=== PATIENT | male | born 1970 | race Caucasian/White ===

== ENCOUNTER → 2017-06-27 | Outpatient (CLI) | payer OTHER ==
--- NOTE | 2017-06-27 09:45 | MR ---
EXAMINATION TYPE: MR cervical spine wo con DATE OF EXAM: 06/27/2017 COMPARISON: NONE HISTORY: Cervicalgia, pain x 4 mths TECHNIQUE: Multiplanar, multisequence images of the cervical spine were acquired. C2-C3: No evidence for degenerative disc disease. No disc bulge/herniation or protrusion. No Canal stenosis. Foramina are patent bilaterally. Hypertrophic change facets noted. C3-C4: No evidence for degenerative disc disease. No disc bulge/herniation or protrusion. No Canal stenosis. Foramina are patent bilaterally. There is mild uncovertebral joint hypertrophy bilaterally . Mild bilateral foraminal encroachment. C4-C5: Hypertrophic change of the facet joints with mild uncovertebral joint hypertrophy and mild cir cumferential disc bulging. No Canal stenosis. Mild bilateral foraminal encroachment. C5-C6: Moderate degenerative disc disease with a broad-based central disc herniation resulting in ant erior contact of the spinal cord. Uncovertebral joint hypertrophy is more pronounced at this level wi th moderate left foraminal encroachment and moderate to severe right-sided foraminal encroachment. Th ere is mild to moderate central stenosis secondary to the disc herniation. C6-C7: No evidence for degenerative disc disease. No disc bulge/herniation or protrusion. No Canal stenosis. Foramina are patent bilaterally. C7-T1: No evidence for degenerative disc disease. No disc bulge/herniation or protrusion. No Canal stenosis. Foramina are patent bilaterally. Cervical segments are intact. There is normal alignment. Cervical spinal cord is of normal signal. Craniovertebral junction relationships are within normal limits. IMPRESSION: 1. At C5-C6 there is degenerative disc disease with broad-based central disc herniation resulting in anterior contact of the spinal cord and canal stenosis. Hypertrophic changes of the uncovertebral pearl nts result in significant bilateral foraminal encroachment as discussed above.
== END | disposition home or self-care (01) ==
LOC: RADMRIMAIN 08:56
PROVIDERS: ATTEND Physical Medicine & Rehabilitation
DX: M50.122 Cervical disc disorder at C5-C6 level with radiculopathy (principal); M48.02 Spinal stenosis, cervical region; M47.22 Other spondylosis with radiculopathy, cervical region; M53.82 Other specified dorsopathies, cervical region
CPT/HCPCS: 72141

== ENCOUNTER 2017-09-23 12:55 | Emergency (ER) | payer OTHER ==
[2017-09-23 13:05] VITALS: BP 167/92; PULSE 76; RESP 18; TEMP 99
--- NOTE | 2017-09-23 14:25 | ED ---
Skin/Abscess/FB HPI - General Chief complaint: Skin/Abscess/Foreign Body Stated complaint: fish hook in finger Time Seen by Provider: 09/23/17 14:01 Source: patient, RN notes reviewed Mode of arrival: ambulatory Limitations: no limitations - History of Present Illness Initial comments: This is a 47-year-old male who presents to the emergency department with chief complaint of fish hook in his finger. Patient states he was fishing at 12:30 PM. He states that the hook flew back and caught him in his right index finger. Denies any other injuries or trauma. Does state that he tried to remove it on his own but was unable to. States he is not up-to-date with his tetanus vaccination. Denies fever, chills, chest pain, shortness of breath, abdominal pain, nausea or vomiting, constipation or diarrhea, numbness or tingling, headache or vision changes. - Related Data Previous Rx's Medication Instructions Recorded Amoxicillin/Potassium Clav 1 tab PO Q12HR #14 tab 09/23/17 [Augmentin 875-125 Tablet] Allergies Allergy/AdvReac Type Severity Reaction Status Date / Time No Known Allergies Allergy Verified 09/23/17 13:05 Review of Systems ROS Statement: Those systems with pertinent positive or pertinent negative responses have been documented in the HPI. ROS Other: All systems not noted in ROS Statement are negative. Past Medical History Past Medical History: Hypertension History of Any Multi-Drug Resistant Organisms: None Reported Past Surgical History: No Surgical Hx Reported Past Psychological History: No Psychological Hx Reported Smoking Status: Never smoker Past Alcohol Use History: Rare Past Drug Use History: None Reported General Exam - General Exam Comments Initial Comments: General: Awake and alert, well-developed; in no apparent distress. HEENT: Head atraumatic, normocephalic. Pupils are equal, round and reactive to light. Extraocular movements intact. Oropharynx moist without erythema or exudate. Neck: Supple. Normal ROM. Cardiovascular: Regular rate and rhythm. No murmurs, rubs or gallops. Chest symmetrical. Respiratory: Lungs clear to auscultation bilaterally. No wheezes, rales or rhonchi. Normal respiratory effort with no use of accessory muscles. Musculoskeletal: Normal range of motion of the right index finger. There is a fishhook stuck in the pad of the right index finger. Sensation is intact. Radial pulses are 2+ equal and palpable bilaterally. Skin: [place], warm and dry without rashes or lesions. Neurological: Alert and oriented x3. CN II-XII grossly intact. Speech is fluent and answers are appropriate. No focal neuro deficits. Psychiatric: Normal mood and affect. No overt signs of depression or anxiety noted. Limitations: no limitations Course Vital Signs 09/23/17 13:02 Temperature 99.0 F Pulse Rate 76 Respiratory 18 Rate Blood Pressure 167/92 O2 Sat by Pulse 98 Oximetry Medical Decision Making - Medical Decision Making This is a 47-year-old male who presents to the emergency department with chief complaint of fishhook in his right index finger. Patient has normal range of motion and is neurovascularly intact. 1% lidocaine was used to numb around the fish hook. The hook was then advanced forward and the anatoliy was clipped. The hook was then advanced backwards and removed. Patient tolerated well without complication. Minimal bleeding. Wound was soaked in Betadine. Bacitracin and a dressing were applied. Patient made up-to-date with tetanus vaccination. He will be started on Augmentin. Vital signs are stable and he is in no acute distress. He will be discharged home at this time. All questions answered. Disposition Clinical Impression: Fish hook injury of index finger Disposition: HOME SELF-CARE Condition: Good Instructions: Soft Tissue Foreign Body (ED) Additional Instructions: Please follow up with primary care provider within 1-2 days. Return to emergency department if symptoms should worsen or any concerns arise. Prescriptions: Amoxicillin/Potassium Clav [Augmentin 875-125 Tablet] 1 tab PO Q12HR #14 tab Is patient prescribed a controlled substance at d/c from ED?: No Referrals: Kimberli Mendoza DO [Primary Care Provider] - 1-2 days Time of Disposition: 14:38
[2017-09-23] MEDS ORDERED: DIPH,PERTUS(ACELL)TETVAC-LF 0.5 ML VIAL IM ONE (14:32)
== END 2017-09-23 15:01 | disposition home or self-care (01) ==
LOC: EC 12:55
DX: S60.450A Superficial foreign body of right index finger, initial encounter (principal); Z23 Encounter for immunization; W22.8XXA Striking against or struck by other objects, initial encounter; Y93.89 Activity, other specified
CPT/HCPCS: 64450; 90471; 90715; 99283

== ENCOUNTER 2018-09-05 14:39 | Emergency (ER) | payer OTHER ==
[2018-09-05 15:01] VITALS: BP 164/94; PULSE 66; RESP 16; TEMP 98.3
--- NOTE | 2018-09-05 15:36 | XR ---
EXAMINATION TYPE: XR hand complete LT DATE OF EXAM: 09/05/2018 COMPARISON: NONE HISTORY: 48-year-old male with pain, laceration to the second digit TECHNIQUE: 3 views FINDINGS: Minimal degenerative spurring at the first CMC joint. No acute fracture, subluxation, or dislocation seen. No retained radiopaque foreign body identified. IMPRESSION: No acute osseous abnormality seen.
--- NOTE | 2018-09-05 15:41 | ED ---
Wound/Laceration HPI - General Chief Complaint: Wound/Laceration Stated Complaint: Finger lac Time Seen by Provider: 09/05/18 15:03 Source: patient Mode of arrival: ambulatory Limitations: no limitations - History of Present Illness Initial Comments: 48-year-old male with tetanus up-to-date present today for chief complaint of left index finger laceration. She states she is using a knife in his finger slipped cutting the knuckle of his left index finger on the dorsal surface. Patient denies numbness tingling loss sensation muscle weakness or inability range at the digit. He states he thought it might need a suture to presented for evaluation. Remaining review of systems negative denies any other areas of injury. Patient appears well upon arrival. - Related Data Previous Rx's Medication Instructions Recorded Amoxicillin/Potassium Clav 1 tab PO Q12HR #14 tab 09/23/17 [Augmentin 875-125 Tablet] Allergies Allergy/AdvReac Type Severity Reaction Status Date / Time No Known Allergies Allergy Verified 09/05/18 15:01 Review of Systems ROS Statement: Those systems with pertinent positive or pertinent negative responses have been documented in the HPI. ROS Other: All systems not noted in ROS Statement are negative. Past Medical History Past Medical History: Hypertension History of Any Multi-Drug Resistant Organisms: None Reported Past Surgical History: No Surgical Hx Reported Past Psychological History: No Psychological Hx Reported Smoking Status: Never smoker Past Alcohol Use History: Rare Past Drug Use History: None Reported General Exam - General Exam Comments Initial Comments: General: The patient is awake and alert, in no distress, and does not appear acutely ill. Eye: Pupils are equal, round and reactive to light, extra-ocular movements are intact. No nystagmus. There is normal conjunctiva bilaterally. No signs of icterus. Cardiovascular: There is a regular rate and rhythm. No murmur, rub or gallop is appreciated. Respiratory: Lungs are clear to auscultation, respirations are non-labored, breath sounds are equal. No wheezes, stridor, rales, or rhonchi. Musculoskeletal: Normal ROM, no tenderness. Strength 5/5. Sensation intact. Radial pulses equal bilaterally 2+. Capillary refill less than 2 seconds Neurological: A&O x 3. CN II-XII intact, There are no obvious motor or sensory deficits. Coordination appears grossly intact. Speech is normal. Skin: Skin is warm and dry and no rashes or lesions are noted. 1cm laceration appearing superifical over the PIP joint of the left index finger Psychiatric: Cooperative, appropriate mood & affect, normal judgment. Limitations: no limitations Course Vital Signs 09/05/18 14:58 Temperature 98.3 F Pulse Rate 66 Respiratory 16 Rate Blood Pressure 164/94 O2 Sat by Pulse 98 Oximetry Procedures - Laceration Laceration #1 Consent Obtained: verbal consent Indication: laceration Site: hand (index finger) Size (cm): 1 Description: linear Pre-repair: wound explored, irrigated extensively, deep structures intact Size of Sutures: 5-0 Number of Sutures: 1 Technique: simple, interrupted Patient Tolerated Procedure: well, no complications Medical Decision Making - Medical Decision Making 8-year-old male presenting for left index ear laceration. There is no evidence of underlying injury. X-ray negative for acute osseous injury or foreign body. Patient cut finger with knife. There is no limitation of range of motion at the MTP DIP or PIP joints. These joints have full strength. There is full sensation both proximal and distal to injury site. Patient has no decreased range of motion. Patient is mild pain at the site of laceration. Tetanus up-to-date. Edges were repaired using 1 simple interrupted suture using 5. 0 nylon suture. Patient tolerated procedure without lidocaine. Irrigation performed prior to closure. No contamination noted. Pt appears well. pt discharged appearing well. Discussed case with attending provider Dr. Alcocer Disposition Clinical Impression: Laceration of left index finger Disposition: HOME SELF-CARE Condition: Good Instructions (If sedation given, give patient instructions): Care For Your Stitches (ED), Finger Laceration (ED) Additional Instructions: Please use medication as discussed. Please follow-up with family doctor in the next 2 days. Please return to emergency room if the symptoms increase or worsen or for any other concerns. Is patient prescribed a controlled substance at d/c from ED?: No Referrals: Kimberli Mendoza DO [Primary Care Provider] - 1-2 days Time of Disposition: 15:40
== END 2018-09-05 15:53 | disposition home or self-care (01) ==
LOC: EC 14:39
DX: S61.211A Laceration without foreign body of left index finger without damage to nail, initial encounter (principal); W26.0XXA Contact with knife, initial encounter
CPT/HCPCS: 12001; 99283

== ENCOUNTER → 2018-11-17 | Outpatient (CLI) | payer OTHER ==
--- NOTE | 2018-11-17 20:26 | ECHOS ---
STRESS ECHOCARDIOGRAM INDICATIONS: Chest pain, abnormal EKG. MEDICATIONS: Glipizide, losartan. BASELINE HEART RATE: 68 BASELINE BLOOD PRESSURE: 156/97 MAXIMUM HEART RATE: 137 MAXIMUM BLOOD PRESSURE: 211/108 85% MPHR: 145 100% MPHR: 171 METS: 8.7 MAXIMUM STAGE REACHED: II TOTAL EXERCISE TIME: 7:19 CLINICAL INFORMATION: Baseline EKG revealed a normal sinus rhythm with leftward axis and minor nonspecific ST depression. There was poor R-wave progression over precordial leads. Patient walked on a standard [place] protocol for a total duration of 7 minutes 19 seconds, achieved a maximal heart rate of 137 beats per minute, which is less than 85% of predicted maximal. He developed some fatigue and shortness of breath. He also had a hypertensive response to exercise. Resting heart rate was 68 beats per minute and peak heart rate was 137 beats per minute. Resting blood pressure was 156/97. Peak blood pressure was 211/108. By EKG criteria, this is considered as an inconclusive stress test with hypertensive response. Patient did not achieve 85% of predicted maximal. However, he did not have any angina or arrhythmia. By EKG criteria, this is an inconclusive stress test with hypertensive response to exercise without subjective symptoms of angina. Baseline echo images revealed normal wall motion, wall thickening of all segments. At peak exercise there was good augmentation of left ventricular wall motion and wall thickening of all segments at the peak heart rate of 136 beats per minute, which is less than 85% of predicted maximal. This stress echocardiogram is negative for ischemia at the above-mentioned stress level. However, the maximal heart rate was less than 85% of predicted. FINAL IMPRESSION: 1. Limited exercise capacity. 2. Technically inconclusive stress test because of inadequate chronotropic response. However, patient did not have any angina and there were no EKG changes at a heart rate of 137 beats per minute. He had a hypertensive response to exercise. 3. Inconclusive stress echocardiogram without ischemia at a heart rate of 137 beats per minute. MMODL / IJN: [id number] /
== END | disposition home or self-care (01) ==
LOC: RADNMMAIN 08:34
PROVIDERS: ATTEND Family Medicine
DX: R94.39 Abnormal result of other cardiovascular function study (principal)
CPT/HCPCS: 93351

== ENCOUNTER → 2020-09-14 | Outpatient (CLI) | payer OTHER ==
[2020-09-14 11:15] LABS: Appearance,Urine Clear (Clear); Bilirubin,Urine Negative (Negative); Blood,Urine Negative (Negative); Color,Urine Yellow; Glucose,Urine (UA) Negative (Negative); Ketones,Urine Negative (Negative); Leukocyte Esterase,Urine Negative (Negative); Nitrite,Urine Negative (Negative); PH, Urine 5.5 (5.0-8.0); Protein,Urine Negative (Negative); Specific Gravity,Urine 1.017 (1.001-1.035); Urobilinogen,Urine <2.0 mg/dL (<2.0)
[2020-09-14 11:19] LABS: HCT 46.8 % (39.0-53.0); HGB 15.9 gm/dL (13.0-17.5); MCH 29.2 pg (25.0-35.0); MCV 85.8 fL (80.0-100.0); Mean Platelet Volume 6.8; Platelet Count 207 k/uL (150-450); RBC 5.45 m/uL (4.30-5.90); RDW 13.2 % (11.5-15.5); WBC 8.7 k/uL (3.8-10.6)
[2020-09-14 11:34] LABS: INR 0.9 (<1.2); Partial Thromboplastin Time 22.7 sec (22.0-30.0); Prothrombin Time 10.2 sec (9.0-12.0)
[2020-09-14 11:52] LABS: Albumin 4.8 g/dL (3.5-5.0); Calcium 9.6 mg/dL (8.4-10.2); Magnesium 1.9 mg/dL (1.6-2.3); Potassium 4.3 mmol/L (3.5-5.1); Total Bilirubin 0.7 mg/dL (0.2-1.3); Total Protein 7.4 g/dL (6.3-8.2)
--- NOTE | 2020-09-14 13:53 | XR ---
EXAMINATION TYPE: XR chest 2V DATE OF EXAM: 09/14/2020 COMPARISON: NONE HISTORY: Open heart surgery, slight cough TECHNIQUE: Frontal and lateral views of the chest are obtained. FINDINGS: Low lung volumes. Heart size is mildly enlarged. There is mild pulmonary interstitial prom inence which may be due to low lung volumes. Atypical infection or edema is not excluded. No pleural effusion or pneumothorax. IMPRESSION: 1. Mild pulmonary interstitial prominence may be due to low lung volumes. This may be due to mild silver ma or atypical infection. 2. Mild cardiomegaly.
[2020-09-14 18:56] LABS: Hemoglobin A1C 6.2 % (4.0-6.0)
[2020-09-14 19:10] LABS: Chol/HDL Ratio 3.74; LDL Cholesterol,Calculated 56.2 mg/dL (0.0-131.0); VLDL Calculation 58.8 mg/dL (5.00-40.00)
[2020-09-14 22:16] LABS: Hepatitis A Antibody IgM Non-Reactive (Non-Reactive); Hepatitis B Core IgM Non-Reactive (Non-Reactive); Hepatitis B Surface Antigen Non-Reactive (Non-Reactive); Hepatitis C IgG Antibody Non-Reactive (Non-Reactive)
--- NOTE | 2020-09-15 17:05 | P.PN ---
Progress Note - Text Progress Note Date: 09/14/20 A 5 m walk test was completed with the patient, Time 1: 1.63 seconds , Time 2: 1.92 seconds, Time 3: 1.55 seconds. An STS risk score was calculated and discussed with the patient by Dr. Ku.
== END | disposition home or self-care (01) ==
LOC: LABPAT 09:25
PROVIDERS: ATTEND Surgery
DX: Z01.812 Encounter for preprocedural laboratory examination (principal); Z20.822 Contact with and (suspected) exposure to COVID-19; I45.4 Nonspecific intraventricular block; I44.0 Atrioventricular block, first degree; I51.7 Cardiomegaly; I25.10 Atherosclerotic heart disease of native coronary artery without angina pectoris; R94.31 Abnormal electrocardiogram [ECG] [EKG]
CPT/HCPCS: 80061; 80053; 80074; 84443; 83735; 85027; 85610; 85730; 81003; 87070; 87086; 83036; 71046; 93005; 36415; U0003; C9803; U0005

== ENCOUNTER 2020-09-20 05:37 | Inpatient (IN) | payer OTHER ==
[~2020-09-20 05:37] MED LIST: ALBUMIN HUMAN 25% 50 ML IV ONE; ALBUMIN HUMAN 5% 500 ML IVPB ONE; ASPIRIN 325 MG TAB PO ONE; ATORVASTATIN 10 MG TAB PO ONE; CALCIUM CHLORIDE 100 MG/ML 10 ML SYRINGE IV ONE; CHLORHEXIDINE GLUCONATE 15 ML CUP MUCOUS MEM ONE; CLEVIDIPINE BUTYRATE 25 MG in EMPTY BAG 1 BAG IV ONE; DILTIAZEM 125 MG in SODIUM CHLORIDE 0.9% 100 ML IV ONE; ELECTROLYTE-A SOLUTION 1,000 ML with POTASSIUM CHLORIDE 100 MEQ, MAGNESIUM SULFATE 16 M... IV SCH; ELECTROLYTE-A SOLUTION 1,000 ML with POTASSIUM CHLORIDE 40 MEQ, MAGNESIUM SULFATE 16 ME... IV SCH; HEPARIN SODIUM 1,000 UN/ML (10ML VL) IV ONE; HEPARIN SODIUM,PORCINE 5,000 UNIT in SODIUM CHLORIDE 0.9% 500 ML 500 ML IV ONE; INSULIN REGULAR 100 UNIT in SODIUM CHLORIDE 0.9% 100 ML IV ONE; LACTATED RINGERS 1,000 ML IV ONE; MAGNESIUM SULFATE MG 500 MG/ML IV ONE; MANNITOL 25% 12.5 GM/50 ML VIAL IV ONE; METOPROLOL TARTRATE 12.5 MG TAB PO ONE; NITROGLYCERIN SL TABS 0.4 MG TAB SUBLINGUAL ONE; NITROGLYCERIN-D5W PMX 25 MG/250 ML BTL IV ONE; NITROGLYCERIN-D5W PMX 50 MG in DEXTROSE/WATER 1 250ML.BAG IV ONE; NOREPINEPHRINE 4 MG in SODIUM CHLORIDE 0.9% 250 ML IV ONE; PAPAVERINE 360 MG in SODIUM CHLORIDE 0.9% 90 ML IV ONE; PHENYLEPHRINE 10 MG/ML VIAL IV ONE; PHENYLEPHRINE 40 MG in SODIUM CHLORIDE 0.9% 250 ML IV ONE; PROTAMINE SULFATE 10 MG/ML 25 ML VIAL IV ONE; PROTAMINE SULFATE 250 MG in EMPTY BAG 1 BAG IV ONE; SODIUM BICARB 8.4% 50 ML SYR (1 MEQ/ML) IV ONE; SODIUM CHLORIDE 0.9% 1,000 ML IV ONE; TRANEXAMIC ACID 2,000 MG in SODIUM CHLORIDE 0.9% 80 ML IV ONE; ceFAZolin 1,000 MG in SODIUM CHLORIDE 0.9% IRRIGATIO 1,000 ML IRRIGATION ONE; propofoL 1,000 MG/100 ML VIAL IV ONE
[2020-09-20 06:23] LABS: Glucose,Whole Blood 131 mg/dL (75-99)
[2020-09-20] MEDS ORDERED: SUCCINYLCHOLINE CHLORIDE 100 MG/5 ML SYR IV ONE (07:32)
[2020-09-20] MEDS ORDERED: VECURONIUM 10 MG VIAL IV ONE (07:32)
[2020-09-20] MEDS ORDERED: TRANEXAMIC ACID 1,000 MG/10 ML VIAL ONE (07:32)
[2020-09-20] MEDS ORDERED: INSULIN REGULAR 100 UNIT/ML VIAL (IV) ONE (07:32)
[2020-09-20] MEDS ORDERED: SODIUM CHLORIDE 0.9% IRRIG 1,000 ML BTL IRRIGATION ONE (07:32)
[2020-09-20] MEDS ORDERED: fentaNYL (PF) 50 MCG/ML 50 ML VIAL ONE (07:32)
[2020-09-20] MEDS ORDERED: MIDAZOLAM 2 MG/2 ML VIAL ONE (07:32)
[2020-09-20] MEDS ORDERED: PROPOFOL 10 MG/ML 20 ML VIAL IV ONE (07:32)
[2020-09-20] MEDS ORDERED: fentaNYL (PF) 50 MCG/ML 2 ML AMP ONE (07:32)
[2020-09-20] MEDS ORDERED: LIDOCAINE 2% SYG (PF) 100 MG/5 ML ONE (07:32)
[2020-09-20] MEDS ORDERED: SODIUM CHLORIDE 0.9% 250 ML BAG ONE (07:32)
[2020-09-20] MEDS ORDERED: MAGNESIUM SULFATE 4 MEQ/ML 10ML VIAL ONE (07:32)
[2020-09-20] MEDS ORDERED: HEPARIN SODIUM,PORCINE 10,000 UNIT/ML 1 ML VIAL ONE (07:32)
[2020-09-20] MEDS ORDERED: ELECTROLYTE-R (PH 7.4) 1,000 ML IV.SOLN IV ONE (07:32)
[2020-09-20] MEDS ORDERED: PHENYLEPHRINE-0.9% NACL SYG 1,000 MCG/10 ML SYRINGE ONE (07:32)
[2020-09-20] MEDS ORDERED: PROTAMINE SULFATE 10 MG/ML 25 ML VIAL IV ONE (07:32)
[2020-09-20 07:35] LABS: African American GFR (CKD) >90 (>60 ml/min/1.73 sqM); Anion Gap 7 mmol/L; Blood Urea Nitrogen 21 mg/dL (9-20); Calcium 8.7 mg/dL (8.4-10.2); Carbon Dioxide 27 mmol/L (22-30); Chloride 107 mmol/L (98-107); Glucose 131 mg/dL (74-99); Non-African American GFR(CKD) 85 (>60 ml/min/1.73 sqM); Potassium 4.1 mmol/L (3.5-5.1); Sodium 141 mmol/L (137-145)
[2020-09-20 08:48] LABS: ABG Base Excess 0.6 mmol/L; ABG Glucose Whole Blood 132 mg/dL (75-99); ABG HCO3 27 mmol/L (21-25); ABG Hematocrit 44 % (34.0-46.0); ABG Ionized Calcium 4.6 mg/dL (4.5-5.3); ABG Lactic Acid Whole Blood 1.1 mmol/L (0.5-1.6); ABG Oxygen Saturation 99.3 % (94-97); ABG PCO2 47 mmHg (35-45); ABG PH 7.36 (7.35-7.45); ABG PO2 143 mmHg (83-108); ABG Potassium Whole Blood 4.4 mmol/L (3.4-4.5); ABG Sodium Whole Blood 143 mmol/L (135-146); ABG TCO2 28 mmol/L (19-24)
[2020-09-20 10:13] LABS: ABG Base Excess -0.1 mmol/L; ABG Glucose Whole Blood 161 mg/dL (75-99); ABG HCO3 25 mmol/L (21-25); ABG Hematocrit 42 % (34.0-46.0); ABG Ionized Calcium 4.6 mg/dL (4.5-5.3); ABG Lactic Acid Whole Blood 1.1 mmol/L (0.5-1.6); ABG PCO2 44 mmHg (35-45); ABG PH 7.37 (7.35-7.45); ABG PO2 393 mmHg (83-108); ABG Potassium Whole Blood 4.4 mmol/L (3.4-4.5); ABG Sodium Whole Blood 142 mmol/L (135-146); ABG TCO2 27 mmol/L (19-24)
[2020-09-20 11:12] LABS: ABG Base Excess -0.6 mmol/L; ABG Glucose Whole Blood 142 mg/dL (75-99); ABG HCO3 25 mmol/L (21-25); ABG Hematocrit 41 % (34.0-46.0); ABG Ionized Calcium 4.5 mg/dL (4.5-5.3); ABG Lactic Acid Whole Blood 1.4 mmol/L (0.5-1.6); ABG PCO2 43 mmHg (35-45); ABG PH 7.37 (7.35-7.45); ABG PO2 229 mmHg (83-108); ABG Potassium Whole Blood 4.1 mmol/L (3.4-4.5); ABG Sodium Whole Blood 142 mmol/L (135-146); ABG TCO2 26 mmol/L (19-24)
[2020-09-20 12:12] LABS: ABG Base Excess -1.1 mmol/L; ABG Glucose Whole Blood 112 mg/dL (75-99); ABG HCO3 25 mmol/L (21-25); ABG Hematocrit 29 % (34.0-46.0); ABG Lactic Acid Whole Blood 1.7 mmol/L (0.5-1.6); ABG PCO2 47 mmHg (35-45); ABG PH 7.33 (7.35-7.45); ABG PO2 366 mmHg (83-108); ABG Potassium Whole Blood 4.6 mmol/L (3.4-4.5); ABG Sodium Whole Blood 139 mmol/L (135-146); ABG TCO2 26 mmol/L (19-24)
[2020-09-20 12:56] LABS: ABG Base Excess -0.5 mmol/L; ABG Glucose Whole Blood 131 mg/dL (75-99); ABG HCO3 25 mmol/L (21-25); ABG Hematocrit 28 % (34.0-46.0); ABG PCO2 43 mmHg (35-45); ABG PH 7.37 (7.35-7.45); ABG PO2 314 mmHg (83-108); ABG Potassium Whole Blood 4.6 mmol/L (3.4-4.5); ABG Sodium Whole Blood 141 mmol/L (135-146); ABG TCO2 26 mmol/L (19-24)
[2020-09-20 13:27] LABS: ABG Glucose Whole Blood 169 mg/dL (75-99); ABG HCO3 24 mmol/L (21-25); ABG Hematocrit 27 % (34.0-46.0); ABG Ionized Calcium 3.9 mg/dL (4.5-5.3); ABG PCO2 42 mmHg (35-45); ABG PH 7.36 (7.35-7.45); ABG PO2 321 mmHg (83-108); ABG Potassium Whole Blood 4.4 mmol/L (3.4-4.5); ABG Sodium Whole Blood 141 mmol/L (135-146); ABG TCO2 25 mmol/L (19-24)
[2020-09-20 13:44] LABS: ABG Lactic Acid Whole Blood 2.2 mmol/L (0.5-1.6)
[2020-09-20 14:06] LABS: ABG Base Excess -3.1 mmol/L; ABG Glucose Whole Blood 154 mg/dL (75-99); ABG HCO3 23 mmol/L (21-25); ABG Hematocrit 27 % (34.0-46.0); ABG PCO2 43 mmHg (35-45); ABG PH 7.33 (7.35-7.45); ABG PO2 384 mmHg (83-108); ABG Potassium Whole Blood 4.3 mmol/L (3.4-4.5); ABG Sodium Whole Blood 141 mmol/L (135-146); ABG TCO2 24 mmol/L (19-24)
[2020-09-20 14:59] LABS: ABG Base Excess -0.4 mmol/L; ABG Glucose Whole Blood 138 mg/dL (75-99); ABG HCO3 25 mmol/L (21-25); ABG Hematocrit 27 % (34.0-46.0); ABG Oxygen Saturation 98.3 % (94-97); ABG PCO2 46 mmHg (35-45); ABG PH 7.35 (7.35-7.45); ABG PO2 95 mmHg (83-108); ABG Potassium Whole Blood 3.9 mmol/L (3.4-4.5); ABG Sodium Whole Blood 147 mmol/L (135-146); ABG TCO2 27 mmol/L (19-24)
[2020-09-20 15:19] LABS: ABG Lactic Acid Whole Blood 2.2 mmol/L (0.5-1.6)
[2020-09-20 15:20] LABS: ABG Lactic Acid Whole Blood 2.3 mmol/L (0.5-1.6)
[2020-09-20] MEDS ORDERED: DILTIAZEM 125 MG in SODIUM CHLORIDE 0.9% 100 ML IV SCH (16:00)
[2020-09-20] MEDS ORDERED: AMIODARONE 450 MG in DEXTROSE 5% IN WATER 250 ML IV PRN ×2 (16:10)
[2020-09-20] MEDS ORDERED: DEXMEDETOMIDINE/0.9% NACL(PMX) 400 MCG in EMPTY BAG 1 BAG IV SCH (16:10)
[2020-09-20] MEDS ORDERED: Magnesium Replacement Protocol 1 EACH MISC MISCELLANE PRN (16:10)
[2020-09-20] MEDS ORDERED: METOCLOPRAMIDE 5 MG/ML 2 ML VIAL IVP PRN (16:10)
[2020-09-20] MEDS ORDERED: Potassium Replacement Protocol 1 EACH MISC MISCELLANE PRN (16:10)
[2020-09-20] MEDS ORDERED: CALCIUM GLUCONATE 2 GM in SODIUM CHLORIDE 0.9% 100 ML IVPB PRN (16:10)
[2020-09-20] MEDS ORDERED: IPRATROPIUM-ALBUTEROL 3 ML NEB INHALATION PRN (16:10)
[2020-09-20] MEDS ORDERED: CLEVIDIPINE BUTYRATE 25 MG in EMPTY BAG 1 BAG IV SCH (16:10)
[2020-09-20] MEDS ORDERED: Phosphorus Replacement Protoco 1 EACH MISC MISCELLANE PRN (16:10)
[2020-09-20] MEDS ORDERED: NITROGLYCERIN-D5W PMX 50 MG in DEXTROSE/WATER 1 250ML.BAG IV SCH (16:10)
[2020-09-20] MEDS ORDERED: BENZOCAINE/MENTHOL LOZENG 1 EACH LOZENGE MUCOUS MEM PRN (16:10)
[2020-09-20] MEDS ORDERED: hydrALAZINE HCL 20 MG/ML 1 ML VIAL IVP PRN (16:10)
[2020-09-20] MEDS ORDERED: AMIODARONE 360 MG in DEXTROSE 5% IN WATER 200 ML IV PRN ×2 (16:10)
[2020-09-20] MEDS ORDERED: DEXTROSE 5% IN WATER 100 ML with AMIODARONE 150 MG IV PRN (16:10)
[2020-09-20] MEDS: IPRATROPIUM-ALBUTEROL 3 ML NEB INHALATION SCH ×2 (16:39→20:04)
[2020-09-20 16:49] LABS: Glucose,Whole Blood 140 mg/dL (75-99)
[2020-09-20 16:53] LABS: Basophils % (A) 0 %; Eosinophils % (A) 0 %; HCT 30.7 % (39.0-53.0); Lymphocytes # (A) 1.3 k/uL (1.0-4.8); Lymphocytes % (A) 8 %; MCH 30.5 pg (25.0-35.0); MCHC 36.1 g/dL (31.0-37.0); MCV 84.4 fL (80.0-100.0); Monocytes # (A) 1.2 k/uL (0-1.0); Monocytes % (A) 7 %; Neutrophils # (A) 14.7 k/uL (1.3-7.7); Neutrophils % (A) 84 %; Platelet Count 198 k/uL (150-450); RBC 3.63 m/uL (4.30-5.90); RDW 12.7 % (11.5-15.5); WBC 17.6 k/uL (3.8-10.6)
[2020-09-20 16:56] LABS: Allen Test Performed? Yes
[2020-09-20 16:57] LABS: ABG Base Excess 0.3 mmol/L; ABG HCO3 25 mmol/L (21-25); ABG Oxygen Saturation 99.9 % (94-97); ABG PCO2 42 mmHg (35-45); ABG PH 7.39 (7.35-7.45); ABG PO2 384 mmHg (83-108); ABG TCO2 27 mmol/L (19-24)
[2020-09-20 17:00] LABS: Ionized Calcium 4.6 mg/dL (4.5-5.3)
[2020-09-20 17:05] LABS: HGB 11.1 gm/dL (13.0-17.5)
--- NOTE | 2020-09-20 17:05 | XR ---
EXAMINATION TYPE: XR chest 1V portable DATE OF EXAM: 09/20/2020 COMPARISON: 09/14/2020 HISTORY: Cardiac surgery TECHNIQUE: Single view FINDINGS: There is nasogastric tube in the stomach. Endotracheal tube is 4.5 cm from the larry. Ther e is right jugular catheter with tip in the main pulmonary artery. There is no heart failure. Heart i s enlarged. There is a drain over the left heart. IMPRESSION: Mild atelectasis left lower lobe unchanged. No pneumothorax. No heart failure.
[2020-09-20 17:09] LABS: ALT 22 U/L (4-49); AST 47 U/L (17-59); African American GFR (CKD) >90 (>60 ml/min/1.73 sqM); Albumin 2.8 g/dL (3.5-5.0); Alkaline Phosphatase 64 U/L (38-126); Anion Gap 3 mmol/L; Blood Urea Nitrogen 17 mg/dL (9-20); Calcium 7.5 mg/dL (8.4-10.2); Carbon Dioxide 26 mmol/L (22-30); Chloride 111 mmol/L (98-107); Glucose 133 mg/dL (74-99); Magnesium 2.6 mg/dL (1.6-2.3); Non-African American GFR(CKD) >90 (>60 ml/min/1.73 sqM); Potassium 4.4 mmol/L (3.5-5.1); Sodium 140 mmol/L (137-145); Total Bilirubin 1.4 mg/dL (0.2-1.3); Total Protein 4.5 g/dL (6.3-8.2)
[2020-09-20 17:14] LABS: Glucose,Whole Blood 121 mg/dL (75-99)
[2020-09-20 17:19] LABS: INR 1.1 (<1.2); Partial Thromboplastin Time 22.5 sec (22.0-30.0); Prothrombin Time 11.5 sec (9.0-12.0)
[2020-09-20] MEDS: INSULIN REGULAR 100 UNIT in SODIUM CHLORIDE 0.9% 100 ML IV SCH (17:19)
--- NOTE | 2020-09-20 17:47 | P.CNPUL ---
History of Present Illness Consult date: 09/20/20 Reason for consult: chest pain Chief complaint: Coronary artery disease, status post bypass grafting History of present illness: 50-year-old white male patient with past medical history of hypertension, hyperlipidemia, borderline diabetes mellitus, with preop hemoglobin A1c of 6.0, patient has a brief and remote history of smoking, only smoked a year or 2. Patient had a recent history of COVID 19 infection in June,. Patient had been having complaints of chest pain, for which he underwent cardiac evaluation and was found to have multivessel coronary artery disease including left main coronary artery, moderate disease involving the left circumflex and the LAD. On 09/20/2020 patient underwent four-vessel coronary artery bypass grafting with BASHIR to the LAD, SVG to the OM, SVG to the PLV, and radial graft to the ramus. Patient is seen in the intensive care unit following his surgery, he is intubated, and sedated, currently on assist control mode of ventilation with a rate of 14, tidal volume of 550, FiO2 of 100% and PEEP of 8. His postoperative blood gas showed pO2 of 384, pCO2 of 42, and pH of 7.39, and this was done on FiO2 100% and FiO2 had since been cut back to 40%, he is currently on 0.9 normal saline at a rate of 50 ML per hour, nitroglycerin is at 5 mics per kilo per minute, and improving and is at 25 mics per kilo per minute. Patient has 2 mediastinal and one left pleural chest tube in place with small amount of sanguinous output, he is in sinus mechanism, a bradycardic with a rate of 53 bpm, he has epicardial wires connected to external temporary pacemaker which is set to VVI mode with a backup rate of 50. Hemodynamically he is stable. His PA pressures 36/21, CVP is 15, cardiac output is 4.7, cardiac index is 2.1. His postoperative blood work has been reviewed showing white blood cell count of 17.6, hemoglobin of 11.1, INR is 1.1, electrolytes and renal profile were unremarkable, LFTs were within normal limits. Review of Systems All systems: negative Constitutional: Denies chills, Denies fever Eyes: denies blurred vision, denies pain Ears, nose, mouth and throat: Denies headache, Denies sore throat Cardiovascular: Denies chest pain, Denies shortness of breath Respiratory: Reports dyspnea, Denies cough Gastrointestinal: Denies abdominal pain, Denies diarrhea, Denies nausea, Denies vomiting Musculoskeletal: Denies myalgias Integumentary: Denies pruritus, Denies rash Neurological: Denies numbness, Denies weakness Psychiatric: Denies anxiety, Denies depression Endocrine: Denies fatigue, Denies weight change Past Medical History Past Medical History: Chest Pain / Angina, Hyperlipidemia, Hypertension, Musculoskeletal Disorder Additional Past Medical History / Comment(s): no current chest pain, cervical problems c-5 thru c-7, had covid beginning of July-resolved History of Any Multi-Drug Resistant Organisms: None Reported Past Surgical History: Heart Catheterization Additional Past Anesthesia/Blood Transfusion Reaction / Comment(s): no family problems w/anesthesia, pt. has never had anesthesia Smoking Status: Former smoker - Past Family History Father Family Medical History: Cancer Medications and Allergies Home Medications Medication Instructions Recorded Confirmed Type Aspirin 81 mg PO DAILY 09/14/20 09/14/20 History Atorvastatin [Lipitor] 80 mg PO HS 09/14/20 09/14/20 History Isosorbide Mononitrate [Isosorbide 60 mg PO DAILY 09/14/20 09/14/20 History Mononitrate ER] Losartan Potassium [Cozaar] 100 mg PO DAILY 09/14/20 09/14/20 History Metoprolol Tartrate [Lopressor] 25 mg PO BID 09/14/20 09/14/20 History Nitroglycerin Sl Tabs [Nitrostat] 0.4 mg SUBLINGUAL Q5M PRN 09/14/20 09/14/20 History amLODIPine BESYLATE 10 mg PO DAILY 09/14/20 09/14/20 History Allergies Allergy/AdvReac Type Severity Reaction Status Date / Time lisinopril AdvReac Cough Verified 09/20/20 06:08 Physical Exam Vitals: Vital Signs Temp Pulse Pulse Pulse Resp BP BP 09/20/20 17:00 97.0 F L 53 L 15 09/20/20 16:52 54 L 09/20/20 16:45 61 13 09/20/20 16:41 54 L 09/20/20 16:30 96.8 F L 54 L 14 09/20/20 06:10 97.6 F 67 65 16 145/84 135/89 Pulse Ox 09/20/20 17:00 100 09/20/20 16:52 09/20/20 16:45 09/20/20 16:41 09/20/20 16:30 09/20/20 06:10 96 Intake and Output 09/20/20 09/20/20 09/20/20 06:59 14:59 22:59 Intake Total 53 Output Total 2400 Balance 53 -2400 Intake: IV 53 Output: Urine 900 Estimated Blood Loss 1500 Other: Weight 103 kg ABP, PAP, CO, CI - Last 8 Hours Arterial Blood Pressure 108/62 Arterial Blood Pressure 125/78 Arterial Blood Pressure 106/69 Arterial Blood Pressure 105/67 Pulmonary Artery Pressure 34/19 Pulmonary Artery Pressure 40/25 Cardiac Output 4.7 Cardiac Index 2.1 GENERAL EXAM: Sedated, intubated, 50-year-old white male, on assist-control mode of ventilation with a FiO2 of 40%, and PEEP of 8, comfortable in no apparent distress. HEAD: Normocephalic/atraumatic. EYES: Normal reaction of pupils, equal size. Conjunctiva pink, sclera white. NOSE: Clear with pink turbinates. THROAT: No erythema or exudates. NECK: No masses, no JVD, no thyroid enlargement, no adenopathy. CHEST: No chest wall deformity. Symmetrical expansion. Midsternal incision is clean dry and intact, 2 mediastinal and left pleural chest tube in place connected to Pleur-evac's, with small amount of sanguinous output, no air leak, epicardial wires connected to external pacemaker box with the VVI mode, with a backup rate of 50 LUNGS: Equal air entry with no crackles, wheeze, rhonchi or dullness. CVS: Regular rate and rhythm, normal S1 and S2, no gallops, no murmurs, no rubs ABDOMEN: Soft, nontender. No hepatosplenomegaly, normal bowel sounds, no guarding or rigidity. EXTREMITIES: No clubbing, no edema, no cyanosis, 2+ pulses and upper and lower extremities. Left radial artery harvest site is covered with a surgical dressing MUSCULOSKELETAL: Muscle strength and tone normal. SPINE: No scoliosis or deformity SKIN: No rashes CENTRAL NERVOUS SYSTEM: Sedated, intubated No focal deficits, tone is normal in all 4 extremities. Results - Laboratory Findings CBC and BMP: 09/20/20 16:40 09/20/20 16:40 ABG ABG pH 7.39 (7.35-7.45) 09/20/20 16:54 ABG pCO2 42 mmHg (35-45) 09/20/20 16:54 ABG pO2 384 mmHg (83-108) H 09/20/20 16:54 ABG O2 Saturation 99.9 % (94-97) H 09/20/20 16:54 PT/INR, D-dimer PT 11.5 sec (9.0-12.0) 09/20/20 16:40 INR 1.1 (<1.2) 09/20/20 16:40 Abnormal lab findings: Abnormal Labs 09/14/20 09/20/20 09/20/20 10:12 06:19 06:45 WBC RBC Hgb Hct Neutrophils # Monocytes # ABG pH ABG pCO2 ABG pO2 ABG HCO3 ABG Total CO2 ABG O2 Saturation ABG Hematocrit ABG Sodium ABG Potassium ABG Ionized Calcium ABG Glucose ABG Lactic Acid Hemoglobin Chloride BUN 21 H Glucose 131 H POC Glucose (mg/dL) 131 H Calcium Magnesium Total Bilirubin Total Protein Albumin Arterial Blood Potassium Arterial Blood Glucose Crossmatch See Detail 09/20/20 09/20/20 09/20/20 08:50 10:15 11:14 WBC RBC Hgb Hct Neutrophils # Monocytes # ABG pH ABG pCO2 47 H ABG pO2 143 H 393 H 229 H ABG HCO3 27 H ABG Total CO2 28 H 27 H 26 H ABG O2 Saturation 99.3 H 100.0 H 100.0 H ABG Hematocrit ABG Sodium ABG Potassium ABG Ionized Calcium ABG Glucose 132 H 161 H 142 H ABG Lactic Acid Hemoglobin Chloride BUN Glucose POC Glucose (mg/dL) Calcium Magnesium Total Bilirubin Total Protein Albumin Arterial Blood Potassium Arterial Blood Glucose 132 H 161 H 142 H Crossmatch 09/20/20 09/20/20 09/20/20 12:14 12:58 13:29 WBC RBC Hgb Hct Neutrophils # Monocytes # ABG pH 7.33 L ABG pCO2 47 H ABG pO2 366 H 314 H 321 H ABG HCO3 ABG Total CO2 26 H 26 H 25 H ABG O2 Saturation 100.0 H 100.0 H 100.0 H ABG Hematocrit 29 L 28 L 27 L ABG Sodium ABG Potassium 4.6 H 4.6 H ABG Ionized Calcium 4.0 L 4.0 L 3.9 L ABG Glucose 112 H 131 H 169 H ABG Lactic Acid 1.7 H 2.2 H* 2.0 H Hemoglobin 9.3 L 9.2 L 8.9 L Chloride BUN Glucose POC Glucose (mg/dL) Calcium Magnesium Total Bilirubin Total Protein Albumin Arterial Blood Potassium 4.6 H 4.6 H Arterial Blood Glucose 112 H 131 H 169 H Crossmatch 09/20/20 09/20/20 09/20/20 14:08 15:01 16:40 WBC 17.6 H RBC 3.63 L Hgb 11.1 L D Hct 30.7 L Neutrophils # 14.7 H Monocytes # 1.2 H ABG pH 7.33 L ABG pCO2 46 H ABG pO2 384 H ABG HCO3 ABG Total CO2 27 H ABG O2 Saturation 100.0 H 98.3 H ABG Hematocrit 27 L 27 L ABG Sodium 147 H ABG Potassium ABG Ionized Calcium 4.0 L 4.0 L ABG Glucose 154 H 138 H ABG Lactic Acid 2.2 H* 2.3 H* Hemoglobin 8.8 L 8.9 L Chloride BUN Glucose POC Glucose (mg/dL) Calcium Magnesium Total Bilirubin Total Protein Albumin Arterial Blood Potassium Arterial Blood Glucose 154 H 138 H Crossmatch 09/20/20 09/20/20 09/20/20 16:40 16:40 16:54 WBC RBC Hgb Hct Neutrophils # Monocytes # ABG pH ABG pCO2 ABG pO2 384 H ABG HCO3 ABG Total CO2 27 H ABG O2 Saturation 99.9 H ABG Hematocrit ABG Sodium ABG Potassium ABG Ionized Calcium ABG Glucose ABG Lactic Acid Hemoglobin Chloride 111 H BUN Glucose 133 H POC Glucose (mg/dL) 140 H Calcium 7.5 L Magnesium 2.6 H Total Bilirubin 1.4 H Total Protein 4.5 L Albumin 2.8 L Arterial Blood Potassium Arterial Blood Glucose Crossmatch 09/20/20 17:13 WBC RBC Hgb Hct Neutrophils # Monocytes # ABG pH ABG pCO2 ABG pO2 ABG HCO3 ABG Total CO2 ABG O2 Saturation ABG Hematocrit ABG Sodium ABG Potassium ABG Ionized Calcium ABG Glucose ABG Lactic Acid Hemoglobin Chloride BUN Glucose POC Glucose (mg/dL) 121 H Calcium Magnesium Total Bilirubin Total Protein Albumin Arterial Blood Potassium Arterial Blood Glucose Crossmatch - Diagnostic Findings Chest x-ray: report reviewed, image reviewed Assessment and Plan Plan: Assessment: #1. Symptomatic multivessel coronary artery disease, status post four-vessel coronary artery bypass grafting with BASHIR to the LAD, radial artery graft to the ramus, SVG to OM, and SVG to PLV, with bilateral legs endoscopic vein harvest, exclusion of the left atrial appendage and intraoperative transesophageal echocardiogram, postop day #0 #2. Leukocytosis, possibly reactive #3. Routine postoperative ventilator management #4. Recent history of COVID-19 pneumonia in June 2020 #5. 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 Hypertension #7. Diabetes mellitus #8. Hyperlipidemia #9. Chronic neck pain Plan: Patient is doing well Hemodynamically stable Minimal output from the chest tubes Not requiring any vasopressor support Chest x-ray has been reviewed and ET tube OG tube are in the appropriate positions Proceed with waking patient up and spontaneous breathing trials We will extubate if tolerates as SBT Breathing treatments every 4 hours while on the ventilator and 4 times a day o nce extubated Encourage deep breathing and coughing GI and DVT prophylaxis per CT surgery Maintain pain control We'll continue to closely follow, follow-up chest x-ray and labs in the morning I performed a history & physical examination of the patient and discussed their management with my nurse practitioner, Kaitlynn Madden. I reviewed the nurse practitioner's note and agree with the documented findings and plan of care. Lung sounds are positive for diminished breath sounds. The findings and the impression was discussed with the patient. I attest to the documentation by the nurse practitioner. Time with Patient: Greater than 30
[2020-09-20] MEDS: ACETAMINOPHEN IV (For NPO) 1,000 MG in EMPTY BAG 1 BAG IVPB SCH ×2 (18:01→23:55)
[2020-09-20] MEDS: LACTATED RINGERS 1,000 ML IV SCH (18:02)
[2020-09-20] MEDS: NOREPINEPHRINE 4 MG in SODIUM CHLORIDE 0.9% 250 ML IV SCH ×2 (18:06→21:10)
[2020-09-20 18:13] LABS: Glucose,Whole Blood 137 mg/dL (75-99)
[2020-09-20] MEDS: KETOROLAC 15 MG/ML 1 ML VIAL IVP SCH ×2 (18:32→23:56)
[2020-09-20] MEDS: HEPARIN SODIUM,PORCINE/PF 5,000 UNIT/0.5 ML SYRINGE SQ SCH ×2 (18:32→23:56)
[2020-09-20 19:05] LABS: Glucose,Whole Blood 143 mg/dL (75-99)
[2020-09-20 19:52] LABS: Glucose,Whole Blood 167 mg/dL (75-99)
[2020-09-20 19:52] LABS: ABG Base Excess -1.4 mmol/L; ABG HCO3 24 mmol/L (21-25); ABG Oxygen Saturation 98.6 % (94-97); ABG PCO2 45 mmHg (35-45); ABG PH 7.34 (7.35-7.45); ABG PO2 122 mmHg (83-108); ABG TCO2 26 mmol/L (19-24); Allen Test Performed? Yes
[2020-09-20] MEDS: ONDANSETRON 4 MG/2 ML VIAL IVP PRN (20:26)
[2020-09-20] MEDS: ALBUMIN HUMAN 5% 250 ML in EMPTY BAG 1 BAG IVPB PRN ×2 (20:43→21:21)
[2020-09-20 20:55] LABS: Glucose,Whole Blood 174 mg/dL (75-99)
[2020-09-20 21:01] LABS: Basophils % (A) 0 %; Eosinophils % (A) 0 %; HCT 29.8 % (39.0-53.0); HGB 10.8 gm/dL (13.0-17.5); Lymphocytes # (A) 1.1 k/uL (1.0-4.8); Lymphocytes % (A) 6 %; MCH 30.8 pg (25.0-35.0); MCHC 36.3 g/dL (31.0-37.0); MCV 84.8 fL (80.0-100.0); Mean Platelet Volume 8.7; Monocytes # (A) 0.9 k/uL (0-1.0); Monocytes % (A) 5 %; Neutrophils # (A) 16.2 k/uL (1.3-7.7); Neutrophils % (A) 88 %; Platelet Count 203 k/uL (150-450); RBC 3.52 m/uL (4.30-5.90); RDW 12.9 % (11.5-15.5); WBC 18.4 k/uL (3.8-10.6)
[2020-09-20 21:34] LABS: ABG HCO3 22 mmol/L (21-25); ABG Oxygen Saturation 98.4 % (94-97); ABG PCO2 34 mmHg (35-45); ABG PH 7.41 (7.35-7.45); ABG PO2 106 mmHg (83-108); ABG TCO2 23 mmol/L (19-24); Allen Test Performed? Yes
[2020-09-20 21:40] LABS: Partial Thromboplastin Time 28.1 sec (22.0-30.0)
[2020-09-20 21:57] LABS: Basophils % (A) 0 %; Eosinophils % (A) 0 %; HCT 26.2 % (39.0-53.0); HGB 9.4 gm/dL (13.0-17.5); Lymphocytes # (A) 1.2 k/uL (1.0-4.8); Lymphocytes % (A) 6 %; MCH 30.5 pg (25.0-35.0); MCHC 35.9 g/dL (31.0-37.0); MCV 84.8 fL (80.0-100.0); Mean Platelet Volume 8.9; Monocytes % (A) 5 %; Neutrophils # (A) 16.8 k/uL (1.3-7.7); Neutrophils % (A) 87 %; Platelet Count 206 k/uL (150-450); RBC 3.09 m/uL (4.30-5.90); RDW 13.1 % (11.5-15.5); WBC 19.3 k/uL (3.8-10.6)
--- NOTE | 2020-09-20 22:05 | P.CONS ---
History of Present Illness - Reason for Consult Consult date: 09/20/20 Medical management Requesting physician: Oliver Ku - Chief Complaint Coronary bypass - History of Present Illness Consultation: This is a 50-year-old patient of Dr. Kimberli au. Chronic stable medical conditions include hypertension, hyperlipidemia, cervical problems C5 through C7, and COVID 19 in July of this year. Patient on earlier today underwent coronary bypass. Was extubated 8 PM this evening. Somewhat lethargic. They would answer some simple questions. Patient has 2 mediastinal and 1 left-sided chest pain or 2. Has a Cao catheter. Does include norepinephrine, insulin, nitroglycerin. Telemetry shows sinus rhythm. Patient is having some bloody d rainage through the mediastinal tube. Patient having some pain at the chest tube insertion site. In some shortness of breath. Review of systems: GEN.: Tired EYES: None HEENT: None NECK: None RESPIRATORY: Some shortness of breath CARDIOVASCULAR: None GASTROINTESTINAL: None GENITOURINARY: Cao catheter MUSCULOSKELETAL: None LYMPHATICS: None HEMATOLOGICAL: None PSYCHIATRY: None NEUROLOGICAL: None Past medical history to include: Hypertension, hyperlipidemia, cervical spine problem from C5 through C7, COVID 19 Social history: Denies any smoking. Alcohol rarely. Physical examination: VITAL SIGNS: Afebrile, 80, 16, 123/65, 98% on 3 daughters GENERAL: BMI 31.7 laying in bed, tired half awake. EYES: Pupils equal. Conjunctiva normal. HEENT: External appearance of nose and ears normal, oral cavity grossly normal. NECK: JVD not raised; masses not palpable. HEART: First and second heart sounds are normal; no edema. LUNGS: Respiratory rate increased; decreased breath sounds. Patient has 2 mediastinal and but left pudendal chest tube ABDOMEN: Soft, mildly distended nontender, liver spleen not palpable, no masses palpable. PSYCH: [Lethargic, sleepy May also occasional question. NEUROLOGICAL: Cranial nerves grossly intact; no facial asymmetry, power and sensation grossly intact. LYMPHATICS: No lymph nodes palpable in the axilla and neck INVESTIGATIONS, reviewed in the clinical context: WBC 19.3 hemoglobin 9.4 platelets 206 potassium 4.4 crit 0.82 Preoperative labs from September 14: Hemoglobin 15.9 UA negative EKG tracing personally reviewed by me-on the pvc monitor: Sinus rhythm Chest x-ray film personally reviewed by me-some cardiomegaly Assessment and plan: -Status post coronary bypass. Patient extubated today. Patient has 2 mediastinal and left 1 pleural chest tube. -Coronary artery disease Patient be placed back on patient able to take oral medications -Essential hypertension Resume Cozaar when able to take his pills -Acute postprocedure blood loss anemia As expected from surgery -Leukocytosis, reactive from surgery. No clinical evidence of infection Follow clinically. Continue current medication treatment plan. She is having some significant blood 22 mediastinal 2. Nurse will be reaching out to the cardiothoracic surgeon. We will follow closely. Follow H&H Thank you Dr. Ku Past Medical History Past Medical History: Chest Pain / Angina, Hyperlipidemia, Hypertension, Musculoskeletal Disorder Additional Past Medical History / Comment(s): no current chest pain, cervical problems c-5 thru c-7, had covid beginning of July-resolved History of Any Multi-Drug Resistant Organisms: None Reported Past Surgical History: Heart Catheterization Additional Past Anesthesia/Blood Transfusion Reaction / Comm: no family problems w/anesthesia, pt. has never had anesthesia Smoking Status: Former smoker - Past Family History Father Family Medical History: Cancer Medications and Allergies Home Medications Medication Instructions Recorded Confirmed Type Aspirin 81 mg PO DAILY 09/14/20 09/14/20 History Atorvastatin [Lipitor] 80 mg PO HS 09/14/20 09/14/20 History Isosorbide Mononitrate [Isosorbide 60 mg PO DAILY 09/14/20 09/14/20 History Mononitrate ER] Losartan Potassium [Cozaar] 100 mg PO DAILY 09/14/20 09/14/20 History Metoprolol Tartrate [Lopressor] 25 mg PO BID 09/14/20 09/14/20 History Nitroglycerin Sl Tabs [Nitrostat] 0.4 mg SUBLINGUAL Q5M PRN 09/14/20 09/14/20 History amLODIPine BESYLATE 10 mg PO DAILY 09/14/20 09/14/20 History Allergies Allergy/AdvReac Type Severity Reaction Status Date / Time lisinopril AdvReac Cough Verified 09/20/20 06:08 Physical Exam Vitals: Vital Signs Temp Pulse Pulse Pulse Resp BP BP 09/20/20 20:18 66 09/20/20 20:08 77 09/20/20 20:00 80 16 05/26/21 19:30 71 15 09/20/20 19:00 98.8 F 59 L 14 09/20/20 18:30 59 L 15 09/20/20 18:15 57 L 14 09/20/20 18:00 55 L 14 101/66 09/20/20 17:45 56 L 14 09/20/20 17:30 55 L 14 09/20/20 17:15 54 L 14 09/20/20 17:00 97.0 F L 53 L 14 09/20/20 16:52 54 L 09/20/20 16:45 61 14 09/20/20 16:41 54 L 09/20/20 16:30 96.8 F L 54 L 14 09/20/20 06:10 97.6 F 67 65 16 145/84 BP Pulse Ox 09/20/20 20:18 09/20/20 20:08 09/20/20 20:00 98 09/20/20 19:30 99 09/20/20 19:00 100 09/20/20 18:30 100 09/20/20 18:15 100 09/20/20 18:00 100 09/20/20 17:45 100 09/20/20 17:30 100 09/20/20 17:15 100 09/20/20 17:00 100 09/20/20 16:52 09/20/20 16:45 09/20/20 16:41 09/20/20 16:30 09/20/20 06:10 135/89 96 Intake and Output 09/20/20 09/20/20 09/20/20 06:59 14:59 22:59 Intake Total 53 514.915 Output Total 3166 Balance 53 -2651.085 Intake: IV 53 167.5 0.9NS CO/CI 80 0.9NS flush 36 Lactated Ringers 1,000 ml 50 @ 50 mls/hr IV .Q20H NITZA Rx#:[id number] Nitroglycerin-D5w Pmx 50 1.5 mg In Dextrose/Water 1 250ml.bag @ 5 MCG/MIN 1.5 mls/hr IV .Q24H NITZA Rx#: [id number] Intake, IV Titration 347.415 Amount ACETAMINOPHEN IV (For NPO 100 ) 1,000 mg In Empty Bag 1 bag @ 400 mls/hr IVPB Q6HR NITZA Rx#:[id number] Insulin Regular 100 unit 2.828 In Sodium Chloride 0.9% 100 ml @ Per Protocol IV .Q0M NITZA Rx#:[id number] Lactated Ringers 1,000 ml 150 @ 50 mls/hr IV .Q20H NITZA Rx#:[id number] Norepinephrine 4 mg In 14.717 Sodium Chloride 0.9% 250 ml @ 0.05 MCG/KG/MIN 19. 622 mls/hr IV .[id number] NITZA Rx#:[id number] ceFAZolin 2 gm In Sodium 50 Chloride 0.9% 50 ml @ 100 mls/hr IVPB Q8H NITZA Rx#: [id number] propofoL 1,000 mg In 29.87 Empty Bag 1 bag @ Titrate IV .Q0M NITZA Rx#: [id number] Output: Chest Tube Drainage 331 Chest Tube Mediastinal 255 Left 76 Drainage 100 Left Thigh 20 Left Wrist 50 Right Thigh 30 Urine 1235 Estimated Blood Loss 1500 Other: Voiding Method Indwelling Catheter Weight 103 kg ABP, PAP, CO, CI - Last 8 Hours Arterial Blood Pressure 123/65 Arterial Blood Pressure 105/59 Arterial Blood Pressure 114/60 Arterial Blood Pressure 104/58 Arterial Blood Pressure 110/61 Arterial Blood Pressure 111/57 Arterial Blood Pressure 114/61 Arterial Blood Pressure 111/60 Arterial Blood Pressure 107/58 Arterial Blood Pressure 108/62 Arterial Blood Pressure 125/78 Arterial Blood Pressure 106/69 Arterial Blood Pressure 105/67 Pulmonary Artery Pressure 24/9 Pulmonary Artery Pressure 27/15 Pulmonary Artery Pressure 36/22 Pulmonary Artery Pressure 38/22 Pulmonary Artery Pressure 38/16 Pulmonary Artery Pressure 38/22 Pulmonary Artery Pressure 38/22 Pulmonary Artery Pressure 40/23 Pulmonary Artery Pressure 38/21 Pulmonary Artery Pressure 34/19 Pulmonary Artery Pressure 40/25 Cardiac Output 6 Cardiac Output 5.9 Cardiac Output 4.7 Cardiac Index 2.7 Cardiac Index 2.7 Cardiac Index 2.1 Results CBC & Chem 7: 09/20/20 17:57 09/20/20 16:40 Labs: Abnormal Lab Results - Last 24 Hours (Table) 09/14/20 09/20/20 09/20/20 Range/Units 10:12 06:19 06:45 WBC (3.8-10.6) k/uL RBC (4.30-5.90) m/uL Hgb (13.0-17.5) gm/dL Hct (39.0-53.0) % Neutrophils # (1.3-7.7) k/uL Monocytes # (0-1.0) k/uL ABG pH (7.35-7.45) ABG pCO2 (35-45) mmHg ABG pO2 (83-108) mmHg ABG HCO3 (21-25) mmol/L ABG Total CO2 (19-24) mmol/L ABG O2 Saturation (94-97) % ABG Hematocrit (34.0-46.0) % ABG Sodium (135-146) mmol/L ABG Potassium (3.4-4.5) mmol/L ABG Ionized Calcium (4.5-5.3) mg/dL ABG Glucose (75-99) mg/dL ABG Lactic Acid (0.5-1.6) mmol/L Hemoglobin (13.0-17.5) gm/dL Chloride (98-107) mmol/L BUN 21 H (9-20) mg/dL Glucose 131 H (74-99) mg/dL POC Glucose (mg/dL) 131 H (75-99) mg/dL Calcium (8.4-10.2) mg/dL Magnesium (1.6-2.3) mg/dL Total Bilirubin (0.2-1.3) mg/dL Total Protein (6.3-8.2) g/dL Albumin (3.5-5.0) g/dL Arterial Blood Potassium (3.4-4.5) mmol/L Arterial Blood Glucose (75-99) mg/dL Crossmatch See Detail 09/20/20 09/20/20 09/20/20 Range/Units 08:50 10:15 11:14 WBC (3.8-10.6) k/uL RBC (4.30-5.90) m/uL Hgb (13.0-17.5) gm/dL Hct (39.0-53.0) % Neutrophils # (1.3-7.7) k/uL Monocytes # (0-1.0) k/uL ABG pH (7.35-7.45) ABG pCO2 47 H (35-45) mmHg ABG pO2 143 H 393 H 229 H (83-108) mmHg ABG HCO3 27 H (21-25) mmol/L ABG Total CO2 28 H 27 H 26 H (19-24) mmol/L ABG O2 Saturation 99.3 H 100.0 H 100.0 H (94-97) % ABG Hematocrit (34.0-46.0) % ABG Sodium (135-146) mmol/L ABG Potassium (3.4-4.5) mmol/L ABG Ionized Calcium (4.5-5.3) mg/dL ABG Glucose 132 H 161 H 142 H (75-99) mg/dL ABG Lactic Acid (0.5-1.6) mmol/L Hemoglobin (13.0-17.5) gm/dL Chloride (98-107) mmol/L BUN (9-20) mg/dL Glucose (74-99) mg/dL POC Glucose (mg/dL) (75-99) mg/dL Calcium (8.4-10.2) mg/dL Magnesium (1.6-2.3) mg/dL Total Bilirubin (0.2-1.3) mg/dL Total Protein (6.3-8.2) g/dL Albumin (3.5-5.0) g/dL Arterial Blood Potassium (3.4-4.5) mmol/L Arterial Blood Glucose 132 H 161 H 142 H (75-99) mg/dL Crossmatch 09/20/20 09/20/20 09/20/20 Range/Units 12:14 12:58 13:29 WBC (3.8-10.6) k/uL RBC (4.30-5.90) m/uL Hgb (13.0-17.5) gm/dL Hct (39.0-53.0) % Neutrophils # (1.3-7.7) k/uL Monocytes # (0-1.0) k/uL ABG pH 7.33 L (7.35-7.45) ABG pCO2 47 H (35-45) mmHg ABG pO2 366 H 314 H 321 H (83-108) mmHg ABG HCO3 (21-25) mmol/L ABG Total CO2 26 H 26 H 25 H (19-24) mmol/L ABG O2 Saturation 100.0 H 100.0 H 100.0 H (94-97) % ABG Hematocrit 29 L 28 L 27 L (34.0-46.0) % ABG Sodium (135-146) mmol/L ABG Potassium 4.6 H 4.6 H (3.4-4.5) mmol/L ABG Ionized Calcium 4.0 L 4.0 L 3.9 L (4.5-5.3) mg/dL ABG Glucose 112 H 131 H 169 H (75-99) mg/dL ABG Lactic Acid 1.7 H 2.2 H* 2.0 H (0.5-1.6) mmol/L Hemoglobin 9.3 L 9.2 L 8.9 L (13.0-17.5) gm/dL Chloride (98-107) mmol/L BUN (9-20) mg/dL Glucose (74-99) mg/dL POC Glucose (mg/dL) (75-99) mg/dL Calcium (8.4-10.2) mg/dL Magnesium (1.6-2.3) mg/dL Total Bilirubin (0.2-1.3) mg/dL Total Protein (6.3-8.2) g/dL Albumin (3.5-5.0) g/dL Arterial Blood Potassium 4.6 H 4.6 H (3.4-4.5) mmol/L Arterial Blood Glucose 112 H 131 H 169 H (75-99) mg/dL Crossmatch 09/20/20 09/20/20 09/20/20 Range/Units 14:08 15:01 16:40 WBC 17.6 H (3.8-10.6) k/uL RBC 3.63 L (4.30-5.90) m/uL Hgb 11.1 L D (13.0-17.5) gm/dL Hct 30.7 L (39.0-53.0) % Neutrophils # 14.7 H (1.3-7.7) k/uL Monocytes # 1.2 H (0-1.0) k/uL ABG pH 7.33 L (7.35-7.45) ABG pCO2 46 H (35-45) mmHg ABG pO2 384 H (83-108) mmHg ABG HCO3 (21-25) mmol/L ABG Total CO2 27 H (19-24) mmol/L ABG O2 Saturation 100.0 H 98.3 H (94-97) % ABG Hematocrit 27 L 27 L (34.0-46.0) % ABG Sodium 147 H (135-146) mmol/L ABG Potassium (3.4-4.5) mmol/L ABG Ionized Calcium 4.0 L 4.0 L (4.5-5.3) mg/dL ABG Glucose 154 H 138 H (75-99) mg/dL ABG Lactic Acid 2.2 H* 2.3 H* (0.5-1.6) mmol/L Hemoglobin 8.8 L 8.9 L (13.0-17.5) gm/dL Chloride (98-107) mmol/L BUN (9-20) mg/dL Glucose (74-99) mg/dL POC Glucose (mg/dL) (75-99) mg/dL Calcium (8.4-10.2) mg/dL Magnesium (1.6-2.3) mg/dL Total Bilirubin (0.2-1.3) mg/dL Total Protein (6.3-8.2) g/dL Albumin (3.5-5.0) g/dL Arterial Blood Potassium (3.4-4.5) mmol/L Arterial Blood Glucose 154 H 138 H (75-99) mg/dL Crossmatch 09/20/20 09/20/20 09/20/20 Range/Units 16:40 16:40 16:54 WBC (3.8-10.6) k/uL RBC (4.30-5.90) m/uL Hgb (13.0-17.5) gm/dL Hct (39.0-53.0) % Neutrophils # (1.3-7.7) k/uL Monocytes # (0-1.0) k/uL ABG pH (7.35-7.45) ABG pCO2 (35-45) mmHg ABG pO2 384 H (83-108) mmHg ABG HCO3 (21-25) mmol/L ABG Total CO2 27 H (19-24) mmol/L ABG O2 Saturation 99.9 H (94-97) % ABG Hematocrit (34.0-46.0) % ABG Sodium (135-146) mmol/L ABG Potassium (3.4-4.5) mmol/L ABG Ionized Calcium (4.5-5.3) mg/dL ABG Glucose (75-99) mg/dL ABG Lactic Acid (0.5-1.6) mmol/L Hemoglobin (13.0-17.5) gm/dL Chloride 111 H (98-107) mmol/L BUN (9-20) mg/dL Glucose 133 H (74-99) mg/dL POC Glucose (mg/dL) 140 H (75-99) mg/dL Calcium 7.5 L (8.4-10.2) mg/dL Magnesium 2.6 H (1.6-2.3) mg/dL Total Bilirubin 1.4 H (0.2-1.3) mg/dL Total Protein 4.5 L (6.3-8.2) g/dL Albumin 2.8 L (3.5-5.0) g/dL Arterial Blood Potassium (3.4-4.5) mmol/L Arterial Blood Glucose (75-99) mg/dL Crossmatch 09/20/20 09/20/20 09/20/20 Range/Units 17:13 17:57 18:12 WBC 18.4 H (3.8-10.6) k/uL RBC 3.52 L (4.30-5.90) m/uL Hgb 10.8 L (13.0-17.5) gm/dL Hct 29.8 L (39.0-53.0) % Neutrophils # 16.2 H (1.3-7.7) k/uL Monocytes # (0-1.0) k/uL ABG pH (7.35-7.45) ABG pCO2 (35-45) mmHg ABG pO2 (83-108) mmHg ABG HCO3 (21-25) mmol/L ABG Total CO2 (19-24) mmol/L ABG O2 Saturation (94-97) % ABG Hematocrit (34.0-46.0) % ABG Sodium (135-146) mmol/L ABG Potassium (3.4-4.5) mmol/L ABG Ionized Calcium (4.5-5.3) mg/dL ABG Glucose (75-99) mg/dL ABG Lactic Acid (0.5-1.6) mmol/L Hemoglobin (13.0-17.5) gm/dL Chloride (98-107) mmol/L BUN (9-20) mg/dL Glucose (74-99) mg/dL POC Glucose (mg/dL) 121 H 137 H (75-99) mg/dL Calcium (8.4-10.2) mg/dL Magnesium (1.6-2.3) mg/dL Total Bilirubin (0.2-1.3) mg/dL Total Protein (6.3-8.2) g/dL Albumin (3.5-5.0) g/dL Arterial Blood Potassium (3.4-4.5) mmol/L Arterial Blood Glucose (75-99) mg/dL Crossmatch 09/20/20 09/20/20 09/20/20 Range/Units 19:03 19:49 19:50 WBC (3.8-10.6) k/uL RBC (4.30-5.90) m/uL Hgb (13.0-17.5) gm/dL Hct (39.0-53.0) % Neutrophils # (1.3-7.7) k/uL Monocytes # (0-1.0) k/uL ABG pH 7.34 L (7.35-7.45) ABG pCO2 (35-45) mmHg ABG pO2 122 H (83-108) mmHg ABG HCO3 (21-25) mmol/L ABG Total CO2 26 H (19-24) mmol/L ABG O2 Saturation 98.6 H (94-97) % ABG Hematocrit (34.0-46.0) % ABG Sodium (135-146) mmol/L ABG Potassium (3.4-4.5) mmol/L ABG Ionized Calcium (4.5-5.3) mg/dL ABG Glucose (75-99) mg/dL ABG Lactic Acid (0.5-1.6) mmol/L Hemoglobin (13.0-17.5) gm/dL Chloride (98-107) mmol/L BUN (9-20) mg/dL Glucose (74-99) mg/dL POC Glucose (mg/dL) 143 H 167 H (75-99) mg/dL Calcium (8.4-10.2) mg/dL Magnesium (1.6-2.3) mg/dL Total Bilirubin (0.2-1.3) mg/dL Total Protein (6.3-8.2) g/dL Albumin (3.5-5.0) g/dL Arterial Blood Potassium (3.4-4.5) mmol/L Arterial Blood Glucose (75-99) mg/dL Crossmatch 09/20/20 09/20/20 Range/Units 20:54 21:26 WBC (3.8-10.6) k/uL RBC (4.30-5.90) m/uL Hgb (13.0-17.5) gm/dL Hct (39.0-53.0) % Neutrophils # (1.3-7.7) k/uL Monocytes # (0-1.0) k/uL ABG pH (7.35-7.45) ABG pCO2 34 L (35-45) mmHg ABG pO2 (83-108) mmHg ABG HCO3 (21-25) mmol/L ABG Total CO2 (19-24) mmol/L ABG O2 Saturation 98.4 H (94-97) % ABG Hematocrit (34.0-46.0) % ABG Sodium (135-146) mmol/L ABG Potassium (3.4-4.5) mmol/L ABG Ionized Calcium (4.5-5.3) mg/dL ABG Glucose (75-99) mg/dL ABG Lactic Acid (0.5-1.6) mmol/L Hemoglobin (13.0-17.5) gm/dL Chloride (98-107) mmol/L BUN (9-20) mg/dL Glucose (74-99) mg/dL POC Glucose (mg/dL) 174 H (75-99) mg/dL Calcium (8.4-10.2) mg/dL Magnesium (1.6-2.3) mg/dL Total Bilirubin (0.2-1.3) mg/dL Total Protein (6.3-8.2) g/dL Albumin (3.5-5.0) g/dL Arterial Blood Potassium (3.4-4.5) mmol/L Arterial Blood Glucose (75-99) mg/dL Crossmatch
[2020-09-20] MEDS ORDERED: MILRINONE-D5W PMX 20 MG in DEXTROSE/WATER 1 100ML.BAG IV SCH (23:00)
[2020-09-20] MEDS ORDERED: SODIUM BICARB 8.4% 50 ML SYR (1 MEQ/ML) ONE (23:06)
[2020-09-20] MEDS ORDERED: EPINEPHrine 10 ML SYRINGE (0.1 MG/ML) ONE (23:06)
--- NOTE | 2020-09-20 23:18 | XR ---
EXAMINATION TYPE: XR chest 1V DATE OF EXAM: 09/20/2020 COMPARISON: Today HISTORY: Short of breath TECHNIQUE: Single view FINDINGS: Heart is enlarged. There is sternal wires. There is drainage over the left chest. There is right jugular catheter with tip in the main pulmonary artery. There is no heart failure. There is viet e linear density left lower lobe. IMPRESSION: There is some mild atelectasis and pleural reaction left lower lobe which is the same or slightly improved compared to exam 5 hours ago.
[2020-09-20 23:22] LABS: Glucose,Whole Blood 320 mg/dL (75-99)
[2020-09-21] LABS: Glucose,Whole Blood 306 mg/dL (75-99)
[2020-09-21] MEDS ORDERED: HEPARIN SODIUM,PORCINE 5,000 UNIT in SODIUM CHLORIDE 0.9% 500 ML 500 ML IV ONE (00:15)
[2020-09-21] MEDS ORDERED: CALCIUM CHLORIDE 100 MG/ML 10 ML SYRINGE IVP ONE (00:15)
[2020-09-21] MEDS ORDERED: PROTAMINE SULFATE 10 MG/ML 25 ML VIAL IV ONE (00:15)
[2020-09-21] MEDS ORDERED: HEPARIN SODIUM 1,000 UN/ML (10ML VL) IV ONE (00:30)
[2020-09-21] MEDS ORDERED: MAGNESIUM SULFATE SYG 4.06 MEQ/ML SYRINGE IV ONE (00:30)
[2020-09-21] MEDS ORDERED: ELECTROLYTE-A SOLUTION 1,000 ML with POTASSIUM CHLORIDE 40 MEQ, MAGNESIUM SULFATE 16 ME... IV SCH ×5 (00:30)
[2020-09-21] MEDS ORDERED: PHENYLEPHRINE 40 MG in SODIUM CHLORIDE 0.9% 250 ML IV ONE (00:30)
[2020-09-21] MEDS ORDERED: ELECTROLYTE-A SOLUTION 1,000 ML with POTASSIUM CHLORIDE 100 MEQ, MAGNESIUM SULFATE 16 M... IV SCH ×5 (00:30)
[2020-09-21] MEDS ORDERED: ALBUMIN HUMAN 25% 50 ML in EMPTY BAG 1 BAG IVPB ONE (00:30)
[2020-09-21] MEDS ORDERED: PROTAMINE SULFATE 250 MG in EMPTY BAG 1 BAG IV ONE (00:30)
[2020-09-21] MEDS ORDERED: ALBUMIN HUMAN 5% (25gm) 500 ML VIAL IVPB ONE (00:40)
[2020-09-21] MEDS ORDERED: fentaNYL (PF) 50 MCG/ML 2 ML AMP ONE (00:40)
[2020-09-21] MEDS ORDERED: SODIUM CHLORIDE 0.9% 100 ML BAG ONE (00:40)
[2020-09-21] MEDS ORDERED: PROPOFOL 10 MG/ML 20 ML VIAL IV ONE (00:40)
[2020-09-21] MEDS ORDERED: SODIUM BICARB 8.4% 50 ML SYR (1 MEQ/ML) ONE (00:40)
[2020-09-21] MEDS ORDERED: SODIUM CHLORIDE 0.9% IRRIG 1,000 ML BTL IRRIGATION ONE (00:40)
[2020-09-21] MEDS ORDERED: ceFAZolin 1,000 MG VIAL ONE (00:40)
[2020-09-21] MEDS ORDERED: CALCIUM CHLORIDE 100 MG/ML 10 ML SYRINGE ONE (00:40)
[2020-09-21] MEDS ORDERED: VECURONIUM 10 MG VIAL IV ONE (00:40)
[2020-09-21] MEDS ORDERED: TRANEXAMIC ACID 2,000 MG in SODIUM CHLORIDE 0.9% 80 ML IV ONE (01:00)
[2020-09-21] MEDS ORDERED: MANNITOL 25% 12.5 GM/50 ML VIAL IV ONE ×2 (01:00)
[2020-09-21] MEDS ORDERED: ceFAZolin 1,000 MG in SODIUM CHLORIDE 0.9% IRRIGATIO 1,000 ML IRRIGATION ONE (01:00)
[2020-09-21] MEDS ORDERED: SODIUM BICARB 8.4% 50 ML SYR (1 MEQ/ML) IV ONE (01:00)
[2020-09-21 01:50] LABS: ABG Base Excess -13.6 mmol/L; ABG Glucose Whole Blood 206 mg/dL (75-99); ABG HCO3 14 mmol/L (21-25); ABG Hematocrit 25 % (34.0-46.0); ABG Ionized Calcium 3.7 mg/dL (4.5-5.3); ABG Oxygen Saturation 99.6 % (94-97); ABG PCO2 42 mmHg (35-45); ABG PO2 227 mmHg (83-108); ABG Sodium Whole Blood 148 mmol/L (135-146); ABG TCO2 16 mmol/L (19-24)
[2020-09-21 02:22] LABS: ABG PH 7.14 (7.35-7.45)
[2020-09-21] MEDS ORDERED: SODIUM CHLORIDE 0.45% 1,000 ML with SODIUM BICARB (1 MEQ/ML) 150 ML IV SCH ×2 (02:30)
[2020-09-21 03:13] LABS: ABG Base Excess -6.5 mmol/L; ABG HCO3 20 mmol/L (21-25); ABG Oxygen Saturation 97.7 % (94-97); ABG PCO2 40 mmHg (35-45); ABG PH 7.31 (7.35-7.45); ABG PO2 99 mmHg (83-108); ABG TCO2 21 mmol/L (19-24); Allen Test Performed? Yes
[2020-09-21 03:24] LABS: Basophils % (A) 0 %; Eosinophils % (A) 0 %; HCT 28.3 % (39.0-53.0); HGB 9.5 gm/dL (13.0-17.5); Lymphocytes # (A) 1.1 k/uL (1.0-4.8); Lymphocytes % (A) 8 %; MCH 29.4 pg (25.0-35.0); MCHC 33.7 g/dL (31.0-37.0); MCV 87.1 fL (80.0-100.0); Mean Platelet Volume 8.5; Monocytes # (A) 0.9 k/uL (0-1.0); Monocytes % (A) 7 %; Neutrophils # (A) 10.6 k/uL (1.3-7.7); Neutrophils % (A) 83 %; RBC 3.25 m/uL (4.30-5.90); RDW 14.5 % (11.5-15.5); WBC 12.7 k/uL (3.8-10.6)
[2020-09-21 03:26] LABS: Glucose,Whole Blood 142 mg/dL (75-99)
[2020-09-21 03:26] LABS: Platelet Count 102 k/uL (150-450)
[2020-09-21 03:31] LABS: Ionized Calcium 4.5 mg/dL (4.5-5.3)
[2020-09-21 03:41] LABS: Albumin 2.5 g/dL (3.5-5.0); Calcium 7.6 mg/dL (8.4-10.2); Magnesium 2.2 mg/dL (1.6-2.3); Potassium 4.1 mmol/L (3.5-5.1); Total Bilirubin 0.7 mg/dL (0.2-1.3); Total Protein 3.7 g/dL (6.3-8.2)
[2020-09-21] MEDS: NOREPINEPHRINE 4 MG in SODIUM CHLORIDE 0.9% 250 ML IV SCH ×3 (03:52→17:59)
[2020-09-21] MEDS: SODIUM CHLORIDE 0.9% 150 ML with VASOPRESSIN 60 UNIT IV SCH ×2 (03:52)
[2020-09-21 04:06] LABS: Glucose,Whole Blood 127 mg/dL (75-99)
[2020-09-21 04:06] LABS: INR 1.6 (<1.2); Partial Thromboplastin Time 42.3 sec (22.0-30.0); Prothrombin Time 16.3 sec (9.0-12.0)
[2020-09-21] MEDS: INSULIN REGULAR 100 UNIT in SODIUM CHLORIDE 0.9% 100 ML IV SCH (04:11)
[2020-09-21 04:19] LABS: ABG Base Excess -2.4 mmol/L; ABG HCO3 23 mmol/L (21-25); ABG Oxygen Saturation 99.3 % (94-97); ABG PCO2 43 mmHg (35-45); ABG PH 7.34 (7.35-7.45); ABG PO2 196 mmHg (83-108); ABG TCO2 25 mmol/L (19-24)
[2020-09-21 05:07] LABS: Glucose,Whole Blood 117 mg/dL (75-99)
[2020-09-21 06:03] LABS: Glucose,Whole Blood 128 mg/dL (75-99)
[2020-09-21 06:08] LABS: ABG Base Excess 1.1 mmol/L; ABG HCO3 26 mmol/L (21-25); ABG Oxygen Saturation 99.6 % (94-97); ABG PCO2 46 mmHg (35-45); ABG PH 7.37 (7.35-7.45); ABG PO2 325 mmHg (83-108); ABG TCO2 28 mmol/L (19-24); Allen Test Performed? Yes
[2020-09-21 06:56] LABS: Glucose,Whole Blood 136 mg/dL (75-99)
[2020-09-21] MEDS ORDERED: MILRINONE-D5W PMX 20 MG in DEXTROSE/WATER 1 100ML.BAG IV SCH (07:00)
[2020-09-21] MEDS: IPRATROPIUM-ALBUTEROL 3 ML NEB INHALATION SCH ×4 (07:04→20:04)
[2020-09-21 07:20] LABS: Basophils % (A) 0 %; Eosinophils % (A) 0 %; HCT 29.5 % (39.0-53.0); HGB 10.2 gm/dL (13.0-17.5); Lymphocytes # (A) 1.4 k/uL (1.0-4.8); Lymphocytes % (A) 8 %; MCH 29.5 pg (25.0-35.0); MCHC 34.7 g/dL (31.0-37.0); Mean Platelet Volume 7.8; Monocytes # (A) 1.1 k/uL (0-1.0); Monocytes % (A) 7 %; Neutrophils # (A) 13.8 k/uL (1.3-7.7); Neutrophils % (A) 83 %; Platelet Count 125 k/uL (150-450); RBC 3.47 m/uL (4.30-5.90); RDW 14.7 % (11.5-15.5); WBC 16.6 k/uL (3.8-10.6)
[2020-09-21] MEDS: MORPHINE SULFATE 2 MG/ML SYRINGE IVP PRN ×3 (07:50→15:18)
[2020-09-21 08:09] LABS: Glucose,Whole Blood 139 mg/dL (75-99)
--- NOTE | 2020-09-21 08:09 | XR ---
EXAMINATION TYPE: XR chest 1V portable DATE OF EXAM: 09/21/2020 COMPARISON: Chest x-ray 09/20/2020 HISTORY: Intubated TECHNIQUE: Single frontal view of the chest is obtained. FINDINGS: There is been interval placement of an endotracheal tube, orogastric tube which are overly ing appropriate positions. Left-sided chest tube, median sternal drain, post median sternotomy and le ft atrial appendage clip placement, right jugular central venous catheter are again noted. Patient is rotated and exam is expiratory. There is no evident pneumothorax. Heart remains enlarged. No sizable effusion. Patchy basilar density is present, perihilar vascular indistinctness noted. There are over lying artifacts. Suspect changes of pneumomediastinum. IMPRESSION: Interval intubation. Expiratory rotated exam. Difficult to exclude a component of volume overload, interstitial edema.
--- NOTE | 2020-09-21 08:32 | OP ---
OPERATIVE REPORT DATE OF SURGERY: 09/20/2020. PREOPERATIVE DIAGNOSIS: Coronary artery disease. POSTOPERATIVE DIAGNOSE: Coronary artery disease. PROCEDURE: 1. Coronary artery bypass grafting x 4 vessels (left internal mammary artery to left anterior descending artery, radial artery to ramus artery, saphenous vein graft to distal obtuse marginal artery, saphenous vein graft to posterior lateral branch of right coronary artery). 2. Endoscopic harvest bilateral greater saphenous veins. 3. Endoscopic harvest of left radial artery. 4. Ligation of left atrial appendage using a 35 mm AtriClip. 5. Epiaortic ultrasound. 6. Transesophageal echocardiogram. SURGEON: Oliver Ku MD. ASSISTANTS: 1. KIRT Mistry. 2. Иван Ayala NP. ANESTHESIA: General. SPECIMEN: None. COMPLICATION: None. INDICATION: The patient is a 50-year-old male with a past medical history significant for hypertension, hyperlipidemia, and borderline diabetes mellitus, who reports a history of long-standing chest pain. He was initially evaluated by Cardiology several years ago and it was felt that his coronary arteries were too small for stenting. He continued to have chest pain and repeat cardiac catheterization was performed earlier this year with evidence of multivessel coronary artery disease verified by IVUS. He was referred for coronary artery bypass surgery. The risks, benefits, alternatives to this procedure were discussed at length with the patient and his . All of their questions were answered. Consent was obtained. Of note, the patient did recently contract COVID-19, however we did wait 6 weeks since the resolution of symptoms to proceed with surgery. FINDINGS: The left internal mammary artery was a good conduit with brisk flow. The saphenous vein was a good conduit. The radial artery was a good conduit. The LAD measured 1.3 mm in diameter. The ramus artery measured 1.5 mm. The distal obtuse marginal artery measured 1.0 mm. The PLB measured 1.5 mm. PROCEDURE: The patient was taken the operating room and placed supine on the operating table. After the induction of general anesthesia he was prepped and draped in the usual sterile fashion. Preoperative transesophageal echocardiogram confirmed a preserved ejection fraction with trace mitral regurgitation. A median sternotomy was performed. The left internal mammary artery was harvested in the standard fashion taking care to clip all branches. Intravenous heparin was administered. The vessel was transected distally revealing brisk flow. Simultaneously greater saphenous vein was harvested from the right lower extremity using endoscopic technique. Above the thigh, it was quite large in diameter, so dissection continued down to the ankle. Additional vein was then harvested from the left lower extremity. Simultaneously, the radial artery was harvested from the left upper extremity using an endoscopic technique. All branches were tied. All three vessels were good conduits. A pericardial cradle was created. The ascending aorta was palpated. There was no significant calcific plaque noted. Epiaortic ultrasound was then performed on the ascending aorta. Again no calcific plaque or atheromatous disease identified. An arterial cannula was placed in the distal ascending aorta. A venous cannula was placed through the right atrial appendage and directed into the IVC. Both antegrade and retrograde catheters were placed as well. The patient was then placed on cardiopulmonary bypass with good decompression of the heart. The aortic cross-clamp was applied. Cold blood potassium cardioplegia was delivered in both antegrade and retrograde fashion to achieve arrest of the heart. Of note, cardioplegia was delivered every 15 to 20 minutes while the patient remained under crossclamp. I began by identifying the left atrial appendage. A 35 mm AtriClip was placed across its bases to ensure ligation. Next, attention was turned to the inferior wall. The posterior lateral branch was identified. It was dissected free. A small arteriotomy was created. This vessel accepted a 1.5 mm probe. Using saphenous vein in reverse fashion, an end-to-side anastomosis created. This was performed using running 7-0 Prolene suture. The graft was hemostatic and had great flow. Next, attention was turned to the lateral wall. The distal obtuse marginal artery was identified. It was small in diameter, but I felt it was amenable for bypass. A small arteriotomy was created. This vessel barely accepted a 1.0 mm probe. Using saphenous vein in a reverse fashion, an end-to-side anastomosis was created. This was performed using running 7-0 Prolene suture. The graft was hemostatic and had adequate flow. Next the ramus artery was then dissected free. A small arteriotomy was created. This vessel accepted a 1.5 mm probe. Using radial artery, an end-to-side anastomosis created. This was performed using running 7-0 Prolene suture. The graft was hemostatic and had great flow. Finally attention was turned to the anterior wall. The left anterior descending artery was identified. It became quite small in diameter beyond the takeoff of the distal diagonal artery. Proximal to this area, the LAD was dissected free. A small arteriotomy was created. It accepted a 1.0 mm probe distally. Using the left internal mammary artery, an end-to-side anastomosis was crated. This was performed using running 8-0 Prolene suture. The graft was hemostatic. The mammary pedicle was then tacked down to the anterior surface of the heart. Attention was then turned to the proximal anastomoses. These were performed in end-to- side fashion using 6-0 Prolene sutures. One liter of warm blood was delivered in retrograde fashion. Both lidocaine and magnesium were administered as well. The aortic cross-clamp was removed. The vein grafts were de-aired in the standard fashion. Distal anastomoses were inspected and appeared to be hemostatic. Temporary atrial and ventricular pacing wires were placed and brought through the skin. The patient was then weaned off cardiopulmonary bypass. He with the addition of low- dose Levophed. Followup transesophageal echocardiogram confirmed good left ventricular ejection fraction and no change in trace mitral regurgitation. Protamine was administered. There were no adverse reactions. The remaining cannulas were then removed. The mediastinum was then copiously irrigated with warm saline solution. All surgical sites were again inspected and appeared to be hemostatic. The patient was somewhat oozy, but did not have any evidence of surgical bleeding. Soft tissues were reapproximated over the ascending aorta as well as over the apex of the heart. Straight 32- Romanian chest tubes were placed in both the left pleural space and the mediastinum. These were all secured the skin using sutures. The sternum was then reapproximated using the [place] cable system. The cables were placed in a [id number] fashion. At the comletion of the closure, the sternum was well aligned. The remainder of the wound was closed in layers. Sterile dressing was applied. The patient appeared to tolerate the procedure well. There were no immediate complications. He returned to the ICU in critical, but stable condition. MMODL / IJN: [id number] / [id number]
[2020-09-21 08:58] LABS: ABG Base Excess 2.7 mmol/L; ABG HCO3 28 mmol/L (21-25); ABG Oxygen Saturation 96.6 % (94-97); ABG PCO2 48 mmHg (35-45); ABG PH 7.37 (7.35-7.45); ABG PO2 84 mmHg (83-108); ABG TCO2 29 mmol/L (19-24); Allen Test Performed? Yes
[2020-09-21] MEDS ORDERED: MAGNESIUM HYDROXIDE 2,400 MG/10 ML CUP PO PRN (09:00)
[2020-09-21] MEDS ORDERED: ATORVASTATIN 40 MG TAB PO SCH (09:00)
[2020-09-21] MEDS ORDERED: ASPIRIN 325 MG TAB PO SCH (09:00)
[2020-09-21] MEDS ORDERED: METOPROLOL TARTRATE 12.5 MG TAB PO SCH (09:00)
[2020-09-21] MEDS ORDERED: bisacodyL 10 MG SUPP RECTAL PRN (09:00)
[2020-09-21 09:07] LABS: Glucose,Whole Blood 134 mg/dL (75-99)
[2020-09-21] MEDS: PANTOPRAZOLE 40 MG/10 ML VIAL IVP SCH (09:24)
[2020-09-21] MEDS: ALBUMIN HUMAN 5% 250 ML in EMPTY BAG 1 BAG IVPB PRN ×4 (09:25→15:06)
[2020-09-21] MEDS ORDERED: CALCIUM CHLORIDE 100 MG/ML 10 ML VIAL IVPB ONE (09:39)
[2020-09-21] MEDS ORDERED: CALCIUM GLUCONATE 1 GM in SODIUM CHLORIDE 0.9% 100 ML IVPB ONE (09:42)
--- NOTE | 2020-09-21 09:47 | P.PN ---
Subjective Progress Note Date: 09/21/20 50-year-old male patient was postop day #1 following four-vessel bypass surgery. The patient had multivessel CAD, symptomatic and the patient underwent his bypass surgery yesterday and postop the patient was hemodynamically stable and the patient was extubated without any major difficulties. The patient postextubation was doing well and he was hemodynamically stable. Probably within few hours following his extubation, he had massive amount of blood coming out of his recent in few and this was estimated to be around 2 L total. At that point, CT surgery was involved and the patient was seen by Dr. Arteaga in the intensive care unit. As he was being evaluated, the patient underwent further hemodynamic instability and the patient became hypotensive and he went into a PEA rhythm and he had a cardiac arrest. He was resuscitated according to the ACLS protocol and he is down time was estimated to be around 10 minutes. Following that, pulse was recovered and the patient was taken to the operating room where a surgical evaluation was done. The patient underwent a mediastinal exploration and control of bleeding was achieved, source being a questionable slits opening at the aortic wall and according to the surgical opinion, this was possibly related to mechanical injury from a wire suture. In any rate, control of bleeding was achieved and the patient was brought back today intensive care unit at around 3 AM. This morning, the patient is sedated with propofol and the patient is calm and comfortable and performed running at 45 mg/kg/m. He was apparently moving his extremities after he arrived from the operating room. A sedation holiday will be given to him at a later stage today. This morning, he remains on a mechanical ventilator currently is an assist- control mode at the rate of 12 with a tidal volume of 550 FiO2 of 60% with a PEEP of 8. Blood gas showed a pH of 7.37 with a pCO2 of 48 and pO2 of 83. Based on that, increased respiratory rate up to 18. The chest x-ray shows no complications. The patient has 2 mediastinal chest tubes and left pleural chest tube. There are some atelectatic changes in lung bases bilaterally. Otherwise ET tube is in a good location and [place]-Jt catheter is also in good location. Meanwhile, the patient has received a total of 4 units of packed RBC and hemoglobin today is at 10.2. The chest tubes are still draining minimal amount of serosanguineous/bloody drainage is output is minimal at this point and there is no evidence of any air leak. The patient is hemodynamically requiring pressors and the patient is currently on norepinephrine infusion running at 0.1 mg/kg per minute. . He is also on vasopressin as physiologic dose of 0.03 units per hour and the patient is also on milrinone at 0.1 mg/kg per minute. Cardiac index is at 2.3 with an output of 5.0. Pulmonary artery pressures are 32/17 and his CVP is at 10. The patient is producing adequate urine output. Her recent cardiac rhythm is sinus with a rate of 70. He has a VVI backup pacer at 15. He is also on insulin drip at 2 units an hour. Objective - Vital Signs Vital signs: Vital Signs Temp 98.2 F 09/21/20 08:00 Pulse 71 09/21/20 09:00 Resp 15 09/21/20 09:00 BP 90/58 09/21/20 09:00 Pulse Ox 98 09/21/20 09:00 Intake & Output 09/20/20 09/21/20 09/21/20 18:59 06:59 18:59 Intake Total 415.491 1720.275 514.771 Output Total 2855 2204 212 Balance -2473.625 1462.275 302.771 Weight 113.9 kg Intake: IV 101 1379.5 272 0.9NS CO/CI 30 199 30 0.9NS flush 18 81 27 Albumin Human 5% 250 ml 500 In Empty Bag 1 bag @ 250 mls/hr IVPB Q1HR PRN Rx#: [id number] Lactated Ringers 1,000 ml 370 140 @ 50 mls/hr IV .Q20H [facility] Rx#:[id number] Nitroglycerin-D5w Pmx 50 4.5 mg In Dextrose/Water 1 250ml.bag @ 5 MCG/MIN 1.5 mls/hr IV .Q24H [facility] Rx#: [id number] Sodium Chloride 0.45% 1, 225 75 000 ml @ 75 mls/hr IV . [id number] [facility] with Sodium Bicarb (1 Meq/ml) 150 ml Rx#:[id number] Intake, IV Titration 280.375 495.775 242.771 Amount ACETAMINOPHEN IV (For NPO 100 ) 1,000 mg In Empty Bag 1 bag @ 400 mls/hr IVPB Q6HR [facility] Rx#:[id number] Insulin Regular 100 unit 0.505 65.625 7.929 In Sodium Chloride 0.9% 100 ml @ Per Protocol IV .Q0M [facility] Rx#:[id number] Lactated Ringers 1,000 ml 100 50 @ 50 mls/hr IV .Q20H [facility] Rx#:[id number] Milrinone-D5w Pmx 20 mg 13.6 In Dextrose/Water 1 100ml .bag @ 0.2 MCG/KG/MIN 6. 834 mls/hr IV .[id number] [facility] Rx#:[id number] Norepinephrine 4 mg In 342.297 94.969 Sodium Chloride 0.9% 250 ml @ 0.05 MCG/KG/MIN 19. 622 mls/hr IV .[id number] [facility] Rx#:[id number] Sodium Chloride 0.9% 150 9.0 ml @ 0.03 UNITS/MIN 4.59 mls/hr IV .Q24H [facility] with Vasopressin 60 unit Rx#: [id number] ceFAZolin 2 gm In Sodium 50 50 Chloride 0.9% 50 ml @ 100 mls/hr IVPB Q8H [facility] Rx#: [id number] propofoL 1,000 mg In 29.87 37.853 67.273 Empty Bag 1 bag @ Titrate IV .Q0M [facility] Rx#: [id number] Blood Product 1791 Rc As-1 Unit 310 [id number] Rc Cpda-1 Unit 310 [id number] Rc Pheresis 2 As3 Unit 287 [id number] Rc Pheresis As-3 Unit 284 [id number] Output: Chest Tube Drainage 180 1804 112 Chest Tube Mediastinal 120 1321 68 Left 60 483 44 Drainage 100 Left Thigh 20 Left Wrist 50 Right Thigh 30 Urine 1075 400 100 Estimated Blood Loss 1500 Other: Voiding Method Indwelling Catheter Indwelling Catheter # Bowel Movements 1 ABP, PAP, CO, CI - Last Documented Arterial Blood Pressure 85/42 Pulmonary Artery Pressure 32/16 Cardiac Output 5.1 Cardiac Index 2.3 - Exam GENERAL EXAM: Sedated, intubated, 50-year-old white male, on assist-control mode of ventilation HEAD: Normocephalic/atraumatic. EYES: Normal reaction of pupils, equal size. Conjunctiva pink, sclera white. NOSE: Clear with pink turbinates. THROAT: No erythema or exudates. NECK: No masses, no JVD, no thyroid enlargement, no adenopathy. CHEST: No chest wall deformity. Symmetrical expansion. Midsternal incision is clean dry and intact, 2 mediastinal and left pleural chest tube in place connected to Pleur-evac's, with small amount of sanguinous output, no air leak, epicardial wires connected to external pacemaker box with the VVI mode, with a backup rate of 50 LUNGS: Equal air entry with no crackles, wheeze, rhonchi or dullness. CVS: Regular rate and rhythm, normal S1 and S2, no gallops, no murmurs, no rubs ABDOMEN: Soft, nontender. No hepatosplenomegaly, normal bowel sounds, no guarding or rigidity. EXTREMITIES: No clubbing, no edema, no cyanosis, 2+ pulses and upper and lower extremities. Left radial artery harvest site is covered with a surgical dressing MUSCULOSKELETAL: Muscle strength and tone normal. SPINE: No scoliosis or deformity SKIN: No rashes CENTRAL NERVOUS SYSTEM: Sedated, intubated No focal deficits, tone is normal in all 4 extremities. - Labs CBC & Chem 7: 09/21/20 07:00 09/21/20 03:10 Labs: Abnormal Lab Results - Last 24 Hours (Table) 09/14/20 09/20/20 09/20/20 Range/Units 10:12 08:50 10:15 WBC (3.8-10.6) k/uL RBC (4.30-5.90) m/uL Hgb (13.0-17.5) gm/dL Hct (39.0-53.0) % Plt Count (150-450) k/uL Neutrophils # (1.3-7.7) k/uL Monocytes # (0-1.0) k/uL PT (9.0-12.0) sec INR (<1.2) APTT (22.0-30.0) sec Fibrinogen (200-500) mg/dL ABG pH (7.35-7.45) ABG pCO2 47 H (35-45) mmHg ABG pO2 143 H 393 H (83-108) mmHg ABG HCO3 27 H (21-25) mmol/L ABG Total CO2 28 H 27 H (19-24) mmol/L ABG O2 Saturation 99.3 H 100.0 H (94-97) % ABG Hematocrit (34.0-46.0) % ABG Sodium (135-146) mmol/L ABG Potassium (3.4-4.5) mmol/L ABG Ionized Calcium (4.5-5.3) mg/dL ABG Glucose 132 H 161 H (75-99) mg/dL ABG Lactic Acid (0.5-1.6) mmol/L Hemoglobin (13.0-17.5) gm/dL Sodium (137-145) mmol/L Chloride (98-107) mmol/L Carbon Dioxide (22-30) mmol/L Creatinine (0.66-1.25) mg/dL Glucose (74-99) mg/dL POC Glucose (mg/dL) (75-99) mg/dL Calcium (8.4-10.2) mg/dL Magnesium (1.6-2.3) mg/dL Total Bilirubin (0.2-1.3) mg/dL AST (17-59) U/L ALT (4-49) U/L Alkaline Phosphatase (38-126) U/L Total Protein (6.3-8.2) g/dL Albumin (3.5-5.0) g/dL Arterial Blood Potassium (3.4-4.5) mmol/L Arterial Blood Glucose 132 H 161 H (75-99) mg/dL Crossmatch See Detail 09/20/20 09/20/20 09/20/20 Range/Units 11:14 12:14 12:58 WBC (3.8-10.6) k/uL RBC (4.30-5.90) m/uL Hgb (13.0-17.5) gm/dL Hct (39.0-53.0) % Plt Count (150-450) k/uL Neutrophils # (1.3-7.7) k/uL Monocytes # (0-1.0) k/uL PT (9.0-12.0) sec INR (<1.2) APTT (22.0-30.0) sec Fibrinogen (200-500) mg/dL ABG pH 7.33 L (7.35-7.45) ABG pCO2 47 H (35-45) mmHg ABG pO2 229 H 366 H 314 H (83-108) mmHg ABG HCO3 (21-25) mmol/L ABG Total CO2 26 H 26 H 26 H (19-24) mmol/L ABG O2 Saturation 100.0 H 100.0 H 100.0 H (94-97) % ABG Hematocrit 29 L 28 L (34.0-46.0) % ABG Sodium (135-146) mmol/L ABG Potassium 4.6 H 4.6 H (3.4-4.5) mmol/L ABG Ionized Calcium 4.0 L 4.0 L (4.5-5.3) mg/dL ABG Glucose 142 H 112 H 131 H (75-99) mg/dL ABG Lactic Acid 1.7 H 2.2 H* (0.5-1.6) mmol/L Hemoglobin 9.3 L 9.2 L (13.0-17.5) gm/dL Sodium (137-145) mmol/L Chloride (98-107) mmol/L Carbon Dioxide (22-30) mmol/L Creatinine (0.66-1.25) mg/dL Glucose (74-99) mg/dL POC Glucose (mg/dL) (75-99) mg/dL Calcium (8.4-10.2) mg/dL Magnesium (1.6-2.3) mg/dL Total Bilirubin (0.2-1.3) mg/dL AST (17-59) U/L ALT (4-49) U/L Alkaline Phosphatase (38-126) U/L Total Protein (6.3-8.2) g/dL Albumin (3.5-5.0) g/dL Arterial Blood Potassium 4.6 H 4.6 H (3.4-4.5) mmol/L Arterial Blood Glucose 142 H 112 H 131 H (75-99) mg/dL Crossmatch 09/20/20 09/20/20 09/20/20 Range/Units 13:29 14:08 15:01 WBC (3.8-10.6) k/uL RBC (4.30-5.90) m/uL Hgb (13.0-17.5) gm/dL Hct (39.0-53.0) % Plt Count (150-450) k/uL Neutrophils # (1.3-7.7) k/uL Monocytes # (0-1.0) k/uL PT (9.0-12.0) sec INR (<1.2) APTT (22.0-30.0) sec Fibrinogen (200-500) mg/dL ABG pH 7.33 L (7.35-7.45) ABG pCO2 46 H (35-45) mmHg ABG pO2 321 H 384 H (83-108) mmHg ABG HCO3 (21-25) mmol/L ABG Total CO2 25 H 27 H (19-24) mmol/L ABG O2 Saturation 100.0 H 100.0 H 98.3 H (94-97) % ABG Hematocrit 27 L 27 L 27 L (34.0-46.0) % ABG Sodium 147 H (135-146) mmol/L ABG Potassium (3.4-4.5) mmol/L ABG Ionized Calcium 3.9 L 4.0 L 4.0 L (4.5-5.3) mg/dL ABG Glucose 169 H 154 H 138 H (75-99) mg/dL ABG Lactic Acid 2.0 H 2.2 H* 2.3 H* (0.5-1.6) mmol/L Hemoglobin 8.9 L 8.8 L 8.9 L (13.0-17.5) gm/dL Sodium (137-145) mmol/L Chloride (98-107) mmol/L Carbon Dioxide (22-30) mmol/L Creatinine (0.66-1.25) mg/dL Glucose (74-99) mg/dL POC Glucose (mg/dL) (75-99) mg/dL Calcium (8.4-10.2) mg/dL Magnesium (1.6-2.3) mg/dL Total Bilirubin (0.2-1.3) mg/dL AST (17-59) U/L ALT (4-49) U/L Alkaline Phosphatase (38-126) U/L Total Protein (6.3-8.2) g/dL Albumin (3.5-5.0) g/dL Arterial Blood Potassium (3.4-4.5) mmol/L Arterial Blood Glucose 169 H 154 H 138 H (75-99) mg/dL Crossmatch 09/20/20 09/20/20 09/20/20 Range/Units 16:40 16:40 16:40 WBC 17.6 H (3.8-10.6) k/uL RBC 3.63 L (4.30-5.90) m/uL Hgb 11.1 L D (13.0-17.5) gm/dL Hct 30.7 L (39.0-53.0) % Plt Count (150-450) k/uL Neutrophils # 14.7 H (1.3-7.7) k/uL Monocytes # 1.2 H (0-1.0) k/uL PT (9.0-12.0) sec INR (<1.2) APTT (22.0-30.0) sec Fibrinogen (200-500) mg/dL ABG pH (7.35-7.45) ABG pCO2 (35-45) mmHg ABG pO2 (83-108) mmHg ABG HCO3 (21-25) mmol/L ABG Total CO2 (19-24) mmol/L ABG O2 Saturation (94-97) % ABG Hematocrit (34.0-46.0) % ABG Sodium (135-146) mmol/L ABG Potassium (3.4-4.5) mmol/L ABG Ionized Calcium (4.5-5.3) mg/dL ABG Glucose (75-99) mg/dL ABG Lactic Acid (0.5-1.6) mmol/L Hemoglobin (13.0-17.5) gm/dL Sodium (137-145) mmol/L Chloride 111 H (98-107) mmol/L Carbon Dioxide (22-30) mmol/L Creatinine (0.66-1.25) mg/dL Glucose 133 H (74-99) mg/dL POC Glucose (mg/dL) 140 H (75-99) mg/dL Calcium 7.5 L (8.4-10.2) mg/dL Magnesium 2.6 H (1.6-2.3) mg/dL Total Bilirubin 1.4 H (0.2-1.3) mg/dL AST (17-59) U/L ALT (4-49) U/L Alkaline Phosphatase (38-126) U/L Total Protein 4.5 L (6.3-8.2) g/dL Albumin 2.8 L (3.5-5.0) g/dL Arterial Blood Potassium (3.4-4.5) mmol/L Arterial Blood Glucose (75-99) mg/dL Crossmatch 09/20/20 09/20/20 09/20/20 Range/Units 16:54 17:13 17:57 WBC 18.4 H (3.8-10.6) k/uL RBC 3.52 L (4.30-5.90) m/uL Hgb 10.8 L (13.0-17.5) gm/dL Hct 29.8 L (39.0-53.0) % Plt Count (150-450) k/uL Neutrophils # 16.2 H (1.3-7.7) k/uL Monocytes # (0-1.0) k/uL PT (9.0-12.0) sec INR (<1.2) APTT (22.0-30.0) sec Fibrinogen (200-500) mg/dL ABG pH (7.35-7.45) ABG pCO2 (35-45) mmHg ABG pO2 384 H (83-108) mmHg ABG HCO3 (21-25) mmol/L ABG Total CO2 27 H (19-24) mmol/L ABG O2 Saturation 99.9 H (94-97) % ABG Hematocrit (34.0-46.0) % ABG Sodium (135-146) mmol/L ABG Potassium (3.4-4.5) mmol/L ABG Ionized Calcium (4.5-5.3) mg/dL ABG Glucose (75-99) mg/dL ABG Lactic Acid (0.5-1.6) mmol/L Hemoglobin (13.0-17.5) gm/dL Sodium (137-145) mmol/L Chloride (98-107) mmol/L Carbon Dioxide (22-30) mmol/L Creatinine (0.66-1.25) mg/dL Glucose (74-99) mg/dL POC Glucose (mg/dL) 121 H (75-99) mg/dL Calcium (8.4-10.2) mg/dL Magnesium (1.6-2.3) mg/dL Total Bilirubin (0.2-1.3) mg/dL AST (17-59) U/L ALT (4-49) U/L Alkaline Phosphatase (38-126) U/L Total Protein (6.3-8.2) g/dL Albumin (3.5-5.0) g/dL Arterial Blood Potassium (3.4-4.5) mmol/L Arterial Blood Glucose (75-99) mg/dL Crossmatch 09/20/20 09/20/20 09/20/20 Range/Units 18:12 19:03 19:49 WBC (3.8-10.6) k/uL RBC (4.30-5.90) m/uL Hgb (13.0-17.5) gm/dL Hct (39.0-53.0) % Plt Count (150-450) k/uL Neutrophils # (1.3-7.7) k/uL Monocytes # (0-1.0) k/uL PT (9.0-12.0) sec INR (<1.2) APTT (22.0-30.0) sec Fibrinogen (200-500) mg/dL ABG pH 7.34 L (7.35-7.45) ABG pCO2 (35-45) mmHg ABG pO2 122 H (83-108) mmHg ABG HCO3 (21-25) mmol/L ABG Total CO2 26 H (19-24) mmol/L ABG O2 Saturation 98.6 H (94-97) % ABG Hematocrit (34.0-46.0) % ABG Sodium (135-146) mmol/L ABG Potassium (3.4-4.5) mmol/L ABG Ionized Calcium (4.5-5.3) mg/dL ABG Glucose (75-99) mg/dL ABG Lactic Acid (0.5-1.6) mmol/L Hemoglobin (13.0-17.5) gm/dL Sodium (137-145) mmol/L Chloride (98-107) mmol/L Carbon Dioxide (22-30) mmol/L Creatinine (0.66-1.25) mg/dL Glucose (74-99) mg/dL POC Glucose (mg/dL) 137 H 143 H (75-99) mg/dL Calcium (8.4-10.2) mg/dL Magnesium (1.6-2.3) mg/dL Total Bilirubin (0.2-1.3) mg/dL AST (17-59) U/L ALT (4-49) U/L Alkaline Phosphatase (38-126) U/L Total Protein (6.3-8.2) g/dL Albumin (3.5-5.0) g/dL Arterial Blood Potassium (3.4-4.5) mmol/L Arterial Blood Glucose (75-99) mg/dL Crossmatch 09/20/20 09/20/20 09/20/20 Range/Units 19:50 20:54 21:26 WBC (3.8-10.6) k/uL RBC (4.30-5.90) m/uL Hgb (13.0-17.5) gm/dL Hct (39.0-53.0) % Plt Count (150-450) k/uL Neutrophils # (1.3-7.7) k/uL Monocytes # (0-1.0) k/uL PT (9.0-12.0) sec INR (<1.2) APTT (22.0-30.0) sec Fibrinogen (200-500) mg/dL ABG pH (7.35-7.45) ABG pCO2 34 L (35-45) mmHg ABG pO2 (83-108) mmHg ABG HCO3 (21-25) mmol/L ABG Total CO2 (19-24) mmol/L ABG O2 Saturation 98.4 H (94-97) % ABG Hematocrit (34.0-46.0) % ABG Sodium (135-146) mmol/L ABG Potassium (3.4-4.5) mmol/L ABG Ionized Calcium (4.5-5.3) mg/dL ABG Glucose (75-99) mg/dL ABG Lactic Acid (0.5-1.6) mmol/L Hemoglobin (13.0-17.5) gm/dL Sodium (137-145) mmol/L Chloride (98-107) mmol/L Carbon Dioxide (22-30) mmol/L Creatinine (0.66-1.25) mg/dL Glucose (74-99) mg/dL POC Glucose (mg/dL) 167 H 174 H (75-99) mg/dL Calcium (8.4-10.2) mg/dL Magnesium (1.6-2.3) mg/dL Total Bilirubin (0.2-1.3) mg/dL AST (17-59) U/L ALT (4-49) U/L Alkaline Phosphatase (38-126) U/L Total Protein (6.3-8.2) g/dL Albumin (3.5-5.0) g/dL Arterial Blood Potassium (3.4-4.5) mmol/L Arterial Blood Glucose (75-99) mg/dL Crossmatch 09/20/20 09/20/20 09/20/20 Range/Units 21:46 23:21 23:58 WBC 19.3 H (3.8-10.6) k/uL RBC 3.09 L (4.30-5.90) m/uL Hgb 9.4 L (13.0-17.5) gm/dL Hct 26.2 L (39.0-53.0) % Plt Count (150-450) k/uL Neutrophils # 16.8 H (1.3-7.7) k/uL Monocytes # (0-1.0) k/uL PT (9.0-12.0) sec INR (<1.2) APTT (22.0-30.0) sec Fibrinogen (200-500) mg/dL ABG pH (7.35-7.45) ABG pCO2 (35-45) mmHg ABG pO2 (83-108) mmHg ABG HCO3 (21-25) mmol/L ABG Total CO2 (19-24) mmol/L ABG O2 Saturation (94-97) % ABG Hematocrit (34.0-46.0) % ABG Sodium (135-146) mmol/L ABG Potassium (3.4-4.5) mmol/L ABG Ionized Calcium (4.5-5.3) mg/dL ABG Glucose (75-99) mg/dL ABG Lactic Acid (0.5-1.6) mmol/L Hemoglobin (13.0-17.5) gm/dL Sodium (137-145) mmol/L Chloride (98-107) mmol/L Carbon Dioxide (22-30) mmol/L Creatinine (0.66-1.25) mg/dL Glucose (74-99) mg/dL POC Glucose (mg/dL) 320 H 306 H (75-99) mg/dL Calcium (8.4-10.2) mg/dL Magnesium (1.6-2.3) mg/dL Total Bilirubin (0.2-1.3) mg/dL AST (17-59) U/L ALT (4-49) U/L Alkaline Phosphatase (38-126) U/L Total Protein (6.3-8.2) g/dL Albumin (3.5-5.0) g/dL Arterial Blood Potassium (3.4-4.5) mmol/L Arterial Blood Glucose (75-99) mg/dL Crossmatch 09/21/20 09/21/20 09/21/20 Range/Units 01:52 03:10 03:10 WBC 12.7 H (3.8-10.6) k/uL RBC 3.25 L (4.30-5.90) m/uL Hgb 9.5 L (13.0-17.5) gm/dL Hct 28.3 L (39.0-53.0) % Plt Count 102 L D (150-450) k/uL Neutrophils # 10.6 H (1.3-7.7) k/uL Monocytes # (0-1.0) k/uL PT (9.0-12.0) sec INR (<1.2) APTT (22.0-30.0) sec Fibrinogen (200-500) mg/dL ABG pH 7.14 L* (7.35-7.45) ABG pCO2 (35-45) mmHg ABG pO2 227 H (83-108) mmHg ABG HCO3 14 L (21-25) mmol/L ABG Total CO2 16 L (19-24) mmol/L ABG O2 Saturation 99.6 H (94-97) % ABG Hematocrit 25 L (34.0-46.0) % ABG Sodium 148 H (135-146) mmol/L ABG Potassium (3.4-4.5) mmol/L ABG Ionized Calcium 3.7 L (4.5-5.3) mg/dL ABG Glucose 206 H (75-99) mg/dL ABG Lactic Acid 16.0 H* (0.5-1.6) mmol/L Hemoglobin 8.2 L (13.0-17.5) gm/dL Sodium 146 H (137-145) mmol/L Chloride 111 H (98-107) mmol/L Carbon Dioxide 21 L (22-30) mmol/L Creatinine 1.40 H (0.66-1.25) mg/dL Glucose 135 H (74-99) mg/dL POC Glucose (mg/dL) (75-99) mg/dL Calcium 7.6 L (8.4-10.2) mg/dL Magnesium (1.6-2.3) mg/dL Total Bilirubin (0.2-1.3) mg/dL AST 325 H (17-59) U/L ALT 364 H (4-49) U/L Alkaline Phosphatase 35 L (38-126) U/L Total Protein 3.7 L (6.3-8.2) g/dL Albumin 2.5 L (3.5-5.0) g/dL Arterial Blood Potassium (3.4-4.5) mmol/L Arterial Blood Glucose 206 H (75-99) mg/dL Crossmatch 09/21/20 09/21/20 09/21/20 Range/Units 03:10 03:11 03:25 WBC (3.8-10.6) k/uL RBC (4.30-5.90) m/uL Hgb (13.0-17.5) gm/dL Hct (39.0-53.0) % Plt Count (150-450) k/uL Neutrophils # (1.3-7.7) k/uL Monocytes # (0-1.0) k/uL PT 16.3 H (9.0-12.0) sec INR 1.6 H (<1.2) APTT 42.3 H (22.0-30.0) sec Fibrinogen 120 L (200-500) mg/dL ABG pH 7.31 L (7.35-7.45) ABG pCO2 (35-45) mmHg ABG pO2 (83-108) mmHg ABG HCO3 20 L (21-25) mmol/L ABG Total CO2 (19-24) mmol/L ABG O2 Saturation 97.7 H (94-97) % ABG Hematocrit (34.0-46.0) % ABG Sodium (135-146) mmol/L ABG Potassium (3.4-4.5) mmol/L ABG Ionized Calcium (4.5-5.3) mg/dL ABG Glucose (75-99) mg/dL ABG Lactic Acid (0.5-1.6) mmol/L Hemoglobin (13.0-17.5) gm/dL Sodium (137-145) mmol/L Chloride (98-107) mmol/L Carbon Dioxide (22-30) mmol/L Creatinine (0.66-1.25) mg/dL Glucose (74-99) mg/dL POC Glucose (mg/dL) 142 H (75-99) mg/dL Calcium (8.4-10.2) mg/dL Magnesium (1.6-2.3) mg/dL Total Bilirubin (0.2-1.3) mg/dL AST (17-59) U/L ALT (4-49) U/L Alkaline Phosphatase (38-126) U/L Total Protein (6.3-8.2) g/dL Albumin (3.5-5.0) g/dL Arterial Blood Potassium (3.4-4.5) mmol/L Arterial Blood Glucose (75-99) mg/dL Crossmatch 09/21/20 09/21/20 09/21/20 Range/Units 04:05 04:13 05:05 WBC (3.8-10.6) k/uL RBC (4.30-5.90) m/uL Hgb (13.0-17.5) gm/dL Hct (39.0-53.0) % Plt Count (150-450) k/uL Neutrophils # (1.3-7.7) k/uL Monocytes # (0-1.0) k/uL PT (9.0-12.0) sec INR (<1.2) APTT (22.0-30.0) sec Fibrinogen (200-500) mg/dL ABG pH 7.34 L (7.35-7.45) ABG pCO2 (35-45) mmHg ABG pO2 196 H (83-108) mmHg ABG HCO3 (21-25) mmol/L ABG Total CO2 25 H (19-24) mmol/L ABG O2 Saturation 99.3 H (94-97) % ABG Hematocrit (34.0-46.0) % ABG Sodium (135-146) mmol/L ABG Potassium (3.4-4.5) mmol/L ABG Ionized Calcium (4.5-5.3) mg/dL ABG Glucose (75-99) mg/dL ABG Lactic Acid (0.5-1.6) mmol/L Hemoglobin (13.0-17.5) gm/dL Sodium (137-145) mmol/L Chloride (98-107) mmol/L Carbon Dioxide (22-30) mmol/L Creatinine (0.66-1.25) mg/dL Glucose (74-99) mg/dL POC Glucose (mg/dL) 127 H 117 H (75-99) mg/dL Calcium (8.4-10.2) mg/dL Magnesium (1.6-2.3) mg/dL Total Bilirubin (0.2-1.3) mg/dL AST (17-59) U/L ALT (4-49) U/L Alkaline Phosphatase (38-126) U/L Total Protein (6.3-8.2) g/dL Albumin (3.5-5.0) g/dL Arterial Blood Potassium (3.4-4.5) mmol/L Arterial Blood Glucose (75-99) mg/dL Crossmatch 09/21/20 09/21/20 09/21/20 Range/Units 06:03 06:06 06:54 WBC (3.8-10.6) k/uL RBC (4.30-5.90) m/uL Hgb (13.0-17.5) gm/dL Hct (39.0-53.0) % Plt Count (150-450) k/uL Neutrophils # (1.3-7.7) k/uL Monocytes # (0-1.0) k/uL PT (9.0-12.0) sec INR (<1.2) APTT (22.0-30.0) sec Fibrinogen (200-500) mg/dL ABG pH (7.35-7.45) ABG pCO2 46 H (35-45) mmHg ABG pO2 325 H (83-108) mmHg ABG HCO3 26 H (21-25) mmol/L ABG Total CO2 28 H (19-24) mmol/L ABG O2 Saturation 99.6 H (94-97) % ABG Hematocrit (34.0-46.0) % ABG Sodium (135-146) mmol/L ABG Potassium (3.4-4.5) mmol/L ABG Ionized Calcium (4.5-5.3) mg/dL ABG Glucose (75-99) mg/dL ABG Lactic Acid (0.5-1.6) mmol/L Hemoglobin (13.0-17.5) gm/dL Sodium (137-145) mmol/L Chloride (98-107) mmol/L Carbon Dioxide (22-30) mmol/L Creatinine (0.66-1.25) mg/dL Glucose (74-99) mg/dL POC Glucose (mg/dL) 128 H 136 H (75-99) mg/dL Calcium (8.4-10.2) mg/dL Magnesium (1.6-2.3) mg/dL Total Bilirubin (0.2-1.3) mg/dL AST (17-59) U/L ALT (4-49) U/L Alkaline Phosphatase (38-126) U/L Total Protein (6.3-8.2) g/dL Albumin (3.5-5.0) g/dL Arterial Blood Potassium (3.4-4.5) mmol/L Arterial Blood Glucose (75-99) mg/dL Crossmatch 09/21/20 09/21/20 09/21/20 Range/Units 07:00 08:08 08:55 WBC 16.6 H (3.8-10.6) k/uL RBC 3.47 L (4.30-5.90) m/uL Hgb 10.2 L (13.0-17.5) gm/dL Hct 29.5 L (39.0-53.0) % Plt Count 125 L (150-450) k/uL Neutrophils # 13.8 H (1.3-7.7) k/uL Monocytes # 1.1 H (0-1.0) k/uL PT (9.0-12.0) sec INR (<1.2) APTT (22.0-30.0) sec Fibrinogen (200-500) mg/dL ABG pH (7.35-7.45) ABG pCO2 48 H (35-45) mmHg ABG pO2 (83-108) mmHg ABG HCO3 28 H (21-25) mmol/L ABG Total CO2 29 H (19-24) mmol/L ABG O2 Saturation (94-97) % ABG Hematocrit (34.0-46.0) % ABG Sodium (135-146) mmol/L ABG Potassium (3.4-4.5) mmol/L ABG Ionized Calcium (4.5-5.3) mg/dL ABG Glucose (75-99) mg/dL ABG Lactic Acid (0.5-1.6) mmol/L Hemoglobin (13.0-17.5) gm/dL Sodium (137-145) mmol/L Chloride (98-107) mmol/L Carbon Dioxide (22-30) mmol/L Creatinine (0.66-1.25) mg/dL Glucose (74-99) mg/dL POC Glucose (mg/dL) 139 H (75-99) mg/dL Calcium (8.4-10.2) mg/dL Magnesium (1.6-2.3) mg/dL Total Bilirubin (0.2-1.3) mg/dL AST (17-59) U/L ALT (4-49) U/L Alkaline Phosphatase (38-126) U/L Total Protein (6.3-8.2) g/dL Albumin (3.5-5.0) g/dL Arterial Blood Potassium (3.4-4.5) mmol/L Arterial Blood Glucose (75-99) mg/dL Crossmatch 09/21/20 Range/Units 09:06 WBC (3.8-10.6) k/uL RBC (4.30-5.90) m/uL Hgb (13.0-17.5) gm/dL Hct (39.0-53.0) % Plt Count (150-450) k/uL Neutrophils # (1.3-7.7) k/uL Monocytes # (0-1.0) k/uL PT (9.0-12.0) sec INR (<1.2) APTT (22.0-30.0) sec Fibrinogen (200-500) mg/dL ABG pH (7.35-7.45) ABG pCO2 (35-45) mmHg ABG pO2 (83-108) mmHg ABG HCO3 (21-25) mmol/L ABG Total CO2 (19-24) mmol/L ABG O2 Saturation (94-97) % ABG Hematocrit (34.0-46.0) % ABG Sodium (135-146) mmol/L ABG Potassium (3.4-4.5) mmol/L ABG Ionized Calcium (4.5-5.3) mg/dL ABG Glucose (75-99) mg/dL ABG Lactic Acid (0.5-1.6) mmol/L Hemoglobin (13.0-17.5) gm/dL Sodium (137-145) mmol/L Chloride (98-107) mmol/L Carbon Dioxide (22-30) mmol/L Creatinine (0.66-1.25) mg/dL Glucose (74-99) mg/dL POC Glucose (mg/dL) 134 H (75-99) mg/dL Calcium (8.4-10.2) mg/dL Magnesium (1.6-2.3) mg/dL Total Bilirubin (0.2-1.3) mg/dL AST (17-59) U/L ALT (4-49) U/L Alkaline Phosphatase (38-126) U/L Total Protein (6.3-8.2) g/dL Albumin (3.5-5.0) g/dL Arterial Blood Potassium (3.4-4.5) mmol/L Arterial Blood Glucose (75-99) mg/dL Crossmatch Assessment and Plan Plan: #1. Symptomatic multivessel coronary artery disease, status post four-vessel coronary artery bypass grafting with BASHIR to the LAD, radial artery graft to the ramus, SVG to OM, and SVG to PLV, with bilateral legs endoscopic vein harvest, exclusion of the left atrial appendage and intraoperative transesophageal echocardiogram, postop day #1 #2. Postop mediastinal bleed, likely due to an aortic tear. The patient lost at least 2 L of blood to the mediastinal chest tube. The patient received a total of 4 units of packed RBC. During the course of his bleed, the patient sustained a cardiac arrest with a downtime of around 10 minutes. Currently is intubated on a mechanical ventilator. He had a mediastinal exploration and con trol of bleed and the patient is postop day #0 following a redo sternotomy and exploration. #3. Hypotension, likely cardiogenic in nature. The patient is on a combination of norepinephrine, milrinone and vasopressin. Hemodynamic parameters are adequate for now. Producing adequate amount of urine output. #4. Acute hypoxic respiratory failure secondary to above-mentioned events. Currently intubated on a mechanical ventilator. Chest x-ray was noted. Blood gases was noted. The patient is post failed extubation due to mediastinal bleed. #5. 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 Hypertension #7. Diabetes mellitus #8. Hyperlipidemia #9. Chronic neck pain #10 Recent history of COVID-19 pneumonia in June 2020 #11 blood loss anemia currently hemoglobin is at 10.2 Plan: keep the patient on mechanical ventilator for now. Respiratory rate was increased up to 18 Monitor the output from the chest tubes Monitor the hemoglobin level Monitor hemodynamics and continue the pressors for now Sedation holiday later stage process underlying mental status post cardiac arrest. The cardiac arrest was brief and it was witnessed and the patient was resuscitated according to ACLS protocol. Anoxic encephalopathy is possible. Continue insulin drip for blood sugar control Keep the patient nothing by mouth for today No weaning for today. Condition is critical. We'll continue to follow make further recommendations regarding the care of this patient. This evaluation was done and more than 30 minutes. Time with Patient: Greater than 30
[2020-09-21] MEDS: CLOPIDOGREL 75 MG TAB PO SCH (10:00)
[2020-09-21] MEDS: HEPARIN SODIUM,PORCINE/PF 5,000 UNIT/0.5 ML SYRINGE SQ SCH ×3 (10:00→23:12)
[2020-09-21] MEDS: CHLORHEXIDINE GLUCONATE 15 ML CUP MUCOUS MEM SCH ×2 (10:00→21:40)
[2020-09-21 10:07] LABS: Glucose,Whole Blood 139 mg/dL (75-99)
[2020-09-21] MEDS: ASPIRIN 81 MG PO SCH (10:14)
--- NOTE | 2020-09-21 10:41 | P.PN ---
Subjective Progress Note Date: 09/21/20 Principal diagnosis: Coronary artery disease with left main disease. Previous medical history of unstable angina, hypertension, hyperlipidemia, recent Covid infection in July 2020, previous tobacco dependence, rare alcohol usage POD #1 coronary artery bypass grafting 4 vessels, left internal mammary artery to left anterior descending artery, radial artery to the ramus artery, reverse saphenous vein graft to the distal obtuse marginal artery, reverse saphenous vein graft to the posterior lateral branch of the right coronary artery, endoscopic harvesting of the bilateral greater saphenous veins, endoscopic harvesting of the left radial artery, ligation of the left atrial appendage using a 35 mm AtriClip, intraoperative transesophageal echocardiogram and epi- aortic scanning Witnessed cardiac arrest with brief CPR and subsequent ROSC Postoperative acute blood loss anemia with return to the OR for mediastinal exploration with control of postop bleed, unexpected Postoperative hypotension requiring pressor support, expected due to above Acute lactic acidosis, secondary to above Elevated transaminases, expected due to hypotension Patient's currently lying in bed in the intensive care unit on mechanical ventilation, sedated with propofol, receiving inotropic and pressor support. He was initially extubated at 8 PM, but over the course of the next couple of hours became hemodynamically unstable with significant output in his chest tubes and eventual unresponsiveness. He was reintubated and taken back to the operating room to re-explore the chest, clots were evacuated, bleeding was controlled, and patient was returned to the intensive care unit. He did receive 4 units packed red blood cells. Current hemoglobin 10.2. Lactic acid was 16, now down to 4. Remains on IV Levophed and vasopressin as well as Primacor. Output in mediastinal and left pleural chest tubes has decreased and appears serosanguineous. Urine output adequate. Ventilator changes per pulmonology. Objective - Vital Signs Vital signs: Vital Signs Temp 98.2 F 09/21/20 08:00 Pulse 76 09/21/20 08:30 Resp 15 09/21/20 08:30 BP 90/58 09/21/20 08:30 Pulse Ox 99 09/21/20 08:30 Intake & Output 09/20/20 09/21/20 09/21/20 18:59 06:59 18:59 Intake Total 659.308 7050.275 321.763 Output Total 2855 2204 157 Balance -2473.625 1462.275 164.763 Weight 113.9 kg Intake: IV 101 1379.5 213 0.9NS CO/CI 30 199 30 0.9NS flush 18 81 18 Albumin Human 5% 250 ml 500 In Empty Bag 1 bag @ 250 mls/hr IVPB Q1HR PRN Rx#: [id number] Lactated Ringers 1,000 ml 370 90 @ 50 mls/hr IV .Q20H [facility] Rx#:[id number] Nitroglycerin-D5w Pmx 50 4.5 mg In Dextrose/Water 1 250ml.bag @ 5 MCG/MIN 1.5 mls/hr IV .Q24H [facility] Rx#: [id number] Sodium Chloride 0.45% 1, 225 75 000 ml @ 75 mls/hr IV . [id number] [facility] with Sodium Bicarb (1 Meq/ml) 150 ml Rx#:[id number] Intake, IV Titration 280.375 495.775 108.763 Amount ACETAMINOPHEN IV (For NPO 100 ) 1,000 mg In Empty Bag 1 bag @ 400 mls/hr IVPB Q6HR [facility] Rx#:[id number] Insulin Regular 100 unit 0.505 65.625 2.5 In Sodium Chloride 0.9% 100 ml @ Per Protocol IV .Q0M [facility] Rx#:[id number] Lactated Ringers 1,000 ml 100 50 @ 50 mls/hr IV .Q20H [facility] Rx#:[id number] Milrinone-D5w Pmx 20 mg 6.8 In Dextrose/Water 1 100ml .bag @ 0.2 MCG/KG/MIN 6. 834 mls/hr IV .[id number] [facility] Rx#:[id number] Norepinephrine 4 mg In 342.297 80.383 Sodium Chloride 0.9% 250 ml @ 0.05 MCG/KG/MIN 19. 622 mls/hr IV .[id number] [facility] Rx#:[id number] Sodium Chloride 0.9% 150 4.5 ml @ 0.03 UNITS/MIN 4.59 mls/hr IV .Q24H [facility] with Vasopressin 60 unit Rx#: [id number] ceFAZolin 2 gm In Sodium 50 Chloride 0.9% 50 ml @ 100 mls/hr IVPB Q8H [facility] Rx#: [id number] propofoL 1,000 mg In 29.87 37.853 14.580 Empty Bag 1 bag @ Titrate IV .Q0M [facility] Rx#: [id number] Blood Product 1791 Rc As-1 Unit 310 [id number] Rc Cpda-1 Unit 310 [id number] Rc Pheresis 2 As3 Unit 287 [id number] Rc Pheresis As-3 Unit 284 [id number] Output: Chest Tube Drainage 180 1804 87 Chest Tube Mediastinal 120 1321 58 Left 60 483 29 Drainage 100 Left Thigh 20 Left Wrist 50 Right Thigh 30 Urine 1075 400 70 Estimated Blood Loss 1500 Other: Voiding Method Indwelling Catheter Indwelling Catheter ABP, PAP, CO, CI - Last Documented Arterial Blood Pressure 95/44 Pulmonary Artery Pressure 36/21 Cardiac Output 5.1 Cardiac Index 2.3 - Exam CONSTITUTIONAL: Intubated and sedated RESPIRATORY: Lungs sounds diminished bilaterally. Respirations even, nonlabored. Current ventilator settings FiO2 60%, PEEP 8, respiratory rate 18, tidal volume 550. 8.5 ET tube present, 24 the lip. CARDIOVASCULAR: S1, S2 present. Regular rate and rhythm, atrial paced on telemetry with heart rate 80 bpm. Sternum stable. Palpable peripheral pulses bilaterally. No edema present. No calf pain or tenderness noted. Heart hugger, antiembolism stockings, SCDs present. GASTROINTESTINAL: Abdomen soft, slightly distended. Hypoactive bowel sounds present 4 quadrants. OG tube present to low intermittent suction, 100 mL gastric drainage present GENITOURINARY: Cao present draining clear, yellow urine. Output overnight 30-75 mL per hour INTEGUMENTARY: Skin is warm and dry with evidence of good perfusion. Anterior chest incision well approximated and covered with dry intact dressing. Bilateral EVH site well approximated without redness or drainage, REKHA drains present with minimal drainage. Left radial artery harvest site without redness or drainage, REKHA drain present with minimal drainage NEUROLOGIC: Currently sedated with propofol, withdraws to painful stimuli INVASIVE LINES AND TUBES: Mediastinal/left pleural chest tubes present and connected to wall suction, no air leaks present. Mediastinal tube with 150 mL serosanguineous drainage since returning from second surgery. Left pleural chest tube with 75 mL serosanguineous drainage since returning from second surgery. A/V epicardial pacemaker wires present, connected to generator, AAI mode with rate 80 bpm. Right internal jugular [place], right radial arterial line present. Last CO/CI 5.5/2.5, PA 32/19, CVP 10. - Allied health notes Allied health notes reviewed: nursing - Labs CBC & Chem 7: 09/21/20 07:00 09/21/20 03:10 Labs: Abnormal Lab Results - Last 24 Hours (Table) 09/14/20 09/20/20 09/20/20 Range/Units 10:12 08:50 10:15 WBC (3.8-10.6) k/uL RBC (4.30-5.90) m/uL Hgb (13.0-17.5) gm/dL Hct (39.0-53.0) % Plt Count (150-450) k/uL Neutrophils # (1.3-7.7) k/uL Monocytes # (0-1.0) k/uL PT (9.0-12.0) sec INR (<1.2) APTT (22.0-30.0) sec Fibrinogen (200-500) mg/dL ABG pH (7.35-7.45) ABG pCO2 47 H (35-45) mmHg ABG pO2 143 H 393 H (83-108) mmHg ABG HCO3 27 H (21-25) mmol/L ABG Total CO2 28 H 27 H (19-24) mmol/L ABG O2 Saturation 99.3 H 100.0 H (94-97) % ABG Hematocrit (34.0-46.0) % ABG Sodium (135-146) mmol/L ABG Potassium (3.4-4.5) mmol/L ABG Ionized Calcium (4.5-5.3) mg/dL ABG Glucose 132 H 161 H (75-99) mg/dL ABG Lactic Acid (0.5-1.6) mmol/L Hemoglobin (13.0-17.5) gm/dL Sodium (137-145) mmol/L Chloride (98-107) mmol/L Carbon Dioxide (22-30) mmol/L Creatinine (0.66-1.25) mg/dL Glucose (74-99) mg/dL POC Glucose (mg/dL) (75-99) mg/dL Calcium (8.4-10.2) mg/dL Magnesium (1.6-2.3) mg/dL Total Bilirubin (0.2-1.3) mg/dL AST (17-59) U/L ALT (4-49) U/L Alkaline Phosphatase (38-126) U/L Total Protein (6.3-8.2) g/dL Albumin (3.5-5.0) g/dL Arterial Blood Potassium (3.4-4.5) mmol/L Arterial Blood Glucose 132 H 161 H (75-99) mg/dL Crossmatch See Detail 09/20/20 09/20/20 09/20/20 Range/Units 11:14 12:14 12:58 WBC (3.8-10.6) k/uL RBC (4.30-5.90) m/uL Hgb (13.0-17.5) gm/dL Hct (39.0-53.0) % Plt Count (150-450) k/uL Neutrophils # (1.3-7.7) k/uL Monocytes # (0-1.0) k/uL PT (9.0-12.0) sec INR (<1.2) APTT (22.0-30.0) sec Fibrinogen (200-500) mg/dL ABG pH 7.33 L (7.35-7.45) ABG pCO2 47 H (35-45) mmHg ABG pO2 229 H 366 H 314 H (83-108) mmHg ABG HCO3 (21-25) mmol/L ABG Total CO2 26 H 26 H 26 H (19-24) mmol/L ABG O2 Saturation 100.0 H 100.0 H 100.0 H (94-97) % ABG Hematocrit 29 L 28 L (34.0-46.0) % ABG Sodium (135-146) mmol/L ABG Potassium 4.6 H 4.6 H (3.4-4.5) mmol/L ABG Ionized Calcium 4.0 L 4.0 L (4.5-5.3) mg/dL ABG Glucose 142 H 112 H 131 H (75-99) mg/dL ABG Lactic Acid 1.7 H 2.2 H* (0.5-1.6) mmol/L Hemoglobin 9.3 L 9.2 L (13.0-17.5) gm/dL Sodium (137-145) mmol/L Chloride (98-107) mmol/L Carbon Dioxide (22-30) mmol/L Creatinine (0.66-1.25) mg/dL Glucose (74-99) mg/dL POC Glucose (mg/dL) (75-99) mg/dL Calcium (8.4-10.2) mg/dL Magnesium (1.6-2.3) mg/dL Total Bilirubin (0.2-1.3) mg/dL AST (17-59) U/L ALT (4-49) U/L Alkaline Phosphatase (38-126) U/L Total Protein (6.3-8.2) g/dL Albumin (3.5-5.0) g/dL Arterial Blood Potassium 4.6 H 4.6 H (3.4-4.5) mmol/L Arterial Blood Glucose 142 H 112 H 131 H (75-99) mg/dL Crossmatch 09/20/20 09/20/20 09/20/20 Range/Units 13:29 14:08 15:01 WBC (3.8-10.6) k/uL RBC (4.30-5.90) m/uL Hgb (13.0-17.5) gm/dL Hct (39.0-53.0) % Plt Count (150-450) k/uL Neutrophils # (1.3-7.7) k/uL Monocytes # (0-1.0) k/uL PT (9.0-12.0) sec INR (<1.2) APTT (22.0-30.0) sec Fibrinogen (200-500) mg/dL ABG pH 7.33 L (7.35-7.45) ABG pCO2 46 H (35-45) mmHg ABG pO2 321 H 384 H (83-108) mmHg ABG HCO3 (21-25) mmol/L ABG Total CO2 25 H 27 H (19-24) mmol/L ABG O2 Saturation 100.0 H 100.0 H 98.3 H (94-97) % ABG Hematocrit 27 L 27 L 27 L (34.0-46.0) % ABG Sodium 147 H (135-146) mmol/L ABG Potassium (3.4-4.5) mmol/L ABG Ionized Calcium 3.9 L 4.0 L 4.0 L (4.5-5.3) mg/dL ABG Glucose 169 H 154 H 138 H (75-99) mg/dL ABG Lactic Acid 2.0 H 2.2 H* 2.3 H* (0.5-1.6) mmol/L Hemoglobin 8.9 L 8.8 L 8.9 L (13.0-17.5) gm/dL Sodium (137-145) mmol/L Chloride (98-107) mmol/L Carbon Dioxide (22-30) mmol/L Creatinine (0.66-1.25) mg/dL Glucose (74-99) mg/dL POC Glucose (mg/dL) (75-99) mg/dL Calcium (8.4-10.2) mg/dL Magnesium (1.6-2.3) mg/dL Total Bilirubin (0.2-1.3) mg/dL AST (17-59) U/L ALT (4-49) U/L Alkaline Phosphatase (38-126) U/L Total Protein (6.3-8.2) g/dL Albumin (3.5-5.0) g/dL Arterial Blood Potassium (3.4-4.5) mmol/L Arterial Blood Glucose 169 H 154 H 138 H (75-99) mg/dL Crossmatch 09/20/20 09/20/20 09/20/20 Range/Units 16:40 16:40 16:40 WBC 17.6 H (3.8-10.6) k/uL RBC 3.63 L (4.30-5.90) m/uL Hgb 11.1 L D (13.0-17.5) gm/dL Hct 30.7 L (39.0-53.0) % Plt Count (150-450) k/uL Neutrophils # 14.7 H (1.3-7.7) k/uL Monocytes # 1.2 H (0-1.0) k/uL PT (9.0-12.0) sec INR (<1.2) APTT (22.0-30.0) sec Fibrinogen (200-500) mg/dL ABG pH (7.35-7.45) ABG pCO2 (35-45) mmHg ABG pO2 (83-108) mmHg ABG HCO3 (21-25) mmol/L ABG Total CO2 (19-24) mmol/L ABG O2 Saturation (94-97) % ABG Hematocrit (34.0-46.0) % ABG Sodium (135-146) mmol/L ABG Potassium (3.4-4.5) mmol/L ABG Ionized Calcium (4.5-5.3) mg/dL ABG Glucose (75-99) mg/dL ABG Lactic Acid (0.5-1.6) mmol/L Hemoglobin (13.0-17.5) gm/dL Sodium (137-145) mmol/L Chloride 111 H (98-107) mmol/L Carbon Dioxide (22-30) mmol/L Creatinine (0.66-1.25) mg/dL Glucose 133 H (74-99) mg/dL POC Glucose (mg/dL) 140 H (75-99) mg/dL Calcium 7.5 L (8.4-10.2) mg/dL Magnesium 2.6 H (1.6-2.3) mg/dL Total Bilirubin 1.4 H (0.2-1.3) mg/dL AST (17-59) U/L ALT (4-49) U/L Alkaline Phosphatase (38-126) U/L Total Protein 4.5 L (6.3-8.2) g/dL Albumin 2.8 L (3.5-5.0) g/dL Arterial Blood Potassium (3.4-4.5) mmol/L Arterial Blood Glucose (75-99) mg/dL Crossmatch 09/20/20 09/20/20 09/20/20 Range/Units 16:54 17:13 17:57 WBC 18.4 H (3.8-10.6) k/uL RBC 3.52 L (4.30-5.90) m/uL Hgb 10.8 L (13.0-17.5) gm/dL Hct 29.8 L (39.0-53.0) % Plt Count (150-450) k/uL Neutrophils # 16.2 H (1.3-7.7) k/uL Monocytes # (0-1.0) k/uL PT (9.0-12.0) sec INR (<1.2) APTT (22.0-30.0) sec Fibrinogen (200-500) mg/dL ABG pH (7.35-7.45) ABG pCO2 (35-45) mmHg ABG pO2 384 H (83-108) mmHg ABG HCO3 (21-25) mmol/L ABG Total CO2 27 H (19-24) mmol/L ABG O2 Saturation 99.9 H (94-97) % ABG Hematocrit (34.0-46.0) % ABG Sodium (135-146) mmol/L ABG Potassium (3.4-4.5) mmol/L ABG Ionized Calcium (4.5-5.3) mg/dL ABG Glucose (75-99) mg/dL ABG Lactic Acid (0.5-1.6) mmol/L Hemoglobin (13.0-17.5) gm/dL Sodium (137-145) mmol/L Chloride (98-107) mmol/L Carbon Dioxide (22-30) mmol/L Creatinine (0.66-1.25) mg/dL Glucose (74-99) mg/dL POC Glucose (mg/dL) 121 H (75-99) mg/dL Calcium (8.4-10.2) mg/dL Magnesium (1.6-2.3) mg/dL Total Bilirubin (0.2-1.3) mg/dL AST (17-59) U/L ALT (4-49) U/L Alkaline Phosphatase (38-126) U/L Total Protein (6.3-8.2) g/dL Albumin (3.5-5.0) g/dL Arterial Blood Potassium (3.4-4.5) mmol/L Arterial Blood Glucose (75-99) mg/dL Crossmatch 09/20/20 09/20/20 09/20/20 Range/Units 18:12 19:03 19:49 WBC (3.8-10.6) k/uL RBC (4.30-5.90) m/uL Hgb (13.0-17.5) gm/dL Hct (39.0-53.0) % Plt Count (150-450) k/uL Neutrophils # (1.3-7.7) k/uL Monocytes # (0-1.0) k/uL PT (9.0-12.0) sec INR (<1.2) APTT (22.0-30.0) sec Fibrinogen (200-500) mg/dL ABG pH 7.34 L (7.35-7.45) ABG pCO2 (35-45) mmHg ABG pO2 122 H (83-108) mmHg ABG HCO3 (21-25) mmol/L ABG Total CO2 26 H (19-24) mmol/L ABG O2 Saturation 98.6 H (94-97) % ABG Hematocrit (34.0-46.0) % ABG Sodium (135-146) mmol/L ABG Potassium (3.4-4.5) mmol/L ABG Ionized Calcium (4.5-5.3) mg/dL ABG Glucose (75-99) mg/dL ABG Lactic Acid (0.5-1.6) mmol/L Hemoglobin (13.0-17.5) gm/dL Sodium (137-145) mmol/L Chloride (98-107) mmol/L Carbon Dioxide (22-30) mmol/L Creatinine (0.66-1.25) mg/dL Glucose (74-99) mg/dL POC Glucose (mg/dL) 137 H 143 H (75-99) mg/dL Calcium (8.4-10.2) mg/dL Magnesium (1.6-2.3) mg/dL Total Bilirubin (0.2-1.3) mg/dL AST (17-59) U/L ALT (4-49) U/L Alkaline Phosphatase (38-126) U/L Total Protein (6.3-8.2) g/dL Albumin (3.5-5.0) g/dL Arterial Blood Potassium (3.4-4.5) mmol/L Arterial Blood Glucose (75-99) mg/dL Crossmatch 09/20/20 09/20/20 09/20/20 Range/Units 19:50 20:54 21:26 WBC (3.8-10.6) k/uL RBC (4.30-5.90) m/uL Hgb (13.0-17.5) gm/dL Hct (39.0-53.0) % Plt Count (150-450) k/uL Neutrophils # (1.3-7.7) k/uL Monocytes # (0-1.0) k/uL PT (9.0-12.0) sec INR (<1.2) APTT (22.0-30.0) sec Fibrinogen (200-500) mg/dL ABG pH (7.35-7.45) ABG pCO2 34 L (35-45) mmHg ABG pO2 (83-108) mmHg ABG HCO3 (21-25) mmol/L ABG Total CO2 (19-24) mmol/L ABG O2 Saturation 98.4 H (94-97) % ABG Hematocrit (34.0-46.0) % ABG Sodium (135-146) mmol/L ABG Potassium (3.4-4.5) mmol/L ABG Ionized Calcium (4.5-5.3) mg/dL ABG Glucose (75-99) mg/dL ABG Lactic Acid (0.5-1.6) mmol/L Hemoglobin (13.0-17.5) gm/dL Sodium (137-145) mmol/L Chloride (98-107) mmol/L Carbon Dioxide (22-30) mmol/L Creatinine (0.66-1.25) mg/dL Glucose (74-99) mg/dL POC Glucose (mg/dL) 167 H 174 H (75-99) mg/dL Calcium (8.4-10.2) mg/dL Magnesium (1.6-2.3) mg/dL Total Bilirubin (0.2-1.3) mg/dL AST (17-59) U/L ALT (4-49) U/L Alkaline Phosphatase (38-126) U/L Total Protein (6.3-8.2) g/dL Albumin (3.5-5.0) g/dL Arterial Blood Potassium (3.4-4.5) mmol/L Arterial Blood Glucose (75-99) mg/dL Crossmatch 09/20/20 09/20/20 09/20/20 Range/Units 21:46 23:21 23:58 WBC 19.3 H (3.8-10.6) k/uL RBC 3.09 L (4.30-5.90) m/uL Hgb 9.4 L (13.0-17.5) gm/dL Hct 26.2 L (39.0-53.0) % Plt Count (150-450) k/uL Neutrophils # 16.8 H (1.3-7.7) k/uL Monocytes # (0-1.0) k/uL PT (9.0-12.0) sec INR (<1.2) APTT (22.0-30.0) sec Fibrinogen (200-500) mg/dL ABG pH (7.35-7.45) ABG pCO2 (35-45) mmHg ABG pO2 (83-108) mmHg ABG HCO3 (21-25) mmol/L ABG Total CO2 (19-24) mmol/L ABG O2 Saturation (94-97) % ABG Hematocrit (34.0-46.0) % ABG Sodium (135-146) mmol/L ABG Potassium (3.4-4.5) mmol/L ABG Ionized Calcium (4.5-5.3) mg/dL ABG Glucose (75-99) mg/dL ABG Lactic Acid (0.5-1.6) mmol/L Hemoglobin (13.0-17.5) gm/dL Sodium (137-145) mmol/L Chloride (98-107) mmol/L Carbon Dioxide (22-30) mmol/L Creatinine (0.66-1.25) mg/dL Glucose (74-99) mg/dL POC Glucose (mg/dL) 320 H 306 H (75-99) mg/dL Calcium (8.4-10.2) mg/dL Magnesium (1.6-2.3) mg/dL Total Bilirubin (0.2-1.3) mg/dL AST (17-59) U/L ALT (4-49) U/L Alkaline Phosphatase (38-126) U/L Total Protein (6.3-8.2) g/dL Albumin (3.5-5.0) g/dL Arterial Blood Potassium (3.4-4.5) mmol/L Arterial Blood Glucose (75-99) mg/dL Crossmatch 09/21/20 09/21/20 09/21/20 Range/Units 01:52 03:10 03:10 WBC 12.7 H (3.8-10.6) k/uL RBC 3.25 L (4.30-5.90) m/uL Hgb 9.5 L (13.0-17.5) gm/dL Hct 28.3 L (39.0-53.0) % Plt Count 102 L D (150-450) k/uL Neutrophils # 10.6 H (1.3-7.7) k/uL Monocytes # (0-1.0) k/uL PT (9.0-12.0) sec INR (<1.2) APTT (22.0-30.0) sec Fibrinogen (200-500) mg/dL ABG pH 7.14 L* (7.35-7.45) ABG pCO2 (35-45) mmHg ABG pO2 227 H (83-108) mmHg ABG HCO3 14 L (21-25) mmol/L ABG Total CO2 16 L (19-24) mmol/L ABG O2 Saturation 99.6 H (94-97) % ABG Hematocrit 25 L (34.0-46.0) % ABG Sodium 148 H (135-146) mmol/L ABG Potassium (3.4-4.5) mmol/L ABG Ionized Calcium 3.7 L (4.5-5.3) mg/dL ABG Glucose 206 H (75-99) mg/dL ABG Lactic Acid 16.0 H* (0.5-1.6) mmol/L Hemoglobin 8.2 L (13.0-17.5) gm/dL Sodium 146 H (137-145) mmol/L Chloride 111 H (98-107) mmol/L Carbon Dioxide 21 L (22-30) mmol/L Creatinine 1.40 H (0.66-1.25) mg/dL Glucose 135 H (74-99) mg/dL POC Glucose (mg/dL) (75-99) mg/dL Calcium 7.6 L (8.4-10.2) mg/dL Magnesium (1.6-2.3) mg/dL Total Bilirubin (0.2-1.3) mg/dL AST 325 H (17-59) U/L ALT 364 H (4-49) U/L Alkaline Phosphatase 35 L (38-126) U/L Total Protein 3.7 L (6.3-8.2) g/dL Albumin 2.5 L (3.5-5.0) g/dL Arterial Blood Potassium (3.4-4.5) mmol/L Arterial Blood Glucose 206 H (75-99) mg/dL Crossmatch 05/27/21 05/27/21 05/27/21 Range/Units 03:10 03:11 03:25 WBC (3.8-10.6) k/uL RBC (4.30-5.90) m/uL Hgb (13.0-17.5) gm/dL Hct (39.0-53.0) % Plt Count (150-450) k/uL Neutrophils # (1.3-7.7) k/uL Monocytes # (0-1.0) k/uL PT 16.3 H (9.0-12.0) sec INR 1.6 H (<1.2) APTT 42.3 H (22.0-30.0) sec Fibrinogen 120 L (200-500) mg/dL ABG pH 7.31 L (7.35-7.45) ABG pCO2 (35-45) mmHg ABG pO2 (83-108) mmHg ABG HCO3 20 L (21-25) mmol/L ABG Total CO2 (19-24) mmol/L ABG O2 Saturation 97.7 H (94-97) % ABG Hematocrit (34.0-46.0) % ABG Sodium (135-146) mmol/L ABG Potassium (3.4-4.5) mmol/L ABG Ionized Calcium (4.5-5.3) mg/dL ABG Glucose (75-99) mg/dL ABG Lactic Acid (0.5-1.6) mmol/L Hemoglobin (13.0-17.5) gm/dL Sodium (137-145) mmol/L Chloride (98-107) mmol/L Carbon Dioxide (22-30) mmol/L Creatinine (0.66-1.25) mg/dL Glucose (74-99) mg/dL POC Glucose (mg/dL) 142 H (75-99) mg/dL Calcium (8.4-10.2) mg/dL Magnesium (1.6-2.3) mg/dL Total Bilirubin (0.2-1.3) mg/dL AST (17-59) U/L ALT (4-49) U/L Alkaline Phosphatase (38-126) U/L Total Protein (6.3-8.2) g/dL Albumin (3.5-5.0) g/dL Arterial Blood Potassium (3.4-4.5) mmol/L Arterial Blood Glucose (75-99) mg/dL Crossmatch 09/21/20 09/21/20 09/21/20 Range/Units 04:05 04:13 05:05 WBC (3.8-10.6) k/uL RBC (4.30-5.90) m/uL Hgb (13.0-17.5) gm/dL Hct (39.0-53.0) % Plt Count (150-450) k/uL Neutrophils # (1.3-7.7) k/uL Monocytes # (0-1.0) k/uL PT (9.0-12.0) sec INR (<1.2) APTT (22.0-30.0) sec Fibrinogen (200-500) mg/dL ABG pH 7.34 L (7.35-7.45) ABG pCO2 (35-45) mmHg ABG pO2 196 H (83-108) mmHg ABG HCO3 (21-25) mmol/L ABG Total CO2 25 H (19-24) mmol/L ABG O2 Saturation 99.3 H (94-97) % ABG Hematocrit (34.0-46.0) % ABG Sodium (135-146) mmol/L ABG Potassium (3.4-4.5) mmol/L ABG Ionized Calcium (4.5-5.3) mg/dL ABG Glucose (75-99) mg/dL ABG Lactic Acid (0.5-1.6) mmol/L Hemoglobin (13.0-17.5) gm/dL Sodium (137-145) mmol/L Chloride (98-107) mmol/L Carbon Dioxide (22-30) mmol/L Creatinine (0.66-1.25) mg/dL Glucose (74-99) mg/dL POC Glucose (mg/dL) 127 H 117 H (75-99) mg/dL Calcium (8.4-10.2) mg/dL Magnesium (1.6-2.3) mg/dL Total Bilirubin (0.2-1.3) mg/dL AST (17-59) U/L ALT (4-49) U/L Alkaline Phosphatase (38-126) U/L Total Protein (6.3-8.2) g/dL Albumin (3.5-5.0) g/dL Arterial Blood Potassium (3.4-4.5) mmol/L Arterial Blood Glucose (75-99) mg/dL Crossmatch 09/21/20 09/21/20 09/21/20 Range/Units 06:03 06:06 06:54 WBC (3.8-10.6) k/uL RBC (4.30-5.90) m/uL Hgb (13.0-17.5) gm/dL Hct (39.0-53.0) % Plt Count (150-450) k/uL Neutrophils # (1.3-7.7) k/uL Monocytes # (0-1.0) k/uL PT (9.0-12.0) sec INR (<1.2) APTT (22.0-30.0) sec Fibrinogen (200-500) mg/dL ABG pH (7.35-7.45) ABG pCO2 46 H (35-45) mmHg ABG pO2 325 H (83-108) mmHg ABG HCO3 26 H (21-25) mmol/L ABG Total CO2 28 H (19-24) mmol/L ABG O2 Saturation 99.6 H (94-97) % ABG Hematocrit (34.0-46.0) % ABG Sodium (135-146) mmol/L ABG Potassium (3.4-4.5) mmol/L ABG Ionized Calcium (4.5-5.3) mg/dL ABG Glucose (75-99) mg/dL ABG Lactic Acid (0.5-1.6) mmol/L Hemoglobin (13.0-17.5) gm/dL Sodium (137-145) mmol/L Chloride (98-107) mmol/L Carbon Dioxide (22-30) mmol/L Creatinine (0.66-1.25) mg/dL Glucose (74-99) mg/dL POC Glucose (mg/dL) 128 H 136 H (75-99) mg/dL Calcium (8.4-10.2) mg/dL Magnesium (1.6-2.3) mg/dL Total Bilirubin (0.2-1.3) mg/dL AST (17-59) U/L ALT (4-49) U/L Alkaline Phosphatase (38-126) U/L Total Protein (6.3-8.2) g/dL Albumin (3.5-5.0) g/dL Arterial Blood Potassium (3.4-4.5) mmol/L Arterial Blood Glucose (75-99) mg/dL Crossmatch 09/21/20 09/21/20 Range/Units 07:00 08:08 WBC 16.6 H (3.8-10.6) k/uL RBC 3.47 L (4.30-5.90) m/uL Hgb 10.2 L (13.0-17.5) gm/dL Hct 29.5 L (39.0-53.0) % Plt Count 125 L (150-450) k/uL Neutrophils # 13.8 H (1.3-7.7) k/uL Monocytes # 1.1 H (0-1.0) k/uL PT (9.0-12.0) sec INR (<1.2) APTT (22.0-30.0) sec Fibrinogen (200-500) mg/dL ABG pH (7.35-7.45) ABG pCO2 (35-45) mmHg ABG pO2 (83-108) mmHg ABG HCO3 (21-25) mmol/L ABG Total CO2 (19-24) mmol/L ABG O2 Saturation (94-97) % ABG Hematocrit (34.0-46.0) % ABG Sodium (135-146) mmol/L ABG Potassium (3.4-4.5) mmol/L ABG Ionized Calcium (4.5-5.3) mg/dL ABG Glucose (75-99) mg/dL ABG Lactic Acid (0.5-1.6) mmol/L Hemoglobin (13.0-17.5) gm/dL Sodium (137-145) mmol/L Chloride (98-107) mmol/L Carbon Dioxide (22-30) mmol/L Creatinine (0.66-1.25) mg/dL Glucose (74-99) mg/dL POC Glucose (mg/dL) 139 H (75-99) mg/dL Calcium (8.4-10.2) mg/dL Magnesium (1.6-2.3) mg/dL Total Bilirubin (0.2-1.3) mg/dL AST (17-59) U/L ALT (4-49) U/L Alkaline Phosphatase (38-126) U/L Total Protein (6.3-8.2) g/dL Albumin (3.5-5.0) g/dL Arterial Blood Potassium (3.4-4.5) mmol/L Arterial Blood Glucose (75-99) mg/dL Crossmatch - Imaging and Cardiology Chest x-ray: report reviewed, image reviewed Assessment and Plan Assessment: 1. Coronary artery disease with left main disease, status post four-vessel CABG 2. Unstable angina 3. History of hypertension, currently hypotensive on pressors 4. Hyperlipidemia 5. Recent Covid infection in July 2020 6. Previous tobacco dependence 7. Rare alcohol usage 8. Witnessed cardiac arrest with brief CPR and subsequent ROSC 9. Postoperative acute blood loss anemia with return to the OR for mediastinal exploration with control of postop bleed 10. Postoperative hypotension requiring pressor support 11. Acute lactic acidosis, lactic acid now 4 12. Elevated transaminases due to hypotension Plan: 1. Continue low-dose aspirin, statin, Plavix. Will hold beta [place] for now and reinitiate when able 2. Wean pressors as tolerated. Decrease Primacor 3. Wean from mechanical ventilation when able. Ventilator management, bronchodilators per pulmonology 4. Will monitor daily labs and x-rays. Will monitor ABGs and lactic acid. Electrolyte replacement per protocol. No further transfusions at this time 5. GI/DVT prophylaxis 6. Will maintain all lines and tubes for another 24 hours 7. Insulin management per primary care service. Patient is borderline pre-diabetic, preoperative hemoglobin A1c 6.2% 8. Pain control current medication regimen 9. Will give albumin fluid bolus 10. More recommendations to follow Time with Patient: Greater than 30
[2020-09-21 10:57] LABS: Glucose,Whole Blood 156 mg/dL (75-99)
--- NOTE | 2020-09-21 11:14 | P.CRDCN ---
History of Present Illness Consult date: 09/21/20 History of present illness: HISTORY OF PRESENT ILLNESS: This is a 50 year old male with a past medical history significant for hypertension, hyperlipidemia, recent Covid in July 2020 and former nicotine dependence. We have been asked to see the patient in consultation for post cardiac surgery management. Patient underwent CABG x 4: BASHIR to LAD, radial artery to ramus artery, saphenous vein graft to distal obtuse marginal artery, and saphenous vein graft to posterior lateral branch of right coronary artery. POD #1. Patient was extubated yesterday evening. Afterwards, the patient developed increasing output from his chest tubes and became unstable requiring vasopressor support. Patient had PEA arrest and was coded for approximately 9 minutes per nursing. He was reintubated and was taken back to the OR for control of bleeding and evacuation of clots. Patient remains intubated in the ICU this morning. He is on Levophed, vasopressin, and primacor. Drainage from chest tubes has improved. Patient received 4 units RBC. Telemetry reveals paced rhythm Chest xray interval intubation. Difficult to exclude component of volume overload/interstitial edema. Laboratory data: WBC 16.6. Hemoglobin 10.2. Platelet count 125. Sodium 146. Potassium 4.1. BUN 19. Creatinine 1.40. AST 325. ALT 364. Current home cardiac medications include amlodipine 10 mg daily, metoprolol tartrate 25 mg twice a day, losartan 100 mg daily, Imdur 60mg daily, Lipitor 80 mg daily, and aspirin 81 mg daily REVIEW OF SYSTEMS: Unable to obtain review of systems due to mechanical ventilation PHYSICAL EXAM: VITAL SIGNS: Reviewed. GENERAL: Well-developed in no acute distress. HEENT: Head is normocephalic. Pupils are equal, round. Sclerae anicteric. Mucous membranes of the mouth are moist. Neck supple. No JVD or thyromegaly LUNGS: Respirations even and unlabored. Lungs diminished bilaterally. HEART: Paced rhythm. Regular rate and rhythm. S1 and S2 heard. Dressing clean dry and intact. Heart hugger noted. Chest tubes noted. ABDOMEN: Soft. Nondistended. Nontender. EXTREMITIES: Normal range of motion. No clubbing or cyanosis. Peripheral pulses intact. No lower extremity edema NEUROLOGIC: Sedated ASSESSMENT: Coronary artery disease with left main disease, status post CABG 4 Acute blood loss anemia, s/p return to OR for control of postoperative bleeding Hypotension, requiring vasopressor support Acute lactic acidosis Elevated LFTs secondary to hypoperfusion Hyperlipidemia Hypertension History of Covid, 07/2020 Former nicotine dependence PLAN: Continue pulmonary management per Dr. Mueller Continue postoperative management per CTS Continue aspirin, plavix, and statin Beta [place] held due to hypotension. Resume when able to tolerate Further recommendations pending patient course Nurse practitioner note has been reviewed by physician. Signing provider agrees with the documented findings, assessment, and plan of care. Past Medical History Past Medical History: Chest Pain / Angina, Hyperlipidemia, Hypertension, Musculoskeletal Disorder Additional Past Medical History / Comment(s): no current chest pain, cervical problems c-5 thru c-7, had covid beginning of July- History of Any Multi-Drug Resistant Organisms: None Reported Past Surgical History: Heart Catheterization Additional Past Anesthesia/Blood Transfusion Reaction / Comment(s): no family problems w/anesthesia, pt. has never had anesthesia Smoking Status: Former smoker - Past Family History Father Family Medical History: Cancer Medications and Allergies Home Medications Medication Instructions Recorded Confirmed Type Aspirin 81 mg PO DAILY 09/14/20 09/14/20 History Atorvastatin [Lipitor] 80 mg PO HS 09/14/20 09/14/20 History Isosorbide Mononitrate [Isosorbide 60 mg PO DAILY 09/14/20 09/14/20 History Mononitrate ER] Losartan Potassium [Cozaar] 100 mg PO DAILY 09/14/20 09/14/20 History Metoprolol Tartrate [Lopressor] 25 mg PO BID 09/14/20 09/14/20 History Nitroglycerin Sl Tabs [Nitrostat] 0.4 mg SUBLINGUAL Q5M PRN 09/14/20 09/14/20 History amLODIPine BESYLATE 10 mg PO DAILY 09/14/20 09/14/20 History Allergies Allergy/AdvReac Type Severity Reaction Status Date / Time lisinopril AdvReac Cough Verified 09/20/20 06:08 Physical Exam Vitals: Vital Signs Temp Pulse Resp BP Pulse Ox 09/21/20 10:00 80 18 100/51 100 09/21/20 09:30 68 16 89/53 99 09/21/20 09:00 71 15 90/58 98 09/21/20 08:30 76 15 90/58 99 09/21/20 08:00 98.2 F 79 16 95/66 97 09/21/20 07:30 81 15 91/42 97 09/21/20 07:23 83 09/21/20 07:09 73 09/21/20 07:00 74 7 L 100 09/21/20 06:45 73 13 100 09/21/20 06:30 73 15 99 09/21/20 06:15 70 15 100 09/21/20 06:00 68 15 99 09/21/20 05:45 68 15 103/64 99 09/21/20 05:30 68 15 100 09/21/20 05:15 67 15 84/62 100 09/21/20 05:00 65 18 98 09/21/20 04:45 67 17 99 09/21/20 04:30 67 17 99 09/21/20 04:15 67 18 99 09/21/20 04:00 67 18 99 09/21/20 03:45 65 18 100 09/21/20 03:30 65 15 100 09/21/20 03:15 62 16 09/21/20 00:27 96.6 F L 80 12 82/43 09/21/20 00:15 80 23 09/21/20 00:00 79 24 09/20/20 23:57 96.6 F L 80 26 H 77/36 09/20/20 23:54 96.6 F L 80 12 85/36 09/20/20 23:47 96.4 F L 80 26 H 84/34 09/20/20 23:45 80 25 H 09/20/20 23:40 96.6 F L 79 12 70/31 09/20/20 23:30 82 28 H 09/20/20 23:15 93 H 95 09/20/20 23:10 36.0 F L 09/20/20 23:00 96.8 F L 80 16 103/51 09/20/20 22:45 79 26 H 97 09/20/20 22:30 85 23 98 09/20/20 22:15 80 19 98 09/20/20 22:00 79 15 98 09/20/20 21:45 79 15 98 09/20/20 21:30 80 23 96 09/20/20 21:15 80 18 98 09/20/20 21:00 64 14 97 09/20/20 20:45 63 14 91/51 96 09/20/20 20:30 63 15 96 09/20/20 20:18 66 09/20/20 20:15 78 15 98 09/20/20 20:08 77 09/20/20 20:05 80 14 96 09/20/20 20:00 80 16 95 09/20/20 19:30 71 15 99 09/20/20 19:00 98.8 F 59 L 14 100 09/20/20 18:30 59 L 15 100 09/20/20 18:15 57 L 14 100 09/20/20 18:00 55 L 14 101/66 100 09/20/20 17:45 56 L 14 100 09/20/20 17:30 55 L 14 100 09/20/20 17:15 54 L 14 100 09/20/20 17:00 97.0 F L 53 L 14 09/20/20 16:52 54 L 09/20/20 16:45 61 14 09/20/20 16:41 54 L 09/20/20 16:30 96.8 F L 54 L 14 Intake and Output 09/20/20 09/21/20 09/21/20 22:59 06:59 14:59 Intake Total 6744.638 2739.084 1051.987 Output Total 3226 1833 292 Balance -2036.434 972.084 759.987 Intake: IV 827.5 600 601 0.9NS CO/CI 119 110 50 0.9NS flush 54 45 36 Albumin Human 5% 250 ml 500 250 In Empty Bag 1 bag @ 250 mls/hr IVPB Q1HR PRN Rx#: [id number] Lactated Ringers 1,000 ml 150 220 190 @ 50 mls/hr IV .Q20H [facility] Rx#:[id number] Nitroglycerin-D5w Pmx 50 4.5 mg In Dextrose/Water 1 250ml.bag @ 5 MCG/MIN 1.5 mls/hr IV .Q24H [facility] Rx#: [id number] Sodium Chloride 0.45% 1, 225 75 000 ml @ 75 mls/hr IV . [id number] [facility] with Sodium Bicarb (1 Meq/ml) 150 ml Rx#:[id number] Intake, IV Titration 362.066 414.084 390.987 Amount ACETAMINOPHEN IV (For NPO 100 ) 1,000 mg In Empty Bag 1 bag @ 400 mls/hr IVPB Q6HR [facility] Rx#:[id number] Calcium Gluconate 1 gm In 100 Sodium Chloride 0.9% 100 ml @ 100 mls/hr IVPB ONCE ONE Rx#:[id number] Insulin Regular 100 unit 2.828 63.302 9.949 In Sodium Chloride 0.9% 100 ml @ Per Protocol IV .Q0M [facility] Rx#:[id number] Lactated Ringers 1,000 ml 150 @ 50 mls/hr IV .Q20H [facility] Rx#:[id number] Milrinone-D5w Pmx 20 mg 40.122 In Dextrose/Water 1 100ml .bag @ 0.1 MCG/KG/MIN 3. 417 mls/hr IV .Q24H [facility] Rx#:[id number] Norepinephrine 4 mg In 29.368 312.929 110.143 Sodium Chloride 0.9% 250 ml @ 0.05 MCG/KG/MIN 19. 622 mls/hr IV .[id number] [facility] Rx#:[id number] Sodium Chloride 0.9% 150 13.5 ml @ 0.03 UNITS/MIN 4.59 mls/hr IV .Q24H [facility] with Vasopressin 60 unit Rx#: [id number] ceFAZolin 2 gm In Sodium 50 50 Chloride 0.9% 50 ml @ 100 mls/hr IVPB Q8H [facility] Rx#: [id number] propofoL 1,000 mg In 29.87 37.853 67.273 Empty Bag 1 bag @ Titrate IV .Q0M [facility] Rx#: [id number] Blood Product 0 1791 Rc As-1 Unit 310 [id number] Rc Cpda-1 Unit 310 [id number] Rc Pheresis 2 As3 Unit 0 287 [id number] Rc Pheresis As-3 Unit 284 [id number] Other 60 Output: Chest Tube Drainage 331 1653 172 Chest Tube Mediastinal 255 1186 108 Left 76 467 64 Drainage 100 Left Thigh 20 Left Wrist 50 Right Thigh 30 Urine 1295 180 120 Estimated Blood Loss 1500 Other: Voiding Method Indwelling Catheter Indwelling Catheter Indwelling Catheter # Bowel Movements 1 Weight 113.9 kg ABP, PAP, CO, CI - Last 8 Hours Arterial Blood Pressure 99/45 Arterial Blood Pressure 82/41 Arterial Blood Pressure 85/42 Arterial Blood Pressure 95/44 Arterial Blood Pressure 121/55 Arterial Blood Pressure 129/60 Arterial Blood Pressure 61/52 Arterial Blood Pressure 84/57 Arterial Blood Pressure 93/60 Arterial Blood Pressure 88/51 Arterial Blood Pressure 97/57 Arterial Blood Pressure 90/52 Arterial Blood Pressure 88/55 Arterial Blood Pressure 93/55 Arterial Blood Pressure 92/57 Arterial Blood Pressure 92/59 Arterial Blood Pressure 89/55 Arterial Blood Pressure 90/56 Arterial Blood Pressure 90/55 Arterial Blood Pressure 89/54 Arterial Blood Pressure 85/50 Arterial Blood Pressure 91/54 Pulmonary Artery Pressure 32/19 Pulmonary Artery Pressure 31/17 Pulmonary Artery Pressure 32/16 Pulmonary Artery Pressure 36/21 Pulmonary Artery Pressure 29/17 Pulmonary Artery Pressure 31/17 Pulmonary Artery Pressure 33/18 Pulmonary Artery Pressure 29/18 Pulmonary Artery Pressure 29/18 Pulmonary Artery Pressure 34/19 Pulmonary Artery Pressure 31/18 Pulmonary Artery Pressure 31/19 Pulmonary Artery Pressure 29/17 Pulmonary Artery Pressure 33/21 Pulmonary Artery Pressure 34/22 Pulmonary Artery Pressure 37/24 Pulmonary Artery Pressure 37/24 Pulmonary Artery Pressure 37/24 Pulmonary Artery Pressure 38/24 Pulmonary Artery Pressure 39/25 Pulmonary Artery Pressure 39/25 Pulmonary Artery Pressure 38/24 Cardiac Output 5.5 Cardiac Output 5.1 Cardiac Output 4.4 Cardiac Output 3.2 Cardiac Output 3.2 Cardiac Output 3.2 Cardiac Output 3.9 Cardiac Output 4.4 Cardiac Index 2.5 Cardiac Index 2.3 Cardiac Index 2.0 Cardiac Index 1.4 Cardiac Index 1.4 Cardiac Index 1.4 Cardiac Index 1.8 Cardiac Index 2 Results 09/21/20 07:00 09/21/20 03:10 Cardiac Enzymes 09/20/20 09/21/20 Range/Units 16:40 03:10 AST 47 325 H (17-59) U/L Coagulation 09/20/20 09/20/20 09/21/20 Range/Units 16:40 20:17 03:10 PT 11.5 11.0 16.3 H (9.0-12.0) sec APTT 22.5 28.1 42.3 H (22.0-30.0) sec CBC 09/20/20 09/20/20 09/20/20 Range/Units 16:40 17:57 21:46 WBC 17.6 H 18.4 H 19.3 H (3.8-10.6) k/uL RBC 3.63 L 3.52 L 3.09 L (4.30-5.90) m/uL Hgb 11.1 L D 10.8 L 9.4 L (13.0-17.5) gm/dL Hct 30.7 L 29.8 L 26.2 L (39.0-53.0) % Plt Count 198 203 206 (150-450) k/uL 09/21/20 09/21/20 Range/Units 03:10 07:00 WBC 12.7 H 16.6 H (3.8-10.6) k/uL RBC 3.25 L 3.47 L (4.30-5.90) m/uL Hgb 9.5 L 10.2 L (13.0-17.5) gm/dL Hct 28.3 L 29.5 L (39.0-53.0) % Plt Count 102 L D 125 L (150-450) k/uL Comprehensive Metabolic Panel 09/20/20 09/21/20 Range/Units 16:40 03:10 Sodium 140 146 H (137-145) mmol/L Potassium 4.4 4.1 (3.5-5.1) mmol/L Chloride 111 H 111 H (98-107) mmol/L Carbon Dioxide 26 21 L (22-30) mmol/L BUN 17 19 (9-20) mg/dL Creatinine 0.82 1.40 H (0.66-1.25) mg/dL Glucose 133 H 135 H (74-99) mg/dL Calcium 7.5 L 7.6 L (8.4-10.2) mg/dL AST 47 325 H (17-59) U/L ALT 22 364 H (4-49) U/L Alkaline Phosphatase 64 35 L (38-126) U/L Total Protein 4.5 L 3.7 L (6.3-8.2) g/dL Albumin 2.8 L 2.5 L (3.5-5.0) g/dL Current Medications Generic Name Dose Route Start Last Admin Trade Name Freq PRN Reason Stop Dose Admin Hydrocodone Bitart/Acetaminophen 2 each 09/21/20 02:58 Hydrocodone/Apap 5-325mg 1 Each Tab PO Q4HR PRN Severe Pain Hydrocodone Bitart/Acetaminophen 1 each 09/21/20 02:58 Hydrocodone/Apap 5-325mg 1 Each Tab PO Q4HR PRN Moderate Pain Albuterol/Ipratropium 3 ml 09/20/20 16:10 Ipratropium-Albuterol 3 Ml Neb INHALATION RT-Q2H PRN Shortness Of Breath Or Wheezing Albuterol/Ipratropium 3 ml 09/21/20 08:00 09/21/20 07:04 Ipratropium-Albuterol 3 Ml Neb INHALATION 3 ml RT-QID [facility]ZA Administration Aspirin 81 mg 09/21/20 10:00 09/21/20 10:14 Aspirin 81 Mg PO 81 mg DAILY N[facility]ZA Administration Atorvastatin Calcium 40 mg 09/21/20 09:00 09/21/20 10:00 Atorvastatin 40 Mg Tab PO 40 mg DAILY N[facility]ZA Administration Benzocaine/Menthol 1 each 09/20/20 16:10 Benzocaine/Menthol Lozeng 1 Each Lozenge MUCOUS MEM Q2H PRN Sore Throat Bisacodyl 10 mg 09/21/20 09:00 Bisacodyl 10 Mg Supp RECTAL DAILY PRN Constipation Chlorhexidine Gluconate 15 ml 09/21/20 09:00 09/21/20 10:00 Chlorhexidine Gluconate 15 Ml Cup MUCOUS MEM 15 ml BID NITZA Administration Clopidogrel Bisulfate 75 mg 09/21/20 09:00 09/21/20 10:00 Clopidogrel 75 Mg Tab PO 75 mg DAILY NITZA Administration Heparin Sodium (Porcine) 5,000 unit 09/20/20 16:10 09/21/20 10:00 Heparin Sodium,Porcine/Pf 5,000 Unit/0.5 Ml Syringe SQ 5,000 unit Q8HR [facility] Administration Norepinephrine Bitartrate 4 mg 254 mls @ 19.622 mls/hr 09/20/20 16:00 09/21/20 09:40 / Sodium Chloride IV 0.08 mcg/kg/min .[id number] [facility] 31.394 mls/hr Administration Protocol 0.05 MCG/KG/MIN Amiodarone HCl 150 mg/ 103 mls @ 618 mls/hr 09/20/20 16:10 Dextrose/Water IV .Q10M PRN A.FIB/FLUTTER Protocol Amiodarone HCl 360 mg/ 207.2 mls @ 34.533 mls/hr 09/20/20 16:10 Dextrose/Water IV .Q6H PRN A.FIB/FLUTTER Protocol 1 MG/MIN Amiodarone HCl 450 mg/ 250 mls @ 16.667 mls/hr 09/20/20 16:10 Dextrose/Water IV .Q15H PRN A.FIB/FLUTTER Protocol 0.5 MG/MIN Albumin Human 250 ml/ IV 250 mls @ 250 mls/hr 09/20/20 16:10 09/21/20 10:19 Solution IVPB 09/22/20 16:11 250 mls/hr Q1HR PRN Administration For Volume Lactated Ringer's 1,000 mls @ 50 mls/hr 09/20/20 16:10 09/20/20 18:02 Lactated Ringers IV 50 mls/hr .Q20H [facility] Administration Propofol 1,000 mg/ IV Solution 100 mls @ 0 mls/hr 09/20/20 16:10 09/21/20 09:07 IV 45 mcg/kg/min .Q0M [facility] 30.753 mls/hr Titration Protocol Titrate Insulin Human Regular 100 unit 101 mls @ 0 mls/hr 09/20/20 16:10 09/21/20 10:07 / Sodium Chloride IV 2.5 units/hr .Q0M [facility] 2.525 mls/hr Titration Protocol Per Protocol Vasopressin 60 unit/ Sodium 153 mls @ 4.59 mls/hr 09/21/20 02:30 09/21/20 03:52 Chloride IV 4.59 mls/hr .Q24H [facility] Administration 0.03 UNITS/MIN Milrinone Lactate/Dextrose 20 100 mls @ 3.417 mls/hr 09/21/20 07:00 09/21/20 10:20 mg/ IV Solution IV 0.1 mcg/kg/min .Q24H [facility] 3.417 mls/hr Infusion 0.1 MCG/KG/MIN Magnesium Hydroxide 2,400 mg 09/21/20 09:00 Magnesium Hydroxide 2,400 Mg/10 Ml Cup PO BID PRN Constipation Metoclopramide HCl 10 mg 09/20/20 16:10 Metoclopramide 5 Mg/Ml 2 Ml Vial IVP Q4H PRN Nausea And Vomiting Metoprolol Tartrate 12.5 mg 09/21/20 09:00 09/21/20 10:00 Metoprolol Tartrate 12.5 Mg Tab PO Not Given BID [facility] Miscellaneous Information 1 each 09/20/20 16:10 Potassium Replacement Protocol 1 Each Misc MISCELLANE DAILY PRN Per Protocol Protocol Miscellaneous Information 1 each 09/20/20 16:10 Magnesium Replacement Protocol 1 Each Misc MISCELLANE DAILY PRN Per Protocol Protocol Miscellaneous Information 1 each 09/20/20 16:10 Phosphorus Replacement Protoco 1 Each Misc MISCELLANE DAILY PRN Per Protocol Protocol Morphine Sulfate 2 mg 09/20/20 22:49 09/21/20 07:50 Morphine Sulfate 2 Mg/Ml Syringe IVP 2 mg Q4H PRN Administration Pain/Discomfort Ondansetron HCl 4 mg 09/20/20 16:10 09/20/20 20:26 Ondansetron 4 Mg/2 Ml Vial IVP 4 mg Q6HR PRN Administration Nausea And Vomiting Pantoprazole Sodium 40 mg 09/21/20 09:00 09/21/20 09:24 Pantoprazole 40 Mg/10 Ml Vial IVP 40 mg DAILY [facility]ZA Administration Senna/Docusate Sodium 2 each 09/21/20 21:00 Sennosides-Docusate Sodium 1 Each Tab PO HS [facility] Sodium Chloride 10 ml 09/20/20 21:00 09/21/20 10:00 Sodium Chloride 0.9% Flush 10 Ml Syringe IV Not Given BID [facility] Intake and Output 09/20/20 09/21/20 09/21/20 22:59 06:59 14:59 Intake Total 7400.719 9039.084 1051.987 Output Total 3226 1833 292 Balance -2036.434 972.084 759.987 Intake: IV 827.5 600 601 0.9NS CO/CI 119 110 50 0.9NS flush 54 45 36 Albumin Human 5% 250 ml 500 250 In Empty Bag 1 bag @ 250 mls/hr IVPB Q1HR PRN Rx#: [id number] Lactated Ringers 1,000 ml 150 220 190 @ 50 mls/hr IV .Q20H [facility] Rx#:[id number] Nitroglycerin-D5w Pmx 50 4.5 mg In Dextrose/Water 1 250ml.bag @ 5 MCG/MIN 1.5 mls/hr IV .Q24H [facility] Rx#: [id number] Sodium Chloride 0.45% 1, 225 75 000 ml @ 75 mls/hr IV . [id number] [facility] with Sodium Bicarb (1 Meq/ml) 150 ml Rx#:[id number] Intake, IV Titration 362.066 414.084 390.987 Amount ACETAMINOPHEN IV (For NPO 100 ) 1,000 mg In Empty Bag 1 bag @ 400 mls/hr IVPB Q6HR [facility] Rx#:[id number] Calcium Gluconate 1 gm In 100 Sodium Chloride 0.9% 100 ml @ 100 mls/hr IVPB ONCE ONE Rx#:[id number] Insulin Regular 100 unit 2.828 63.302 9.949 In Sodium Chloride 0.9% 100 ml @ Per Protocol IV .Q0M [facility] Rx#:[id number] Lactated Ringers 1,000 ml 150 @ 50 mls/hr IV .Q20H [facility] Rx#:[id number] Milrinone-D5w Pmx 20 mg 40.122 In Dextrose/Water 1 100ml .bag @ 0.1 MCG/KG/MIN 3. 417 mls/hr IV .Q24H [facility] Rx#:[id number] Norepinephrine 4 mg In 29.368 312.929 110.143 Sodium Chloride 0.9% 250 ml @ 0.05 MCG/KG/MIN 19. 622 mls/hr IV .[id number] [facility] Rx#:[id number] Sodium Chloride 0.9% 150 13.5 ml @ 0.03 UNITS/MIN 4.59 mls/hr IV .Q24H [facility] with Vasopressin 60 unit Rx#: [id number] ceFAZolin 2 gm In Sodium 50 50 Chloride 0.9% 50 ml @ 100 mls/hr IVPB Q8H [facility] Rx#: [id number] propofoL 1,000 mg In 29.87 37.853 67.273 Empty Bag 1 bag @ Titrate IV .Q0M [facility] Rx#: [id number] Blood Product 0 1791 Rc As-1 Unit 310 [id number] Rc Cpda-1 Unit 310 [id number] Rc Pheresis 2 As3 Unit 0 287 [id number] Rc Pheresis As-3 Unit 284 [id number] Other 60 Output: Chest Tube Drainage 331 1653 172 Chest Tube Mediastinal 255 1186 108 Left 76 467 64 Drainage 100 Left Thigh 20 Left Wrist 50 Right Thigh 30 Urine 1295 180 120 Estimated Blood Loss 1500 Other: Voiding Method Indwelling Catheter Indwelling Catheter Indwelling Catheter # Bowel Movements 1 Weight 113.9 kg 09/21/20 07:00 09/21/20 03:10
[2020-09-21 12:01] LABS: Glucose,Whole Blood 167 mg/dL (75-99)
[2020-09-21] MEDS: LACTATED RINGERS 1,000 ML IV SCH (12:14)
[2020-09-21 12:20] LABS: Chol/HDL Ratio 5.57; LDL Cholesterol,Calculated 11.8 mg/dL (0.0-131.0); VLDL Calculation 20.2 mg/dL (5.00-40.00)
[2020-09-21 13:21] LABS: Glucose,Whole Blood 158 mg/dL (75-99)
[2020-09-21 14:19] LABS: Glucose,Whole Blood 137 mg/dL (75-99)
[2020-09-21 15:12] LABS: Glucose,Whole Blood 133 mg/dL (75-99)
[2020-09-21 16:04] LABS: ABG Base Excess 3.5 mmol/L; ABG HCO3 28 mmol/L (21-25); ABG Oxygen Saturation 98.1 % (94-97); ABG PCO2 41 mmHg (35-45); ABG PH 7.44 (7.35-7.45); ABG PO2 99 mmHg (83-108); ABG TCO2 29 mmol/L (19-24); Allen Test Performed? Yes
[2020-09-21 16:06] LABS: Glucose,Whole Blood 169 mg/dL (75-99)
[2020-09-21 17:09] LABS: Glucose,Whole Blood 169 mg/dL (75-99)
--- NOTE | 2020-09-21 17:50 | P.PN ---
Progress Note - Text Progress Note Date: 09/21/20 - Chief Complaint Coronary bypass - History of Present Illness Consultation: This is a 50-year-old patient of Dr. Kimberli au. Chronic stable medical conditions include hypertension, hyperlipidemia, cervical problems C5 through C7, and COVID 19 in July of this year. Patient on earlier today underwent coronary bypass. Was extubated 8 PM this evening. Somewhat lethargic. They would answer some simple questions. Patient has 2 mediastinal and 1 left-sided chest pain or 2. Has a Cao catheter. Does include norepinephrine, insulin, nitroglycerin. Telemetry shows sinus rhythm. Patient is having some bloody drainage through the mediastinal tube. Patient having some pain at the chest tube insertion site. In some shortness of breath. Today: Last night patient continued to have bleeding to the mediastinal chest tubes. Having chest pains. Was taken back to the operating room. Apparently there was a vascular leak that was repaired. Patient receive 2 units of blood before and 2 units after the procedure. Currently drips include epinephrine, propofol, insulin, milrinone. Has 2 mediastinal chest tubes and 1 left-sided pleural tube. Intubated. FiO2 16 a PEEP of 8. Review of systems: Patient intubated Active Medications Hydrocodone Bitart/Acetaminophen (Hydrocodone/Apap 5-325mg 1 Each Tab) 2 each PO Q4HR PRN PRN Reason: Severe Pain Hydrocodone Bitart/Acetaminophen (Hydrocodone/Apap 5-325mg 1 Each Tab) 1 each PO Q4HR PRN PRN Reason: Moderate Pain Albuterol/Ipratropium (Ipratropium-Albuterol 3 Ml Neb) 3 ml INHALATION RT-Q2H PRN PRN Reason: Shortness Of Breath Or Wheezing Albuterol/Ipratropium (Ipratropium-Albuterol 3 Ml Neb) 3 ml INHALATION RT-QID [facility] Last Admin: 09/21/20 15:10 Dose: 3 ml Documented by: Aspirin (Aspirin 81 Mg) 81 mg PO DAILY [facility] Last Admin: 09/21/20 10:14 Dose: 81 mg Documented by: Atorvastatin Calcium (Atorvastatin 40 Mg Tab) 40 mg PO DAILY [facility] Last Admin: 09/21/20 10:00 Dose: 40 mg Documented by: Benzocaine/Menthol (Benzocaine/Menthol Lozeng 1 Each Lozenge) 1 each MUCOUS MEM Q2H PRN PRN Reason: Sore Throat Bisacodyl (Bisacodyl 10 Mg Supp) 10 mg RECTAL DAILY PRN PRN Reason: Constipation Chlorhexidine Gluconate (Chlorhexidine Gluconate 15 Ml Cup) 15 ml MUCOUS MEM BID [facility] Last Admin: 09/21/20 10:00 Dose: 15 ml Documented by: Clopidogrel Bisulfate (Clopidogrel 75 Mg Tab) 75 mg PO DAILY [facility] Last Admin: 09/21/20 10:00 Dose: 75 mg Documented by: Heparin Sodium (Porcine) (Heparin Sodium,Porcine/Pf 5,000 Unit/0.5 Ml Syringe) 5,000 unit SQ Q8HR [facility] Last Admin: 09/21/20 16:45 Dose: 5,000 unit Documented by: Norepinephrine Bitartrate 4 mg (/ Sodium Chloride) 254 mls @ 19.622 mls/hr IV .[id number] NITZA; Protocol Last Titration: 09/21/20 13:21 Dose: 0.07 mcg/kg/min, 27.47 mls/hr Documented by: Amiodarone HCl 150 mg/ (Dextrose/Water) 103 mls @ 618 mls/hr IV .Q10M PRN; Protocol PRN Reason: A.FIB/FLUTTER Amiodarone HCl 360 mg/ (Dextrose/Water) 207.2 mls @ 34.533 mls/hr IV .Q6H PRN; Protocol PRN Reason: A.FIB/FLUTTER Amiodarone HCl 450 mg/ (Dextrose/Water) 250 mls @ 16.667 mls/hr IV .Q15H PRN; Protocol PRN Reason: A.FIB/FLUTTER Albumin Human 250 ml/ IV (Solution) 250 mls @ 250 mls/hr IVPB Q1HR PRN PRN Reason: For Volume Stop: 09/22/20 16:11 Last Admin: 09/21/20 15:06 Dose: 250 mls/hr Documented by: Lactated Ringer's (Lactated Ringers) 1,000 mls @ 50 mls/hr IV .Q20H NITZA Last Admin: 09/21/20 12:14 Dose: 50 mls/hr Documented by: Propofol 1,000 mg/ IV Solution 100 mls @ 0 mls/hr IV .Q0M NITZA; Protocol Last Admin: 09/21/20 17:23 Dose: 50 mcg/kg/min, 34.17 mls/hr Documented by: Insulin Human Regular 100 unit (/ Sodium Chloride) 101 mls @ 0 mls/hr IV .Q0M NITZA; Protocol Last Titration: 09/21/20 17:10 Dose: 6 units/hr, 6.06 mls/hr Documented by: Vasopressin 60 unit/ Sodium (Chloride) 153 mls @ 4.59 mls/hr IV .Q24H NITZA Last Admin: 09/21/20 03:52 Dose: 4.59 mls/hr Documented by: Magnesium Hydroxide (Magnesium Hydroxide 2,400 Mg/10 Ml Cup) 2,400 mg PO BID PRN PRN Reason: Constipation Metoclopramide HCl (Metoclopramide 5 Mg/Ml 2 Ml Vial) 10 mg IVP Q4H PRN PRN Reason: Nausea And Vomiting Miscellaneous Information (Potassium Replacement Protocol 1 Each Misc) 1 each MISCELLANE DAILY PRN; Protocol PRN Reason: Per Protocol Miscellaneous Information (Magnesium Replacement Protocol 1 Each Misc) 1 each MISCELLANE DAILY PRN; Protocol PRN Reason: Per Protocol Miscellaneous Information (Phosphorus Replacement Protoco 1 Each Misc) 1 each MISCELLANE DAILY PRN; Protocol PRN Reason: Per Protocol Morphine Sulfate (Morphine Sulfate 2 Mg/Ml Syringe) 2 mg IVP Q4H PRN PRN Reason: Pain/Discomfort Last Admin: 09/21/20 15:18 Dose: 2 mg Documented by: Ondansetron HCl (Ondansetron 4 Mg/2 Ml Vial) 4 mg IVP Q6HR PRN PRN Reason: Nausea And Vomiting Last Admin: 09/20/20 20:26 Dose: 4 mg Documented by: Pantoprazole Sodium (Pantoprazole 40 Mg/10 Ml Vial) 40 mg IVP DAILY [facility] Last Admin: 09/21/20 09:24 Dose: 40 mg Documented by: Senna/Docusate Sodium (Sennosides-Docusate Sodium 1 Each Tab) 2 each PO HS [facility] Sodium Chloride (Sodium Chloride 0.9% Flush 10 Ml Syringe) 10 ml IV BID [facility] Last Admin: 09/21/20 10:00 Dose: Not Given Documented by: Past medical history to include: Hypertension, hyperlipidemia, cervical spine problem from C5 through C7, COVID 19 Social history: Denies any smoking. Alcohol rarely. Physical examination: VITAL SIGNS: 98.6, 18, 114/54, 99% on the ventilator GENERAL: BMI 31.7 laying in bed, intubated EYES: Pupils equal. Conjunctiva normal. HEENT: External appearance of nose and ears normal, oral cavity grossly normal. NECK: JVD unable to assess; masses not palpable. HEART: First and second heart sounds are normal; no edema. LUNGS: Respiratory rate increased; decreased breath sounds. Patient has 2 mediastinal and 1 left pleural chest tube ABDOMEN: Soft, mildly distended nontender, liver spleen not palpable, no masses palpable. Cao catheter PSYCH: Patient sedated. INVESTIGATIONS, reviewed in the clinical context: September 21: W obesity 16.6 hemoglobin 10.2 platelets 125 WBC 19.3 hemoglobin 9.4 platelets 206 potassium 4.4 crit 0.82 Preoperative labs from September 14: Hemoglobin 15.9 UA negative EKG tracing personally reviewed by me-on the cafeteria attendant: Sinus rhythm Chest x-ray film personally reviewed by me-some cardiomegaly Assessment and plan: -Status post coronary bypass. Patient extubated on September 20 and reintubated following being taken back to the OR.. Patient has 2 mediastinal and left 1 pleural chest tube. -Patient was taken back to the OR yesterday evening because of leaking vessel. -Coronary artery disease Patient be placed back on medications able to take oral medications -Essential hypertension Resume Cozaar when able to take his pills -Acute postprocedure blood loss anemia As expected from surgery. Patient received total of 4 units of blood -Leukocytosis, reactive from surgery. No clinical evidence of infection Follow clinically. -Dilutional thrombocytopenia Follow H&H -Cardiogenic shock On epinephrine and,milrinone Continue current medication treatment plan. Will follow Thank you Dr. Ku
[2020-09-21 18:25] LABS: Glucose,Whole Blood 130 mg/dL (75-99)
[2020-09-21 19:14] LABS: Glucose,Whole Blood 132 mg/dL (75-99)
[2020-09-21 20:03] LABS: Glucose,Whole Blood 153 mg/dL (75-99)
[2020-09-21 21:14] LABS: Glucose,Whole Blood 149 mg/dL (75-99)
[2020-09-21] MEDS: SENNOSIDES-DOCUSATE SODIUM 1 EACH TAB PO SCH (21:41)
[2020-09-21 21:58] LABS: Glucose,Whole Blood 141 mg/dL (75-99)
[2020-09-21 22:59] LABS: Glucose,Whole Blood 133 mg/dL (75-99)
[2020-09-22 00:12] LABS: Glucose,Whole Blood 129 mg/dL (75-99)
[2020-09-22 01:14] LABS: Glucose,Whole Blood 122 mg/dL (75-99)
[2020-09-22] MEDS: SODIUM CHLORIDE 0.9% 150 ML with VASOPRESSIN 60 UNIT IV SCH ×2 (01:33)
[2020-09-22 02:06] LABS: Glucose,Whole Blood 120 mg/dL (75-99)
[2020-09-22 03:04] LABS: Glucose,Whole Blood 123 mg/dL (75-99)
[2020-09-22] MEDS: INSULIN REGULAR 100 UNIT in SODIUM CHLORIDE 0.9% 100 ML IV SCH (03:24)
[2020-09-22] MEDS: MORPHINE SULFATE 2 MG/ML SYRINGE IVP PRN ×2 (03:24→07:32)
[2020-09-22 04:11] LABS: Glucose,Whole Blood 131 mg/dL (75-99)
[2020-09-22 04:22] LABS: Ionized Calcium 4.4 mg/dL (4.5-5.3)
[2020-09-22 04:30] LABS: Albumin 2.7 g/dL (3.5-5.0); Calcium 7.4 mg/dL (8.4-10.2); Potassium 3.8 mmol/L (3.5-5.1); Total Bilirubin 0.8 mg/dL (0.2-1.3); Total Protein 4.1 g/dL (6.3-8.2)
[2020-09-22 05:25] LABS: Glucose,Whole Blood 132 mg/dL (75-99)
[2020-09-22 05:33] LABS: ABG Base Excess 5.7 mmol/L; ABG HCO3 30 mmol/L (21-25); ABG Oxygen Saturation 97.4 % (94-97); ABG PCO2 41 mmHg (35-45); ABG PH 7.46 (7.35-7.45); ABG PO2 84 mmHg (83-108); ABG TCO2 31 mmol/L (19-24); Allen Test Performed? Yes
[2020-09-22 05:36] LABS: Basophils % (A) 0 %; Eosinophils % (A) 0 %; HCT 21.9 % (39.0-53.0); Lymphocytes # (A) 1.1 k/uL (1.0-4.8); Lymphocytes % (A) 14 %; MCH 33.5 pg (25.0-35.0); MCV 85.1 fL (80.0-100.0); Mean Platelet Volume 9.4; Monocytes # (A) 0.4 k/uL (0-1.0); Monocytes % (A) 4 %; Neutrophils # (A) 6.5 k/uL (1.3-7.7); Neutrophils % (A) 80 %; RBC 2.57 m/uL (4.30-5.90); RDW 15.1 % (11.5-15.5); WBC 8.1 k/uL (3.8-10.6)
[2020-09-22 05:39] LABS: HGB 8.6 gm/dL (13.0-17.5); MCHC 39.4 g/dL (31.0-37.0)
[2020-09-22 06:01] LABS: Glucose,Whole Blood 138 mg/dL (75-99)
[2020-09-22 06:16] LABS: Platelet Count 74 k/uL (150-450)
--- NOTE | 2020-09-22 06:32 | OP ---
OPERATIVE REPORT DATE OF SURGERY: 09/21/2020 PREOPERATIVE DIAGNOSIS: Mediastinal bleeding. POSTOPERATIVE DIAGNOSIS: Mediastinal bleeding. PROCEDURE: 1. Mediastinal re-exploration with control of bleeding. 2. Transesophageal echocardiogram SURGEON: Oliver Ku MD. EXCHANGE SPECIALIST: Edmond Ayala NP. ANESTHESIA: General. SPECIMEN: None. COMPLICATION: None. INDICATION: The patient is a 50-year-old male who underwent 4 vessel coronary artery bypass earlier in the day. After extubation in the ICU, he was noted to have increased bloody drainage from his chest tubes. He became progressively hypotensive and eventually required intubation followed by brief CPR. Mediastinal re-exploration was recommended. The risks, benefits, and alternatives to this procedure were discussed with the patient's . All of her questions were answered. Consent was obtained. FINDINGS: There was a fair amount of clot noted at the base of the pericardium. There was a small area of active bleeding noted on the lateral side of the aorta near the SVC, which was easily controlled. PROCEDURE IN DETAIL: The patient was taken to the operating room and placed supine on the operating table. After the induction of general anesthesia, he was prepped and draped in the usual sterile fashion. He was brought to the operating room on high dose Levophed. Transesophageal echocardiogram was performed which revealed good function of the left ventricle as well as good function of the right ventricle. The previous sternotomy incision was ellipsed and dissection was carried down through the subcutaneous tissue. The previously placed [place] cables were cut and removed. Upon entry into the chest, anteriorly, there was not a lot of blood noted. The soft tissue was opened and fresh clot was noted alongside the right atrium as well as at the base of the inferior surface. A pericardial cradle was created. This clot was evacuated. There was an area with bright red blood between the SVC and aorta. Upon further inspection, there was a small area of excoriation and bleeding from the lateral wall of the aorta remote from any surgical intervention. Of note, this area of excoriation and bleeding was directly across from an atrial pacing wire. Control of bleeding was achieved with a single suture. The remaining surgical sites were then inspected and appeared to be hemostatic. All proximal and distal anastomoses along with cannulation sites were free of bleeding. Soft tissue was reapproximated over the ascending aorta. Blood was evacuated from the left pleural space as well. The previously placed chest tubes were replaced in their original positions. The sternum was reapproximated using the [place] cable system. These were placed in a [id number] fashion. At the completion of the closure, the sternum was well aligned. The remainder of the wound was closed in multiple layers. Sterile dressing was applied. It should be noted that the patient's hemodynamics improved after evacuation of clot and he was on low-dose Levophed by the end of the case. He appeared to tolerate the procedure well. There were no immediate complications. He returned to the ICU in critical but stable condition. LUIS ARMANDO / MARTIN: [id number] / MTDD
[2020-09-22 06:59] LABS: Glucose,Whole Blood 128 mg/dL (75-99)
[2020-09-22] MEDS: IPRATROPIUM-ALBUTEROL 3 ML NEB INHALATION SCH ×4 (07:25→19:23)
--- NOTE | 2020-09-22 07:27 | XR ---
EXAMINATION TYPE: XR chest 1V portable DATE OF EXAM: 09/22/2020 COMPARISON: Chest x-ray 09/21/2020 HISTORY: Postop cardiac surgery, intubated TECHNIQUE: Single frontal view of the chest is obtained. FINDINGS: Endotracheal tube and orogastric tube, left chest tube, median sternal drains, right jugul ar central venous catheter and overlying artifacts are again noted. There is no evident pneumothorax. Lung volumes are low and the patient is rotated. Patient is post median sternotomy and left atrial a ppendage clip placement. Heart remains enlarged. Patchy perihilar density persists. IMPRESSION: Expiratory rotated exam. There may be a component of edema, atelectasis.
[2020-09-22 08:08] LABS: Glucose,Whole Blood 112 mg/dL (75-99)
[2020-09-22] MEDS: CLOPIDOGREL 75 MG TAB PO SCH (08:18)
[2020-09-22] MEDS: PANTOPRAZOLE 40 MG/10 ML VIAL IVP SCH (08:18)
[2020-09-22] MEDS: METOPROLOL TARTRATE 12.5 MG TAB PO SCH ×2 (08:18→20:08)
[2020-09-22] MEDS: CHLORHEXIDINE GLUCONATE 15 ML CUP MUCOUS MEM SCH (08:18)
[2020-09-22] MEDS: ASPIRIN 81 MG PO SCH (08:18)
[2020-09-22] MEDS: HEPARIN SODIUM,PORCINE/PF 5,000 UNIT/0.5 ML SYRINGE SQ SCH ×3 (08:18→23:54)
[2020-09-22] MEDS: LACTATED RINGERS 1,000 ML IV SCH (08:19)
--- NOTE | 2020-09-22 08:34 | P.PN ---
Subjective Progress Note Date: 09/22/20 Principal diagnosis: Severe CAD and status post CABG This is a very pleasant 50-year-old gentleman with hypertension and dyslipidemia and history of smoking who is status post coronary artery bypass grafting 4 with BASHIR to LAD and radial artery to ramus intermedius and SVG to distal obtuse marginal branch and also SVG to PDA of the RCA. Unfortunately the patient had to go to the OR again yesterday because of bleeding from one of the chest as you which they believe is related to a tear in his aorta. That was repaired and the patient was brought back. Patient was seen this morning. He continues to be intubated on mechanical ventilation. Overall he is doing better. There is plan to wean him and possible extubation in the next 12-24 hours. He is not on any drips like norepinephrine or Primacor. He was on these 2 drips yesterday. He has been maintaining normal sinus mechanism. He is slightly tachycardic and he was started on small dose of beta [place] area today which I would agree on. Beside that he is on dual antiplatelet therapy. The chest x-ray as well as blood work were reviewed. The urine output is marginal. The stent having output from the chest a few but not excessively. He is not on statin because of elevated liver function test. Objective - Vital Signs Vital signs: Vital Signs Temp 98.8 F 09/22/20 08:00 Pulse 89 09/22/20 08:00 Resp 18 09/22/20 08:00 BP 97/57 09/22/20 08:00 Pulse Ox 100 09/22/20 08:00 Intake & Output 09/21/20 09/22/20 09/22/20 18:59 06:59 18:59 Intake Total 2567.969 1367.225 248.321 Output Total 787 650 380 Balance 1780.969 717.225 -131.679 Weight 114.7 kg Intake: IV 1403 808 158 0.9NS CO/CI 130 100 40 0.9NS flush 108 108 18 Albumin Human 5% 250 ml 500 In Empty Bag 1 bag @ 250 mls/hr IVPB Q1HR PRN Rx#: [id number] Lactated Ringers 1,000 ml 590 600 100 @ 50 mls/hr IV .Q20H NITZA Rx#:[id number] Sodium Chloride 0.45% 1, 75 000 ml @ 75 mls/hr IV . [id number] NITZA with Sodium Bicarb (1 Meq/ml) 150 ml Rx#:[id number] Intake, IV Titration 1104.969 559.225 90.321 Amount Calcium Gluconate 1 gm In 200 Sodium Chloride 0.9% 100 ml @ 100 mls/hr IVPB ONCE ONE Rx#:[id number] Insulin Regular 100 unit 44.407 56.663 11.178 In Sodium Chloride 0.9% 100 ml @ Per Protocol IV .Q0M NITZA Rx#:[id number] Milrinone-D5w Pmx 20 mg 56.751 In Dextrose/Water 1 100ml .bag @ 0.1 MCG/KG/MIN 3. 417 mls/hr IV .Q24H NITZA Rx#:[id number] Norepinephrine 4 mg In 364.143 88.755 Sodium Chloride 0.9% 250 ml @ 0.05 MCG/KG/MIN 19. 622 mls/hr IV .[id number] NITZA Rx#:[id number] Sodium Chloride 0.9% 150 49.5 4.5 ml @ 0.03 UNITS/MIN 4.59 mls/hr IV .Q24H NITZA with Vasopressin 60 unit Rx#: [id number] ceFAZolin 2 gm In Sodium 50 Chloride 0.9% 50 ml @ 100 mls/hr IVPB Q8H NITZA Rx#: [id number] propofoL 1,000 mg In 340.168 409.307 79.143 Empty Bag 1 bag @ Titrate IV .Q0M NITZA Rx#: [id number] Other 60 Output: Chest Tube Drainage 372 330 20 Chest Tube Mediastinal 258 254 10 Left 114 76 10 Gastric Drainage 100 300 Urine 315 320 60 Other: Voiding Method Indwelling Catheter Indwelling Catheter # Bowel Movements 1 ABP, PAP, CO, CI - Last Documented Arterial Blood Pressure 102/55 Pulmonary Artery Pressure 33/20 Cardiac Output 8.1 Cardiac Index 3.6 - Constitutional General appearance: Present: no acute distress - Respiratory Respiratory: bilateral: diminished - Cardiovascular Rhythm: regular Heart sounds: normal: S1, S2 - Labs CBC & Chem 7: 09/22/20 04:08 09/22/20 04:08 Labs: Abnormal Lab Results - Last 24 Hours (Table) 09/21/20 09/21/20 09/21/20 Range/Units 03:10 08:45 08:55 RBC (4.30-5.90) m/uL Hgb (13.0-17.5) gm/dL Hct (39.0-53.0) % MCHC (31.0-37.0) g/dL Plt Count (150-450) k/uL ABG pH (7.35-7.45) ABG pCO2 48 H (35-45) mmHg ABG HCO3 28 H (21-25) mmol/L ABG Total CO2 29 H (19-24) mmol/L ABG O2 Saturation (94-97) % ABG Lactic Acid 4.0 H* (0.5-1.6) mmol/L Chloride (98-107) mmol/L BUN (9-20) mg/dL Creatinine (0.66-1.25) mg/dL Glucose (74-99) mg/dL POC Glucose (mg/dL) (75-99) mg/dL Plasma Lactic Acid Eitan (0.7-2.0) mmol/L Calcium (8.4-10.2) mg/dL Ionized Calcium Juancho (4.5-5.3) mg/dL AST (17-59) U/L ALT (4-49) U/L Total Protein (6.3-8.2) g/dL Albumin (3.5-5.0) g/dL HDL Cholesterol 7.0 L (40.0-60.0) mg/dL 09/21/20 09/21/20 09/21/20 Range/Units 09:06 10:05 10:55 RBC (4.30-5.90) m/uL Hgb (13.0-17.5) gm/dL Hct (39.0-53.0) % MCHC (31.0-37.0) g/dL Plt Count (150-450) k/uL ABG pH (7.35-7.45) ABG pCO2 (35-45) mmHg ABG HCO3 (21-25) mmol/L ABG Total CO2 (19-24) mmol/L ABG O2 Saturation (94-97) % ABG Lactic Acid (0.5-1.6) mmol/L Chloride (98-107) mmol/L BUN (9-20) mg/dL Creatinine (0.66-1.25) mg/dL Glucose (74-99) mg/dL POC Glucose (mg/dL) 134 H 139 H 156 H (75-99) mg/dL Plasma Lactic Acid Eitan (0.7-2.0) mmol/L Calcium (8.4-10.2) mg/dL Ionized Calcium Juancho (4.5-5.3) mg/dL AST (17-59) U/L ALT (4-49) U/L Total Protein (6.3-8.2) g/dL Albumin (3.5-5.0) g/dL HDL Cholesterol (40.0-60.0) mg/dL 09/21/20 09/21/20 09/21/20 Range/Units 12:00 12:00 13:19 RBC (4.30-5.90) m/uL Hgb (13.0-17.5) gm/dL Hct (39.0-53.0) % MCHC (31.0-37.0) g/dL Plt Count (150-450) k/uL ABG pH (7.35-7.45) ABG pCO2 (35-45) mmHg ABG HCO3 (21-25) mmol/L ABG Total CO2 (19-24) mmol/L ABG O2 Saturation (94-97) % ABG Lactic Acid 3.2 H* (0.5-1.6) mmol/L Chloride (98-107) mmol/L BUN (9-20) mg/dL Creatinine (0.66-1.25) mg/dL Glucose (74-99) mg/dL POC Glucose (mg/dL) 167 H 158 H (75-99) mg/dL Plasma Lactic Acid Eitan (0.7-2.0) mmol/L Calcium (8.4-10.2) mg/dL Ionized Calcium Juancho (4.5-5.3) mg/dL AST (17-59) U/L ALT (4-49) U/L Total Protein (6.3-8.2) g/dL Albumin (3.5-5.0) g/dL HDL Cholesterol (40.0-60.0) mg/dL 09/21/20 09/21/20 09/21/20 Range/Units 14:18 15:10 15:30 RBC (4.30-5.90) m/uL Hgb (13.0-17.5) gm/dL Hct (39.0-53.0) % MCHC (31.0-37.0) g/dL Plt Count (150-450) k/uL ABG pH (7.35-7.45) ABG pCO2 (35-45) mmHg ABG HCO3 (21-25) mmol/L ABG Total CO2 (19-24) mmol/L ABG O2 Saturation (94-97) % ABG Lactic Acid (0.5-1.6) mmol/L Chloride (98-107) mmol/L BUN (9-20) mg/dL Creatinine (0.66-1.25) mg/dL Glucose (74-99) mg/dL POC Glucose (mg/dL) 137 H 133 H (75-99) mg/dL Plasma Lactic Acid Eitan 3.0 H* (0.7-2.0) mmol/L Calcium (8.4-10.2) mg/dL Ionized Calcium [place] (4.5-5.3) mg/dL AST (17-59) U/L ALT (4-49) U/L Total Protein (6.3-8.2) g/dL Albumin (3.5-5.0) g/dL HDL Cholesterol (40.0-60.0) mg/dL 09/21/20 09/21/20 09/21/20 Range/Units 16:01 16:04 17:07 RBC (4.30-5.90) m/uL Hgb (13.0-17.5) gm/dL Hct (39.0-53.0) % MCHC (31.0-37.0) g/dL Plt Count (150-450) k/uL ABG pH (7.35-7.45) ABG pCO2 (35-45) mmHg ABG HCO3 28 H (21-25) mmol/L ABG Total CO2 29 H (19-24) mmol/L ABG O2 Saturation 98.1 H (94-97) % ABG Lactic Acid (0.5-1.6) mmol/L Chloride (98-107) mmol/L BUN (9-20) mg/dL Creatinine (0.66-1.25) mg/dL Glucose (74-99) mg/dL POC Glucose (mg/dL) 169 H 169 H (75-99) mg/dL Plasma Lactic Acid Eitan (0.7-2.0) mmol/L Calcium (8.4-10.2) mg/dL Ionized Calcium [place] (4.5-5.3) mg/dL AST (17-59) U/L ALT (4-49) U/L Total Protein (6.3-8.2) g/dL Albumin (3.5-5.0) g/dL HDL Cholesterol (40.0-60.0) mg/dL 09/21/20 09/21/20 09/21/20 Range/Units 18:23 19:14 20:02 RBC (4.30-5.90) m/uL Hgb (13.0-17.5) gm/dL Hct (39.0-53.0) % MCHC (31.0-37.0) g/dL Plt Count (150-450) k/uL ABG pH (7.35-7.45) ABG pCO2 (35-45) mmHg ABG HCO3 (21-25) mmol/L ABG Total CO2 (19-24) mmol/L ABG O2 Saturation (94-97) % ABG Lactic Acid (0.5-1.6) mmol/L Chloride (98-107) mmol/L BUN (9-20) mg/dL Creatinine (0.66-1.25) mg/dL Glucose (74-99) mg/dL POC Glucose (mg/dL) 130 H 132 H 153 H (75-99) mg/dL Plasma Lactic Acid [place] (0.7-2.0) mmol/L Calcium (8.4-10.2) mg/dL Ionized Calcium [place] (4.5-5.3) mg/dL AST (17-59) U/L ALT (4-49) U/L Total Protein (6.3-8.2) g/dL Albumin (3.5-5.0) g/dL HDL Cholesterol (40.0-60.0) mg/dL 09/21/20 09/21/20 09/21/20 Range/Units 21:13 21:57 22:58 RBC (4.30-5.90) m/uL Hgb (13.0-17.5) gm/dL Hct (39.0-53.0) % MCHC (31.0-37.0) g/dL Plt Count (150-450) k/uL ABG pH (7.35-7.45) ABG pCO2 (35-45) mmHg ABG HCO3 (21-25) mmol/L ABG Total CO2 (19-24) mmol/L ABG O2 Saturation (94-97) % ABG Lactic Acid (0.5-1.6) mmol/L Chloride (98-107) mmol/L BUN (9-20) mg/dL Creatinine (0.66-1.25) mg/dL Glucose (74-99) mg/dL POC Glucose (mg/dL) 149 H 141 H 133 H (75-99) mg/dL Plasma Lactic Acid Eitan (0.7-2.0) mmol/L Calcium (8.4-10.2) mg/dL Ionized Calcium [place] (4.5-5.3) mg/dL AST (17-59) U/L ALT (4-49) U/L Total Protein (6.3-8.2) g/dL Albumin (3.5-5.0) g/dL HDL Cholesterol (40.0-60.0) mg/dL 09/22/20 09/22/20 09/22/20 Range/Units 00:11 01:13 02:04 RBC (4.30-5.90) m/uL Hgb (13.0-17.5) gm/dL Hct (39.0-53.0) % MCHC (31.0-37.0) g/dL Plt Count (150-450) k/uL ABG pH (7.35-7.45) ABG pCO2 (35-45) mmHg ABG HCO3 (21-25) mmol/L ABG Total CO2 (19-24) mmol/L ABG O2 Saturation (94-97) % ABG Lactic Acid (0.5-1.6) mmol/L Chloride (98-107) mmol/L BUN (9-20) mg/dL Creatinine (0.66-1.25) mg/dL Glucose (74-99) mg/dL POC Glucose (mg/dL) 129 H 122 H 120 H (75-99) mg/dL Plasma Lactic Acid Eitan (0.7-2.0) mmol/L Calcium (8.4-10.2) mg/dL Ionized Calcium [place] (4.5-5.3) mg/dL AST (17-59) U/L ALT (4-49) U/L Total Protein (6.3-8.2) g/dL Albumin (3.5-5.0) g/dL HDL Cholesterol (40.0-60.0) mg/dL 09/22/20 09/22/20 09/22/20 Range/Units 03:03 04:08 04:08 RBC 2.57 L (4.30-5.90) m/uL Hgb 8.6 L D (13.0-17.5) gm/dL Hct 21.9 L (39.0-53.0) % MCHC 39.4 H (31.0-37.0) g/dL Plt Count 74 L (150-450) k/uL ABG pH (7.35-7.45) ABG pCO2 (35-45) mmHg ABG HCO3 (21-25) mmol/L ABG Total CO2 (19-24) mmol/L ABG O2 Saturation (94-97) % ABG Lactic Acid (0.5-1.6) mmol/L Chloride 108 H (98-107) mmol/L BUN 43 H (9-20) mg/dL Creatinine 2.95 H (0.66-1.25) mg/dL Glucose 112 H (74-99) mg/dL POC Glucose (mg/dL) 123 H (75-99) mg/dL Plasma Lactic Acid Eitan (0.7-2.0) mmol/L Calcium 7.4 L (8.4-10.2) mg/dL Ionized Calcium [place] 4.4 L (4.5-5.3) mg/dL AST 456 H (17-59) U/L ALT 304 H (4-49) U/L Total Protein 4.1 L (6.3-8.2) g/dL Albumin 2.7 L (3.5-5.0) g/dL HDL Cholesterol (40.0-60.0) mg/dL 09/22/20 09/22/20 09/22/20 Range/Units 04:08 05:24 05:29 RBC (4.30-5.90) m/uL Hgb (13.0-17.5) gm/dL Hct (39.0-53.0) % MCHC (31.0-37.0) g/dL Plt Count (150-450) k/uL ABG pH 7.46 H (7.35-7.45) ABG pCO2 (35-45) mmHg ABG HCO3 30 H (21-25) mmol/L ABG Total CO2 31 H (19-24) mmol/L ABG O2 Saturation 97.4 H (94-97) % ABG Lactic Acid (0.5-1.6) mmol/L Chloride (98-107) mmol/L BUN (9-20) mg/dL Creatinine (0.66-1.25) mg/dL Glucose (74-99) mg/dL POC Glucose (mg/dL) 131 H 132 H (75-99) mg/dL Plasma Lactic Acid Eitan (0.7-2.0) mmol/L Calcium (8.4-10.2) mg/dL Ionized Calcium [place]ancho (4.5-5.3) mg/dL AST (17-59) U/L ALT (4-49) U/L Total Protein (6.3-8.2) g/dL Albumin (3.5-5.0) g/dL HDL Cholesterol (40.0-60.0) mg/dL 09/22/20 09/22/20 09/22/20 Range/Units 06:00 06:57 08:07 RBC (4.30-5.90) m/uL Hgb (13.0-17.5) gm/dL Hct (39.0-53.0) % MCHC (31.0-37.0) g/dL Plt Count (150-450) k/uL ABG pH (7.35-7.45) ABG pCO2 (35-45) mmHg ABG HCO3 (21-25) mmol/L ABG Total CO2 (19-24) mmol/L ABG O2 Saturation (94-97) % ABG Lactic Acid (0.5-1.6) mmol/L Chloride (98-107) mmol/L BUN (9-20) mg/dL Creatinine (0.66-1.25) mg/dL Glucose (74-99) mg/dL POC Glucose (mg/dL) 138 H 128 H 112 H (75-99) mg/dL Plasma Lactic Acid [place] (0.7-2.0) mmol/L Calcium (8.4-10.2) mg/dL Ionized Calcium [place] (4.5-5.3) mg/dL AST (17-59) U/L ALT (4-49) U/L Total Protein (6.3-8.2) g/dL Albumin (3.5-5.0) g/dL HDL Cholesterol (40.0-60.0) mg/dL Assessment and Plan Assessment: Assessment #1 coronary artery disease and status post CABG 4 #2 hypotension which was resolved #3 sinus tachycardia #4 multiple comorbid conditions Plan #1 continue the current medical regimen #2 consider adding statin once the liver function test improved #3 continue monitor the hemoglobin and kidney function #4 continue dual antiplatelet therapy #5 consider increasing the dose of beta [place] down the line #6 follow-up with the patient
[2020-09-22 08:59] LABS: Glucose,Whole Blood 136 mg/dL (75-99)
[2020-09-22] MEDS ORDERED: ASPIRIN 81 MG PO SCH (09:00)
--- NOTE | 2020-09-22 09:17 | P.PN ---
Subjective Progress Note Date: 09/22/20 Principal diagnosis: Coronary artery disease with left main disease. Previous medical history of unstable angina, hypertension, hyperlipidemia, recent Covid infection in July 2020, previous tobacco dependence, rare alcohol usage POD #2 coronary artery bypass grafting 4 vessels, left internal mammary artery to left anterior descending artery, radial artery to the ramus artery, reverse saphenous vein graft to the distal obtuse marginal artery, reverse saphenous vein graft to the posterior lateral branch of the right coronary artery, endoscopic harvesting of the bilateral greater saphenous veins, endoscopic harvesting of the left radial artery, ligation of the left atrial appendage using a 35 mm AtriClip, intraoperative transesophageal echocardiogram and epi- aortic scanning Witnessed cardiac arrest with brief CPR and subsequent ROSC Postoperative acute blood loss anemia with return to the OR for mediastinal exploration with control of postop bleed, unexpected Postoperative hypotension requiring pressor support, expected due to above Acute lactic acidosis, secondary to above Elevated transaminases, likely due to hypoperfusion LEONEL, likely due to hypoperfusion Patient's currently lying in bed in the intensive care unit on mechanical ventilation, sedated with propofol. Currently in sinus rhythm and hemodynamically stable, off pressors and inotropes. Even with sedation patient does follow commands and move all extremities. Output in mediastinal and left pleural chest tubes has decreased and appears serosanguineous. Urine output marginal but adequate, BUN and creatinine elevated likely due to hypoperfusion. Ventilator changes per pulmonology, expect patient to wean and potentially extubate later today. Objective - Vital Signs Vital signs: Vital Signs Temp 98.8 F 09/22/20 08:00 Pulse 90 09/22/20 09:00 Resp 18 09/22/20 09:00 BP 109/85 09/22/20 09:00 Pulse Ox 99 09/22/20 09:00 Intake & Output 09/21/20 09/22/20 09/22/20 18:59 06:59 18:59 Intake Total 2567.969 1367.225 367.321 Output Total 787 650 435 Balance 1780.969 717.225 -67.679 Weight 114.7 kg Intake: IV 1403 808 217 0.9NS CO/CI 130 100 40 0.9NS flush 108 108 27 Albumin Human 5% 250 ml 500 In Empty Bag 1 bag @ 250 mls/hr IVPB Q1HR PRN Rx#: [id number] Lactated Ringers 1,000 ml 590 600 150 @ 50 mls/hr IV .Q20H NITZA Rx#:[id number] Sodium Chloride 0.45% 1, 75 000 ml @ 75 mls/hr IV . [id number] NITZA with Sodium Bicarb (1 Meq/ml) 150 ml Rx#:[id number] Intake, IV Titration 1104.969 559.225 90.321 Amount Calcium Gluconate 1 gm In 200 Sodium Chloride 0.9% 100 ml @ 100 mls/hr IVPB ONCE ONE Rx#:[id number] Insulin Regular 100 unit 44.407 56.663 11.178 In Sodium Chloride 0.9% 100 ml @ Per Protocol IV .Q0M NITZA Rx#:[id number] Milrinone-D5w Pmx 20 mg 56.751 In Dextrose/Water 1 100ml .bag @ 0.1 MCG/KG/MIN 3. 417 mls/hr IV .Q24H NITZA Rx#:[id number] Norepinephrine 4 mg In 364.143 88.755 Sodium Chloride 0.9% 250 ml @ 0.05 MCG/KG/MIN 19. 622 mls/hr IV .[id number] NITZA Rx#:[id number] Sodium Chloride 0.9% 150 49.5 4.5 ml @ 0.03 UNITS/MIN 4.59 mls/hr IV .Q24H NITZA with Vasopressin 60 unit Rx#: [id number] ceFAZolin 2 gm In Sodium 50 Chloride 0.9% 50 ml @ 100 mls/hr IVPB Q8H NITZA Rx#: [id number] propofoL 1,000 mg In 340.168 409.307 79.143 Empty Bag 1 bag @ Titrate IV .Q0M NITZA Rx#: [id number] Other 60 60 Output: Chest Tube Drainage 372 330 50 Chest Tube Mediastinal 258 254 30 Left 114 76 20 Gastric Drainage 100 300 Urine 315 320 85 Other: Voiding Method Indwelling Catheter Indwelling Catheter # Bowel Movements 1 ABP, PAP, CO, CI - Last Documented Arterial Blood Pressure 102/67 Pulmonary Artery Pressure 37/23 Cardiac Output 8.1 Cardiac Index 3.6 - Exam CONSTITUTIONAL: Intubated and sedated RESPIRATORY: Lungs sounds diminished bilaterally. Respirations even, nonlabored. Current ventilator settings FiO2 50%, PEEP 8, respiratory rate 18, tidal volume 550. 8.5 ET tube present, 24 the lip. CARDIOVASCULAR: S1, S2 present. Regular rate and rhythm, sinus rhythm telemetry with heart rate 90 bpm. Sternum stable. Palpable peripheral pulses bilaterally. Generalized edema present. No calf pain or tenderness noted. Heart hugger, antiembolism stockings, SCDs present. GASTROINTESTINAL: Abdomen soft, slightly distended. Hypoactive bowel sounds present 4 quadrants. OG tube present to low intermittent suction, 300 mL gastric drainage in the last 24 hours GENITOURINARY: Cao present draining clear, yellow urine. Output overnight 25-30 mL per hour INTEGUMENTARY: Skin is warm and dry with evidence of good perfusion. Anterior chest incision well approximated and covered with dry intact dressing. Bilateral EVH site well approximated without redness or drainage. Left radial artery harvest site without redness or drainage NEUROLOGIC: Currently sedated with propofol, does follow commands and moves all extremities INVASIVE LINES AND TUBES: Mediastinal/left pleural chest tubes present and connected to wall suction, no air leaks present. Mediastinal tube with 150 mL serosanguineous drainage overnight, 500 mL in the last 24 hours. Left pleural chest tube with 40 mL serosanguineous drainage overnight, 200 mL in the last 24 hours. A/V epicardial pacemaker wires present, connected to generator, AAI mode with rate 80 bpm. Right internal jugular Salome/Cordis, right radial arterial line present. Last CO/CI 9.0/4.1, PA /, CVP 12. - Allied health notes Allied health notes reviewed: nursing - Labs CBC & Chem 7: 09/22/20 04:08 09/22/20 04:08 Labs: Abnormal Lab Results - Last 24 Hours (Table) 09/21/20 09/21/20 09/21/20 Range/Units 03:10 08:45 09:06 RBC (4.30-5.90) m/uL Hgb (13.0-17.5) gm/dL Hct (39.0-53.0) % MCHC (31.0-37.0) g/dL Plt Count (150-450) k/uL ABG pH (7.35-7.45) ABG HCO3 (21-25) mmol/L ABG Total CO2 (19-24) mmol/L ABG O2 Saturation (94-97) % ABG Lactic Acid 4.0 H* (0.5-1.6) mmol/L Chloride (98-107) mmol/L BUN (9-20) mg/dL Creatinine (0.66-1.25) mg/dL Glucose (74-99) mg/dL POC Glucose (mg/dL) 134 H (75-99) mg/dL Plasma Lactic Acid Eitan (0.7-2.0) mmol/L Calcium (8.4-10.2) mg/dL Ionized Calcium Juancho (4.5-5.3) mg/dL AST (17-59) U/L ALT (4-49) U/L Total Protein (6.3-8.2) g/dL Albumin (3.5-5.0) g/dL HDL Cholesterol 7.0 L (40.0-60.0) mg/dL 09/21/20 09/21/20 09/21/20 Range/Units 10:05 10:55 12:00 RBC (4.30-5.90) m/uL Hgb (13.0-17.5) gm/dL Hct (39.0-53.0) % MCHC (31.0-37.0) g/dL Plt Count (150-450) k/uL ABG pH (7.35-7.45) ABG HCO3 (21-25) mmol/L ABG Total CO2 (19-24) mmol/L ABG O2 Saturation (94-97) % ABG Lactic Acid (0.5-1.6) mmol/L Chloride (98-107) mmol/L BUN (9-20) mg/dL Creatinine (0.66-1.25) mg/dL Glucose (74-99) mg/dL POC Glucose (mg/dL) 139 H 156 H 167 H (75-99) mg/dL Plasma Lactic Acid Eitan (0.7-2.0) mmol/L Calcium (8.4-10.2) mg/dL Ionized Calcium Juancho (4.5-5.3) mg/dL AST (17-59) U/L ALT (4-49) U/L Total Protein (6.3-8.2) g/dL Albumin (3.5-5.0) g/dL HDL Cholesterol (40.0-60.0) mg/dL 05/09/21/20 09/21/20 Range/Units 12:00 13:19 14:18 RBC (4.30-5.90) m/uL Hgb (13.0-17.5) gm/dL Hct (39.0-53.0) % MCHC (31.0-37.0) g/dL Plt Count (150-450) k/uL ABG pH (7.35-7.45) ABG HCO3 (21-25) mmol/L ABG Total CO2 (19-24) mmol/L ABG O2 Saturation (94-97) % ABG Lactic Acid 3.2 H* (0.5-1.6) mmol/L Chloride (98-107) mmol/L BUN (9-20) mg/dL Creatinine (0.66-1.25) mg/dL Glucose (74-99) mg/dL POC Glucose (mg/dL) 158 H 137 H (75-99) mg/dL Plasma Lactic Acid Eitan (0.7-2.0) mmol/L Calcium (8.4-10.2) mg/dL Ionized Calcium Juancho (4.5-5.3) mg/dL AST (17-59) U/L ALT (4-49) U/L Total Protein (6.3-8.2) g/dL Albumin (3.5-5.0) g/dL HDL Cholesterol (40.0-60.0) mg/dL 09/21/20 09/21/20 09/21/20 Range/Units 15:10 15:30 16:01 RBC (4.30-5.90) m/uL Hgb (13.0-17.5) gm/dL Hct (39.0-53.0) % MCHC (31.0-37.0) g/dL Plt Count (150-450) k/uL ABG pH (7.35-7.45) ABG HCO3 28 H (21-25) mmol/L ABG Total CO2 29 H (19-24) mmol/L ABG O2 Saturation 98.1 H (94-97) % ABG Lactic Acid (0.5-1.6) mmol/L Chloride (98-107) mmol/L BUN (9-20) mg/dL Creatinine (0.66-1.25) mg/dL Glucose (74-99) mg/dL POC Glucose (mg/dL) 133 H (75-99) mg/dL Plasma Lactic Acid Eitan 3.0 H* (0.7-2.0) mmol/L Calcium (8.4-10.2) mg/dL Ionized Calcium Juancho (4.5-5.3) mg/dL AST (17-59) U/L ALT (4-49) U/L Total Protein (6.3-8.2) g/dL Albumin (3.5-5.0) g/dL HDL Cholesterol (40.0-60.0) mg/dL 09/21/20 09/21/20 09/21/20 Range/Units 16:04 17:07 18:23 RBC (4.30-5.90) m/uL Hgb (13.0-17.5) gm/dL Hct (39.0-53.0) % MCHC (31.0-37.0) g/dL Plt Count (150-450) k/uL ABG pH (7.35-7.45) ABG HCO3 (21-25) mmol/L ABG Total CO2 (19-24) mmol/L ABG O2 Saturation (94-97) % ABG Lactic Acid (0.5-1.6) mmol/L Chloride (98-107) mmol/L BUN (9-20) mg/dL Creatinine (0.66-1.25) mg/dL Glucose (74-99) mg/dL POC Glucose (mg/dL) 169 H 169 H 130 H (75-99) mg/dL Plasma Lactic Acid Eitan (0.7-2.0) mmol/L Calcium (8.4-10.2) mg/dL Ionized Calcium Juancho (4.5-5.3) mg/dL AST (17-59) U/L ALT (4-49) U/L Total Protein (6.3-8.2) g/dL Albumin (3.5-5.0) g/dL HDL Cholesterol (40.0-60.0) mg/dL 09/21/20 09/21/20 09/21/20 Range/Units 19:14 20:02 21:13 RBC (4.30-5.90) m/uL Hgb (13.0-17.5) gm/dL Hct (39.0-53.0) % MCHC (31.0-37.0) g/dL Plt Count (150-450) k/uL ABG pH (7.35-7.45) ABG HCO3 (21-25) mmol/L ABG Total CO2 (19-24) mmol/L ABG O2 Saturation (94-97) % ABG Lactic Acid (0.5-1.6) mmol/L Chloride (98-107) mmol/L BUN (9-20) mg/dL Creatinine (0.66-1.25) mg/dL Glucose (74-99) mg/dL POC Glucose (mg/dL) 132 H 153 H 149 H (75-99) mg/dL Plasma Lactic Acid Eitan (0.7-2.0) mmol/L Calcium (8.4-10.2) mg/dL Ionized Calcium Juancho (4.5-5.3) mg/dL AST (17-59) U/L ALT (4-49) U/L Total Protein (6.3-8.2) g/dL Albumin (3.5-5.0) g/dL HDL Cholesterol (40.0-60.0) mg/dL 09/21/20 09/21/20 09/22/20 Range/Units 21:57 22:58 00:11 RBC (4.30-5.90) m/uL Hgb (13.0-17.5) gm/dL Hct (39.0-53.0) % MCHC (31.0-37.0) g/dL Plt Count (150-450) k/uL ABG pH (7.35-7.45) ABG HCO3 (21-25) mmol/L ABG Total CO2 (19-24) mmol/L ABG O2 Saturation (94-97) % ABG Lactic Acid (0.5-1.6) mmol/L Chloride (98-107) mmol/L BUN (9-20) mg/dL Creatinine (0.66-1.25) mg/dL Glucose (74-99) mg/dL POC Glucose (mg/dL) 141 H 133 H 129 H (75-99) mg/dL Plasma Lactic Acid Eitan (0.7-2.0) mmol/L Calcium (8.4-10.2) mg/dL Ionized Calcium Juancho (4.5-5.3) mg/dL AST (17-59) U/L ALT (4-49) U/L Total Protein (6.3-8.2) g/dL Albumin (3.5-5.0) g/dL HDL Cholesterol (40.0-60.0) mg/dL 09/22/20 09/22/20 09/22/20 Range/Units 01:13 02:04 03:03 RBC (4.30-5.90) m/uL Hgb (13.0-17.5) gm/dL Hct (39.0-53.0) % MCHC (31.0-37.0) g/dL Plt Count (150-450) k/uL ABG pH (7.35-7.45) ABG HCO3 (21-25) mmol/L ABG Total CO2 (19-24) mmol/L ABG O2 Saturation (94-97) % ABG Lactic Acid (0.5-1.6) mmol/L Chloride (98-107) mmol/L BUN (9-20) mg/dL Creatinine (0.66-1.25) mg/dL Glucose (74-99) mg/dL POC Glucose (mg/dL) 122 H 120 H 123 H (75-99) mg/dL Plasma Lactic Acid Eitan (0.7-2.0) mmol/L Calcium (8.4-10.2) mg/dL Ionized Calcium Juancho (4.5-5.3) mg/dL AST (17-59) U/L ALT (4-49) U/L Total Protein (6.3-8.2) g/dL Albumin (3.5-5.0) g/dL HDL Cholesterol (40.0-60.0) mg/dL 09/22/20 09/22/20 09/22/20 Range/Units 04:08 04:08 04:08 RBC 2.57 L (4.30-5.90) m/uL Hgb 8.6 L D (13.0-17.5) gm/dL Hct 21.9 L (39.0-53.0) % MCHC 39.4 H (31.0-37.0) g/dL Plt Count 74 L (150-450) k/uL ABG pH (7.35-7.45) ABG HCO3 (21-25) mmol/L ABG Total CO2 (19-24) mmol/L ABG O2 Saturation (94-97) % ABG Lactic Acid (0.5-1.6) mmol/L Chloride 108 H (98-107) mmol/L BUN 43 H (9-20) mg/dL Creatinine 2.95 H (0.66-1.25) mg/dL Glucose 112 H (74-99) mg/dL POC Glucose (mg/dL) 131 H (75-99) mg/dL Plasma Lactic Acid Eitan (0.7-2.0) mmol/L Calcium 7.4 L (8.4-10.2) mg/dL Ionized Calcium Juancho 4.4 L (4.5-5.3) mg/dL AST 456 H (17-59) U/L ALT 304 H (4-49) U/L Total Protein 4.1 L (6.3-8.2) g/dL Albumin 2.7 L (3.5-5.0) g/dL HDL Cholesterol (40.0-60.0) mg/dL 09/22/20 09/22/20 09/22/20 Range/Units 05:24 05:29 06:00 RBC (4.30-5.90) m/uL Hgb (13.0-17.5) gm/dL Hct (39.0-53.0) % MCHC (31.0-37.0) g/dL Plt Count (150-450) k/uL ABG pH 7.46 H (7.35-7.45) ABG HCO3 30 H (21-25) mmol/L ABG Total CO2 31 H (19-24) mmol/L ABG O2 Saturation 97.4 H (94-97) % ABG Lactic Acid (0.5-1.6) mmol/L Chloride (98-107) mmol/L BUN (9-20) mg/dL Creatinine (0.66-1.25) mg/dL Glucose (74-99) mg/dL POC Glucose (mg/dL) 132 H 138 H (75-99) mg/dL Plasma Lactic Acid Eitan (0.7-2.0) mmol/L Calcium (8.4-10.2) mg/dL Ionized Calcium Juancho (4.5-5.3) mg/dL AST (17-59) U/L ALT (4-49) U/L Total Protein (6.3-8.2) g/dL Albumin (3.5-5.0) g/dL HDL Cholesterol (40.0-60.0) mg/dL 09/22/20 09/22/20 09/22/20 Range/Units 06:57 08:07 08:57 RBC (4.30-5.90) m/uL Hgb (13.0-17.5) gm/dL Hct (39.0-53.0) % MCHC (31.0-37.0) g/dL Plt Count (150-450) k/uL ABG pH (7.35-7.45) ABG HCO3 (21-25) mmol/L ABG Total CO2 (19-24) mmol/L ABG O2 Saturation (94-97) % ABG Lactic Acid (0.5-1.6) mmol/L Chloride (98-107) mmol/L BUN (9-20) mg/dL Creatinine (0.66-1.25) mg/dL Glucose (74-99) mg/dL POC Glucose (mg/dL) 128 H 112 H 136 H (75-99) mg/dL Plasma Lactic Acid Eitan (0.7-2.0) mmol/L Calcium (8.4-10.2) mg/dL Ionized Calcium Juancho (4.5-5.3) mg/dL AST (17-59) U/L ALT (4-49) U/L Total Protein (6.3-8.2) g/dL Albumin (3.5-5.0) g/dL HDL Cholesterol (40.0-60.0) mg/dL - Imaging and Cardiology Chest x-ray: report reviewed, image reviewed Assessment and Plan Assessment: 1. Coronary artery disease with left main disease, status post four-vessel CABG 2. Unstable angina 3. History of hypertension 4. Hyperlipidemia 5. Recent Covid infection in July 2020 6. Previous tobacco dependence 7. Rare alcohol usage 8. Witnessed cardiac arrest with brief CPR and subsequent ROSC 9. Postoperative acute blood loss anemia with return to the OR for mediastinal exploration with control of postop bleed 10. Postoperative hypotension requiring pressor support, currently off pressors 11. Acute lactic acidosis 12. Elevated transaminases due to hypoperfusion 13. LEONEL due to hypoperfusion Plan: 1. Continue low-dose aspirin,Plavix. Will initiate low-dose beta cheyenne and increase when able. Statin discontinued due to elevated transaminases, will re- add when liver enzymes normalize 2. Wean from mechanical ventilation when able. Ventilator management, bronchodilators per pulmonology 3. Will monitor daily labs and x-rays. Electrolyte replacement per protocol. No further transfusions at this time 4. GI/DVT prophylaxis 5. Increase activity as tolerated once extubated. PT/OT/cardiac rehab consulted 6. Will maintain all lines and tubes for another 24 hours 7. Insulin management per primary care service. Patient is borderline pre- diabetic, preoperative hemoglobin A1c 6.2% 8. Pain control current medication regimen 9. More recommendations to follow Time with Patient: Greater than 30
[2020-09-22] MEDS: HYDROcodone/APAP 5-325MG 1 EACH TAB PO PRN ×4 (09:35→23:53)
--- NOTE | 2020-09-22 09:35 | P.PN ---
Subjective Progress Note Date: 09/22/20 50-year-old male patient was postop day #1 following four-vessel bypass surgery. The patient had multivessel CAD, symptomatic and the patient underwent his bypass surgery yesterday and postop the patient was hemodynamically stable and the patient was extubated without any major difficulties. The patient postextubation was doing well and he was hemodynamically stable. Probably within few hours following his extubation, he had massive amount of blood coming out of his recent in few and this was estimated to be around 2 L total. At that point, CT surgery was involved and the patient was seen by Dr. Arteaga in the intensive care unit. As he was being evaluated, the patient underwent further hemodynamic instability and the patient became hypotensive and he went into a PEA rhythm and he had a cardiac arrest. He was resuscitated according to the ACLS protocol and he is down time was estimated to be around 10 minutes. Following that, pulse was recovered and the patient was taken to the operating room where a surgical evaluation was done. The patient underwent a mediastinal exploration and control of bleeding was achieved, source being a questionable slits opening at the aortic wall and according to the surgical opinion, this was possibly related to mechanical injury from a wire suture. In any rate, control of bleeding was achieved and the patient was brought back today intensive care unit at around 3 AM. This morning, the patient is sedated with propofol and the patient is calm and comfortable and performed running at 45 mg/kg/m. He was apparently moving his extremities after he arrived from the operating room. A sedation holiday will be given to him at a later stage today. This morning, he remains on a mechanical ventilator currently is an assist- control mode at the rate of 12 with a tidal volume of 550 FiO2 of 60% with a PEEP of 8. Blood gas showed a pH of 7.37 with a pCO2 of 48 and pO2 of 83. Based on that, increased respiratory rate up to 18. The chest x-ray shows no complications. The patient has 2 mediastinal chest tubes and left pleural chest tube. There are some atelectatic changes in lung bases bilaterally. Otherwise ET tube is in a good location and Strabane-Jt catheter is also in good location. Meanwhile, the patient has received a total of 4 units of packed RBC and hemoglobin today is at 10.2. The chest tubes are still draining minimal amount of serosanguineous/bloody drainage is output is minimal at this point and there is no evidence of any air leak. The patient is hemodynamically requiring pressors and the patient is currently on norepinephrine infusion running at 0.1 mg/kg per minute. . He is also on vasopressin as physiologic dose of 0.03 units per hour and the patient is also on milrinone at 0.1 mg/kg per minute. Cardiac index is at 2.3 with an output of 5.0. Pulmonary artery pressures are 32/17 and his CVP is at 10. The patient is producing adequate urine output. Her recent cardiac rhythm is sinus with a rate of 70. He has a VVI backup pacer at 15. He is also on insulin drip at 2 units an hour. The patient is a 50-year-old male patient who is postop from coronary artery bypass surgery and the patient is postop day #2 following four-vessel bypass. He remains intubated on a mechanical ventilator due to the complications that occurred postop. Fortunately, the patient has done extremely well. The patient this morning is on sedation on propofol which is running at 60 mg/kg/m. Hemodynamically the patient is improved and the patient is currently off vasopressin and he is also off levo fed has been off the pressors for the past 5-6 hours. Meanwhile, the patient's blood pressure currently is well maintained and the patient was started on low-dose beta blockers. He was started on metoprolol 12.5 mg by mouth twice a day. Meanwhile, he developed an acute kidney injury. Creatinine is up to 2.96. However, the patient is making adequate urine output in order of 20-30 mL an hour. IV fluids are running in the form of an art at the rate of 50 mL an hour. In terms of neurologic functions, a sedation holiday will be given and we'll assess the patient's underlying mental status. He was moving extremities even while being sedated yesterday. In terms of his respiratory status, he remains on a mechanical ventilator. Assist-control mode at the rate of 18 with a tidal volume of 550 and FiO2 of 50% with a PEEP of 8. His blood gases from today shows a pH of 7.48 with a pCO2 of 41 and pO2 of 84. The chest x-ray from today is showing adequate expansion of both lungs. Mediastinal and left pleural chest tubes are in place. ET tube is in a good location. The patient has his Strabane-Jt catheter and OG tube is also in the stomach. No evidence of any pneumothorax. Output from the chest tubes are minimal and there is no evidence of any air leak. No evidence of any bleed. Hemoglobin stable after being transfused with a total of 4 units of packed RBC. Currently is at 8.6. Platelet count is 74. Unfortunately there is an acute kidney injury that has evolved with a creatinine of 2.95. N evertheless, the patient is nonoliguric. Hemodynamic parameters indicate a cardiac output of 8.1 with an index of 3.6 and the patient is currently off milrinone. Afebrile. Remains nothing by mouth still. Objective - Vital Signs Vital signs: Vital Signs Temp 98.8 F 09/22/20 08:00 Pulse 90 09/22/20 09:00 Resp 18 09/22/20 09:00 BP 109/85 09/22/20 09:00 Pulse Ox 99 09/22/20 09:00 Intake & Output 09/21/20 09/22/20 09/22/20 18:59 06:59 18:59 Intake Total 2567.969 1367.225 367.321 Output Total 787 650 435 Balance 1780.969 717.225 -67.679 Weight 114.7 kg Intake: IV 1403 808 217 0.9NS CO/CI 130 100 40 0.9NS flush 108 108 27 Albumin Human 5% 250 ml 500 In Empty Bag 1 bag @ 250 mls/hr IVPB Q1HR PRN Rx#: [id number] Lactated Ringers 1,000 ml 590 600 150 @ 50 mls/hr IV .Q20H [facility] Rx#:[id number] Sodium Chloride 0.45% 1, 75 000 ml @ 75 mls/hr IV . [id number] [facility] with Sodium Bicarb (1 Meq/ml) 150 ml Rx#:[id number] Intake, IV Titration 1104.969 559.225 90.321 Amount Calcium Gluconate 1 gm In 200 Sodium Chloride 0.9% 100 ml @ 100 mls/hr IVPB ONCE ONE Rx#:[id number] Insulin Regular 100 unit 44.407 56.663 11.178 In Sodium Chloride 0.9% 100 ml @ Per Protocol IV .Q0M [facility] Rx#:[id number] Milrinone-D5w Pmx 20 mg 56.751 In Dextrose/Water 1 100ml .bag @ 0.1 MCG/KG/MIN 3. 417 mls/hr IV .Q24H [facility] Rx#:[id number] Norepinephrine 4 mg In 364.143 88.755 Sodium Chloride 0.9% 250 ml @ 0.05 MCG/KG/MIN 19. 622 mls/hr IV .[id number] [facility] Rx#:[id number] Sodium Chloride 0.9% 150 49.5 4.5 ml @ 0.03 UNITS/MIN 4.59 mls/hr IV .Q24H [facility] with Vasopressin 60 unit Rx#: [id number] ceFAZolin 2 gm In Sodium 50 Chloride 0.9% 50 ml @ 100 mls/hr IVPB Q8H [facility] Rx#: [id number] propofoL 1,000 mg In 340.168 409.307 79.143 Empty Bag 1 bag @ Titrate IV .Q0M [facility] Rx#: [id number] Other 60 60 Output: Chest Tube Drainage 372 330 50 Chest Tube Mediastinal 258 254 30 Left 114 76 20 Gastric Drainage 100 300 Urine 315 320 85 Other: Voiding Method Indwelling Catheter Indwelling Catheter # Bowel Movements 1 ABP, PAP, CO, CI - Last Documented Arterial Blood Pressure 102/67 Pulmonary Artery Pressure 37/23 Cardiac Output 8.1 Cardiac Index 3.6 - Exam GENERAL EXAM: Sedated, intubated, 50-year-old white male, on assist-control mode of ventilation HEAD: Normocephalic/atraumatic. EYES: Normal reaction of pupils, equal size. Conjunctiva pink, sclera white. NOSE: Clear with pink turbinates. THROAT: No erythema or exudates. NECK: No masses, no JVD, no thyroid enlargement, no adenopathy. CHEST: No chest wall deformity. Symmetrical expansion. Midsternal incision is clean dry and intact, 2 mediastinal and left pleural chest tube in place connected to Pleur-evac's, with small amount of sanguinous output, no air leak, epicardial wires connected to external pacemaker box with the VVI mode, with a backup rate of 50 LUNGS: Equal air entry with no crackles, wheeze, rhonchi or dullness. CVS: Regular rate and rhythm, normal S1 and S2, no gallops, no murmurs, no rubs ABDOMEN: Soft, nontender. No hepatosplenomegaly, normal bowel sounds, no guarding or rigidity. EXTREMITIES: No clubbing, no edema, no cyanosis, 2+ pulses and upper and lower extremities. Left radial artery harvest site is covered with a surgical dressing MUSCULOSKELETAL: Muscle strength and tone normal. SPINE: No scoliosis or deformity SKIN: No rashes CENTRAL NERVOUS SYSTEM: Sedated, intubated No focal deficits, tone is normal in all 4 extremities. - Labs CBC & Chem 7: 09/22/20 04:08 09/22/20 04:08 Labs: Abnormal Lab Results - Last 24 Hours (Table) 09/21/20 09/21/20 09/21/20 Range/Units 03:10 08:45 10:05 RBC (4.30-5.90) m/uL Hgb (13.0-17.5) gm/dL Hct (39.0-53.0) % MCHC (31.0-37.0) g/dL Plt Count (150-450) k/uL ABG pH (7.35-7.45) ABG HCO3 (21-25) mmol/L ABG Total CO2 (19-24) mmol/L ABG O2 Saturation (94-97) % ABG Lactic Acid 4.0 H* (0.5-1.6) mmol/L Chloride (98-107) mmol/L BUN (9-20) mg/dL Creatinine (0.66-1.25) mg/dL Glucose (74-99) mg/dL POC Glucose (mg/dL) 139 H (75-99) mg/dL Plasma Lactic Acid Eitan (0.7-2.0) mmol/L Calcium (8.4-10.2) mg/dL Ionized Calcium Juancho (4.5-5.3) mg/dL AST (17-59) U/L ALT (4-49) U/L Total Protein (6.3-8.2) g/dL Albumin (3.5-5.0) g/dL HDL Cholesterol 7.0 L (40.0-60.0) mg/dL 09/21/20 09/21/20 09/21/20 Range/Units 10:55 12:00 12:00 RBC (4.30-5.90) m/uL Hgb (13.0-17.5) gm/dL Hct (39.0-53.0) % MCHC (31.0-37.0) g/dL Plt Count (150-450) k/uL ABG pH (7.35-7.45) ABG HCO3 (21-25) mmol/L ABG Total CO2 (19-24) mmol/L ABG O2 Saturation (94-97) % ABG Lactic Acid 3.2 H* (0.5-1.6) mmol/L Chloride (98-107) mmol/L BUN (9-20) mg/dL Creatinine (0.66-1.25) mg/dL Glucose (74-99) mg/dL POC Glucose (mg/dL) 156 H 167 H (75-99) mg/dL Plasma Lactic Acid Eitan (0.7-2.0) mmol/L Calcium (8.4-10.2) mg/dL Ionized Calcium Juancho (4.5-5.3) mg/dL AST (17-59) U/L ALT (4-49) U/L Total Protein (6.3-8.2) g/dL Albumin (3.5-5.0) g/dL HDL Cholesterol (40.0-60.0) mg/dL 09/21/20 09/21/20 09/21/20 Range/Units 13:19 14:18 15:10 RBC (4.30-5.90) m/uL Hgb (13.0-17.5) gm/dL Hct (39.0-53.0) % MCHC (31.0-37.0) g/dL Plt Count (150-450) k/uL ABG pH (7.35-7.45) ABG HCO3 (21-25) mmol/L ABG Total CO2 (19-24) mmol/L ABG O2 Saturation (94-97) % ABG Lactic Acid (0.5-1.6) mmol/L Chloride (98-107) mmol/L BUN (9-20) mg/dL Creatinine (0.66-1.25) mg/dL Glucose (74-99) mg/dL POC Glucose (mg/dL) 158 H 137 H 133 H (75-99) mg/dL Plasma Lactic Acid Eitan (0.7-2.0) mmol/L Calcium (8.4-10.2) mg/dL Ionized Calcium Juancho (4.5-5.3) mg/dL AST (17-59) U/L ALT (4-49) U/L Total Protein (6.3-8.2) g/dL Albumin (3.5-5.0) g/dL HDL Cholesterol (40.0-60.0) mg/dL 09/21/20 09/21/20 09/21/20 Range/Units 15:30 16:01 16:04 RBC (4.30-5.90) m/uL Hgb (13.0-17.5) gm/dL Hct (39.0-53.0) % MCHC (31.0-37.0) g/dL Plt Count (150-450) k/uL ABG pH (7.35-7.45) ABG HCO3 28 H (21-25) mmol/L ABG Total CO2 29 H (19-24) mmol/L ABG O2 Saturation 98.1 H (94-97) % ABG Lactic Acid (0.5-1.6) mmol/L Chloride (98-107) mmol/L BUN (9-20) mg/dL Creatinine (0.66-1.25) mg/dL Glucose (74-99) mg/dL POC Glucose (mg/dL) 169 H (75-99) mg/dL Plasma Lactic Acid Eitan 3.0 H* (0.7-2.0) mmol/L Calcium (8.4-10.2) mg/dL Ionized Calcium Juancho (4.5-5.3) mg/dL AST (17-59) U/L ALT (4-49) U/L Total Protein (6.3-8.2) g/dL Albumin (3.5-5.0) g/dL HDL Cholesterol (40.0-60.0) mg/dL 09/21/20 09/21/20 09/21/20 Range/Units 17:07 18:23 19:14 RBC (4.30-5.90) m/uL Hgb (13.0-17.5) gm/dL Hct (39.0-53.0) % MCHC (31.0-37.0) g/dL Plt Count (150-450) k/uL ABG pH (7.35-7.45) ABG HCO3 (21-25) mmol/L ABG Total CO2 (19-24) mmol/L ABG O2 Saturation (94-97) % ABG Lactic Acid (0.5-1.6) mmol/L Chloride (98-107) mmol/L BUN (9-20) mg/dL Creatinine (0.66-1.25) mg/dL Glucose (74-99) mg/dL POC Glucose (mg/dL) 169 H 130 H 132 H (75-99) mg/dL Plasma Lactic Acid Eitan (0.7-2.0) mmol/L Calcium (8.4-10.2) mg/dL Ionized Calcium Juancho (4.5-5.3) mg/dL AST (17-59) U/L ALT (4-49) U/L Total Protein (6.3-8.2) g/dL Albumin (3.5-5.0) g/dL HDL Cholesterol (40.0-60.0) mg/dL 09/21/20 09/21/20 09/21/20 Range/Units 20:02 21:13 21:57 RBC (4.30-5.90) m/uL Hgb (13.0-17.5) gm/dL Hct (39.0-53.0) % MCHC (31.0-37.0) g/dL Plt Count (150-450) k/uL ABG pH (7.35-7.45) ABG HCO3 (21-25) mmol/L ABG Total CO2 (19-24) mmol/L ABG O2 Saturation (94-97) % ABG Lactic Acid (0.5-1.6) mmol/L Chloride (98-107) mmol/L BUN (9-20) mg/dL Creatinine (0.66-1.25) mg/dL Glucose (74-99) mg/dL POC Glucose (mg/dL) 153 H 149 H 141 H (75-99) mg/dL Plasma Lactic Acid Eitan (0.7-2.0) mmol/L Calcium (8.4-10.2) mg/dL Ionized Calcium Juancho (4.5-5.3) mg/dL AST (17-59) U/L ALT (4-49) U/L Total Protein (6.3-8.2) g/dL Albumin (3.5-5.0) g/dL HDL Cholesterol (40.0-60.0) mg/dL 09/21/20 09/22/20 09/22/20 Range/Units 22:58 00:11 01:13 RBC (4.30-5.90) m/uL Hgb (13.0-17.5) gm/dL Hct (39.0-53.0) % MCHC (31.0-37.0) g/dL Plt Count (150-450) k/uL ABG pH (7.35-7.45) ABG HCO3 (21-25) mmol/L ABG Total CO2 (19-24) mmol/L ABG O2 Saturation (94-97) % ABG Lactic Acid (0.5-1.6) mmol/L Chloride (98-107) mmol/L BUN (9-20) mg/dL Creatinine (0.66-1.25) mg/dL Glucose (74-99) mg/dL POC Glucose (mg/dL) 133 H 129 H 122 H (75-99) mg/dL Plasma Lactic Acid Eitan (0.7-2.0) mmol/L Calcium (8.4-10.2) mg/dL Ionized Calcium Juancho (4.5-5.3) mg/dL AST (17-59) U/L ALT (4-49) U/L Total Protein (6.3-8.2) g/dL Albumin (3.5-5.0) g/dL HDL Cholesterol (40.0-60.0) mg/dL 09/22/20 09/22/20 09/22/20 Range/Units 02:04 03:03 04:08 RBC 2.57 L (4.30-5.90) m/uL Hgb 8.6 L D (13.0-17.5) gm/dL Hct 21.9 L (39.0-53.0) % MCHC 39.4 H (31.0-37.0) g/dL Plt Count 74 L (150-450) k/uL ABG pH (7.35-7.45) ABG HCO3 (21-25) mmol/L ABG Total CO2 (19-24) mmol/L ABG O2 Saturation (94-97) % ABG Lactic Acid (0.5-1.6) mmol/L Chloride (98-107) mmol/L BUN (9-20) mg/dL Creatinine (0.66-1.25) mg/dL Glucose (74-99) mg/dL POC Glucose (mg/dL) 120 H 123 H (75-99) mg/dL Plasma Lactic Acid Eitan (0.7-2.0) mmol/L Calcium (8.4-10.2) mg/dL Ionized Calcium Juancho (4.5-5.3) mg/dL AST (17-59) U/L ALT (4-49) U/L Total Protein (6.3-8.2) g/dL Albumin (3.5-5.0) g/dL HDL Cholesterol (40.0-60.0) mg/dL 09/22/20 09/22/20 09/22/20 Range/Units 04:08 04:08 05:24 RBC (4.30-5.90) m/uL Hgb (13.0-17.5) gm/dL Hct (39.0-53.0) % MCHC (31.0-37.0) g/dL Plt Count (150-450) k/uL ABG pH (7.35-7.45) ABG HCO3 (21-25) mmol/L ABG Total CO2 (19-24) mmol/L ABG O2 Saturation (94-97) % ABG Lactic Acid (0.5-1.6) mmol/L Chloride 108 H (98-107) mmol/L BUN 43 H (9-20) mg/dL Creatinine 2.95 H (0.66-1.25) mg/dL Glucose 112 H (74-99) mg/dL POC Glucose (mg/dL) 131 H 132 H (75-99) mg/dL Plasma Lactic Acid Eitan (0.7-2.0) mmol/L Calcium 7.4 L (8.4-10.2) mg/dL Ionized Calcium Juancho 4.4 L (4.5-5.3) mg/dL AST 456 H (17-59) U/L ALT 304 H (4-49) U/L Total Protein 4.1 L (6.3-8.2) g/dL Albumin 2.7 L (3.5-5.0) g/dL HDL Cholesterol (40.0-60.0) mg/dL 09/22/20 09/22/20 09/22/20 Range/Units 05:29 06:00 06:57 RBC (4.30-5.90) m/uL Hgb (13.0-17.5) gm/dL Hct (39.0-53.0) % MCHC (31.0-37.0) g/dL Plt Count (150-450) k/uL ABG pH 7.46 H (7.35-7.45) ABG HCO3 30 H (21-25) mmol/L ABG Total CO2 31 H (19-24) mmol/L ABG O2 Saturation 97.4 H (94-97) % ABG Lactic Acid (0.5-1.6) mmol/L Chloride (98-107) mmol/L BUN (9-20) mg/dL Creatinine (0.66-1.25) mg/dL Glucose (74-99) mg/dL POC Glucose (mg/dL) 138 H 128 H (75-99) mg/dL Plasma Lactic Acid Eitan (0.7-2.0) mmol/L Calcium (8.4-10.2) mg/dL Ionized Calcium Juancho (4.5-5.3) mg/dL AST (17-59) U/L ALT (4-49) U/L Total Protein (6.3-8.2) g/dL Albumin (3.5-5.0) g/dL HDL Cholesterol (40.0-60.0) mg/dL 09/22/20 09/22/20 Range/Units 08:07 08:57 RBC (4.30-5.90) m/uL Hgb (13.0-17.5) gm/dL Hct (39.0-53.0) % MCHC (31.0-37.0) g/dL Plt Count (150-450) k/uL ABG pH (7.35-7.45) ABG HCO3 (21-25) mmol/L ABG Total CO2 (19-24) mmol/L ABG O2 Saturation (94-97) % ABG Lactic Acid (0.5-1.6) mmol/L Chloride (98-107) mmol/L BUN (9-20) mg/dL Creatinine (0.66-1.25) mg/dL Glucose (74-99) mg/dL POC Glucose (mg/dL) 112 H 136 H (75-99) mg/dL Plasma Lactic Acid Eitan (0.7-2.0) mmol/L Calcium (8.4-10.2) mg/dL Ionized Calcium Juancho (4.5-5.3) mg/dL AST (17-59) U/L ALT (4-49) U/L Total Protein (6.3-8.2) g/dL Albumin (3.5-5.0) g/dL HDL Cholesterol (40.0-60.0) mg/dL Assessment and Plan Plan: #1. Symptomatic multivessel coronary artery disease, status post four-vessel coronary artery bypass grafting with BASHIR to the LAD, radial artery graft to the ramus, SVG to OM, and SVG to PLV, with bilateral legs endoscopic vein harvest, exclusion of the left atrial appendage and intraoperative transesophageal echocardiogram, postop day #2 #2. Postop mediastinal bleed, likely due to an aortic tear. The patient lost at least 2 L of blood to the mediastinal chest tube. The patient received a total of 4 units of packed RBC. During the course of his bleed, the patient sustained a cardiac arrest with a downtime of around 10 minutes. Currently is intubated on a mechanical ventilator. He had a mediastinal exploration and control of bleed and the patient is postop day #1 following a redo sternotomy and exploration. The patient is told to have an aortic leak where there was a pinpoint function and aortic wall that was identified and was oversewn. #3. Hypotension, likely cardiogenic in nature, recovered and the patient is currently off vasopressors which included milrinone, vasopressin and norepinephrine. #4. Acute hypoxic respiratory failure secondary to above-mentioned events. The patient remains intubated on a mechanical ventilator. Chest x-ray was noted. Blood gases was noted. Ventilator was checked #5. 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 Hypertension #7. Diabetes mellitus #8. Hyperlipidemia #9. Chronic neck pain #10 Recent history of COVID-19 pneumonia in June 2020 #11 blood loss anemia currently hemoglobin is at 8.2 12 acute kidney injury in the creatinine is up to 2.9, nonoliguric, consider ATN due to above-mentioned complications/hypotension/hemodynamic instability. No major electrode disturbance at this point in time. Plan: keep the patient on mechanical ventilator for now. The patient would have the PEEP dropped down to 5. We'll stop sedation. We'll check weaning parameters. We will assess the readiness to wean and proceed with a spontaneous breathing trial if the patient shows adequate weaning parameters. Monitor the output from the chest tubes Monitor the hemoglobin level Monitor hemodynamics and no pressors for now Sedation holiday to assess underlying mental status post cardiac arrest. The cardiac arrest was brief and it was witnessed and the patient was resuscitated according to ACLS protocol. Anoxic encephalopathy is possible. Continue insulin drip for blood sugar control @ 5U/hr Keep the patient NPO No weaning for today. Condition is critical. We'll continue to follow make further recommendations regarding the care of this patient. This evaluation was done and more than 30 minutes. Time with Patient: Greater than 30
[2020-09-22 10:06] LABS: Glucose,Whole Blood 129 mg/dL (75-99)
[2020-09-22] MEDS ORDERED: DEXMEDETOMIDINE/0.9% NACL(PMX) 400 MCG in EMPTY BAG 1 BAG IV SCH (11:00)
[2020-09-22 11:14] LABS: Glucose,Whole Blood 125 mg/dL (75-99)
[2020-09-22 11:55] LABS: Glucose,Whole Blood 130 mg/dL (75-99)
[2020-09-22 12:28] LABS: ABG Base Excess 3.9 mmol/L; ABG HCO3 28 mmol/L (21-25); ABG Oxygen Saturation 98.8 % (94-97); ABG PCO2 44 mmHg (35-45); ABG PH 7.42 (7.35-7.45); ABG PO2 114 mmHg (83-108); ABG TCO2 30 mmol/L (19-24); Allen Test Performed? Yes
[2020-09-22] MEDS: ONDANSETRON 4 MG/2 ML VIAL IVP PRN (12:48)
[2020-09-22 13:04] LABS: Glucose,Whole Blood 133 mg/dL (75-99)
[2020-09-22 14:15] LABS: Glucose,Whole Blood 127 mg/dL (75-99)
--- NOTE | 2020-09-22 15:00 | P.PN ---
Progress Note - Text Progress Note Date: 09/22/20 - Chief Complaint Coronary bypass Consultation: This is a 50-year-old patient of Dr. Kimberli au. Chronic stable medical conditions include hypertension, hyperlipidemia, cervical problems C5 through C7, and COVID 19 in July of this year. Patient on earlier today underwent coronary bypass. Was extubated 8 PM this evening. Somewhat lethargic. They would answer some simple questions. Patient has 2 mediastinal and 1 left-sided chest pain or 2. Has a Cao catheter. Does include norepinephrine, insulin, nitroglycerin. Telemetry shows sinus rhythm. Patient is having some bloody drainage through the mediastinal tube. Patient having some pain at the chest tube insertion site. In some shortness of breath. Same night patient continued to have bleeding to the mediastinal chest tubes. Having chest pains. Was taken back to the operating room. Apparently there was a vascular leak that was repaired. Patient receive 2 units of blood before and 2 units after the procedure. Today: Extubated this afternoon. Tired. at the bedside. Telemetry: Sinus rhythm. Patient on levo fed drip and insulin drip. Cao catheter. Chest tubes in place. Review of systems: Patient rather tired Active Medications Hydrocodone Bitart/Acetaminophen (Hydrocodone/Apap 5-325mg 1 Each Tab) 2 each PO Q4HR PRN PRN Reason: Severe Pain Last Admin: 09/22/20 12:56 Dose: 2 each Documented by: Hydrocodone Bitart/Acetaminophen (Hydrocodone/Apap 5-325mg 1 Each Tab) 1 each PO Q4HR PRN PRN Reason: Moderate Pain Albuterol/Ipratropium (Ipratropium-Albuterol 3 Ml Neb) 3 ml INHALATION RT-Q2H PRN PRN Reason: Shortness Of Breath Or Wheezing Albuterol/Ipratropium (Ipratropium-Albuterol 3 Ml Neb) 3 ml INHALATION RT-QID [facility] Last Admin: 09/22/20 10:51 Dose: 3 ml Documented by: Aspirin (Aspirin 81 Mg) 81 mg PO DAILY [facility] Last Admin: 09/22/20 08:18 Dose: 81 mg Documented by: Benzocaine/Menthol (Benzocaine/Menthol Lozeng 1 Each Lozenge) 1 each MUCOUS MEM Q2H PRN PRN Reason: Sore Throat Bisacodyl (Bisacodyl 10 Mg Supp) 10 mg RECTAL DAILY PRN PRN Reason: Constipation Chlorhexidine Gluconate (Chlorhexidine Gluconate 15 Ml Cup) 15 ml MUCOUS MEM BID [facility] Last Admin: 09/22/20 08:18 Dose: 15 ml Documented by: Clopidogrel Bisulfate (Clopidogrel 75 Mg Tab) 75 mg PO DAILY [facility] Last Admin: 09/22/20 08:18 Dose: 75 mg Documented by: Heparin Sodium (Porcine) (Heparin Sodium,Porcine/Pf 5,000 Unit/0.5 Ml Syringe) 5,000 unit SQ Q8HR [facility] Last Admin: 09/22/20 08:18 Dose: 5,000 unit Documented by: Norepinephrine Bitartrate 4 mg (/ Sodium Chloride) 254 mls @ 19.622 mls/hr IV .[id number] [facility]; Protocol Last Titration: 09/22/20 14:39 Dose: 0.03 mcg/kg/min, 11.773 mls/hr Documented by: Amiodarone HCl 150 mg/ (Dextrose/Water) 103 mls @ 618 mls/hr IV .Q10M PRN; Protocol PRN Reason: A.FIB/FLUTTER Amiodarone HCl 360 mg/ (Dextrose/Water) 207.2 mls @ 34.533 mls/hr IV .Q6H PRN; Protocol PRN Reason: A.FIB/FLUTTER Amiodarone HCl 450 mg/ (Dextrose/Water) 250 mls @ 16.667 mls/hr IV .Q15H PRN; Protocol PRN Reason: A.FIB/FLUTTER Albumin Human 250 ml/ IV (Solution) 250 mls @ 250 mls/hr IVPB Q1HR PRN PRN Reason: For Volume Stop: 09/22/20 16:11 Last Admin: 09/21/20 15:06 Dose: 250 mls/hr Documented by: Lactated Ringer's (Lactated Ringers) 1,000 mls @ 50 mls/hr IV .Q20H [facility] Last Admin: 09/22/20 08:19 Dose: 50 mls/hr Documented by: Propofol 1,000 mg/ IV Solution 100 mls @ 0 mls/hr IV .Q0M [facility]; Protocol Last Titration: 09/22/20 11:00 Dose: 0 mcg/kg/min, 0 mls/hr Documented by: Insulin Human Regular 100 unit (/ Sodium Chloride) 101 mls @ 0 mls/hr IV .Q0M [facility]; Protocol Last Titration: 09/22/20 10:06 Dose: 4.5 units/hr, 4.545 mls/hr Documented by: Vasopressin 60 unit/ Sodium (Chloride) 153 mls @ 4.59 mls/hr IV .Q24H [facility] Last Admin: 09/22/20 01:33 Dose: 4.59 mls/hr Documented by: Dexmedetomidine HCl 400 mcg/ (IV Solution) 100 mls @ 0 mls/hr IV .Q0M [facility]; Protocol Stop: 09/23/20 11:01 Last Titration: 09/22/20 11:57 Dose: 0 mcg/kg/hr, 0 mls/hr Documented by: Magnesium Hydroxide (Magnesium Hydroxide 2,400 Mg/10 Ml Cup) 2,400 mg PO BID PRN PRN Reason: Constipation Metoclopramide HCl (Metoclopramide 5 Mg/Ml 2 Ml Vial) 10 mg IVP Q4H PRN PRN Reason: Nausea And Vomiting Metoprolol Tartrate (Metoprolol Tartrate 12.5 Mg Tab) 12.5 mg PO BID [facility] Last Admin: 09/22/20 08:18 Dose: 12.5 mg Documented by: Miscellaneous Information (Potassium Replacement Protocol 1 Each Misc) 1 each MISCELLANE DAILY PRN; Protocol PRN Reason: Per Protocol Miscellaneous Information (Magnesium Replacement Protocol 1 Each Misc) 1 each MISCELLANE DAILY PRN; Protocol PRN Reason: Per Protocol Miscellaneous Information (Phosphorus Replacement Protoco 1 Each Misc) 1 each MISCELLANE DAILY PRN; Protocol PRN Reason: Per Protocol Morphine Sulfate (Morphine Sulfate 2 Mg/Ml Syringe) 2 mg IVP Q4H PRN PRN Reason: Pain/Discomfort Last Admin: 09/22/20 07:32 Dose: 2 mg Documented by: Ondansetron HCl (Ondansetron 4 Mg/2 Ml Vial) 4 mg IVP Q6HR PRN PRN Reason: Nausea And Vomiting Last Admin: 09/22/20 12:48 Dose: 4 mg Documented by: Pantoprazole Sodium (Pantoprazole 40 Mg/10 Ml Vial) 40 mg IVP DAILY [facility] Last Admin: 09/22/20 08:18 Dose: 40 mg Documented by: Senna/Docusate Sodium (Sennosides-Docusate Sodium 1 Each Tab) 2 each PO HS [facility] Last Admin: 09/21/20 21:41 Dose: 2 each Documented by: Sodium Chloride (Sodium Chloride 0.9% Flush 10 Ml Syringe) 10 ml IV BID [facility] Last Admin: 09/22/20 08:22 Dose: 10 ml Documented by: Past medical history to include: Hypertension, hyperlipidemia, cervical spine problem from C5 through C7, COVID 19 Social history: Denies any smoking. Alcohol rarely. Physical examination: VITAL SIGNS: Afebrile, 81, 19, 120/65, 98% on 4 L GENERAL: Laying in bed, lethargic, EYES: Pupils equal. Conjunctiva normal. HEENT: External appearance of nose and ears normal, oral cavity grossly normal. NECK: JVD unable to assess; masses not palpable. HEART: First and second heart sounds are normal; no edema. LUNGS: Respiratory rate increased; decreased breath sounds. Patient has 2 mediastinal and 1 left pleural chest tube ABDOMEN: Soft, mildly distended nontender, liver spleen not palpable, no masses palpable. Cao catheter PSYCH: Unable to assess. 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 Patient extubated on September 20 and reintubated following being taken back to the OR.. Extubated September 22. -Patient was taken back to the OR - because of leaking vessel. Repaired -Coronary artery disease Patient be placed back on medications able to take oral medications -Essential hypertension Resume Cozaar when able to take his pills -Acute postprocedure blood loss anemia As expected from surgery. Patient received total of 4 units of blood. Follow H&H -Leukocytosis, reactive from surgery. No clinical evidence of infection Follow clinically. -Dilutional thrombocytopenia Follow H&H -Cardiogenic shock On epinephrine [,milrinone-discontinued] -Acute kidney injury, likely from cardiorenal syndrome.-New diagnosis Follow ERAN closely.. Hold off any nephrotoxic agents. Consult nephrology. Continue current medication treatment plan. Will follow Thank you Dr. Ku
[2020-09-22 15:33] LABS: Glucose,Whole Blood 117 mg/dL (75-99)
[2020-09-22 16:59] LABS: Glucose,Whole Blood 117 mg/dL (75-99)
[2020-09-22 18:35] LABS: Glucose,Whole Blood 110 mg/dL (75-99)
[2020-09-22 20:03] LABS: Glucose,Whole Blood 121 mg/dL (75-99)
[2020-09-22] MEDS: SENNOSIDES-DOCUSATE SODIUM 1 EACH TAB PO SCH (20:08)
[2020-09-22 22:04] LABS: Glucose,Whole Blood 126 mg/dL (75-99)
[2020-09-23 00:01] LABS: Glucose,Whole Blood 132 mg/dL (75-99)
[2020-09-23] MEDS: HYDROcodone/APAP 5-325MG 1 EACH TAB PO PRN ×5 (00:02→22:02)
[2020-09-23 01:11] LABS: Glucose,Whole Blood 125 mg/dL (75-99)
[2020-09-23 03:01] LABS: Glucose,Whole Blood 112 mg/dL (75-99)
[2020-09-23 04:06] LABS: Glucose,Whole Blood 117 mg/dL (75-99)
[2020-09-23 04:21] LABS: Basophils % (A) 0 %; Eosinophils # (A) 0.1 k/uL (0-0.7); Eosinophils % (A) 1 %; HCT 20.9 % (39.0-53.0); HGB 7.2 gm/dL (13.0-17.5); Lymphocytes # (A) 1.2 k/uL (1.0-4.8); Lymphocytes % (A) 13 %; MCH 29.5 pg (25.0-35.0); MCHC 34.2 g/dL (31.0-37.0); MCV 86.1 fL (80.0-100.0); Mean Platelet Volume 9.7; Monocytes # (A) 0.4 k/uL (0-1.0); Monocytes % (A) 5 %; Neutrophils # (A) 7.3 k/uL (1.3-7.7); Neutrophils % (A) 80 %; RBC 2.43 m/uL (4.30-5.90); RDW 15.3 % (11.5-15.5); WBC 9.1 k/uL (3.8-10.6)
[2020-09-23 04:23] LABS: Platelet Count 79 k/uL (150-450)
[2020-09-23 04:40] LABS: Albumin 2.6 g/dL (3.5-5.0); Calcium 7.3 mg/dL (8.4-10.2); Potassium 4.1 mmol/L (3.5-5.1); Total Bilirubin 1.2 mg/dL (0.2-1.3); Total Protein 4.1 g/dL (6.3-8.2)
[2020-09-23 06:58] LABS: Glucose,Whole Blood 148 mg/dL (75-99)
--- NOTE | 2020-09-23 07:35 | XR ---
EXAMINATION TYPE: XR chest 1V portable DATE OF EXAM: 09/23/2020 COMPARISON: Chest x-ray 09/22/2020 HISTORY: Extubated, chest tube TECHNIQUE: Single frontal view of the chest is obtained. FINDINGS: Left chest tube is stable, endotracheal tube and orogastric tube have been removed. Lung v olumes are low. There is minimal left apical pneumothorax. Right jugular central venous catheter is s table, median sternal drains are in place. Patient is post median sternotomy and left atrial appendag e clip placement. Cardiac mediastinal silhouette is stable. Bibasilar increased attenuation again not ed. IMPRESSION: Probable basilar atelectasis, that may be associated effusion. Interval extubation.
[2020-09-23] MEDS: IPRATROPIUM-ALBUTEROL 3 ML NEB INHALATION SCH ×4 (07:46→19:59)
[2020-09-23 07:57] LABS: Glucose,Whole Blood 153 mg/dL (75-99)
[2020-09-23] MEDS ORDERED: FUROSEMIDE 10 MG/ML 10 ML VIAL IV STA (08:07)
[2020-09-23] MEDS: LACTATED RINGERS 1,000 ML IV SCH (08:13)
--- NOTE | 2020-09-23 08:14 | P.PN ---
Subjective Progress Note Date: 09/23/20 50-year-old male patient was postop day #1 following four-vessel bypass surgery. The patient had multivessel CAD, symptomatic and the patient underwent his bypass surgery yesterday and postop the patient was hemodynamically stable and the patient was extubated without any major difficulties. The patient postextubation was doing well and he was hemodynamically stable. Probably within few hours following his extubation, he had massive amount of blood coming out of his recent in few and this was estimated to be around 2 L total. At that point, CT surgery was involved and the patient was seen by Dr. Arteaga in the intensive care unit. As he was being evaluated, the patient underwent further hemodynamic instability and the patient became hypotensive and he went into a PEA rhythm and he had a cardiac arrest. He was resuscitated according to the ACLS protocol and he is down time was estimated to be around 10 minutes. Following that, pulse was recovered and the patient was taken to the operating room where a surgical evaluation was done. The patient underwent a mediastinal exploration and control of bleeding was achieved, source being a questionable slits opening at the aortic wall and according to the surgical opinion, this was possibly related to mechanical injury from a wire suture. In any rate, control of bleeding was achieved and the patient was brought back today intensive care unit at around 3 AM. This morning, the patient is sedated with propofol and the patient is calm and comfortable and performed running at 45 mg/kg/m. He was apparently moving his extremities after he arrived from the operating room. A sedation holiday will be given to him at a later stage today. This morning, he remains on a mechanical ventilator currently is an assist- control mode at the rate of 12 with a tidal volume of 550 FiO2 of 60% with a PEEP of 8. Blood gas showed a pH of 7.37 with a pCO2 of 48 and pO2 of 83. Based on that, increased respiratory rate up to 18. The chest x-ray shows no complications. The patient has 2 mediastinal chest tubes and left pleural chest tube. There are some atelectatic changes in lung bases bilaterally. Otherwise ET tube is in a good location and Brule-Jt catheter is also in good location. Meanwhile, the patient has received a total of 4 units of packed RBC and hemoglobin today is at 10.2. The chest tubes are still draining minimal amount of serosanguineous/bloody drainage is output is minimal at this point and there is no evidence of any air leak. The patient is hemodynamically requiring pressors and the patient is currently on norepinephrine infusion running at 0.1 mg/kg per minute. . He is also on vasopressin as physiologic dose of 0.03 units per hour and the patient is also on milrinone at 0.1 mg/kg per minute. Cardiac index is at 2.3 with an output of 5.0. Pulmonary artery pressures are 32/17 and his CVP is at 10. The patient is producing adequate urine output. Her recent cardiac rhythm is sinus with a rate of 70. He has a VVI backup pacer at 15. He is also on insulin drip at 2 units an hour. The patient is a 50-year-old male patient who is postop from coronary artery bypass surgery and the patient is postop day #2 following four-vessel bypass. He remains intubated on a mechanical ventilator due to the complications that occurred postop. Fortunately, the patient has done extremely well. The patient this morning is on sedation on propofol which is running at 60 mg/kg/m. Hemodynamically the patient is improved and the patient is currently off vasopressin and he is also off levo fed has been off the pressors for the past 5-6 hours. Meanwhile, the patient's blood pressure currently is well maintained and the patient was started on low-dose beta blockers. He was started on metoprolol 12.5 mg by mouth twice a day. Meanwhile, he developed an acute kidney injury. Creatinine is up to 2.96. However, the patient is making adequate urine output in order of 20-30 mL an hour. IV fluids are running in the form of an art at the rate of 50 mL an hour. In terms of neurologic functions, a sedation holiday will be given and we'll assess the patient's underlying mental status. He was moving extremities even while being sedated yesterday. In terms of his respiratory status, he remains on a mechanical ventilator. Assist-control mode at the rate of 18 with a tidal volume of 550 and FiO2 of 50% with a PEEP of 8. His blood gases from today shows a pH of 7.48 with a pCO2 of 41 and pO2 of 84. The chest x-ray from today is showing adequate expansion of both lungs. Mediastinal and left pleural chest tubes are in place. ET tube is in a good location. The patient has his Brule-Jt catheter and OG tube is also in the stomach. No evidence of any pneumothorax. Output from the chest tubes are minimal and there is no evidence of any air leak. No evidence of any bleed. Hemoglobin stable after being transfused with a total of 4 units of packed RBC. Currently is at 8.6. Platelet count is 74. Unfortunately there is an acute kidney injury that has evolved with a creatinine of 2.95. N evertheless, the patient is nonoliguric. Hemodynamic parameters indicate a cardiac output of 8.1 with an index of 3.6 and the patient is currently off milrinone. Afebrile. Remains nothing by mouth still. On 09/24/2020 the patient is postop day #3. He was successfully weaned off the mechanical ventilated and was extubated yesterday without any major difficulties and the patient is currently on oxygen on 4 L per minute nasal cannula. Chest x-ray from today showing a very tiny apical left-sided pneumothorax. There is a left-sided chest tube. There is a mediastinal chest tube. No signs of any significant fluid overload. Postsurgical changes are atelectatic changes in lung bases bilaterally. Meanwhile, the patient's pleural chest tube has drained 130 mL over the past 8 hours 8 hours and 330 mL over the past 24 hours as for the mediastinal chest tube, it has drained around 88 mL over the past 8 hours and the on the 30 mL over the past 24 hours. Urine output is no order of 20-30 mL an hour. Noted the patient has developed an acute kidney injury due to hemodynamic instability that occurred postop. His creatinine is up to 4.42 with a BUN of 54. Serum bicarb is a 28 and the sodium level is at 138. Nephrology has been consulted. Cao catheter is in place. We are avoiding any nephrotoxic agents at this point is time. Also, this morning, it was noted that his abdomen is quite distended. He has developed some degree of ileus. He has tympanic abdomen. Bowel sounds are extremely hypo-active. He claims that he is passing some flatus. No nausea. No emesis. No abdominal pain. No signs of any sepsis. Lactic acid levels have been ordered. Apply some of the abdomen is also been ordered. Hemoglobin from today is at 7.2. No signs of any acute bleed. Platelet count is 79 and compared to yesterday day #essentially stable. Hemodynamically stable. He is currently off milrinone. Off vasopressin. Off norepinephrine. He is using incentive spirometer. He is pulling approximately 500 mL on his RIS. No other significant events overnight. Neurologically is intact. No focal neurological deficit. Is awake and alert and oriented 3. He has developed some mild transaminitis probably secondary to hypotension and cardiac arrest and shock that occurred postop. Objective - Vital Signs Vital signs: Vital Signs Temp 99.1 F 09/23/20 04:00 Pulse 78 09/23/20 07:59 Resp 30 H 09/23/20 07:00 BP 121/60 09/23/20 07:00 Pulse Ox 94 L 09/23/20 07:00 Intake & Output 09/22/20 09/23/20 09/23/20 18:59 06:59 18:59 Intake Total 1453.956 856.927 72.735 Output Total 905 730 90 Balance 548.956 126.927 -17.265 Weight 114.7 kg 114.9 kg Intake: IV 758 838 59 0.9NS CO/CI 100 130 0.9NS flush 108 108 9 Lactated Ringers 1,000 ml 550 600 50 @ 20 mls/hr IV .Q24H NITZA Rx#:[id number] Intake, IV Titration 395.956 18.927 13.735 Amount Dexmedetomidine/0.9% NaCl 22.349 (Pmx) 400 mcg In Empty Bag 1 bag @ Titrate IV . Q0M NITZA Rx#:[id number] Insulin Regular 100 unit 53.926 12.255 0 In Sodium Chloride 0.9% 100 ml @ Per Protocol IV .Q0M NITZA Rx#:[id number] Norepinephrine 4 mg In 109.684 6.672 13.735 Sodium Chloride 0.9% 250 ml @ 0.05 MCG/KG/MIN 19. 622 mls/hr IV .[id number] NITZA Rx#:[id number] propofoL 1,000 mg In 209.997 Empty Bag 1 bag @ Titrate IV .Q0M NITZA Rx#: [id number] Oral 240 Other 60 Output: Chest Tube Drainage 270 390 60 Chest Tube Mediastinal 170 190 20 Left 100 200 40 Gastric Drainage 300 Urine 335 340 30 Other: Voiding Method Indwelling Catheter Indwelling Catheter ABP, PAP, CO, CI - Last Documented Arterial Blood Pressure 109/49 Pulmonary Artery Pressure 45/21 Cardiac Output 6.6 Cardiac Index 3 - Exam GENERAL EXAM: Sedated, intubated, 50-year-old white male, extubated on 2 L per minute nasal cannula HEAD: Normocephalic/atraumatic. EYES: Normal reaction of pupils, equal size. Conjunctiva pink, sclera white. NOSE: Clear with pink turbinates. THROAT: No erythema or exudates. NECK: No masses, no JVD, no thyroid enlargement, no adenopathy. CHEST: No chest wall deformity. Symmetrical expansion. Midsternal incision is clean dry and intact, 2 mediastinal and left pleural chest tube in place connected to Pleur-evac's, with small amount of sanguinous output, no air leak, epicardial wires connected to external pacemaker box with the VVI mode, with a backup rate of 50 LUNGS: Equal air entry with no crackles, wheeze, rhonchi or dullness. CVS: Regular rate and rhythm, normal S1 and S2, no gallops, no murmurs, no rubs ABDOMEN: Soft, nontender. No hepatosplenomegaly, normal bowel sounds, no guarding or rigidity. Abdomen is distended and the patient is tympanic and has hypoactive bowel sounds EXTREMITIES: No clubbing, no edema, no cyanosis, 2+ pulses and upper and lower extremities. Left radial artery harvest site is covered with a surgical dressing MUSCULOSKELETAL: Muscle strength and tone normal. SPINE: No scoliosis or deformity SKIN: No rashes CENTRAL NERVOUS SYSTEM: Alert and oriented 3, no focal neurological deficit - Labs CBC & Chem 7: 09/23/20 04:06 09/23/20 04:06 Labs: Abnormal Lab Results - Last 24 Hours (Table) 09/22/20 09/22/20 09/22/20 Range/Units 08:07 08:57 10:05 RBC (4.30-5.90) m/uL Hgb (13.0-17.5) gm/dL Hct (39.0-53.0) % Plt Count (150-450) k/uL ABG pO2 (83-108) mmHg ABG HCO3 (21-25) mmol/L ABG Total CO2 (19-24) mmol/L ABG O2 Saturation (94-97) % BUN (9-20) mg/dL Creatinine (0.66-1.25) mg/dL Glucose (74-99) mg/dL POC Glucose (mg/dL) 112 H 136 H 129 H (75-99) mg/dL Calcium (8.4-10.2) mg/dL AST (17-59) U/L ALT (4-49) U/L Total Protein (6.3-8.2) g/dL Albumin (3.5-5.0) g/dL 09/22/20 09/22/20 09/22/20 Range/Units 11:11 11:53 12:25 RBC (4.30-5.90) m/uL Hgb (13.0-17.5) gm/dL Hct (39.0-53.0) % Plt Count (150-450) k/uL ABG pO2 114 H (83-108) mmHg ABG HCO3 28 H (21-25) mmol/L ABG Total CO2 30 H (19-24) mmol/L ABG O2 Saturation 98.8 H (94-97) % BUN (9-20) mg/dL Creatinine (0.66-1.25) mg/dL Glucose (74-99) mg/dL POC Glucose (mg/dL) 125 H 130 H (75-99) mg/dL Calcium (8.4-10.2) mg/dL AST (17-59) U/L ALT (4-49) U/L Total Protein (6.3-8.2) g/dL Albumin (3.5-5.0) g/dL 09/22/20 09/22/20 09/22/20 Range/Units 13:02 14:13 15:32 RBC (4.30-5.90) m/uL Hgb (13.0-17.5) gm/dL Hct (39.0-53.0) % Plt Count (150-450) k/uL ABG pO2 (83-108) mmHg ABG HCO3 (21-25) mmol/L ABG Total CO2 (19-24) mmol/L ABG O2 Saturation (94-97) % BUN (9-20) mg/dL Creatinine (0.66-1.25) mg/dL Glucose (74-99) mg/dL POC Glucose (mg/dL) 133 H 127 H 117 H (75-99) mg/dL Calcium (8.4-10.2) mg/dL AST (17-59) U/L ALT (4-49) U/L Total Protein (6.3-8.2) g/dL Albumin (3.5-5.0) g/dL 09/22/20 09/22/20 09/22/20 Range/Units 16:56 18:33 20:02 RBC (4.30-5.90) m/uL Hgb (13.0-17.5) gm/dL Hct (39.0-53.0) % Plt Count (150-450) k/uL ABG pO2 (83-108) mmHg ABG HCO3 (21-25) mmol/L ABG Total CO2 (19-24) mmol/L ABG O2 Saturation (94-97) % BUN (9-20) mg/dL Creatinine (0.66-1.25) mg/dL Glucose (74-99) mg/dL POC Glucose (mg/dL) 117 H 110 H 121 H (75-99) mg/dL Calcium (8.4-10.2) mg/dL AST (17-59) U/L ALT (4-49) U/L Total Protein (6.3-8.2) g/dL Albumin (3.5-5.0) g/dL 09/22/20 09/23/20 09/23/20 Range/Units 22:02 00:00 01:09 RBC (4.30-5.90) m/uL Hgb (13.0-17.5) gm/dL Hct (39.0-53.0) % Plt Count (150-450) k/uL ABG pO2 (83-108) mmHg ABG HCO3 (21-25) mmol/L ABG Total CO2 (19-24) mmol/L ABG O2 Saturation (94-97) % BUN (9-20) mg/dL Creatinine (0.66-1.25) mg/dL Glucose (74-99) mg/dL POC Glucose (mg/dL) 126 H 132 H 125 H (75-99) mg/dL Calcium (8.4-10.2) mg/dL AST (17-59) U/L ALT (4-49) U/L Total Protein (6.3-8.2) g/dL Albumin (3.5-5.0) g/dL 09/23/20 09/23/20 09/23/20 Range/Units 03:00 04:04 04:06 RBC 2.43 L (4.30-5.90) m/uL Hgb 7.2 L (13.0-17.5) gm/dL Hct 20.9 L (39.0-53.0) % Plt Count 79 L (150-450) k/uL ABG pO2 (83-108) mmHg ABG HCO3 (21-25) mmol/L ABG Total CO2 (19-24) mmol/L ABG O2 Saturation (94-97) % BUN (9-20) mg/dL Creatinine (0.66-1.25) mg/dL Glucose (74-99) mg/dL POC Glucose (mg/dL) 112 H 117 H (75-99) mg/dL Calcium (8.4-10.2) mg/dL AST (17-59) U/L ALT (4-49) U/L Total Protein (6.3-8.2) g/dL Albumin (3.5-5.0) g/dL 09/23/20 09/23/20 09/23/20 Range/Units 04:06 06:57 07:55 RBC (4.30-5.90) m/uL Hgb (13.0-17.5) gm/dL Hct (39.0-53.0) % Plt Count (150-450) k/uL ABG pO2 (83-108) mmHg ABG HCO3 (21-25) mmol/L ABG Total CO2 (19-24) mmol/L ABG O2 Saturation (94-97) % BUN 54 H (9-20) mg/dL Creatinine 4.42 H (0.66-1.25) mg/dL Glucose 107 H (74-99) mg/dL POC Glucose (mg/dL) 148 H 153 H (75-99) mg/dL Calcium 7.3 L (8.4-10.2) mg/dL AST 548 H (17-59) U/L ALT 379 H (4-49) U/L Total Protein 4.1 L (6.3-8.2) g/dL Albumin 2.6 L (3.5-5.0) g/dL Assessment and Plan Plan: #1. Symptomatic multivessel coronary artery disease, status post four-vessel coronary artery bypass grafting with BASHIR to the LAD, radial artery graft to the ramus, SVG to OM, and SVG to PLV, with bilateral legs endoscopic vein harvest, exclusion of the left atrial appendage and intraoperative transesophageal echocardiogram, postop day #3 #2. Postop mediastinal bleed, likely due to an aortic tear. The patient lost at least 2 L of blood to the mediastinal chest tube. The patient received a total of 4 units of packed RBC. During the course of his bleed, the patient sustained a cardiac arrest with a downtime of around 10 minutes. Currently is intubated on a mechanical ventilator. He had a mediastinal exploration and control of bleed and the patient is postop day #2 following a redo sternotomy and exploration. The patient is told to have an aortic leak where there was a pinpoint function and aortic wall that was identified and was oversewn. No signs of any active bleeding and the patient is hemodynamically stable with a minimal amount of output from his chest tubes at this point in time. #3. Hypotension, likely cardiogenic in nature, recovered and the patient is currently off vasopressors which included milrinone, vasopressin and norepinephrine. #4. Acute hypoxic respiratory failure secondary to above-mentioned events. Currently on 4 L of oxygen by nasal cannula. No signs of any anoxic encephalopathy. #5. 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 Hypertension #7. Diabetes mellitus #8. Hyperlipidemia #9. Chronic neck pain #10 Recent history of COVID-19 pneumonia in June 2020 #11 blood loss anemia currently hemoglobin is at 7.2 12 acute kidney injury in the creatinine is up to 4.4 nonoliguric, consider ATN due to above-mentioned complications/hypotension/hemodynamic instability. No major electrode disturbance at this point in time. Developed some increased edema in all 4 extremities. No signs of any pulmonary edema at this point in time. #13 abdominal distention most likely secondary to ileus #14 mild transaminitis, probably related to a component of shock liver Plan: Recommend 60 mg of Lasix IV 1 to improve urine output. Avoid nephrotoxic agents. Please clear this with cardiothoracic surgery. Obtain a film of the abdomen in regards to his ileus Monitor the output from the chest tubes Monitor the hemoglobin level Monitor hemodynamics and no pressors for now Continue insulin drip for blood sugar control @ 5U/hr Allow clear liquid diet Condition is critical. We'll continue to follow make further recommendations regarding the care of this patient. This evaluation was done and more than 30 minutes.
[2020-09-23] MEDS: NOREPINEPHRINE 4 MG in SODIUM CHLORIDE 0.9% 250 ML IV SCH ×2 (09:07→10:18)
[2020-09-23 09:15] LABS: Glucose,Whole Blood 127 mg/dL (75-99)
[2020-09-23] MEDS: INSULIN REGULAR 100 UNIT in SODIUM CHLORIDE 0.9% 100 ML IV SCH (09:16)
[2020-09-23] MEDS: HEPARIN SODIUM,PORCINE/PF 5,000 UNIT/0.5 ML SYRINGE SQ SCH ×2 (09:17→17:16)
[2020-09-23] MEDS: CLOPIDOGREL 75 MG TAB PO SCH (09:19)
[2020-09-23] MEDS: ASPIRIN 81 MG PO SCH (09:19)
[2020-09-23] MEDS: PANTOPRAZOLE 40 MG/10 ML VIAL IVP SCH (09:19)
[2020-09-23] MEDS: METOPROLOL TARTRATE 12.5 MG TAB PO SCH ×2 (09:19→20:11)
[2020-09-23 09:57] LABS: Glucose,Whole Blood 118 mg/dL (75-99)
--- NOTE | 2020-09-23 10:40 | P.PN ---
Subjective Progress Note Date: 09/23/20 Principal diagnosis: Coronary artery disease with left main disease. Past medical history significant for unstable angina, hypertension, hyperlipidemia, recent Covid infection in July 2020, previous tobacco dependence, rare alcohol usage. POD #3 coronary artery bypass grafting 4 vessels, left internal mammary artery to left anterior descending artery, radial artery to the ramus coronary artery, a reverse greater saphenous vein graft to the distal obtuse marginal coronary artery, a reverse greater saphenous vein graft to the posterior lateral branch of the right coronary artery, endoscopic harvesting of the bilateral greater saphenous veins, endoscopic harvesting of the left radial artery, ligation of the left atrial appendage using a 35 mm AtriClip, intraoperative transesophageal echocardiogram and epi-aortic scanning. Witnessed cardiac arrest with brief CPR and subsequent ROSC. Postoperative acute blood loss anemia with return to the OR for mediastinal exploration with control of postop bleed, unexpected. Postoperative hypotension requiring pressor support, expected due to above. Acute lactic acidosis, secondary to above. Elevated transaminases, likely due to hypoperfusion. LEONEL, likely due to hypoperfusion. The patient is seen in follow-up today 09/23/2020 at his bedside in the intensive care unit. Currently he is sitting up to the bedside chair, is awake, alert and oriented 3 and is in no apparent acute distress. He denies any complaints of pain or shortness of breath at this time. He was successfully extubated yesterday and is currently on 4 L nasal cannula with oxygen saturation is 94%. He is achieving 500 mL on his incentive spirometry with much encouragement. Mediastinal and left pleural chest tubes remain in place to low continuous wall suction -20 cm H2O. No air leak is present. Chest tubes are draining thin serosanguineous drainage. Mediastinal chest tube straight 80 mL output in the last 8 hours and 330 mL output last 24 hours. Left pleural chest tube drained 130 mL output in the last 8 hours and 330 mL output in the last 24 hours. Bedside telemetry showing normal sinus rhythm heart rate 80 BPM. He remains hemodynamically stable and is currently on no inotropic or pressor support. Right IJ Cordis with Oscoda-Jt catheter in place with current hemodynamic showing a cardiac output 6.6, cardiac index 3.0, PA pressures 36/14 and CVP 13 mmHg. Laboratory results this morning show a WBC count 9.1, hemoglobin 7.2, platelet 79, BUN 54, creatinine 4.42, AST 548 ALT 379. Nephrology was consulted yesterday due to his elevated BUN and creatinine. On examination this morning his abdomen is fairly distended, although the patient admits to passing flatus. He remains afebrile the last 24 hours. Flat plate x- ray of his abdomen is pending. Objective - Vital Signs Vital signs: Vital Signs Temp 98.8 F 09/23/20 08:00 Pulse 78 09/23/20 08:00 Resp 17 09/23/20 08:00 BP 123/57 09/23/20 08:00 Pulse Ox 96 09/23/20 08:00 Intake & Output 09/22/20 09/23/20 09/23/20 18:59 06:59 18:59 Intake Total 1453.956 856.927 187.265 Output Total 905 730 130 Balance 548.956 126.927 57.265 Weight 114.7 kg 114.9 kg Intake: IV 758 838 148 0.9NS CO/CI 100 130 30 0.9NS flush 108 108 18 Lactated Ringers 1,000 ml 550 600 100 @ 20 mls/hr IV .Q24H N[facility]ZA Rx#:[id number] Intake, IV Titration 395.956 18.927 19.265 Amount Dexmedetomidine/0.9% NaCl 22.349 (Pmx) 400 mcg In Empty Bag 1 bag @ Titrate IV . Q0M [facility]ZA Rx#:[id number] Insulin Regular 100 unit 53.926 12.255 5.53 In Sodium Chloride 0.9% 100 ml @ Per Protocol IV .Q0M N[facility]ZA Rx#:[id number] Norepinephrine 4 mg In 109.684 6.672 13.735 Sodium Chloride 0.9% 250 ml @ 0.05 MCG/KG/MIN 19. 622 mls/hr IV .[id number] [facility]ZA Rx#:[id number] propofoL 1,000 mg In 209.997 Empty Bag 1 bag @ Titrate IV .Q0M NITZA Rx#: [id number] Oral 240 20 Other 60 Output: Chest Tube Drainage 270 390 70 Chest Tube Mediastinal 170 190 25 Left 100 200 45 Gastric Drainage 300 Urine 335 340 60 Other: Voiding Method Indwelling Catheter Indwelling Catheter Indwelling Catheter ABP, PAP, CO, CI - Last Documented Arterial Blood Pressure 100/42 Pulmonary Artery Pressure 44/11 Cardiac Output 7.4 Cardiac Index 3.3 - Exam CONSTITUTIONAL: Sitting up to the bedside chair in the intensive care unit, appears comfortable, cooperative, no apparent acute distress. HEENT: Neck is supple, no JVD, no lymphadenopathy. Right IJ Cordis and Oscoda- Jt catheter in place and functioning. RESPIRATORY: Lungs sounds essentially clear throughout, diminished to his bilateral bases. Respirations are symmetrical and nonlabored. Currently on 2 L nasal cannula with oxygen saturations 95%. Able to achieve 1000 mL on their incentive spirometry. Strong cough. CARDIOVASCULAR: Regular rhythm and rate. S1 and S2 present, negative for S3, gallop or murmur. Sternum is stable. Palpable peripheral pulses bilaterally, +2 generalized edema. No calf pain or tenderness noted. Heart hugger in place with patient demonstrating appropriate use. Knee-high NOEL hose and sequential compression devices in place to his bilateral lower extremities. GASTROINTESTINAL: Abdomen soft, nontender, and distended. Hypoactive bowel sounds present 4 quadrants. Tolerating clear liquids. Passing flatus. No guarding or rigidity. GENITOURINARY: Cao present draining clear, yellow urine. Output 215 mL in the last 8 hours. INTEGUMENTARY: Skin is warm and dry with evidence of good perfusion. Midline sternal incision clean dry and well approximated, covered with dry intact dressing. Bilateral lower extremity EVH sites well approximated without redness or drainage. Left arm radial artery harvest sites clean, dry and approximated. No drainage or redness is present. NEUROLOGIC: Cranial nerves II through XII intact. No focal deficits. MUSKULOSKELETAL: Able to move all extremities, strength equal bilaterally, generalized weakness. PSYCHIATRIC: Alert and oriented to person place and time, appropriate affect, intact judgment and insight. INVASIVE LINES AND TUBES: Mediastinal/left pleural chest tubes present and connected to low continuous wall suction, no air leaks present. Mediastinal tube with 80 mL of thin serosanguineous drainage overnight, 330 mL output in the last 24 hours. Left pleural chest tube with 130 mL of thin serosanguineous drainage overnight, 330 mL output in the last 24 hours. Atrial and ventricular epicardial pacemaker wires present, and grounded. Right internal jugular Oscoda/Cordis, right radial arterial line present. Last CO 6.6, CI 3.0, PA 36/14 and 13 CVP mmHg. - Labs CBC & Chem 7: 09/23/20 04:06 09/23/20 04:06 Labs: Abnormal Lab Results - Last 24 Hours (Table) 09/22/20 09/22/20 09/22/20 Range/Units 10:05 11:11 11:53 RBC (4.30-5.90) m/uL Hgb (13.0-17.5) gm/dL Hct (39.0-53.0) % Plt Count (150-450) k/uL ABG pO2 (83-108) mmHg ABG HCO3 (21-25) mmol/L ABG Total CO2 (19-24) mmol/L ABG O2 Saturation (94-97) % BUN (9-20) mg/dL Creatinine (0.66-1.25) mg/dL Glucose (74-99) mg/dL POC Glucose (mg/dL) 129 H 125 H 130 H (75-99) mg/dL Calcium (8.4-10.2) mg/dL AST (17-59) U/L ALT (4-49) U/L Total Protein (6.3-8.2) g/dL Albumin (3.5-5.0) g/dL 09/22/20 09/22/20 09/22/20 Range/Units 12:25 13:02 14:13 RBC (4.30-5.90) m/uL Hgb (13.0-17.5) gm/dL Hct (39.0-53.0) % Plt Count (150-450) k/uL ABG pO2 114 H (83-108) mmHg ABG HCO3 28 H (21-25) mmol/L ABG Total CO2 30 H (19-24) mmol/L ABG O2 Saturation 98.8 H (94-97) % BUN (9-20) mg/dL Creatinine (0.66-1.25) mg/dL Glucose (74-99) mg/dL POC Glucose (mg/dL) 133 H 127 H (75-99) mg/dL Calcium (8.4-10.2) mg/dL AST (17-59) U/L ALT (4-49) U/L Total Protein (6.3-8.2) g/dL Albumin (3.5-5.0) g/dL 09/22/20 09/22/2021 Range/Units 15:32 16:56 18:33 RBC (4.30-5.90) m/uL Hgb (13.0-17.5) gm/dL Hct (39.0-53.0) % Plt Count (150-450) k/uL ABG pO2 (83-108) mmHg ABG HCO3 (21-25) mmol/L ABG Total CO2 (19-24) mmol/L ABG O2 Saturation (94-97) % BUN (9-20) mg/dL Creatinine (0.66-1.25) mg/dL Glucose (74-99) mg/dL POC Glucose (mg/dL) 117 H 117 H 110 H (75-99) mg/dL Calcium (8.4-10.2) mg/dL AST (17-59) U/L ALT (4-49) U/L Total Protein (6.3-8.2) g/dL Albumin (3.5-5.0) g/dL 09/22/20 09/22/20 09/23/20 Range/Units 20:02 22:02 00:00 RBC (4.30-5.90) m/uL Hgb (13.0-17.5) gm/dL Hct (39.0-53.0) % Plt Count (150-450) k/uL ABG pO2 (83-108) mmHg ABG HCO3 (21-25) mmol/L ABG Total CO2 (19-24) mmol/L ABG O2 Saturation (94-97) % BUN (9-20) mg/dL Creatinine (0.66-1.25) mg/dL Glucose (74-99) mg/dL POC Glucose (mg/dL) 121 H 126 H 132 H (75-99) mg/dL Calcium (8.4-10.2) mg/dL AST (17-59) U/L ALT (4-49) U/L Total Protein (6.3-8.2) g/dL Albumin (3.5-5.0) g/dL 09/23/20 09/23/20 09/23/20 Range/Units 01:09 03:00 04:04 RBC (4.30-5.90) m/uL Hgb (13.0-17.5) gm/dL Hct (39.0-53.0) % Plt Count (150-450) k/uL ABG pO2 (83-108) mmHg ABG HCO3 (21-25) mmol/L ABG Total CO2 (19-24) mmol/L ABG O2 Saturation (94-97) % BUN (9-20) mg/dL Creatinine (0.66-1.25) mg/dL Glucose (74-99) mg/dL POC Glucose (mg/dL) 125 H 112 H 117 H (75-99) mg/dL Calcium (8.4-10.2) mg/dL AST (17-59) U/L ALT (4-49) U/L Total Protein (6.3-8.2) g/dL Albumin (3.5-5.0) g/dL 09/23/20 09/23/20 09/23/20 Range/Units 04:06 04:06 06:57 RBC 2.43 L (4.30-5.90) m/uL Hgb 7.2 L (13.0-17.5) gm/dL Hct 20.9 L (39.0-53.0) % Plt Count 79 L (150-450) k/uL ABG pO2 (83-108) mmHg ABG HCO3 (21-25) mmol/L ABG Total CO2 (19-24) mmol/L ABG O2 Saturation (94-97) % BUN 54 H (9-20) mg/dL Creatinine 4.42 H (0.66-1.25) mg/dL Glucose 107 H (74-99) mg/dL POC Glucose (mg/dL) 148 H (75-99) mg/dL Calcium 7.3 L (8.4-10.2) mg/dL AST 548 H (17-59) U/L ALT 379 H (4-49) U/L Total Protein 4.1 L (6.3-8.2) g/dL Albumin 2.6 L (3.5-5.0) g/dL 09/23/20 Range/Units 07:55 RBC (4.30-5.90) m/uL Hgb (13.0-17.5) gm/dL Hct (39.0-53.0) % Plt Count (150-450) k/uL ABG pO2 (83-108) mmHg ABG HCO3 (21-25) mmol/L ABG Total CO2 (19-24) mmol/L ABG O2 Saturation (94-97) % BUN (9-20) mg/dL Creatinine (0.66-1.25) mg/dL Glucose (74-99) mg/dL POC Glucose (mg/dL) 153 H (75-99) mg/dL Calcium (8.4-10.2) mg/dL AST (17-59) U/L ALT (4-49) U/L Total Protein (6.3-8.2) g/dL Albumin (3.5-5.0) g/dL Assessment and Plan Assessment: 1. Coronary artery disease with left main disease, status post four-vessel CABG 2. Unstable angina 3. History of hypertension 4. Hyperlipidemia 5. Recent Covid infection in July 2020 6. Previous tobacco dependence 7. Rare alcohol usage 8. Witnessed cardiac arrest with brief CPR and subsequent ROSC 9. Postoperative acute blood loss anemia with return to the OR for mediastinal exploration with control of postop bleed 10. Postoperative hypotension requiring pressor support, currently off pressors 11. Acute lactic acidosis, resolved 12. Elevated transaminases enzymes due to hypoperfusion 13. LEONEL due to hypoperfusion 14. Diabetes mellitus with a preoperative hemoglobin A1c 6.2% Plan: 1. Continue low-dose aspirin, Plavix and metoprolol tartrate 12.5 mg by mouth twice a day. Continue to hold statin due to elevated transaminases, will resume when liver enzymes have normalize. 2. Wean oxygen as tolerated. Encourage use of incentive spirometry 10 times every hour while awake. Bronchodilators per pulmonology/critical care medicine. 3. Will monitor daily labs and chest x-rays. Electrolyte replacement per protocol. No further transfusions at this time. 4. GI/DVT prophylaxis. 5. Increase activity as tolerated. PT/OT/cardiac rehab following. 6. Remove right IJ Oscoda-Jt catheter, keep right IJ Cordis in placed with continuous CVP monitoring. Keep arterial line in place. 7. Insulin management per primary care service. Patient is borderline pre- diabetic, preoperative hemoglobin A1c 6.2%. 8. Pain control current medication regimen. 9. Avoid nephrotoxic agents due to his elevated BUN and creatinine. 10. Nephrology consult pending. 11. Keep mediastinal and left pleural chest tube in place to low continuous wall suction -20 cm H2O. 12. Keep Cao catheter in place, strict inaccurate I's and O's. Daily weights. 13. Keep atrial and ventricular epicardial pacemaker wires in place and grounded. 14. Okay with Lasix 60 mg IV 1 now. 15. More recommendations to follow based on patient's clinical course. Time with Patient: Greater than 30
[2020-09-23 11:00] LABS: Glucose,Whole Blood 122 mg/dL (75-99)
[2020-09-23 12:11] LABS: Glucose,Whole Blood 130 mg/dL (75-99)
--- NOTE | 2020-09-23 12:34 | XR ---
Abdomen HISTORY: Ileus Frontal view the abdomen on 2 images There are overlying artifacts. There are air-filled loops of small and large bowel. No evident pneumo peritoneum. Lung bases not included on exam. Entire abdomen is not included on exam due to technique. IMPRESSION: Findings are consistent with ileus, follow-up as indicated, limited exam
[2020-09-23] MEDS ORDERED: CALCIUM GLUCONATE 1 GM in SODIUM CHLORIDE 0.9% 100 ML IVPB ONE (12:35)
[2020-09-23 13:18] LABS: Glucose,Whole Blood 115 mg/dL (75-99)
[2020-09-23 14:06] LABS: Glucose,Whole Blood 108 mg/dL (75-99)
[2020-09-23 14:24] LABS: Amorphous Sediment,Urine Rare /hpf; Appearance,Urine Cloudy (Clear); Bacteria,Urine Rare /hpf; Bilirubin,Urine Negative (Negative); Blood,Urine Moderate (Negative); Color,Urine Light Yellow; Glucose,Urine (UA) Negative (Negative); Ketones,Urine Negative (Negative); Leukocyte Esterase,Urine Moderate (Negative); Mucus,Urine Rare /hpf; Nitrite,Urine Negative (Negative); Protein,Urine Negative (Negative); RBC,Urine 11 /hpf (0-5); Specific Gravity,Urine 1.009 (1.001-1.035); Urobilinogen,Urine <2.0 mg/dL (<2.0); WBC,Urine 6 /hpf (0-5)
--- NOTE | 2020-09-23 14:32 | CONS ---
CONSULTATION REASON FOR CONSULT: Renal failure. HISTORY OF PRESENT ILLNESS: The patient is a 50-year-old male, status post coronary artery bypass surgery on 09/20/2020. The patient was taken back to the OR yesterday which was 1 day postop for mediastinal reexploration for control of bleeding. The patient has been hypotensive and urine output had dropped to about 20-25 mL an hour occasionally at 15 mL. However, it seems to have picked up now. Patient did get a dose of IV Lasix today and he put out about 240 mL of urine. Currently, blood pressure is around 116-120 mmHg. The patient is off pressors. His hemoglobin is at 7.2 g/dL. No active bleeding noted. Serum creatinine has increased from 0.8 on initial admission to 4.42 now. PAST MEDICAL HISTORY: Hypertension, hyperlipidemia, history of Covid infection, osteoarthritis. PAST SURGICAL HISTORY: Cardiac catheterization. SOCIAL HISTORY: Negative for smoking, drug abuse or alcohol abuse. Patient is an ex smoker. MEDICATIONS: Medications prior to admission include Lipitor, Cozaar, Lopressor, Nitrostat, amlodipine. ALLERGIES: Include LISINOPRIL. EXAMINATION: Currently patient is awake. He is lethargic. He is following commands, not in any acute distress. Blood pressure this morning 108/44, heart rate of 81 per minute. He is afebrile. Examination of the heart S1, S2. Examination of lungs decreased breath sounds at bases. Abdomen is soft, nontender. Examination of lower extremities shows edema 2+, upper and lower extremities bilaterally. TRANSPORTATION AID exam grossly intact. LAB: Show hemoglobin 7.2, sodium 138, potassium 4.1, BUN 54, creatinine 4.42, albumin 2.6, glucose was 101. I do not have a UA available. ASSESSMENT: 1. Acute kidney injury secondary to hypotension and anemia currently off pressors. The patient was oliguric. His urine output has now picked up. He responded very well to Lasix. The patient will benefit from ongoing diuresis. At this time, he continues to put out more than 100 mL/hour. If his urine output drops, we can repeat IV Lasix. 2. Anemia status post packed RBCs transfusion, acute blood loss anemia postoperatively. 3. Status post coronary artery bypass surgery. 4. Volume overload. PLAN: Check urinalysis. Continue to monitor urine output. Avoid nephrotoxic agents. Repeat labs in a.m. Can repeat Lasix later on today if urine output drops. Thank you for this consultation. We will continue to follow the patient with you during his hospitalization. LUIS ARMANDO / DRISS: [id number] /
[2020-09-23 16:38] LABS: Glucose,Whole Blood 102 mg/dL (75-99)
--- NOTE | 2020-09-23 17:11 | P.PN ---
Subjective Progress Note Date: 09/23/20 09/23/2020 the patient is seen and evaluated in ICU; postop day #3. He was successfully weaned off the mechanical ventilated and was extubated yesterday; currently on oxygen on 4 L per minute nasal cannula. Chest x-ray from today showing a very tiny apical left-sided pneumothorax. There is a left-sided chest tube and a mediastinal chest tube in place. No signs of any significant fluid overload. Please refer to pulmonary's note for amount of drainage through chest and medi astinotomy to Acute kidney injury due to hemodynamic instability that occurred postop. His creatinine is up to 4.42 with a BUN of 54. Serum bicarb is a 28 and the sodium level is at 138. Nephrology has been consulted. Cao catheter is in place. No signs of any sepsis. Lactic acid levels have been ordered. Hemoglobin from today is at 7.2. No signs of any acute bleed. Platelet count is 79 and compared to yesterday day #essentially stable. Hemodynamically stable. He is currently off milrinone. He is using incentive spirometer. Neurologically is intact. No focal neurological deficit. Is awake and alert and oriented 3. He has developed some mild transaminitis probably secondary to hypotension and cardiac arrest and shock that occurred postop. Objective - Vital Signs Vital signs: Vital Signs Temp 98.8 F 09/23/20 08:00 Pulse 78 09/23/20 08:00 Resp 17 09/23/20 08:00 BP 123/57 09/23/20 08:00 Pulse Ox 96 09/23/20 08:00 Intake & Output 09/22/20 09/23/20 09/23/20 18:59 06:59 18:59 Intake Total 1453.956 856.927 187.265 Output Total 905 730 130 Balance 548.956 126.927 57.265 Weight 114.7 kg 114.9 kg Intake: IV 758 838 148 0.9NS CO/CI 100 130 30 0.9NS flush 108 108 18 Lactated Ringers 1,000 ml 550 600 100 @ 20 mls/hr IV .Q24H [facility] Rx#:[id number] Intake, IV Titration 395.956 18.927 19.265 Amount Dexmedetomidine/0.9% NaCl 22.349 (Pmx) 400 mcg In Empty Bag 1 bag @ Titrate IV . Q0M [facility] Rx#:[id number] Insulin Regular 100 unit 53.926 12.255 5.53 In Sodium Chloride 0.9% 100 ml @ Per Protocol IV .Q0M [facility]ZA Rx#:[id number] Norepinephrine 4 mg In 109.684 6.672 13.735 Sodium Chloride 0.9% 250 ml @ 0.05 MCG/KG/MIN 19. 622 mls/hr IV .[id number] [facility]ZA Rx#:[id number] propofoL 1,000 mg In 209.997 Empty Bag 1 bag @ Titrate IV .Q0M NITZA Rx#: [id number] Oral 240 20 Other 60 Output: Chest Tube Drainage 270 390 70 Chest Tube Mediastinal 170 190 25 Left 100 200 45 Gastric Drainage 300 Urine 335 340 60 Other: Voiding Method Indwelling Catheter Indwelling Catheter Indwelling Catheter ABP, PAP, CO, CI - Last Documented Arterial Blood Pressure 100/42 Pulmonary Artery Pressure 44/11 Cardiac Output 7.4 Cardiac Index 3.3 - Exam GENERAL EXAM: extubated on 2 L per minute nasal cannula HEAD: Normocephalic/atraumatic. EYES: Normal reaction of pupils, equal size. Conjunctiva pink, sclera white. NECK: No masses, no JVD, no thyroid enlargement, no adenopathy. LUNGS: Equal air entry with no crackles, wheeze, rhonchi or dullness. CVS: Regular rate and rhythm, normal S1 and S2, no gallops, no murmurs, no rubs ABDOMEN: Soft, nontender. No hepatosplenomegaly, normal bowel sounds, no guarding or rigidity. Abdomen is distended and the patient is tympanic and has hypoactive bowel sounds EXTREMITIES: No clubbing, no edema, no cyanosis, 2+ pulses and upper and lower extremities. Left radial artery harvest site is covered with a surgical dressing MUSCULOSKELETAL: Muscle strength and tone normal. CENTRAL NERVOUS SYSTEM: Alert and oriented 3, no focal neurological deficit - Labs CBC & Chem 7: 09/23/20 04:06 09/23/20 04:06 Labs: Abnormal Lab Results - Last 24 Hours (Table) 09/22/20 09/22/20 09/22/20 Range/Units 08:57 10:05 11:11 RBC (4.30-5.90) m/uL Hgb (13.0-17.5) gm/dL Hct (39.0-53.0) % Plt Count (150-450) k/uL ABG pO2 (83-108) mmHg ABG HCO3 (21-25) mmol/L ABG Total CO2 (19-24) mmol/L ABG O2 Saturation (94-97) % BUN (9-20) mg/dL Creatinine (0.66-1.25) mg/dL Glucose (74-99) mg/dL POC Glucose (mg/dL) 136 H 129 H 125 H (75-99) mg/dL Calcium (8.4-10.2) mg/dL AST (17-59) U/L ALT (4-49) U/L Total Protein (6.3-8.2) g/dL Albumin (3.5-5.0) g/dL 09/22/20 09/22/20 09/22/20 Range/Units 11:53 12:25 13:02 RBC (4.30-5.90) m/uL Hgb (13.0-17.5) gm/dL Hct (39.0-53.0) % Plt Count (150-450) k/uL ABG pO2 114 H (83-108) mmHg ABG HCO3 28 H (21-25) mmol/L ABG Total CO2 30 H (19-24) mmol/L ABG O2 Saturation 98.8 H (94-97) % BUN (9-20) mg/dL Creatinine (0.66-1.25) mg/dL Glucose (74-99) mg/dL POC Glucose (mg/dL) 130 H 133 H (75-99) mg/dL Calcium (8.4-10.2) mg/dL AST (17-59) U/L ALT (4-49) U/L Total Protein (6.3-8.2) g/dL Albumin (3.5-5.0) g/dL 09/22/20 09/22/20 09/22/20 Range/Units 14:13 15:32 16:56 RBC (4.30-5.90) m/uL Hgb (13.0-17.5) gm/dL Hct (39.0-53.0) % Plt Count (150-450) k/uL ABG pO2 (83-108) mmHg ABG HCO3 (21-25) mmol/L ABG Total CO2 (19-24) mmol/L ABG O2 Saturation (94-97) % BUN (9-20) mg/dL Creatinine (0.66-1.25) mg/dL Glucose (74-99) mg/dL POC Glucose (mg/dL) 127 H 117 H 117 H (75-99) mg/dL Calcium (8.4-10.2) mg/dL AST (17-59) U/L ALT (4-49) U/L Total Protein (6.3-8.2) g/dL Albumin (3.5-5.0) g/dL 09/22/20 09/22/20 09/22/20 Range/Units 18:33 20:02 22:02 RBC (4.30-5.90) m/uL Hgb (13.0-17.5) gm/dL Hct (39.0-53.0) % Plt Count (150-450) k/uL ABG pO2 (83-108) mmHg ABG HCO3 (21-25) mmol/L ABG Total CO2 (19-24) mmol/L ABG O2 Saturation (94-97) % BUN (9-20) mg/dL Creatinine (0.66-1.25) mg/dL Glucose (74-99) mg/dL POC Glucose (mg/dL) 110 H 121 H 126 H (75-99) mg/dL Calcium (8.4-10.2) mg/dL AST (17-59) U/L ALT (4-49) U/L Total Protein (6.3-8.2) g/dL Albumin (3.5-5.0) g/dL 09/23/20 09/23/20 09/23/20 Range/Units 00:00 01:09 03:00 RBC (4.30-5.90) m/uL Hgb (13.0-17.5) gm/dL Hct (39.0-53.0) % Plt Count (150-450) k/uL ABG pO2 (83-108) mmHg ABG HCO3 (21-25) mmol/L ABG Total CO2 (19-24) mmol/L ABG O2 Saturation (94-97) % BUN (9-20) mg/dL Creatinine (0.66-1.25) mg/dL Glucose (74-99) mg/dL POC Glucose (mg/dL) 132 H 125 H 112 H (75-99) mg/dL Calcium (8.4-10.2) mg/dL AST (17-59) U/L ALT (4-49) U/L Total Protein (6.3-8.2) g/dL Albumin (3.5-5.0) g/dL 09/23/20 09/23/20 09/23/20 Range/Units 04:04 04:06 04:06 RBC 2.43 L (4.30-5.90) m/uL Hgb 7.2 L (13.0-17.5) gm/dL Hct 20.9 L (39.0-53.0) % Plt Count 79 L (150-450) k/uL ABG pO2 (83-108) mmHg ABG HCO3 (21-25) mmol/L ABG Total CO2 (19-24) mmol/L ABG O2 Saturation (94-97) % BUN 54 H (9-20) mg/dL Creatinine 4.42 H (0.66-1.25) mg/dL Glucose 107 H (74-99) mg/dL POC Glucose (mg/dL) 117 H (75-99) mg/dL Calcium 7.3 L (8.4-10.2) mg/dL AST 548 H (17-59) U/L ALT 379 H (4-49) U/L Total Protein 4.1 L (6.3-8.2) g/dL Albumin 2.6 L (3.5-5.0) g/dL 09/23/20 09/23/20 Range/Units 06:57 07:55 RBC (4.30-5.90) m/uL Hgb (13.0-17.5) gm/dL Hct (39.0-53.0) % Plt Count (150-450) k/uL ABG pO2 (83-108) mmHg ABG HCO3 (21-25) mmol/L ABG Total CO2 (19-24) mmol/L ABG O2 Saturation (94-97) % BUN (9-20) mg/dL Creatinine (0.66-1.25) mg/dL Glucose (74-99) mg/dL POC Glucose (mg/dL) 148 H 153 H (75-99) mg/dL Calcium (8.4-10.2) mg/dL AST (17-59) U/L ALT (4-49) U/L Total Protein (6.3-8.2) g/dL Albumin (3.5-5.0) g/dL Assessment and Plan Assessment: 1. Symptomatic multivessel CAD; status post CABG 4; POD # 3 2. Postop mediastinal bleed, likely due to an aortic tear. 3. Hypertension/Hypotension, likely cardiogenic in nature 4. Acute hypoxic respiratory failure 5. Hyperlipidemia 6. Diabetes mellitus 7. Recent COVID-19 pneumonia 8. Acute renal injury 9. Abdominal distention/ileus Recommend 60 mg of Lasix IV 1 to improve urine output. Avoid nephrotoxic agents. Please clear this with cardiothoracic surgery. Obtain a film of the abdomen in regards to his ileus Monitor the output from the chest tubes Monitor the hemoglobin level Monitor hemodynamics and no pressors for now Continue insulin drip for blood sugar control @ 5U/hr Allow clear liquid diet
[2020-09-23 17:24] LABS: Glucose,Whole Blood 124 mg/dL (75-99)
--- NOTE | 2020-09-23 17:47 | P.PN ---
Subjective Patient is resting comfortably in bed. 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 Mediastinal reexploration for increasing bleeding and drainage from the chest tubes Small area of excoriation and bleeding from the aorta Elevated AST and ALT, still rising Suggest Continue beta blockers Continue aspirin and plavix Statins on hold, abnormal LFTs Avoid amiodarone Objective - Vital Signs Vital signs: Vital Signs Temp 98.5 F 09/23/20 12:00 Pulse 74 09/23/20 17:00 Resp 18 09/23/20 17:00 BP 116/63 09/23/20 11:00 Pulse Ox 95 09/23/20 17:00 Intake & Output 09/22/20 09/23/20 09/23/20 18:59 06:59 18:59 Intake Total 1453.956 856.927 570.697 Output Total 634 772 2253 Balance 548.956 126.927 -904.303 Weight 114.7 kg 114.9 kg Intake: IV 758 838 388 0.9NS CO/CI 100 130 30 0.9NS flush 108 108 78 Lactated Ringers 1,000 ml 550 600 280 @ 20 mls/hr IV .Q24H [facility] Rx#:[id number] Intake, IV Titration 395.956 18.927 142.697 Amount Calcium Gluconate 1 gm In 100 Sodium Chloride 0.9% 100 ml @ 100 mls/hr IVPB ONCE ONE Rx#:[id number] Dexmedetomidine/0.9% NaCl 22.349 (Pmx) 400 mcg In Empty Bag 1 bag @ Titrate IV . Q0M [facility] Rx#:[id number] Insulin Regular 100 unit 53.926 12.255 28.962 In Sodium Chloride 0.9% 100 ml @ Per Protocol IV .Q0M [facility] Rx#:[id number] Norepinephrine 4 mg In 109.684 6.672 13.735 Sodium Chloride 0.9% 250 ml @ 0.05 MCG/KG/MIN 19. 622 mls/hr IV .[id number] [facility] Rx#:[id number] propofoL 1,000 mg In 209.997 Empty Bag 1 bag @ Titrate IV .Q0M [facility] Rx#: [id number] Oral 240 40 Other 60 Output: Chest Tube Drainage 270 390 265 Chest Tube Mediastinal 170 190 90 Left 100 200 175 Gastric Drainage 300 Urine 836 254 7929 Other: Voiding Method Indwelling Catheter Indwelling Catheter Indwelling Catheter ABP, PAP, CO, CI - Last Documented Arterial Blood Pressure 131/55 Pulmonary Artery Pressure 29/7 Cardiac Output 7.4 Cardiac Index 3.3 - Labs CBC & Chem 7: 09/23/20 04:06 09/23/20 04:06 Labs: Abnormal Lab Results - Last 24 Hours (Table) 09/22/20 09/22/20 09/22/20 Range/Units 18:33 20:02 22:02 RBC (4.30-5.90) m/uL Hgb (13.0-17.5) gm/dL Hct (39.0-53.0) % Plt Count (150-450) k/uL BUN (9-20) mg/dL Creatinine (0.66-1.25) mg/dL Glucose (74-99) mg/dL POC Glucose (mg/dL) 110 H 121 H 126 H (75-99) mg/dL Calcium (8.4-10.2) mg/dL AST (17-59) U/L ALT (4-49) U/L Total Protein (6.3-8.2) g/dL Albumin (3.5-5.0) g/dL Urine Blood (Negative) Ur Leukocyte Esterase (Negative) Urine RBC (0-5) /hpf Urine WBC (0-5) /hpf Amorphous Sediment (None) /hpf Urine Bacteria (None) /hpf Urine Mucus (None) /hpf 09/23/20 09/23/20 09/23/20 Range/Units 00:00 01:09 03:00 RBC (4.30-5.90) m/uL Hgb (13.0-17.5) gm/dL Hct (39.0-53.0) % Plt Count (150-450) k/uL BUN (9-20) mg/dL Creatinine (0.66-1.25) mg/dL Glucose (74-99) mg/dL POC Glucose (mg/dL) 132 H 125 H 112 H (75-99) mg/dL Calcium (8.4-10.2) mg/dL AST (17-59) U/L ALT (4-49) U/L Total Protein (6.3-8.2) g/dL Albumin (3.5-5.0) g/dL Urine Blood (Negative) Ur Leukocyte Esterase (Negative) Urine RBC (0-5) /hpf Urine WBC (0-5) /hpf Amorphous Sediment (None) /hpf Urine Bacteria (None) /hpf Urine Mucus (None) /hpf 09/23/20 09/23/20 09/23/20 Range/Units 04:04 04:06 04:06 RBC 2.43 L (4.30-5.90) m/uL Hgb 7.2 L (13.0-17.5) gm/dL Hct 20.9 L (39.0-53.0) % Plt Count 79 L (150-450) k/uL BUN 54 H (9-20) mg/dL Creatinine 4.42 H (0.66-1.25) mg/dL Glucose 107 H (74-99) mg/dL POC Glucose (mg/dL) 117 H (75-99) mg/dL Calcium 7.3 L (8.4-10.2) mg/dL AST 548 H (17-59) U/L ALT 379 H (4-49) U/L Total Protein 4.1 L (6.3-8.2) g/dL Albumin 2.6 L (3.5-5.0) g/dL Urine Blood (Negative) Ur Leukocyte Esterase (Negative) Urine RBC (0-5) /hpf Urine WBC (0-5) /hpf Amorphous Sediment (None) /hpf Urine Bacteria (None) /hpf Urine Mucus (None) /hpf 09/23/20 09/23/20 09/23/20 Range/Units 06:57 07:55 09:13 RBC (4.30-5.90) m/uL Hgb (13.0-17.5) gm/dL Hct (39.0-53.0) % Plt Count (150-450) k/uL BUN (9-20) mg/dL Creatinine (0.66-1.25) mg/dL Glucose (74-99) mg/dL POC Glucose (mg/dL) 148 H 153 H 127 H (75-99) mg/dL Calcium (8.4-10.2) mg/dL AST (17-59) U/L ALT (4-49) U/L Total Protein (6.3-8.2) g/dL Albumin (3.5-5.0) g/dL Urine Blood (Negative) Ur Leukocyte Esterase (Negative) Urine RBC (0-5) /hpf Urine WBC (0-5) /hpf Amorphous Sediment (None) /hpf Urine Bacteria (None) /hpf Urine Mucus (None) /hpf 09/23/20 09/23/20 09/23/20 Range/Units 09:56 10:58 12:10 RBC (4.30-5.90) m/uL Hgb (13.0-17.5) gm/dL Hct (39.0-53.0) % Plt Count (150-450) k/uL BUN (9-20) mg/dL Creatinine (0.66-1.25) mg/dL Glucose (74-99) mg/dL POC Glucose (mg/dL) 118 H 122 H 130 H (75-99) mg/dL Calcium (8.4-10.2) mg/dL AST (17-59) U/L ALT (4-49) U/L Total Protein (6.3-8.2) g/dL Albumin (3.5-5.0) g/dL Urine Blood (Negative) Ur Leukocyte Esterase (Negative) Urine RBC (0-5) /hpf Urine WBC (0-5) /hpf Amorphous Sediment (None) /hpf Urine Bacteria (None) /hpf Urine Mucus (None) /hpf 09/23/20 09/23/20 09/23/20 Range/Units 13:16 13:53 14:05 RBC (4.30-5.90) m/uL Hgb (13.0-17.5) gm/dL Hct (39.0-53.0) % Plt Count (150-450) k/uL BUN (9-20) mg/dL Creatinine (0.66-1.25) mg/dL Glucose (74-99) mg/dL POC Glucose (mg/dL) 115 H 108 H (75-99) mg/dL Calcium (8.4-10.2) mg/dL AST (17-59) U/L ALT (4-49) U/L Total Protein (6.3-8.2) g/dL Albumin (3.5-5.0) g/dL Urine Blood Moderate H (Negative) Ur Leukocyte Esterase Moderate H (Negative) Urine RBC 11 H (0-5) /hpf Urine WBC 6 H (0-5) /hpf Amorphous Sediment Rare H (None) /hpf Urine Bacteria Rare H (None) /hpf Urine Mucus Rare H (None) /hpf 09/23/20 09/23/20 Range/Units 16:36 17:12 RBC (4.30-5.90) m/uL Hgb (13.0-17.5) gm/dL Hct (39.0-53.0) % Plt Count (150-450) k/uL BUN (9-20) mg/dL Creatinine (0.66-1.25) mg/dL Glucose (74-99) mg/dL POC Glucose (mg/dL) 102 H 124 H (75-99) mg/dL Calcium (8.4-10.2) mg/dL AST (17-59) U/L ALT (4-49) U/L Total Protein (6.3-8.2) g/dL Albumin (3.5-5.0) g/dL Urine Blood (Negative) Ur Leukocyte Esterase (Negative) Urine RBC (0-5) /hpf Urine WBC (0-5) /hpf Amorphous Sediment (None) /hpf Urine Bacteria (None) /hpf Urine Mucus (None) /hpf
[2020-09-23 18:12] LABS: Glucose,Whole Blood 128 mg/dL (75-99)
[2020-09-23 19:00] LABS: Glucose,Whole Blood 133 mg/dL (75-99)
[2020-09-23 20:01] LABS: Glucose,Whole Blood 131 mg/dL (75-99)
[2020-09-23] MEDS: SENNOSIDES-DOCUSATE SODIUM 1 EACH TAB PO SCH (20:11)
[2020-09-23 21:19] LABS: Glucose,Whole Blood 117 mg/dL (75-99)
[2020-09-24 00:04] LABS: Glucose,Whole Blood 113 mg/dL (75-99)
[2020-09-24] MEDS: HEPARIN SODIUM,PORCINE/PF 5,000 UNIT/0.5 ML SYRINGE SQ SCH ×3 (00:06→16:27)
[2020-09-24] MEDS: LACTATED RINGERS 1,000 ML IV SCH (00:06)
[2020-09-24 03:17] LABS: Glucose,Whole Blood 118 mg/dL (75-99)
[2020-09-24 03:53] LABS: Basophils % (A) 0 %; Eosinophils # (A) 0.1 k/uL (0-0.7); Eosinophils % (A) 1 %; HCT 20.5 % (39.0-53.0); HGB 7.2 gm/dL (13.0-17.5); Lymphocytes % (A) 11 %; MCH 30.5 pg (25.0-35.0); Mean Platelet Volume 8.4; Monocytes # (A) 0.5 k/uL (0-1.0); Monocytes % (A) 5 %; Neutrophils # (A) 7.5 k/uL (1.3-7.7); Neutrophils % (A) 81 %; Platelet Count 114 k/uL (150-450); RBC 2.35 m/uL (4.30-5.90); RDW 15.1 % (11.5-15.5); WBC 9.3 k/uL (3.8-10.6)
[2020-09-24 04:06] LABS: Albumin 2.8 g/dL (3.5-5.0); Calcium 7.5 mg/dL (8.4-10.2); Potassium 4.4 mmol/L (3.5-5.1); Total Bilirubin 1.3 mg/dL (0.2-1.3); Total Protein 4.5 g/dL (6.3-8.2)
[2020-09-24] MEDS: HYDROcodone/APAP 5-325MG 1 EACH TAB PO PRN ×4 (04:06→23:43)
[2020-09-24 05:57] LABS: Glucose,Whole Blood 150 mg/dL (75-99)
[2020-09-24 06:58] LABS: Glucose,Whole Blood 139 mg/dL (75-99)
[2020-09-24] MEDS: IPRATROPIUM-ALBUTEROL 3 ML NEB INHALATION SCH ×4 (07:46→19:58)
--- NOTE | 2020-09-24 07:53 | P.PN ---
Subjective Progress Note Date: 09/24/20 50-year-old male patient was postop day #1 following four-vessel bypass surgery. The patient had multivessel CAD, symptomatic and the patient underwent his bypass surgery yesterday and postop the patient was hemodynamically stable and the patient was extubated without any major difficulties. The patient postextubation was doing well and he was hemodynamically stable. Probably within few hours following his extubation, he had massive amount of blood coming out of his recent in few and this was estimated to be around 2 L total. At that point, CT surgery was involved and the patient was seen by Dr. Arteaga in the intensive care unit. As he was being evaluated, the patient underwent further hemodynamic instability and the patient became hypotensive and he went into a PEA rhythm and he had a cardiac arrest. He was resuscitated according to the ACLS protocol and he is down time was estimated to be around 10 minutes. Following that, pulse was recovered and the patient was taken to the operating room where a surgical evaluation was done. The patient underwent a mediastinal exploration and control of bleeding was achieved, source being a questionable slits opening at the aortic wall and according to the surgical opinion, this was possibly related to mechanical injury from a wire suture. In any rate, control of bleeding was achieved and the patient was brought back today intensive care unit at around 3 AM. This morning, the patient is sedated with propofol and the patient is calm and comfortable and performed running at 45 mg/kg/m. He was apparently moving his extremities after he arrived from the operating room. A sedation holiday will be given to him at a later stage today. This morning, he remains on a mechanical ventilator currently is an assist- control mode at the rate of 12 with a tidal volume of 550 FiO2 of 60% with a PEEP of 8. Blood gas showed a pH of 7.37 with a pCO2 of 48 and pO2 of 83. Based on that, increased respiratory rate up to 18. The chest x-ray shows no complications. The patient has 2 mediastinal chest tubes and left pleural chest tube. There are some atelectatic changes in lung bases bilaterally. Otherwise ET tube is in a good location and [place]-Jt catheter is also in good location. Meanwhile, the patient has received a total of 4 units of packed RBC and hemoglobin today is at 10.2. The chest tubes are still draining minimal amount of serosanguineous/bloody drainage is output is minimal at this point and there is no evidence of any air leak. The patient is hemodynamically requiring pressors and the patient is currently on norepinephrine infusion running at 0.1 mg/kg per minute. . He is also on vasopressin as physiologic dose of 0.03 units per hour and the patient is also on milrinone at 0.1 mg/kg per minute. Cardiac index is at 2.3 with an output of 5.0. Pulmonary artery pressures are 32/17 and his CVP is at 10. The patient is producing adequate urine output. Her recent cardiac rhythm is sinus with a rate of 70. He has a VVI backup pacer at 15. He is also on insulin drip at 2 units an hour. The patient is a 50-year-old male patient who is postop from coronary artery bypass surgery and the patient is postop day #2 following four-vessel bypass. He remains intubated on a mechanical ventilator due to the complications that occurred postop. Fortunately, the patient has done extremely well. The patient this morning is on sedation on propofol which is running at 60 mg/kg/m. Hemodynamically the patient is improved and the patient is currently off vasopressin and he is also off levo fed has been off the pressors for the past 5-6 hours. Meanwhile, the patient's blood pressure currently is well maintained and the patient was started on low-dose beta blockers. He was started on metoprolol 12.5 mg by mouth twice a day. Meanwhile, he developed an acute kidney injury. Creatinine is up to 2.96. However, the patient is making adequate urine output in order of 20-30 mL an hour. IV fluids are running in the form of an art at the rate of 50 mL an hour. In terms of neurologic functions, a sedation holiday will be given and we'll assess the patient's underlying mental status. He was moving extremities even while being sedated yesterday. In terms of his respiratory status, he remains on a mechanical ventilator. Assist-control mode at the rate of 18 with a tidal volume of 550 and FiO2 of 50% with a PEEP of 8. His blood gases from today shows a pH of 7.48 with a pCO2 of 41 and pO2 of 84. The chest x-ray from today is showing adequate expansion of both lungs. Mediastinal and left pleural chest tubes are in place. ET tube is in a good location. The patient has his [place]-Jt catheter and OG tube is also in the stomach. No evidence of any pneumothorax. Output from the chest tubes are minimal and there is no evidence of any air leak. No evidence of any bleed. Hemoglobin stable after being transfused with a total of 4 units of packed RBC. Currently is at 8.6. Platelet count is 74. Unfortunately there is an acute kidney injury that has evolved with a creatinine of 2.95. N evertheless, the patient is nonoliguric. Hemodynamic parameters indicate a cardiac output of 8.1 with an index of 3.6 and the patient is currently off milrinone. Afebrile. Remains nothing by mouth still. On 09/23/2020 the patient is postop day #3. He was successfully weaned off the mechanical ventilated and was extubated yesterday without any major difficulties and the patient is currently on oxygen on 4 L per minute nasal cannula. Chest x-ray from today showing a very tiny apical left-sided pneumothorax. There is a left-sided chest tube. There is a mediastinal chest tube. No signs of any significant fluid overload. Postsurgical changes are atelectatic changes in lung bases bilaterally. Meanwhile, the patient's pleural chest tube has drained 130 mL over the past 8 hours 8 hours and 330 mL over the past 24 hours as for the mediastinal chest tube, it has drained around 88 mL over the past 8 hours and the on the 30 mL over the past 24 hours. Urine output is no order of 20-30 mL an hour. Noted the patient has developed an acute kidney injury due to hemodynamic instability that occurred postop. His creatinine is up to 4.42 with a BUN of 54. Serum bicarb is a 28 and the sodium level is at 138. Nephrology has been consulted. Cao catheter is in place. We are avoiding any nephrotoxic agents at this point is time. Also, this morning, it was noted that his abdomen is quite distended. He has developed some degree of ileus. He has tympanic abdomen. Bowel sounds are extremely hypo-active. He claims that he is passing some flatus. No nausea. No emesis. No abdominal pain. No signs of any sepsis. Lactic acid levels have been ordered. Apply some of the abdomen is also been ordered. Hemoglobin from today is at 7.2. No signs of any acute bleed. Platelet count is 79 and compared to yesterday day #essentially stable. Hemodynamically stable. He is currently off milrinone. Off vasopressin. Off norepinephrine. He is using incentive spirometer. He is pulling approximately 500 mL on his RIS. No other significant events overnight. Neurologically is intact. No focal neurological deficit. Is awake and alert and oriented 3. He has developed some mild transaminitis probably secondary to hypotension and cardiac arrest and shock that occurred postop. 09/24/2020, the patient is postop day #4. He remains extubated. Currently on oxygen at 3 L per minute. Chest x-ray showing pulmonary vessel congestion and small effusions. There is left-sided chest tube in place and output has been in the order of 121 20 mL over the past 8 hours and 250 over the past 24 hours. The mediastinal chest tubes are in order of 25 mL drainage over the past 8 hours and 50 mL over the past 24 hours. He is awake and alert and moving and following commands and answering questions. No respiratory difficulties. Abdomen is still distended and the patient has an underlying ileus. He is passing flatus. He is tolerating clear liquid diet and some chips. Drinking water. No bowel movement activity yet. Bowel sounds are present and they're hypoactive. No nausea. No emesis. No chest pain. Pain is under adequate control. He is on no pressors for now. He is an acute kidney injury. Patient has developed an ATN in the creatinine is up to 5.05. Nevertheless, the patient is nonoliguric. He is producing urine output in the order of 575 570 fasting over the past 8 hours. His net fluid balance is negative over the past 24 hours. Note that he received a dose of Lasix 60 mg IV push yesterday. Nephrology has been seeing the patient and the patient is on no nephrotoxic agents at this point in time. Still using incentive spirometer. Pulling approximately 7 52,000 on his RIS. Liver function tests are also improving. Sodium level today is at 136 and the white cell count is at 9.7 with hemoglobin of 7.2. Platelet counts are improving and then up to 114. He is cardiac rhythm is sinus D5 in the mid 80s. No other significant events overnight. Ambulating yesterday Objective - Vital Signs Vital signs: Vital Signs Temp 97.3 F L 09/24/20 04:00 Pulse 86 09/24/20 07:00 Resp 14 05/30/21 07:00 BP 116/63 09/23/20 11:00 Pulse Ox 95 09/24/20 07:00 Intake & Output 09/23/20 09/24/20 09/24/20 18:59 06:59 18:59 Intake Total 599.323 326.368 26 Output Total 1540 775 60 Balance -940.677 -448.632 -34 Weight 114.8 kg Intake: IV 414 312 26 0.9NS CO/CI 30 0.9NS flush 84 72 6 Lactated Ringers 1,000 ml 300 240 20 @ 20 mls/hr IV .Q24H NITZA Rx#:[id number] Intake, IV Titration 145.323 14.368 Amount Calcium Gluconate 1 gm In 100 Sodium Chloride 0.9% 100 ml @ 100 mls/hr IVPB ONCE ONE Rx#:[id number] Insulin Regular 100 unit 31.588 14.368 In Sodium Chloride 0.9% 100 ml @ Per Protocol IV .Q0M NITZA Rx#:[id number] Norepinephrine 4 mg In 13.735 Sodium Chloride 0.9% 250 ml @ 0.05 MCG/KG/MIN 19. 622 mls/hr IV .[id number] NITZA Rx#:[id number] Oral 40 Output: Chest Tube Drainage 265 170 Chest Tube Mediastinal 90 50 Left 175 120 Urine 1275 605 60 Other: Voiding Method Indwelling Catheter Indwelling Catheter ABP, PAP, CO, CI - Last Documented Arterial Blood Pressure 112/47 Pulmonary Artery Pressure 29/7 Cardiac Output 7.4 Cardiac Index 3.3 - Exam GENERAL EXAM: Sedated, intubated, 50-year-old white male, extubated on 3 L per minute nasal cannula HEAD: Normocephalic/atraumatic. EYES: Normal reaction of pupils, equal size. Conjunctiva pink, sclera white. NOSE: Clear with pink turbinates. THROAT: No erythema or exudates. NECK: No masses, no JVD, no thyroid enlargement, no adenopathy. CHEST: No chest wall deformity. Symmetrical expansion. Midsternal incision is clean dry and intact, 2 mediastinal and left pleural chest tube in place connected to Pleur-evac's, with small amount of sanguinous output, no air leak, epicardial wires connected to external pacemaker box with the VVI mode, with a backup rate of 50 LUNGS: Equal air entry with no crackles, wheeze, rhonchi or dullness. CVS: Regular rate and rhythm, normal S1 and S2, no gallops, no murmurs, no rubs ABDOMEN: Soft, nontender. No hepatosplenomegaly, normal bowel sounds, no guarding or rigidity. Abdomen is distended and the patient is tympanic and has hypoactive bowel sounds EXTREMITIES: No clubbing, no edema, no cyanosis, 2+ pulses and upper and lower extremities. Left radial artery harvest site is covered with a surgical dressing MUSCULOSKELETAL: Muscle strength and tone normal. SPINE: No scoliosis or deformity SKIN: No rashes CENTRAL NERVOUS SYSTEM: Alert and oriented 3, no focal neurological deficit - Labs CBC & Chem 7: 09/24/20 03:20 09/24/20 03:20 Labs: Abnormal Lab Results - Last 24 Hours (Table) 09/23/20 09/23/20 09/23/20 Range/Units 07:55 09:13 09:56 RBC (4.30-5.90) m/uL Hgb (13.0-17.5) gm/dL Hct (39.0-53.0) % Plt Count (150-450) k/uL Sodium (137-145) mmol/L BUN (9-20) mg/dL Creatinine (0.66-1.25) mg/dL Glucose (74-99) mg/dL POC Glucose (mg/dL) 153 H 127 H 118 H (75-99) mg/dL Calcium (8.4-10.2) mg/dL AST (17-59) U/L ALT (4-49) U/L Alkaline Phosphatase (38-126) U/L Total Protein (6.3-8.2) g/dL Albumin (3.5-5.0) g/dL Urine Blood (Negative) Ur Leukocyte Esterase (Negative) Urine RBC (0-5) /hpf Urine WBC (0-5) /hpf Amorphous Sediment (None) /hpf Urine Bacteria (None) /hpf Urine Mucus (None) /hpf 09/23/20 09/23/20 09/23/20 Range/Units 10:58 12:10 13:16 RBC (4.30-5.90) m/uL Hgb (13.0-17.5) gm/dL Hct (39.0-53.0) % Plt Count (150-450) k/uL Sodium (137-145) mmol/L BUN (9-20) mg/dL Creatinine (0.66-1.25) mg/dL Glucose (74-99) mg/dL POC Glucose (mg/dL) 122 H 130 H 115 H (75-99) mg/dL Calcium (8.4-10.2) mg/dL AST (17-59) U/L ALT (4-49) U/L Alkaline Phosphatase (38-126) U/L Total Protein (6.3-8.2) g/dL Albumin (3.5-5.0) g/dL Urine Blood (Negative) Ur Leukocyte Esterase (Negative) Urine RBC (0-5) /hpf Urine WBC (0-5) /hpf Amorphous Sediment (None) /hpf Urine Bacteria (None) /hpf Urine Mucus (None) /hpf 09/23/20 09/23/20 09/23/20 Range/Units 13:53 14:05 16:36 RBC (4.30-5.90) m/uL Hgb (13.0-17.5) gm/dL Hct (39.0-53.0) % Plt Count (150-450) k/uL Sodium (137-145) mmol/L BUN (9-20) mg/dL Creatinine (0.66-1.25) mg/dL Glucose (74-99) mg/dL POC Glucose (mg/dL) 108 H 102 H (75-99) mg/dL Calcium (8.4-10.2) mg/dL AST (17-59) U/L ALT (4-49) U/L Alkaline Phosphatase (38-126) U/L Total Protein (6.3-8.2) g/dL Albumin (3.5-5.0) g/dL Urine Blood Moderate H (Negative) Ur Leukocyte Esterase Moderate H (Negative) Urine RBC 11 H (0-5) /hpf Urine WBC 6 H (0-5) /hpf Amorphous Sediment Rare H (None) /hpf Urine Bacteria Rare H (None) /hpf Urine Mucus Rare H (None) /hpf 09/23/20 09/23/20 09/23/20 Range/Units 17:12 18:11 18:59 RBC (4.30-5.90) m/uL Hgb (13.0-17.5) gm/dL Hct (39.0-53.0) % Plt Count (150-450) k/uL Sodium (137-145) mmol/L BUN (9-20) mg/dL Creatinine (0.66-1.25) mg/dL Glucose (74-99) mg/dL POC Glucose (mg/dL) 124 H 128 H 133 H (75-99) mg/dL Calcium (8.4-10.2) mg/dL AST (17-59) U/L ALT (4-49) U/L Alkaline Phosphatase (38-126) U/L Total Protein (6.3-8.2) g/dL Albumin (3.5-5.0) g/dL Urine Blood (Negative) Ur Leukocyte Esterase (Negative) Urine RBC (0-5) /hpf Urine WBC (0-5) /hpf Amorphous Sediment (None) /hpf Urine Bacteria (None) /hpf Urine Mucus (None) /hpf 09/23/20 09/23/20 09/24/20 Range/Units 20:00 21:18 00:02 RBC (4.30-5.90) m/uL Hgb (13.0-17.5) gm/dL Hct (39.0-53.0) % Plt Count (150-450) k/uL Sodium (137-145) mmol/L BUN (9-20) mg/dL Creatinine (0.66-1.25) mg/dL Glucose (74-99) mg/dL POC Glucose (mg/dL) 131 H 117 H 113 H (75-99) mg/dL Calcium (8.4-10.2) mg/dL AST (17-59) U/L ALT (4-49) U/L Alkaline Phosphatase (38-126) U/L Total Protein (6.3-8.2) g/dL Albumin (3.5-5.0) g/dL Urine Blood (Negative) Ur Leukocyte Esterase (Negative) Urine RBC (0-5) /hpf Urine WBC (0-5) /hpf Amorphous Sediment (None) /hpf Urine Bacteria (None) /hpf Urine Mucus (None) /hpf 09/24/20 09/24/20 09/24/20 Range/Units 03:16 03:20 03:20 RBC 2.35 L (4.30-5.90) m/uL Hgb 7.2 L (13.0-17.5) gm/dL Hct 20.5 L (39.0-53.0) % Plt Count 114 L (150-450) k/uL Sodium 136 L (137-145) mmol/L BUN 66 H (9-20) mg/dL Creatinine 5.05 H (0.66-1.25) mg/dL Glucose 107 H (74-99) mg/dL POC Glucose (mg/dL) 118 H (75-99) mg/dL Calcium 7.5 L (8.4-10.2) mg/dL AST 269 H (17-59) U/L ALT 265 H (4-49) U/L Alkaline Phosphatase 216 H (38-126) U/L Total Protein 4.5 L (6.3-8.2) g/dL Albumin 2.8 L (3.5-5.0) g/dL Urine Blood (Negative) Ur Leukocyte Esterase (Negative) Urine RBC (0-5) /hpf Urine WBC (0-5) /hpf Amorphous Sediment (None) /hpf Urine Bacteria (None) /hpf Urine Mucus (None) /hpf 09/24/20 09/24/20 Range/Units 05:56 06:57 RBC (4.30-5.90) m/uL Hgb (13.0-17.5) gm/dL Hct (39.0-53.0) % Plt Count (150-450) k/uL Sodium (137-145) mmol/L BUN (9-20) mg/dL Creatinine (0.66-1.25) mg/dL Glucose (74-99) mg/dL POC Glucose (mg/dL) 150 H 139 H (75-99) mg/dL Calcium (8.4-10.2) mg/dL AST (17-59) U/L ALT (4-49) U/L Alkaline Phosphatase (38-126) U/L Total Protein (6.3-8.2) g/dL Albumin (3.5-5.0) g/dL Urine Blood (Negative) Ur Leukocyte Esterase (Negative) Urine RBC (0-5) /hpf Urine WBC (0-5) /hpf Amorphous Sediment (None) /hpf Urine Bacteria (None) /hpf Urine Mucus (None) /hpf Assessment and Plan Plan: #1. Symptomatic multivessel coronary artery disease, status post four-vessel coronary artery bypass grafting with BASHIR to the LAD, radial artery graft to the ramus, SVG to OM, and SVG to PLV, with bilateral legs endoscopic vein harvest, exclusion of the left atrial appendage and intraoperative transesophageal echocardiogram, postop day #4 #2. Postop mediastinal bleed, likely due to an aortic tear. The patient lost at least 2 L of blood to the mediastinal chest tube. The patient received a total of 4 units of packed RBC. During the course of his bleed, the patient sustained a cardiac arrest with a downtime of around 10 minutes. Currently is intubated on a mechanical ventilator. He had a mediastinal exploration and control of bleed and the patient is postop day #2 following a redo sternotomy and exploration. The patient is told to have an aortic leak where there was a pinpoint function and aortic wall that was identified and was oversewn. No signs of any active bleeding and the patient is hemodynamically stable with a minimal amount of output from his chest tubes at this point in time. #3. Hypotension, likely cardiogenic in nature, recovered . #4. Acute hypoxic respiratory failure secondary to above-mentioned events. Currently on 3 L of oxygen by nasal cannula. No signs of any anoxic encephalopathy. #5. 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 Hypertension #7. Diabetes mellitus, insulin drip at 3.5 U #8. Hyperlipidemia #9. Chronic neck pain #10 Recent history of COVID-19 pneumonia in June 2020 #11 blood loss anemia currently hemoglobin is at 7.2 12 acute kidney injury in the creatinine is up to 4.4 nonoliguric, consider ATN due to above-mentioned complications/hypotension/hemodynamic instability. No major electrode disturbance at this point in time. Developed some increased edema in all 4 extremities. No signs of any pulmonary edema at this point in time. #13 abdominal distention most likely secondary to ileus #14 mild transaminitis, probably related to a component of shock liver , improving Plan: Recommend another 60 mg of Lasix IV 1 to improve urine output. Avoid nep hrotoxic agents. Please clear this with cardiothoracic surgery. Dulcolax supp x1 Monitor the output from the chest tubes, may remove mediastinal and possible pleural CT Monitor the hemoglobin level Monitor hemodynamics and no pressors for now Continue insulin drip for blood sugar control @ 3.5U/hr Allow clear liquid diet Condition is critical. We'll continue to follow make further recommendations regarding the care of this patient.
[2020-09-24 07:56] LABS: Glucose,Whole Blood 159 mg/dL (75-99)
--- NOTE | 2020-09-24 07:58 | XR ---
EXAMINATION TYPE: XR chest 1V portable DATE OF EXAM: 09/24/2020 COMPARISON: Chest x-ray 09/23/2020 HISTORY: Abnormal chest x-ray, chest tube TECHNIQUE: Single frontal view of the chest is obtained. FINDINGS: Left-sided chest tube, median sternal drains, post median sternotomy change with left atri al appendage clip are again noted, there are overlying artifacts. Central venous catheter has been re moved, right jugular central venous sheath remains in place. There is no evident pneumothorax. Heart remains enlarged. Patchy basilar density persists. IMPRESSION: Probable basilar atelectasis, difficult to exclude small effusion
[2020-09-24] MEDS: INSULIN ASPART (NovoLOG) 100 UNIT/ML VIAL SQ SCH ×4 (08:44→20:09)
[2020-09-24] MEDS: INSULIN DETEMIR (LEVEMIR) 100 UNIT/ML SYR SQ SCH (08:44)
[2020-09-24] MEDS: METOPROLOL TARTRATE 12.5 MG TAB PO SCH (08:45)
[2020-09-24] MEDS: NOREPINEPHRINE 4 MG in SODIUM CHLORIDE 0.9% 250 ML IV SCH (08:45)
[2020-09-24] MEDS: PANTOPRAZOLE 40 MG/10 ML VIAL IVP SCH (08:45)
[2020-09-24] MEDS: ASPIRIN 81 MG PO SCH (08:45)
[2020-09-24] MEDS: CLOPIDOGREL 75 MG TAB PO SCH (08:45)
[2020-09-24] MEDS ORDERED: FUROSEMIDE 10 MG/ML 10 ML VIAL IV STA (09:52)
--- NOTE | 2020-09-24 10:14 | P.PN ---
Subjective Progress Note Date: 09/24/20 Principal diagnosis: Coronary artery disease with left main disease. Past medical history significant for unstable angina, hypertension, hyperlipidemia, recent Covid infection in July 2020, previous tobacco dependence, rare alcohol usage. POD #4 coronary artery bypass grafting 4 vessels, left internal mammary artery to left anterior descending artery, radial artery to the ramus coronary artery, a reverse greater saphenous vein graft to the distal obtuse marginal coronary artery, a reverse greater saphenous vein graft to the posterior lateral branch of the right coronary artery, endoscopic harvesting of the bilateral greater saphenous veins, endoscopic harvesting of the left radial artery, ligation of the left atrial appendage using a 35 mm AtriClip, intraoperative transesophageal echocardiogram and epi-aortic scanning. Witnessed cardiac arrest with brief CPR and subsequent ROSC. Postoperative acute blood loss anemia with return to the OR for mediastinal exploration with control of postop bleed, unexpected. Postoperative hypotension requiring pressor support, expected due to above. Acute lactic acidosis, secondary to above. Elevated transaminases, likely due to hypoperfusion. LEONEL, likely due to hypoperfusion. The patient is seen in follow-up today 09/24/2020 at his bedside in the intensive care unit. Currently he is sitting up to the bedside chair, is awake, alert and oriented 3 and is in no apparent acute distress. He denies any complaints of pain, although is complaining of some shortness of breath with ambulating. Currently he is on on 4 L nasal cannula with oxygen saturation is 94%. He is achieving 750-1000 mL on his incentive spirometry with much encouragement. Mediastinal and left pleural chest tubes remain in place to low continuous wall suction -20 cm H2O. No air leak is present. Chest tubes are draining thin serosanguineous drainage. Mediastinal chest tube straight 25 mL output in the last 8 hours and 50 mL output last 24 hours. Left pleural chest tube drained 120 mL output in the last 8 hours and 250 mL output in the last 24 hours. Bedside telemetry showing normal sinus rhythm heart rate 85 BPM. He remains hemodynamically stable and is currently on no inotropic or pressor support. Right IJ Cordis a CVP 11 mmHg. Laboratory results this morning show a WBC count 9.3, hemoglobin 7.2, platelet 114, BUN 66, creatinine 5.05, AST 269 ALT 265. Nephrology consult noted and appreciated, continue to avoid nephrot oxic agents. The patient's abdomen remains distended, although he reports that he is passing flatus and has active bowel sounds. He is tolerating a clear liquid diet. Objective - Vital Signs Vital signs: Vital Signs Temp 98.2 F 09/24/20 08:00 Pulse 88 09/24/20 09:00 Resp 14 09/24/20 09:00 BP 116/63 09/23/20 11:00 Pulse Ox 95 09/24/20 09:00 Intake & Output 09/23/20 09/24/20 09/24/20 18:59 06:59 18:59 Intake Total 599.323 326.368 84.127 Output Total 1540 775 215 Balance -940.677 -448.632 -130.873 Weight 114.8 kg Intake: IV 414 312 78 0.9NS CO/CI 30 0.9NS flush 84 72 18 Lactated Ringers 1,000 ml 300 240 60 @ 20 mls/hr IV .Q24H [facility] Rx#:[id number] Intake, IV Titration 145.323 14.368 6.127 Amount Calcium Gluconate 1 gm In 100 Sodium Chloride 0.9% 100 ml @ 100 mls/hr IVPB ONCE ONE Rx#:[id number] Insulin Regular 100 unit 31.588 14.368 6.127 In Sodium Chloride 0.9% 100 ml @ Per Protocol IV .Q0M [facility] Rx#:[id number] Norepinephrine 4 mg In 13.735 Sodium Chloride 0.9% 250 ml @ 0.05 MCG/KG/MIN 19. 622 mls/hr IV .[id number] [facility] Rx#:[id number] Oral 40 Output: Chest Tube Drainage 265 170 20 Chest Tube Mediastinal 90 50 10 Left 175 120 10 Urine 1275 605 195 Other: Voiding Method Indwelling Catheter Indwelling Catheter Indwelling Catheter ABP, PAP, CO, CI - Last Documented Arterial Blood Pressure 132/57 Pulmonary Artery Pressure 29/7 Cardiac Output 7.4 Cardiac Index 3.3 - Exam CONSTITUTIONAL: Sitting up to the bedside chair in the intensive care unit, appears comfortable, cooperative, no apparent acute distress. HEENT: Neck is supple, no JVD, no lymphadenopathy. Right IJ Cordis in place and functioning. RESPIRATORY: Lungs sounds essentially clear throughout, diminished to his bilateral bases. Respirations are symmetrical and nonlabored. Currently on 4 L nasal cannula with oxygen saturations 96%. Able to achieve 750-1000 mL on his incentive spirometry. Strong cough. CARDIOVASCULAR: Regular rhythm and rate. S1 and S2 present, negative for S3, gallop or murmur. Sternum is stable. Bedside telemetry showing normal sinus rhythm heart rate 85 BPM. Palpable peripheral pulses bilaterally, +2 generalized edema. No calf pain or tenderness noted. Heart hugger in place with patient demonstrating appropriate use. Knee-high NOEL hose and sequential compression devices in place to his bilateral lower extremities. GASTROINTESTINAL: Abdomen soft, nontender, and distended. Active bowel sounds present 4 quadrants. Tolerating clear liquids. Passing flatus. No guarding or rigidity. GENITOURINARY: Cao present draining clear, yellow urine. Output 575 mL in the last 8 hours. INTEGUMENTARY: Skin is warm and dry with evidence of good perfusion. Midline sternal incision clean dry and well approximated, covered with dry intact dressing. Bilateral lower extremity EVH sites well approximated without redness or drainage. Left arm radial artery harvest sites clean, dry and approximated. No drainage or redness is present. NEUROLOGIC: Cranial nerves II through XII intact. No focal deficits. MUSKULOSKELETAL: Able to move all extremities, strength equal bilaterally, generalized weakness. PSYCHIATRIC: Alert and oriented to person place and time, appropriate affect, intact judgment and insight. INVASIVE LINES AND TUBES: Mediastinal/left pleural chest tubes present and connected to low continuous wall suction, no air leaks present. Mediastinal tube with 25 mL of thin serosanguineous drainage overnight, 50 mL output in the last 24 hours. Left pleural chest tube with 120 mL of thin serosanguineous drainage overnight, 250 mL output in the last 24 hours. Atrial and ventricular epicardial pacemaker wires present, and grounded. Right internal jugular Cordis, right radial arterial line present. Last CVP 11 mmHg. - Labs CBC & Chem 7: 09/24/20 03:20 09/24/20 03:20 Labs: Abnormal Lab Results - Last 24 Hours (Table) 09/23/20 09/23/20 09/23/20 Range/Units 09:56 10:58 12:10 RBC (4.30-5.90) m/uL Hgb (13.0-17.5) gm/dL Hct (39.0-53.0) % Plt Count (150-450) k/uL Sodium (137-145) mmol/L BUN (9-20) mg/dL Creatinine (0.66-1.25) mg/dL Glucose (74-99) mg/dL POC Glucose (mg/dL) 118 H 122 H 130 H (75-99) mg/dL Calcium (8.4-10.2) mg/dL AST (17-59) U/L ALT (4-49) U/L Alkaline Phosphatase (38-126) U/L Total Protein (6.3-8.2) g/dL Albumin (3.5-5.0) g/dL Urine Blood (Negative) Ur Leukocyte Esterase (Negative) Urine RBC (0-5) /hpf Urine WBC (0-5) /hpf Amorphous Sediment (None) /hpf Urine Bacteria (None) /hpf Urine Mucus (None) /hpf 09/23/20 09/23/20 09/23/20 Range/Units 13:16 13:53 14:05 RBC (4.30-5.90) m/uL Hgb (13.0-17.5) gm/dL Hct (39.0-53.0) % Plt Count (150-450) k/uL Sodium (137-145) mmol/L BUN (9-20) mg/dL Creatinine (0.66-1.25) mg/dL Glucose (74-99) mg/dL POC Glucose (mg/dL) 115 H 108 H (75-99) mg/dL Calcium (8.4-10.2) mg/dL AST (17-59) U/L ALT (4-49) U/L Alkaline Phosphatase (38-126) U/L Total Protein (6.3-8.2) g/dL Albumin (3.5-5.0) g/dL Urine Blood Moderate H (Negative) Ur Leukocyte Esterase Moderate H (Negative) Urine RBC 11 H (0-5) /hpf Urine WBC 6 H (0-5) /hpf Amorphous Sediment Rare H (None) /hpf Urine Bacteria Rare H (None) /hpf Urine Mucus Rare H (None) /hpf 09/23/20 09/23/20 09/23/20 Range/Units 16:36 17:12 18:11 RBC (4.30-5.90) m/uL Hgb (13.0-17.5) gm/dL Hct (39.0-53.0) % Plt Count (150-450) k/uL Sodium (137-145) mmol/L BUN (9-20) mg/dL Creatinine (0.66-1.25) mg/dL Glucose (74-99) mg/dL POC Glucose (mg/dL) 102 H 124 H 128 H (75-99) mg/dL Calcium (8.4-10.2) mg/dL AST (17-59) U/L ALT (4-49) U/L Alkaline Phosphatase (38-126) U/L Total Protein (6.3-8.2) g/dL Albumin (3.5-5.0) g/dL Urine Blood (Negative) Ur Leukocyte Esterase (Negative) Urine RBC (0-5) /hpf Urine WBC (0-5) /hpf Amorphous Sediment (None) /hpf Urine Bacteria (None) /hpf Urine Mucus (None) /hpf 09/23/20 09/23/20 09/23/20 Range/Units 18:59 20:00 21:18 RBC (4.30-5.90) m/uL Hgb (13.0-17.5) gm/dL Hct (39.0-53.0) % Plt Count (150-450) k/uL Sodium (137-145) mmol/L BUN (9-20) mg/dL Creatinine (0.66-1.25) mg/dL Glucose (74-99) mg/dL POC Glucose (mg/dL) 133 H 131 H 117 H (75-99) mg/dL Calcium (8.4-10.2) mg/dL AST (17-59) U/L ALT (4-49) U/L Alkaline Phosphatase (38-126) U/L Total Protein (6.3-8.2) g/dL Albumin (3.5-5.0) g/dL Urine Blood (Negative) Ur Leukocyte Esterase (Negative) Urine RBC (0-5) /hpf Urine WBC (0-5) /hpf Amorphous Sediment (None) /hpf Urine Bacteria (None) /hpf Urine Mucus (None) /hpf 09/24/20 09/24/20 09/24/20 Range/Units 00:02 03:16 03:20 RBC 2.35 L (4.30-5.90) m/uL Hgb 7.2 L (13.0-17.5) gm/dL Hct 20.5 L (39.0-53.0) % Plt Count 114 L (150-450) k/uL Sodium (137-145) mmol/L BUN (9-20) mg/dL Creatinine (0.66-1.25) mg/dL Glucose (74-99) mg/dL POC Glucose (mg/dL) 113 H 118 H (75-99) mg/dL Calcium (8.4-10.2) mg/dL AST (17-59) U/L ALT (4-49) U/L Alkaline Phosphatase (38-126) U/L Total Protein (6.3-8.2) g/dL Albumin (3.5-5.0) g/dL Urine Blood (Negative) Ur Leukocyte Esterase (Negative) Urine RBC (0-5) /hpf Urine WBC (0-5) /hpf Amorphous Sediment (None) /hpf Urine Bacteria (None) /hpf Urine Mucus (None) /hpf 09/24/20 09/24/20 09/24/20 Range/Units 03:20 05:56 06:57 RBC (4.30-5.90) m/uL Hgb (13.0-17.5) gm/dL Hct (39.0-53.0) % Plt Count (150-450) k/uL Sodium 136 L (137-145) mmol/L BUN 66 H (9-20) mg/dL Creatinine 5.05 H (0.66-1.25) mg/dL Glucose 107 H (74-99) mg/dL POC Glucose (mg/dL) 150 H 139 H (75-99) mg/dL Calcium 7.5 L (8.4-10.2) mg/dL AST 269 H (17-59) U/L ALT 265 H (4-49) U/L Alkaline Phosphatase 216 H (38-126) U/L Total Protein 4.5 L (6.3-8.2) g/dL Albumin 2.8 L (3.5-5.0) g/dL Urine Blood (Negative) Ur Leukocyte Esterase (Negative) Urine RBC (0-5) /hpf Urine WBC (0-5) /hpf Amorphous Sediment (None) /hpf Urine Bacteria (None) /hpf Urine Mucus (None) /hpf 09/24/20 Range/Units 07:55 RBC (4.30-5.90) m/uL Hgb (13.0-17.5) gm/dL Hct (39.0-53.0) % Plt Count (150-450) k/uL Sodium (137-145) mmol/L BUN (9-20) mg/dL Creatinine (0.66-1.25) mg/dL Glucose (74-99) mg/dL POC Glucose (mg/dL) 159 H (75-99) mg/dL Calcium (8.4-10.2) mg/dL AST (17-59) U/L ALT (4-49) U/L Alkaline Phosphatase (38-126) U/L Total Protein (6.3-8.2) g/dL Albumin (3.5-5.0) g/dL Urine Blood (Negative) Ur Leukocyte Esterase (Negative) Urine RBC (0-5) /hpf Urine WBC (0-5) /hpf Amorphous Sediment (None) /hpf Urine Bacteria (None) /hpf Urine Mucus (None) /hpf Assessment and Plan Assessment: 1. Coronary artery disease with left main disease, status post four-vessel CABG 2. Unstable angina 3. History of hypertension 4. Hyperlipidemia 5. Recent Covid infection in July 2020 6. Previous tobacco dependence 7. Rare alcohol usage 8. Witnessed cardiac arrest with brief CPR and subsequent ROSC 9. Postoperative acute blood loss anemia with return to the OR for mediastinal exploration with control of postop bleed 10. Postoperative hypotension requiring pressor support, currently off pressors 11. Acute lactic acidosis, resolved 12. Elevated transaminases enzymes due to hypoperfusion, improving 13. LEONEL due to hypoperfusion 14. Diabetes mellitus with a preoperative hemoglobin A1c 6.2% 15. Abdominal distention, secondary to ileus Plan: 1. Continue low-dose aspirin, Plavix and metoprolol tartrate. Metoprolol tartrate increased to 25 mg by mouth twice a day. Continue to hold statin due to elevated transaminases, will resume when liver enzymes have normalize. 2. Wean oxygen as tolerated. Encourage use of incentive spirometry 10 times every hour while awake. Bronchodilators per pulmonology/critical care medicine. 3. Will monitor daily labs and chest x-rays. Electrolyte replacement per pr otocol. No further transfusions at this time. 4. GI/DVT prophylaxis. 5. Increase activity as tolerated. PT/OT/cardiac rehab following. 6. Remove right IJ Cordis, remove right radial arterial line. 7. Insulin management per primary care service. Patient is borderline pre- diabetic, preoperative hemoglobin A1c 6.2%. 8. Pain control current medication regimen. 9. Avoid nephrotoxic agents due to his elevated BUN and creatinine. 10. Nephrology consult noted and appreciated. Lasix 60 mg IV 1 now. 11. Remove mediastinal chest tubes and continue left pleural chest to low continuous wall suction -20 cm H2O. 12. Keep Cao catheter in place, strict inaccurate I's and O's. Daily weights. 13. Keep atrial and ventricular epicardial pacemaker wires in place and grounded. 14. More recommendations to follow based on patient's clinical course. Time with Patient: Greater than 30
[2020-09-24 10:56] VITALS: BMI 35.3
[2020-09-24 11:56] LABS: Glucose,Whole Blood 121 mg/dL (75-99)
--- NOTE | 2020-09-24 12:24 | PN ---
PROGRESS NOTE The patient is seen for followup for acute kidney injury. He is status post coronary artery bypass surgery, postop day #4. The patient's renal function has deteriorated over the last 3-4 days with creatinine today as high as 5.0 mg/dL. The patient has had fair urine output. He did diurese well after Lasix in the morning with urine output at about 100-200 mL for the last 5-6 hours. Subsequently, his urine output has been about 50-65, 70 mL/hour. He is currently not on any pressors. He is awake, comfortable, trying to eat. PHYSICAL EXAMINATION: On examination today, blood pressure was 124/56, heart rate 86 per minute, he is afebrile. Examination of the heart S1, S2. Examination of the lungs, bilateral breath sounds are heard. Decreased breath sounds at bases, basal crackles heard. Abdomen is soft, nontender. Examination of lower extremities shows edema bilaterally. Both legs are wrapped. 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 LAB: Show sodium 136, potassium 4.4, chloride 103, BUN 66, serum creatinine 5.05, hemoglobin 7.2 g/dL. ASSESSMENT: 1. Acute kidney injury, acute tubular necrosis, mostly ischemic, currently nonoliguric with volume overload. Serum creatinine has increased to 5 today, although the increase from yesterday and today is not as severe as the day before. I feel the delta gap is decreasing. As long as patient continues to maintain urine output we can hold off on any renal replacement therapy. The no significant hyperkalemia or metabolic acidosis noted. 2. Postop day #4 from coronary artery bypass surgery. 3. Postoperative bleeding, taken back to OR with mediastinal reexploration and control of bleeding. 4. Volume overload status post Lasix yesterday. Recommend repeating another dose today. PLAN: Recommend repeat Lasix. Continue to avoid nephrotoxic agents. Avoid hypotension. Repeat labs in a.m. and monitor on a daily basis for need for renal replacement therapy. No indication for dialysis today. MMODL / IJN: [id number] / KE
[2020-09-24] MEDS: ARTIFICIAL TEARS-HYPROMELLOSE DROPS 15 ML BTL BOTH EYES PRN ×2 (12:33→20:18)
[2020-09-24 15:57] LABS: Glucose,Whole Blood 119 mg/dL (75-99)
--- NOTE | 2020-09-24 17:19 | P.PN ---
Subjective Progress Note Date: 09/24/20 Principal diagnosis: Symptomatic multivessel CAD, status post CABG x 4 Postop mediastinal bleed, likely due to an aortic tear Acute hypoxic respiratory failure 09/23/2020 the patient is seen and evaluated in ICU; postop day #3. He was successfully weaned off the mechanical ventilated and was extubated yesterday; currently on oxygen on 4 L per minute nasal cannula. Chest x-ray from today showing a very tiny apical left-sided pneumothorax. There is a left-sided chest tube and a mediastinal chest tube in place. No signs of any significant fluid overload. Please refer to pulmonary's note for amount of drainage through chest and mediastinotomy to Acute kidney injury due to hemodynamic instability that occurred postop. His creatinine is up to 4.42 with a BUN of 54. Serum bicarb is a 28 and the sodium level is at 138. Nephrology has been consulted. Cao catheter is in place. No signs of any sepsis. Lactic acid levels have been ordered. Hemoglobin from today is at 7.2. No signs of any acute bleed. Platelet count is 79 and compare d to yesterday day #essentially stable. Hemodynamically stable. He is currently off milrinone. He is using incentive spirometer. Neurologically is intact. No focal neurological deficit. Is awake and alert and oriented 3. He has developed some mild transaminitis probably secondary to hypotension and cardiac arrest and shock that occurred postop. 09/24/2020 Patient is seen and evaluated in ICU; postop day #4. He remains on oxygen at 3 L per minute. Patient is awake and alert; denies any specific complaints; patient is passing flatus Chest x-ray showing pulmonary vessel congestion and small effusions. There is left-sided chest tube in place and mediastinal chest tubes. Abdomen is still distended and the patient has an underlying ileus; tolerating clear liquid diet and some chips. Bowel sounds are present and they're hypoactive; no bowel movement. Pain is under adequate control. Patient has developed an ATN in the creatinine is up to 5.05; nonoliguric. Patient received a dose of Lasix 60 mg IV push yesterday. Nephrology has been seeing the patient and the patient is on no nephrotoxic agents at this point in time. Still using incentive spirometer. Sodium level today is at 136 and the white cell count is at 9.7 with hemoglobin of 7.2. Platelet counts are improving and then up to 114. Patient received another dose of Lasix 60 mg IV 1; continue to monitor output from chest tube and mediastinal tube; hemoglobin is borderline; we will continue to monitor closely Patient is started on clear liquid diet; we will continue to monitor Accu-Cheks every before meals and at bedtime; remains on IV insulin infusion Objective - Vital Signs Vital signs: Vital Signs Temp 98.2 F 09/24/20 12:00 Pulse 76 09/24/20 12:00 Resp 12 09/24/20 12:00 BP 108/67 09/24/20 12:00 Pulse Ox 95 09/24/20 12:00 Intake & Output 09/23/20 09/24/20 09/24/20 18:59 06:59 18:59 Intake Total 599.323 326.368 136.127 Output Total 1540 775 860 Balance -940.677 -448.632 -723.873 Weight 114.8 kg 114.8 kg Intake: IV 414 312 130 0.9NS CO/CI 30 0.9NS flush 84 72 30 Lactated Ringers 1,000 ml 300 240 100 @ 20 mls/hr IV .Q24H [facility] Rx#:[id number] Intake, IV Titration 145.323 14.368 6.127 Amount Calcium Gluconate 1 gm In 100 Sodium Chloride 0.9% 100 ml @ 100 mls/hr IVPB ONCE ONE Rx#:[id number] Insulin Regular 100 unit 31.588 14.368 6.127 In Sodium Chloride 0.9% 100 ml @ Per Protocol IV .Q0M [facility] Rx#:[id number] Norepinephrine 4 mg In 13.735 Sodium Chloride 0.9% 250 ml @ 0.05 MCG/KG/MIN 19. 622 mls/hr IV .[id number] [facility] Rx#:[id number] Oral 40 Output: Chest Tube Drainage 265 170 65 Chest Tube Mediastinal 90 50 20 Left 175 120 45 Urine 1275 605 795 Other: Voiding Method Indwelling Catheter Indwelling Catheter Indwelling Catheter ABP, PAP, CO, CI - Last Documented Arterial Blood Pressure 113/50 Pulmonary Artery Pressure 29/7 Cardiac Output 7.4 Cardiac Index 3.3 - Exam GENERAL EXAM: extubated on 2 L per minute nasal cannula HEAD: Normocephalic/atraumatic. EYES: Normal reaction of pupils, equal size. Conjunctiva pink, sclera white. NECK: No masses, no JVD, no thyroid enlargement, no adenopathy. LUNGS: Equal air entry with no crackles, wheeze, rhonchi or dullness. CVS: Regular rate and rhythm, normal S1 and S2, no gallops, no murmurs, no rubs ABDOMEN: Soft, nontender. No hepatosplenomegaly, normal bowel sounds, no guarding or rigidity. Abdomen is distended and the patient is tympanic and has hypoactive bowel sounds EXTREMITIES: No clubbing, no edema, no cyanosis, 2+ pulses and upper and lower extremities. Left radial artery harvest site is covered with a surgical dressing MUSCULOSKELETAL: Muscle strength and tone normal. CENTRAL NERVOUS SYSTEM: Alert and oriented 3, no focal neurological deficit - Labs CBC & Chem 7: 09/24/20 03:20 09/24/20 03:20 Labs: Abnormal Lab Results - Last 24 Hours (Table) 09/23/20 09/23/20 09/23/20 Range/Units 13:16 13:53 14:05 RBC (4.30-5.90) m/uL Hgb (13.0-17.5) gm/dL Hct (39.0-53.0) % Plt Count (150-450) k/uL Sodium (137-145) mmol/L BUN (9-20) mg/dL Creatinine (0.66-1.25) mg/dL Glucose (74-99) mg/dL POC Glucose (mg/dL) 115 H 108 H (75-99) mg/dL Calcium (8.4-10.2) mg/dL AST (17-59) U/L ALT (4-49) U/L Alkaline Phosphatase (38-126) U/L Total Protein (6.3-8.2) g/dL Albumin (3.5-5.0) g/dL Urine Blood Moderate H (Negative) Ur Leukocyte Esterase Moderate H (Negative) Urine RBC 11 H (0-5) /hpf Urine WBC 6 H (0-5) /hpf Amorphous Sediment Rare H (None) /hpf Urine Bacteria Rare H (None) /hpf Urine Mucus Rare H (None) /hpf 09/23/20 09/23/20 09/23/20 Range/Units 16:36 17:12 18:11 RBC (4.30-5.90) m/uL Hgb (13.0-17.5) gm/dL Hct (39.0-53.0) % Plt Count (150-450) k/uL Sodium (137-145) mmol/L BUN (9-20) mg/dL Creatinine (0.66-1.25) mg/dL Glucose (74-99) mg/dL POC Glucose (mg/dL) 102 H 124 H 128 H (75-99) mg/dL Calcium (8.4-10.2) mg/dL AST (17-59) U/L ALT (4-49) U/L Alkaline Phosphatase (38-126) U/L Total Protein (6.3-8.2) g/dL Albumin (3.5-5.0) g/dL Urine Blood (Negative) Ur Leukocyte Esterase (Negative) Urine RBC (0-5) /hpf Urine WBC (0-5) /hpf Amorphous Sediment (None) /hpf Urine Bacteria (None) /hpf Urine Mucus (None) /hpf 09/23/20 09/23/20 09/23/20 Range/Units 18:59 20:00 21:18 RBC (4.30-5.90) m/uL Hgb (13.0-17.5) gm/dL Hct (39.0-53.0) % Plt Count (150-450) k/uL Sodium (137-145) mmol/L BUN (9-20) mg/dL Creatinine (0.66-1.25) mg/dL Glucose (74-99) mg/dL POC Glucose (mg/dL) 133 H 131 H 117 H (75-99) mg/dL Calcium (8.4-10.2) mg/dL AST (17-59) U/L ALT (4-49) U/L Alkaline Phosphatase (38-126) U/L Total Protein (6.3-8.2) g/dL Albumin (3.5-5.0) g/dL Urine Blood (Negative) Ur Leukocyte Esterase (Negative) Urine RBC (0-5) /hpf Urine WBC (0-5) /hpf Amorphous Sediment (None) /hpf Urine Bacteria (None) /hpf Urine Mucus (None) /hpf 09/24/20 09/24/20 09/24/20 Range/Units 00:02 03:16 03:20 RBC 2.35 L (4.30-5.90) m/uL Hgb 7.2 L (13.0-17.5) gm/dL Hct 20.5 L (39.0-53.0) % Plt Count 114 L (150-450) k/uL Sodium (137-145) mmol/L BUN (9-20) mg/dL Creatinine (0.66-1.25) mg/dL Glucose (74-99) mg/dL POC Glucose (mg/dL) 113 H 118 H (75-99) mg/dL Calcium (8.4-10.2) mg/dL AST (17-59) U/L ALT (4-49) U/L Alkaline Phosphatase (38-126) U/L Total Protein (6.3-8.2) g/dL Albumin (3.5-5.0) g/dL Urine Blood (Negative) Ur Leukocyte Esterase (Negative) Urine RBC (0-5) /hpf Urine WBC (0-5) /hpf Amorphous Sediment (None) /hpf Urine Bacteria (None) /hpf Urine Mucus (None) /hpf 09/24/20 09/24/20 09/24/20 Range/Units 03:20 05:56 06:57 RBC (4.30-5.90) m/uL Hgb (13.0-17.5) gm/dL Hct (39.0-53.0) % Plt Count (150-450) k/uL Sodium 136 L (137-145) mmol/L BUN 66 H (9-20) mg/dL Creatinine 5.05 H (0.66-1.25) mg/dL Glucose 107 H (74-99) mg/dL POC Glucose (mg/dL) 150 H 139 H (75-99) mg/dL Calcium 7.5 L (8.4-10.2) mg/dL AST 269 H (17-59) U/L ALT 265 H (4-49) U/L Alkaline Phosphatase 216 H (38-126) U/L Total Protein 4.5 L (6.3-8.2) g/dL Albumin 2.8 L (3.5-5.0) g/dL Urine Blood (Negative) Ur Leukocyte Esterase (Negative) Urine RBC (0-5) /hpf Urine WBC (0-5) /hpf Amorphous Sediment (None) /hpf Urine Bacteria (None) /hpf Urine Mucus (None) /hpf 09/24/20 09/24/20 Range/Units 07:55 11:54 RBC (4.30-5.90) m/uL Hgb (13.0-17.5) gm/dL Hct (39.0-53.0) % Plt Count (150-450) k/uL Sodium (137-145) mmol/L BUN (9-20) mg/dL Creatinine (0.66-1.25) mg/dL Glucose (74-99) mg/dL POC Glucose (mg/dL) 159 H 121 H (75-99) mg/dL Calcium (8.4-10.2) mg/dL AST (17-59) U/L ALT (4-49) U/L Alkaline Phosphatase (38-126) U/L Total Protein (6.3-8.2) g/dL Albumin (3.5-5.0) g/dL Urine Blood (Negative) Ur Leukocyte Esterase (Negative) Urine RBC (0-5) /hpf Urine WBC (0-5) /hpf Amorphous Sediment (None) /hpf Urine Bacteria (None) /hpf Urine Mucus (None) /hpf Assessment and Plan Assessment: 1. Symptomatic multivessel CAD; status post CABG 4; POD # 3 2. Postop mediastinal bleed, likely due to an aortic tear. 3. Hypertension/Hypotension, likely cardiogenic in nature 4. Acute hypoxic respiratory failure 5. Hyperlipidemia 6. Diabetes mellitus 7. Recent COVID-19 pneumonia 8. Acute renal injury 9. Abdominal distention/ileus Recommend 60 mg of Lasix IV 1 to improve urine output. Avoid nephrotoxic agents. Please clear this with cardiothoracic surgery. Obtain a film of the abdomen in regards to his ileus Monitor the output from the chest tubes Monitor the hemoglobin level Monitor hemodynamics and no pressors for now Continue insulin drip for blood sugar control @ 5U/hr Allow clear liquid diet
[2020-09-24 20:10] LABS: Glucose,Whole Blood 106 mg/dL (75-99)
[2020-09-24] MEDS: SENNOSIDES-DOCUSATE SODIUM 1 EACH TAB PO SCH (20:17)
[2020-09-24] MEDS: METOPROLOL TARTRATE 25 MG TAB PO SCH (20:17)
[2020-09-25] MEDS: INSULIN ASPART (NovoLOG) 100 UNIT/ML VIAL SQ SCH ×6 (03:42→19:57)
[2020-09-25] MEDS: HEPARIN SODIUM,PORCINE/PF 5,000 UNIT/0.5 ML SYRINGE SQ SCH ×3 (03:57→16:10)
[2020-09-25] MEDS: HYDROcodone/APAP 5-325MG 1 EACH TAB PO PRN (03:57)
[2020-09-25 04:08] LABS: Basophils % (A) 0 %; Eosinophils # (A) 0.2 k/uL (0-0.7); Eosinophils % (A) 3 %; HCT 20.6 % (39.0-53.0); HGB 7.2 gm/dL (13.0-17.5); Lymphocytes # (A) 1.1 k/uL (1.0-4.8); Lymphocytes % (A) 14 %; MCHC 35.1 g/dL (31.0-37.0); MCV 88.5 fL (80.0-100.0); Mean Platelet Volume 7.2; Monocytes # (A) 0.4 k/uL (0-1.0); Monocytes % (A) 5 %; Neutrophils # (A) 5.7 k/uL (1.3-7.7); Neutrophils % (A) 74 %; Platelet Count 144 k/uL (150-450); RBC 2.33 m/uL (4.30-5.90); RDW 15.4 % (11.5-15.5); WBC 7.8 k/uL (3.8-10.6)
[2020-09-25 04:20] LABS: Albumin 2.9 g/dL (3.5-5.0); Calcium 7.8 mg/dL (8.4-10.2); Potassium 3.9 mmol/L (3.5-5.1); Total Protein 4.8 g/dL (6.3-8.2)
[2020-09-25] MEDS: NOREPINEPHRINE 4 MG in SODIUM CHLORIDE 0.9% 250 ML IV SCH (04:56)
[2020-09-25] MEDS ORDERED: INSULIN DETEMIR (LEVEMIR) 100 UNIT/ML SYR SQ SCH (07:00)
--- NOTE | 2020-09-25 07:09 | XR ---
EXAMINATION TYPE: XR chest 1V portable DATE OF EXAM: 09/25/2020 COMPARISON: Chest x-ray 09/24/2020 HISTORY: Chest tube TECHNIQUE: Single frontal view of the chest is obtained. FINDINGS: Left chest tube is stable, patient is post median sternotomy and left atrial appendage cli p placement. Median sternal drains have been removed. No evident pneumothorax or sizable effusion. Pa tchy basilar density persists. Heart remains enlarged. There are overlying artifacts. IMPRESSION: Probable basilar atelectasis, cardiomegaly
[2020-09-25] MEDS: IPRATROPIUM-ALBUTEROL 3 ML NEB INHALATION SCH ×4 (07:18→20:42)
[2020-09-25 07:43] LABS: Glucose,Whole Blood 149 mg/dL (75-99)
--- NOTE | 2020-09-25 07:55 | P.PN ---
Subjective Progress Note Date: 09/25/20 50-year-old male patient was postop day #1 following four-vessel bypass surgery. The patient had multivessel CAD, symptomatic and the patient underwent his bypass surgery yesterday and postop the patient was hemodynamically stable and the patient was extubated without any major difficulties. The patient postextubation was doing well and he was hemodynamically stable. Probably within few hours following his extubation, he had massive amount of blood coming out of his recent in few and this was estimated to be around 2 L total. At that point, CT surgery was involved and the patient was seen by Dr. Arteaga in the intensive care unit. As he was being evaluated, the patient underwent further hemodynamic instability and the patient became hypotensive and he went into a PEA rhythm and he had a cardiac arrest. He was resuscitated according to the ACLS protocol and he is down time was estimated to be around 10 minutes. Following that, pulse was recovered and the patient was taken to the operating room where a surgical evaluation was done. The patient underwent a mediastinal exploration and control of bleeding was achieved, source being a questionable slits opening at the aortic wall and according to the surgical opinion, this was possibly related to mechanical injury from a wire suture. In any rate, control of bleeding was achieved and the patient was brought back today intensive care unit at around 3 AM. This morning, the patient is sedated with propofol and the patient is calm and comfortable and performed running at 45 mg/kg/m. He was apparently moving his extremities after he arrived from the operating room. A sedation holiday will be given to him at a later stage today. This morning, he remains on a mechanical ventilator currently is an assist- control mode at the rate of 12 with a tidal volume of 550 FiO2 of 60% with a PEEP of 8. Blood gas showed a pH of 7.37 with a pCO2 of 48 and pO2 of 83. Based on that, increased respiratory rate up to 18. The chest x-ray shows no complications. The patient has 2 mediastinal chest tubes and left pleural chest tube. There are some atelectatic changes in lung bases bilaterally. Otherwise ET tube is in a good location and [place]-Jt catheter is also in good location. Meanwhile, the patient has received a total of 4 units of packed RBC and hemoglobin today is at 10.2. The chest tubes are still draining minimal amount of serosanguineous/bloody drainage is output is minimal at this point and there is no evidence of any air leak. The patient is hemodynamically requiring pressors and the patient is currently on norepinephrine infusion running at 0.1 mg/kg per minute. . He is also on vasopressin as physiologic dose of 0.03 units per hour and the patient is also on milrinone at 0.1 mg/kg per minute. Cardiac index is at 2.3 with an output of 5.0. Pulmonary artery pressures are 32/17 and his CVP is at 10. The patient is producing adequate urine output. Her recent cardiac rhythm is sinus with a rate of 70. He has a VVI backup pacer at 15. He is also on insulin drip at 2 units an hour. The patient is a 50-year-old male patient who is postop from coronary artery bypass surgery and the patient is postop day #2 following four-vessel bypass. He remains intubated on a mechanical ventilator due to the complications that occurred postop. Fortunately, the patient has done extremely well. The patient this morning is on sedation on propofol which is running at 60 mg/kg/m. Hemodynamically the patient is improved and the patient is currently off vasopressin and he is also off levo fed has been off the pressors for the past 5-6 hours. Meanwhile, the patient's blood pressure currently is well maintained and the patient was started on low-dose beta blockers. He was started on metoprolol 12.5 mg by mouth twice a day. Meanwhile, he developed an acute kidney injury. Creatinine is up to 2.96. However, the patient is making adequate urine output in order of 20-30 mL an hour. IV fluids are running in the form of an art at the rate of 50 mL an hour. In terms of neurologic functions, a sedation holiday will be given and we'll assess the patient's underlying mental status. He was moving extremities even while being sedated yesterday. In terms of his respiratory status, he remains on a mechanical ventilator. Assist-control mode at the rate of 18 with a tidal volume of 550 and FiO2 of 50% with a PEEP of 8. His blood gases from today shows a pH of 7.48 with a pCO2 of 41 and pO2 of 84. The chest x-ray from today is showing adequate expansion of both lungs. Mediastinal and left pleural chest tubes are in place. ET tube is in a good location. The patient has his [place]-Jt catheter and OG tube is also in the stomach. No evidence of any pneumothorax. Output from the chest tubes are minimal and there is no evidence of any air leak. No evidence of any bleed. Hemoglobin stable after being transfused with a total of 4 units of packed RBC. Currently is at 8.6. Platelet count is 74. Unfortunately there is an acute kidney injury that has evolved with a creatinine of 2.95. N evertheless, the patient is nonoliguric. Hemodynamic parameters indicate a cardiac output of 8.1 with an index of 3.6 and the patient is currently off milrinone. Afebrile. Remains nothing by mouth still. On 09/23/2020 the patient is postop day #3. He was successfully weaned off the mechanical ventilated and was extubated yesterday without any major difficulties and the patient is currently on oxygen on 4 L per minute nasal cannula. Chest x-ray from today showing a very tiny apical left-sided pneumothorax. There is a left-sided chest tube. There is a mediastinal chest tube. No signs of any significant fluid overload. Postsurgical changes are atelectatic changes in lung bases bilaterally. Meanwhile, the patient's pleural chest tube has drained 130 mL over the past 8 hours 8 hours and 330 mL over the past 24 hours as for the mediastinal chest tube, it has drained around 88 mL over the past 8 hours and the on the 30 mL over the past 24 hours. Urine output is no order of 20-30 mL an hour. Noted the patient has developed an acute kidney injury due to hemodynamic instability that occurred postop. His creatinine is up to 4.42 with a BUN of 54. Serum bicarb is a 28 and the sodium level is at 138. Nephrology has been consulted. Cao catheter is in place. We are avoiding any nephrotoxic agents at this point is time. Also, this morning, it was noted that his abdomen is quite distended. He has developed some degree of ileus. He has tympanic abdomen. Bowel sounds are extremely hypo-active. He claims that he is passing some flatus. No nausea. No emesis. No abdominal pain. No signs of any sepsis. Lactic acid levels have been ordered. Apply some of the abdomen is also been ordered. Hemoglobin from today is at 7.2. No signs of any acute bleed. Platelet count is 79 and compared to yesterday day #essentially stable. Hemodynamically stable. He is currently off milrinone. Off vasopressin. Off norepinephrine. He is using incentive spirometer. He is pulling approximately 500 mL on his RIS. No other significant events overnight. Neurologically is intact. No focal neurological deficit. Is awake and alert and oriented 3. He has developed some mild transaminitis probably secondary to hypotension and cardiac arrest and shock that occurred postop. 09/24/2020, the patient is postop day #4. He remains extubated. Currently on oxygen at 3 L per minute. Chest x-ray showing pulmonary vessel congestion and small effusions. There is left-sided chest tube in place and output has been in the order of 121 20 mL over the past 8 hours and 250 over the past 24 hours. The mediastinal chest tubes are in order of 25 mL drainage over the past 8 hours and 50 mL over the past 24 hours. He is awake and alert and moving and following commands and answering questions. No respiratory difficulties. Abdomen is still distended and the patient has an underlying ileus. He is passing flatus. He is tolerating clear liquid diet and some chips. Drinking water. No bowel movement activity yet. Bowel sounds are present and they're hypoactive. No nausea. No emesis. No chest pain. Pain is under adequate control. He is on no pressors for now. He is an acute kidney injury. Patient has developed an ATN in the creatinine is up to 5.05. Nevertheless, the patient is nonoliguric. He is producing urine output in the order of 575 570 fasting over the past 8 hours. His net fluid balance is negative over the past 24 hours. Note that he received a dose of Lasix 60 mg IV push yesterday. Nephrology has been seeing the patient and the patient is on no nephrotoxic agents at this point in time. Still using incentive spirometer. Pulling approximately 7 52,000 on his RIS. Liver function tests are also improving. Sodium level today is at 136 and the white cell count is at 9.7 with hemoglobin of 7.2. Platelet counts are improving and then up to 114. He is cardiac rhythm is sinus D5 in the mid 80s. No other significant events overnight. Ambulating yesterday 09/25/2020, the patient is postop day #5. The patient is calm and comfortable sitting up on a chair. Abdomen is still distended. The patient is having bowel movement and lites. The patient is currently on 2 L by nasal cannula with a pulse ox of 95.. Chest x-ray from today: CXR is showing atelectatic changes in lung bases along with some cardiomegaly. Chest tubes have been all removed yesterday. Using incentive spirometer. Hemoglobin today is at 7.2 with a white cell count of 7.8. In terms of her renal failure, the patient's BUN is a 77 with a creatinine of 4.82. No significant electrolyte disturbance. Shock liver is improving. The patient continues to produce adequate amount of urine output. ThePatient received a dose of Lasix yesterday. No fluid balance is -1.3 L over the past 24 hours. Objective - Vital Signs Vital signs: Vital Signs Temp 98.5 F 09/25/20 04:00 Pulse 93 09/25/20 07:00 Resp 15 09/25/20 07:00 BP 134/73 09/25/20 07:00 Pulse Ox 95 09/25/20 07:00 Intake & Output 09/24/20 09/25/20 09/25/20 18:59 06:59 18:59 Intake Total 276.127 520 Output Total 1035 755 Balance -758.873 -235 Weight 114.8 kg 113.6 kg Intake: IV 130 20 0.9NS flush 30 20 Lactated Ringers 1,000 ml 100 @ 20 mls/hr IV .Q24H NITZA Rx#:[id number] Intake, IV Titration 6.127 Amount Insulin Regular 100 unit 6.127 In Sodium Chloride 0.9% 100 ml @ Per Protocol IV .Q0M NITZA Rx#:[id number] Oral 140 500 Output: Chest Tube Drainage 115 120 Chest Tube Mediastinal 20 Left 95 120 Urine 920 635 Other: Voiding Method Indwelling Catheter Urinal # Voids 1 1 # Bowel Movements 1 ABP, PAP, CO, CI - Last Documented Arterial Blood Pressure 113/50 Pulmonary Artery Pressure 29/7 Cardiac Output 7.4 Cardiac Index 3.3 - Exam GENERAL EXAM: Sedated, intubated, 50-year-old white male, extubated on 3 L per minute nasal cannula HEAD: Normocephalic/atraumatic. EYES: Normal reaction of pupils, equal size. Conjunctiva pink, sclera white. NOSE: Clear with pink turbinates. THROAT: No erythema or exudates. NECK: No masses, no JVD, no thyroid enlargement, no adenopathy. CHEST: No chest wall deformity. Symmetrical expansion. Midsternal incision is clean dry and intact, She is to have a left pleural chest tube in place. Output has been in the order of 120 throughout the night so 120 throughout the night LUNGS: Equal air entry with no crackles, wheeze, rhonchi or dullness. CVS: Regular rate and rhythm, normal S1 and S2, no gallops, no murmurs, no rubs ABDOMEN: Soft, nontender. No hepatosplenomegaly, normal bowel sounds, no guarding or rigidity. Abdomen is distended and the patient is tympanic and has hypoactive bowel sounds EXTREMITIES: No clubbing, no edema, no cyanosis, 2+ pulses and upper and lower extremities. Left radial artery harvest site is covered with a surgical dressing MUSCULOSKELETAL: Muscle strength and tone normal. SPINE: No scoliosis or deformity SKIN: No rashes CENTRAL NERVOUS SYSTEM: Alert and oriented 3, no focal neurological deficit - Labs CBC & Chem 7: 09/25/20 03:39 09/25/20 03:39 Labs: Abnormal Lab Results - Last 24 Hours (Table) 09/24/20 09/24/20 09/24/20 Range/Units 07:55 11:54 15:55 RBC (4.30-5.90) m/uL Hgb (13.0-17.5) gm/dL Hct (39.0-53.0) % Plt Count (150-450) k/uL Sodium (137-145) mmol/L BUN (9-20) mg/dL Creatinine (0.66-1.25) mg/dL POC Glucose (mg/dL) 159 H 121 H 119 H (75-99) mg/dL Calcium (8.4-10.2) mg/dL AST (17-59) U/L ALT (4-49) U/L Alkaline Phosphatase (38-126) U/L Total Protein (6.3-8.2) g/dL Albumin (3.5-5.0) g/dL 09/24/20 09/25/20 09/25/20 Range/Units 20:08 03:39 03:39 RBC 2.33 L (4.30-5.90) m/uL Hgb 7.2 L (13.0-17.5) gm/dL Hct 20.6 L (39.0-53.0) % Plt Count 144 L (150-450) k/uL Sodium 136 L (137-145) mmol/L BUN 77 H (9-20) mg/dL Creatinine 4.85 H (0.66-1.25) mg/dL POC Glucose (mg/dL) 106 H (75-99) mg/dL Calcium 7.8 L (8.4-10.2) mg/dL AST 133 H (17-59) U/L ALT 170 H (4-49) U/L Alkaline Phosphatase 266 H (38-126) U/L Total Protein 4.8 L (6.3-8.2) g/dL Albumin 2.9 L (3.5-5.0) g/dL 09/25/20 Range/Units 07:42 RBC (4.30-5.90) m/uL Hgb (13.0-17.5) gm/dL Hct (39.0-53.0) % Plt Count (150-450) k/uL Sodium (137-145) mmol/L BUN (9-20) mg/dL Creatinine (0.66-1.25) mg/dL POC Glucose (mg/dL) 149 H (75-99) mg/dL Calcium (8.4-10.2) mg/dL AST (17-59) U/L ALT (4-49) U/L Alkaline Phosphatase (38-126) U/L Total Protein (6.3-8.2) g/dL Albumin (3.5-5.0) g/dL Assessment and Plan Plan: #1. Symptomatic multivessel coronary artery disease, status post four-vessel coronary artery bypass grafting with BASHIR to the LAD, radial artery graft to the ramus, SVG to OM, and SVG to PLV, with bilateral legs endoscopic vein harvest, exclusion of the left atrial appendage and intraoperative transesophageal echocardiogram, postop day #5 #2. Postop mediastinal bleed, likely due to an aortic tear. The patient lost at least 2 L of blood to the mediastinal chest tube. The patient received a total of 4 units of packed RBC. During the course of his bleed, the patient sustained a cardiac arrest with a downtime of around 10 minutes. Currently is intubated on a mechanical ventilator. He had a mediastinal exploration and control of bleed and the patient is postop day #4 following a redo sternotomy and exploration. The patient is told to have an aortic leak where there was a pinpoint function and aortic wall that was identified and was oversewn. No signs of any active bleeding and the patient is hemodynamically stable with a minimal amount of output from his chest tubes at this point in time. #3. Hypotension, likely cardiogenic in nature, recovered . #4. Acute hypoxic respiratory failure secondary to above-mentioned events. Currently on 3 L of oxygen by nasal cannula. No signs of any anoxic encephalopathy. #5. 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 Hypertension #7. Diabetes mellitus, on Levemir insulin at 24 units and the patient is adequately covered with blood sugar #8. Hyperlipidemia #9. Chronic neck pain #10 Recent history of COVID-19 pneumonia in June 2020 #11 blood loss anemia currently hemoglobin is at 7.2 12 acute kidney injury in the creatinine is stable at 4.8. #13 abdominal distention most likely secondary to ileus, stable received a Dulcolax suppository and the patient is producing stools. #14 mild transaminitis, probably related to a component of shock liver , improving Plan: Increase mobility and ambulation Monitor the bowel activity Incentive spirometer Levemir insulin Monitor renal function and creatinine is stable, slightly improved compared to yesterday May need to remove the left-sided chest tube. Monitor the hemoglobin level Monitor hemodynamics and no pressors for now . We'll continue to follow make further recommendations regarding the care of this patient.
[2020-09-25] MEDS ORDERED: FUROSEMIDE 10 MG/ML 10 ML VIAL IV STA (10:01)
[2020-09-25] MEDS: CLOPIDOGREL 75 MG TAB PO SCH ×2 (10:19→10:20)
[2020-09-25] MEDS: ASPIRIN 81 MG PO SCH (10:19)
[2020-09-25] MEDS: INSULIN DETEMIR (LEVEMIR) 100 UNIT/ML SYR SQ SCH (10:19)
[2020-09-25] MEDS: METOPROLOL TARTRATE 25 MG TAB PO SCH ×2 (10:20→19:59)
[2020-09-25] MEDS: PANTOPRAZOLE 40 MG TABLET PO SCH (10:20)
[2020-09-25] MEDS: ATORVASTATIN 40 MG TAB PO SCH (10:24)
--- NOTE | 2020-09-25 10:50 | P.PN ---
Subjective Progress Note Date: 09/25/20 Principal diagnosis: Coronary artery disease with left main disease. Past medical history significant for unstable angina, hypertension, hyperlipidemia, recent Covid infection in July 2020, previous tobacco dependence, rare alcohol usage. POD #5 coronary artery bypass grafting 4 vessels, left internal mammary artery to left anterior descending artery, radial artery to the ramus coronary artery, a reverse greater saphenous vein graft to the distal obtuse marginal coronary artery, a reverse greater saphenous vein graft to the posterior lateral branch of the right coronary artery, endoscopic harvesting of the bilateral greater saphenous veins, endoscopic harvesting of the left radial artery, ligation of the left atrial appendage using a 35 mm AtriClip, intraoperative transesophageal echocardiogram and epi-aortic scanning. Witnessed cardiac arrest with brief CPR and subsequent ROSC. Postoperative acute blood loss anemia with return to the OR for mediastinal exploration with control of postop bleed, unexpected. Postoperative hypotension requiring pressor support, expected due to above. Acute lactic acidosis, secondary to above. Elevated transaminases, likely due to hypoperfusion, improving. LEONEL, likely due to hypoperfusion. The patient is seen in follow-up today 09/25/2020 at his bedside in the intensive care unit. Currently he is sitting up to the bedside chair, is awake, alert and oriented 3 and is in no apparent acute distress. He denies any complaints of pain, although continues to complain of some shortness of breath with ambulating. He reports it seems to be getting easier ambulating each day in the hallway. Currently he is on on 2 L nasal cannula with oxygen saturation is 97%. He is achieving 1000 mL on his incentive spirometry with much encouragement. Mediastinal chest tubes were removed yesterday without incident. Left pleural chest tube remain in place to low continuous wall suction -20 cm H2O. No air leak is present. Left pleural chest tube is draining thin serosanguineous drainage with 70 mL output last 8 hours and 200 mL output in the last 24 hours. Bedside telemetry showing normal sinus rhythm heart rate 94 BPM. He remains hemodynamically stable and is currently on no inotropic or pressor support. Laboratory results this morning show a WBC count 7.8, hemoglobin 7.2, platelet 144, BUN 77, creatinine 4.85, AST 133 and ALT 170. We are continuing to avoid nephrotoxic agents. The patient's abdomen remains slightly distended, with active bowel sounds. The patient reports that he had 2 bowel movements chest her day. Continues to tolerate a clear liquid diet. Denies any nausea or vomiting. He reports he has ambulated in the intensive care unit hallway yesterday 3 with minimal assistance from nursing and therapy staff. He is complaining of voiding small amounts of urine and having some frequency. Remains afebrile the last 24 hours. Objective - Vital Signs Vital signs: Vital Signs Temp 98.2 F 09/25/20 08:00 Pulse 93 09/25/20 10:00 Resp 19 09/25/20 10:00 BP 105/86 09/25/20 10:00 Pulse Ox 95 09/25/20 10:00 Intake & Output 09/24/20 09/25/20 09/25/20 18:59 06:59 18:59 Intake Total 276.127 520 100 Output Total 1035 755 290 Balance -758.873 -235 -190 Weight 114.8 kg 113.6 kg Intake: IV 130 20 0.9NS flush 30 20 Lactated Ringers 1,000 ml 100 @ 20 mls/hr IV .Q24H NITZA Rx#:[id number] Intake, IV Titration 6.127 Amount Insulin Regular 100 unit 6.127 In Sodium Chloride 0.9% 100 ml @ Per Protocol IV .Q0M NITZA Rx#:[id number] Oral 140 500 100 Output: Chest Tube Drainage 115 120 20 Chest Tube Mediastinal 20 Left 95 120 20 Urine 920 635 270 Other: Voiding Method Indwelling Catheter Urinal Urinal # Voids 1 1 # Bowel Movements 1 ABP, PAP, CO, CI - Last Documented Arterial Blood Pressure 113/50 Pulmonary Artery Pressure 29/7 Cardiac Output 7.4 Cardiac Index 3.3 - Exam CONSTITUTIONAL: Sitting up to the bedside chair in the intensive care unit, appears comfortable, cooperative, no apparent acute distress. HEENT: Neck is supple, no JVD, no lymphadenopathy. RESPIRATORY: Lungs sounds essentially clear throughout, diminished to his bilateral bases. Respirations are symmetrical and nonlabored. Currently on 2 L nasal cannula with oxygen saturations 97%. Able to achieve 1000 mL on his incentive spirometry. Strong cough. CARDIOVASCULAR: Regular rhythm and rate. S1 and S2 present, negative for S3, gallop or murmur. Sternum is stable. Bedside telemetry showing normal sinus rhythm heart rate 94 BPM. Palpable peripheral pulses bilaterally, +2 generalized edema. No calf pain or tenderness noted. Heart hugger in place with patient demonstrating appropriate use. Knee-high NOEL hose and sequential compression devices in place to his bilateral lower extremities. GASTROINTESTINAL: Abdomen soft, nontender, and slightly distended. Active bowel sounds present 4 quadrants. Tolerating clear liquids. Passing flatus. Bowel movement 2 yesterday 09/24/2020. No guarding or rigidity. GENITOURINARY: Continues to void, clear yellow urine. Output 265 mL in the last 8 hours. INTEGUMENTARY: Skin is warm and dry with evidence of good perfusion. Midline sternal incision clean dry and well approximated, covered with dry intact dressing. Bilateral lower extremity EVH sites well approximated without redness or drainage. Left arm radial artery harvest sites clean, dry and approximated. No drainage or redness is present. NEUROLOGIC: Cranial nerves II through XII intact. No focal deficits. MUSKULOSKELETAL: Able to move all extremities, strength equal bilaterally, g eneralized weakness. PSYCHIATRIC: Alert and oriented to person place and time, appropriate affect, intact judgment and insight. INVASIVE LINES AND TUBES: Left pleural chest tube present and connected to low continuous wall suction, no air leaks present. Left pleural chest tube with 70 mL of thin serosanguineous drainage overnight, 200 mL output in the last 24 hours. Atrial and ventricular epicardial pacemaker wires present, and grounded. - Labs CBC & Chem 7: 09/25/20 03:39 09/25/20 03:39 Labs: Abnormal Lab Results - Last 24 Hours (Table) 09/24/20 09/24/20 09/24/20 Range/Units 11:54 15:55 20:08 RBC (4.30-5.90) m/uL Hgb (13.0-17.5) gm/dL Hct (39.0-53.0) % Plt Count (150-450) k/uL Sodium (137-145) mmol/L BUN (9-20) mg/dL Creatinine (0.66-1.25) mg/dL POC Glucose (mg/dL) 121 H 119 H 106 H (75-99) mg/dL Calcium (8.4-10.2) mg/dL AST (17-59) U/L ALT (4-49) U/L Alkaline Phosphatase (38-126) U/L Total Protein (6.3-8.2) g/dL Albumin (3.5-5.0) g/dL 09/25/20 09/25/20 09/25/20 Range/Units 03:39 03:39 07:42 RBC 2.33 L (4.30-5.90) m/uL Hgb 7.2 L (13.0-17.5) gm/dL Hct 20.6 L (39.0-53.0) % Plt Count 144 L (150-450) k/uL Sodium 136 L (137-145) mmol/L BUN 77 H (9-20) mg/dL Creatinine 4.85 H (0.66-1.25) mg/dL POC Glucose (mg/dL) 149 H (75-99) mg/dL Calcium 7.8 L (8.4-10.2) mg/dL AST 133 H (17-59) U/L ALT 170 H (4-49) U/L Alkaline Phosphatase 266 H (38-126) U/L Total Protein 4.8 L (6.3-8.2) g/dL Albumin 2.9 L (3.5-5.0) g/dL Assessment and Plan Assessment: 1. Coronary artery disease with left main disease, status post four-vessel CABG 2. Unstable angina 3. History of hypertension 4. Hyperlipidemia 5. Recent Covid infection in July 2020 6. Previous tobacco dependence 7. Rare alcohol usage 8. Witnessed cardiac arrest with brief CPR and subsequent ROSC 9. Postoperative acute blood loss anemia with return to the OR for mediastinal exploration with control of postop bleed 10. Postoperative hypotension requiring pressor support, currently off pressors 11. Acute lactic acidosis, resolved 12. Elevated transaminases enzymes due to hypoperfusion, improving, AST 133 and ALT 170 today 13. LEONEL due to hypoperfusion, BUN and creatinine improving 14. Diabetes mellitus with a preoperative hemoglobin A1c 6.2% 15. Abdominal distention, secondary to ileus, improving 2 bowel movements yesterday 09/24/2020 Plan: 1. Continue low-dose aspirin, Plavix and metoprolol tartrate. Continue Metoprolol tartrate 25 mg by mouth twice a day. Increase metoprolol tartrate as tolerated. 2. Wean oxygen as tolerated. Encourage use of incentive spirometry 10 times every hour while awake. Bronchodilators per pulmonology/critical care medicine. 3. Will monitor daily labs and chest x-rays. Electrolyte replacement per protocol. No further transfusions at this time. 4. GI/DVT prophylaxis. 5. Increase activity as tolerated. PT/OT/cardiac rehab following. 6. Atorvastatin 40 mg by mouth daily as liver enzymes are trending down. 7. Insulin management per primary care service. Patient is borderline pre-diabetic, preoperative hemoglobin A1c 6.2%. 8. Pain control current medication regimen. Discontinue Maurepas. 9. Avoid nephrotoxic agents due to his elevated BUN and creatinine. 10. Lasix 60 mg IV 1 now per nephrology recommendations. 11. Left pleural chest tube removed without incident. 12. Bladder scan every 6 hours and when necessary. Check postvoid residual, strict inaccurate I's and O's. Daily weights. 13. Keep atrial and ventricular epicardial pacemaker wires in place and grounded. Anticipate removal of atrial and ventricular epicardial pacemaker wires tomorrow 09/26/2020. 14. More recommendations to follow based on patient's clinical course. Time with Patient: Greater than 30
--- NOTE | 2020-09-25 11:02 | P.PN ---
Subjective Symptomatic multivessel CAD, status post CABG x 4 Postop mediastinal bleed, likely due to an aortic tear Acute hypoxic respiratory failure 09/23/2020 the patient is seen and evaluated in ICU; postop day #3. He was successfully weaned off the mechanical ventilated and was extubated yesterday; currently on oxygen on 4 L per minute nasal cannula. Chest x-ray from today showing a very tiny apical left-sided pneumothorax. There is a left-sided chest tube and a mediastinal chest tube in place. No signs of any significant fluid overload. Please refer to pulmonary's note for amount of drainage through chest and media stinotomy to Acute kidney injury due to hemodynamic instability that occurred postop. His creatinine is up to 4.42 with a BUN of 54. Serum bicarb is a 28 and the sodium level is at 138. Nephrology has been consulted. Cao catheter is in place. No signs of any sepsis. Lactic acid levels have been ordered. Hemoglobin from today is at 7.2. No signs of any acute bleed. Platelet count is 79 and compared to yesterday day #essentially stable. Hemodynamically stable. He is currently off milrinone. He is using incentive spirometer. Neurologically is intact. No focal neurological deficit. Is awake and alert and oriented 3. He has developed some mild transaminitis probably secondary to hypotension and cardiac arrest and shock that occurred postop. 09/24/2020 Patient is seen and evaluated in ICU; postop day #4. He remains on oxygen at 3 L per minute. Patient is awake and alert; denies any specific complaints; patient is passing flatus Chest x-ray showing pulmonary vessel congestion and small effusions. There is left-sided chest tube in place and mediastinal chest tubes. Abdomen is still distended and the patient has an underlying ileus; tolerating clear liquid diet and some chips. Bowel sounds are present and they're hypoactive; no bowel movement. Pain is under adequate control. Patient has developed an ATN in the creatinine is up to 5.05; nonoliguric. Patient received a dose of Lasix 60 mg IV push yesterday. Nephrology has been seeing the patient and the patient is on no nephrotoxic agents at this point in time. Still using incentive spirometer. Sodium level today is at 136 and the white cell count is at 9.7 with hemoglobin of 7.2. Platelet counts are improving and then up to 114. Patient received another dose of Lasix 60 mg IV 1; continue to monitor output from chest tube and mediastinal tube; hemoglobin is borderline; we will continue to monitor closely Patient is started on clear liquid diet; we will continue to monitor Accu-Cheks every before meals and at bedtime; remains on IV insulin infusion Subjective: 09/25/2020 This is a pleasant 50 years old male with severe quadruple vessel coronary artery disease, status post bypass graft with BASHIR to the LAD. Today postop day #5. Recent was sitting in chair in the ICU complaining from pain and surgical site, no dyspnea or coughing. He is eating diet well, he has regular bowel movements. Vital signs stable and he is saturating 95% on 2 L oxygen via nasal cannula. CBC is normal with hemoglobin stable at 7.2 dropped from 9.5-10.2 upon admission, most likely blood loss anemia secondary to surgery. Creatinine is elevated at 4.8 compared to 0.8 prior to surgery, nephrology team on the case, patient had a GI secondary to [place] tension and anemia and he has oliguria but responded to Lasix, he has good urine output like 455 mL and 270 mL since morning. Chest x-ray: Probable basilar atelectasis, cardiomegaly Currently patient is on amiodarone, aspirin, Plavix, metoprolol Objective - Vital Signs Vital signs: Vital Signs Temp 98.2 F 09/25/20 08:00 Pulse 93 09/25/20 10:00 Resp 19 09/25/20 10:00 BP 105/86 09/25/20 10:00 Pulse Ox 95 09/25/20 10:00 Intake & Output 09/24/20 09/25/20 09/25/20 18:59 06:59 18:59 Intake Total 276.127 520 100 Output Total 1035 755 290 Balance -758.873 -235 -190 Weight 114.8 kg 113.6 kg Intake: IV 130 20 0.9NS flush 30 20 Lactated Ringers 1,000 ml 100 @ 20 mls/hr IV .Q24H NITZA Rx#:[id number] Intake, IV Titration 6.127 Amount Insulin Regular 100 unit 6.127 In Sodium Chloride 0.9% 100 ml @ Per Protocol IV .Q0M NITZA Rx#:[id number] Oral 140 500 100 Output: Chest Tube Drainage 115 120 20 Chest Tube Mediastinal 20 Left 95 120 20 Urine 920 635 270 Other: Voiding Method Indwelling Catheter Urinal Urinal # Voids 1 1 # Bowel Movements 1 ABP, PAP, CO, CI - Last Documented Arterial Blood Pressure 113/50 Pulmonary Artery Pressure 29/7 Cardiac Output 7.4 Cardiac Index 3.3 - Exam GENERAL: The patient is alert and oriented x3, not in any acute distress. Well developed, well nourished. HEENT: Pupils are round and equally reacting to light. EOMI. No scleral icterus. No conjunctival pallor. Normocephalic, atraumatic. No pharyngeal erythema. No thyromegaly. -CARDIOVASCULAR: S1 and S2 present. No murmurs, rubs, or gallops. Central sternal wound is covered with a dressing and healing PULMONARY: Chest is clear to auscultation, no wheezing or crackles. ABDOMEN: Soft, nontender, nondistended, normoactive bowel sounds. No palpable organomegaly. MUSCULOSKELETAL: No joint swelling or deformity. EXTREMITIES: No cyanosis, clubbing, or pedal edema. NEUROLOGICAL: Gross neurological examination did not reveal any focal deficits. SKIN: No rashes. no petechiae. - Labs CBC & Chem 7: 09/25/20 03:39 09/25/20 03:39 Labs: Abnormal Lab Results - Last 24 Hours (Table) 09/24/20 09/24/20 09/24/20 Range/Units 11:54 15:55 20:08 RBC (4.30-5.90) m/uL Hgb (13.0-17.5) gm/dL Hct (39.0-53.0) % Plt Count (150-450) k/uL Sodium (137-145) mmol/L BUN (9-20) mg/dL Creatinine (0.66-1.25) mg/dL POC Glucose (mg/dL) 121 H 119 H 106 H (75-99) mg/dL Calcium (8.4-10.2) mg/dL AST (17-59) U/L ALT (4-49) U/L Alkaline Phosphatase (38-126) U/L Total Protein (6.3-8.2) g/dL Albumin (3.5-5.0) g/dL 09/25/20 09/25/20 09/25/20 Range/Units 03:39 03:39 07:42 RBC 2.33 L (4.30-5.90) m/uL Hgb 7.2 L (13.0-17.5) gm/dL Hct 20.6 L (39.0-53.0) % Plt Count 144 L (150-450) k/uL Sodium 136 L (137-145) mmol/L BUN 77 H (9-20) mg/dL Creatinine 4.85 H (0.66-1.25) mg/dL POC Glucose (mg/dL) 149 H (75-99) mg/dL Calcium 7.8 L (8.4-10.2) mg/dL AST 133 H (17-59) U/L ALT 170 H (4-49) U/L Alkaline Phosphatase 266 H (38-126) U/L Total Protein 4.8 L (6.3-8.2) g/dL Albumin 2.9 L (3.5-5.0) g/dL Assessment and Plan Assessment: 1. Severe multivessel CAD; status post CABG 4; POD # 5 2. Acute kidney injury secondary to hypertension 3. Postop mediastinal bleed, likely due to an aortic tear. Acute blood loss anemia secondary to surgery 4. Acute hypoxic respiratory failure 5. Hyperlipidemia, 6. Diabetes mellitus 7. Recent COVID-19 pneumonia 9. Abdominal distention/ileus, improved 10. Hypertension/Hypotension, likely cardiogenic in nature Plan: This is a pleasant 50 years old male status post bypass surgery of the coronaries with complication of a chaotic. Several consultants on the case in cluding cardiology, cardiothoracic surgery, pulmonary/critical care spool winder. Patient to continue with aspirin, Plavix and metoprolol. And iron pills Monitor liver enzymes. Labs and medication were reviewed.. Continue same treatment. Continue with symptomatic treatment. Resume home medication. Monitor lytes and vitals. DVT and GI prophylaxis. Further recommendationsas per clinical course of the patient DVT prophylaxis: Subcutaneous heparin GI Prophylaxis: Ppi PT/OT: Pending Prognosis is guarded
[2020-09-25 12:13] LABS: Glucose,Whole Blood 99 mg/dL (75-99)
[2020-09-25] MEDS: ACETAMINOPHEN TAB 500 MG TAB PO PRN (12:27)
--- NOTE | 2020-09-25 12:46 | PN ---
PROGRESS NOTE Patient is seen for followup for acute kidney injury. Patient's renal function has improved. Creatinine today is down to 4.8 from 5.0 yesterday. Overall, he states he is feeling better. PHYSICAL EXAMINATION: On examination today, blood pressure 124/80, heart rate 89 per minute, he is afebrile. Examination of the heart S1, S2. Examination of the lungs, decreased breath sounds at the bases. Abdomen is soft, obese. Examination of lower extremities shows edema 1+ bilaterally, upper and lower extremities. WEB DESIGN INSTRUCTOR exam grossly intact. LAB: Show hemoglobin 7.2 sodium 136, potassium 3.9, BUN 77, creatinine 4.8. ASSESSMENT: 1. Acute kidney injury, acute tubular necrosis, currently improving, nonoliguric with volume overload, receiving Lasix almost on a daily basis. I will repeat another dose of IV Lasix today at 60 mg. 2. Volume overload, slowly improving. 3. Status post coronary artery bypass surgery, postop day #5. 4. Postop bleeding, taken back to OR with mediastinal reexploration and control of bleeding. PLAN: Repeat IV Lasix and repeat labs in a.m. Continue to encourage increased oral intake. MMODL / IJN: [id number] /
--- NOTE | 2020-09-25 16:00 | P.PN ---
Subjective Patient is doing well. He looks tired. His hands are puffy His hemoglobin is low 7.2 Vitals are stable He is afebrile Pulse rate in the 80s Normal respirations 14-16 Blood pressure 115/71 mmHg Pulse ox 95% Breath sounds are reduced bilaterally Heart sounds are soft Impression coronary artery disease status post coronary artery bypass grafting Reexploration for mediastinal bleeding Anemia postoperative new procedure Chest tube in situ suggest continue current medications and ICU postoperative care Objective - Vital Signs Vital signs: Vital Signs Temp 98.2 F 09/25/20 12:00 Pulse 82 09/25/20 15:00 Resp 15 09/25/20 15:00 BP 115/71 09/25/20 15:00 Pulse Ox 95 09/25/20 15:00 Intake & Output 09/24/20 09/25/20 09/25/20 18:59 06:59 18:59 Intake Total 276.127 520 200 Output Total 1035 755 970 Balance -758.873 -235 -770 Weight 114.8 kg 113.6 kg Intake: IV 130 20 0.9NS flush 30 20 Lactated Ringers 1,000 ml 100 @ 20 mls/hr IV .Q24H NITZA Rx#:[id number] Intake, IV Titration 6.127 Amount Insulin Regular 100 unit 6.127 In Sodium Chloride 0.9% 100 ml @ Per Protocol IV .Q0M NITZA Rx#:[id number] Oral 140 500 200 Output: Chest Tube Drainage 115 120 20 Chest Tube Mediastinal 20 Left 95 120 20 Urine 920 635 950 Other: Voiding Method Indwelling Catheter Urinal Urinal # Voids 1 1 # Bowel Movements 1 ABP, PAP, CO, CI - Last Documented Arterial Blood Pressure 113/50 Pulmonary Artery Pressure 29/7 Cardiac Output 7.4 Cardiac Index 3.3 - Labs CBC & Chem 7: 09/25/20 03:39 09/25/20 03:39 Labs: Abnormal Lab Results - Last 24 Hours (Table) 09/24/20 09/25/20 09/25/20 Range/Units 20:08 03:39 03:39 RBC 2.33 L (4.30-5.90) m/uL Hgb 7.2 L (13.0-17.5) gm/dL Hct 20.6 L (39.0-53.0) % Plt Count 144 L (150-450) k/uL Sodium 136 L (137-145) mmol/L BUN 77 H (9-20) mg/dL Creatinine 4.85 H (0.66-1.25) mg/dL POC Glucose (mg/dL) 106 H (75-99) mg/dL Calcium 7.8 L (8.4-10.2) mg/dL AST 133 H (17-59) U/L ALT 170 H (4-49) U/L Alkaline Phosphatase 266 H (38-126) U/L Total Protein 4.8 L (6.3-8.2) g/dL Albumin 2.9 L (3.5-5.0) g/dL 09/25/20 Range/Units 07:42 RBC (4.30-5.90) m/uL Hgb (13.0-17.5) gm/dL Hct (39.0-53.0) % Plt Count (150-450) k/uL Sodium (137-145) mmol/L BUN (9-20) mg/dL Creatinine (0.66-1.25) mg/dL POC Glucose (mg/dL) 149 H (75-99) mg/dL Calcium (8.4-10.2) mg/dL AST (17-59) U/L ALT (4-49) U/L Alkaline Phosphatase (38-126) U/L Total Protein (6.3-8.2) g/dL Albumin (3.5-5.0) g/dL
[2020-09-25 16:06] LABS: Glucose,Whole Blood 80 mg/dL (75-99)
[2020-09-25 19:44] LABS: Glucose,Whole Blood 92 mg/dL (75-99)
[2020-09-25] MEDS: SENNOSIDES-DOCUSATE SODIUM 1 EACH TAB PO SCH (19:58)
[2020-09-26 00:22] LABS: Glucose,Whole Blood 103 mg/dL (75-99)
[2020-09-26] MEDS: HEPARIN SODIUM,PORCINE/PF 5,000 UNIT/0.5 ML SYRINGE SQ SCH ×4 (00:23→22:35)
[2020-09-26] MEDS: INSULIN ASPART (NovoLOG) 100 UNIT/ML VIAL SQ SCH ×7 (00:24→23:50)
[2020-09-26 04:29] LABS: Basophils % (A) 0 %; Eosinophils # (A) 0.2 k/uL (0-0.7); Eosinophils % (A) 2 %; HCT 22.2 % (39.0-53.0); HGB 7.3 gm/dL (13.0-17.5); Lymphocytes # (A) 1.1 k/uL (1.0-4.8); Lymphocytes % (A) 11 %; MCH 29.4 pg (25.0-35.0); MCHC 32.9 g/dL (31.0-37.0); MCV 89.1 fL (80.0-100.0); Mean Platelet Volume 7.2; Monocytes # (A) 0.4 k/uL (0-1.0); Monocytes % (A) 4 %; Neutrophils # (A) 7.6 k/uL (1.3-7.7); Neutrophils % (A) 79 %; Platelet Count 197 k/uL (150-450); RBC 2.49 m/uL (4.30-5.90); WBC 9.7 k/uL (3.8-10.6)
[2020-09-26 04:37] LABS: Calcium 7.9 mg/dL (8.4-10.2); Potassium 3.8 mmol/L (3.5-5.1); Total Bilirubin 0.8 mg/dL (0.2-1.3); Total Protein 5.1 g/dL (6.3-8.2)
[2020-09-26 06:35] LABS: Glucose,Whole Blood 100 mg/dL (75-99)
[2020-09-26] MEDS: PANTOPRAZOLE 40 MG TABLET PO SCH (06:50)
[2020-09-26] MEDS: INSULIN DETEMIR (LEVEMIR) 100 UNIT/ML SYR SQ SCH (07:05)
[2020-09-26] MEDS: IPRATROPIUM-ALBUTEROL 3 ML NEB INHALATION SCH ×4 (07:30→20:22)
[2020-09-26 07:56] LABS: Glucose,Whole Blood 139 mg/dL (75-99)
[2020-09-26] MEDS: ASPIRIN 81 MG PO SCH (08:14)
[2020-09-26] MEDS: METOPROLOL TARTRATE 25 MG TAB PO SCH ×2 (08:15→20:05)
[2020-09-26] MEDS: ATORVASTATIN 40 MG TAB PO SCH (08:15)
--- NOTE | 2020-09-26 08:20 | XR ---
EXAMINATION TYPE: XR chest 1V portable DATE OF EXAM: 09/26/2020 COMPARISON: Chest x-ray 09/25/2020 HISTORY: Chest tube removal TECHNIQUE: Single frontal view of the chest is obtained. FINDINGS: Postop changes are again noted, patient is rotated. No evident pneumothorax or pleural eff usion. There are overlying artifacts. Suspect some improvement in aeration at the left lung base. Car diomediastinal silhouette is stable. IMPRESSION: No evident complication status post chest tube removal.
--- NOTE | 2020-09-26 09:11 | P.PN ---
Subjective Symptomatic multivessel CAD, status post CABG x 4 Postop mediastinal bleed, likely due to an aortic tear Acute hypoxic respiratory failure 09/23/2020 the patient is seen and evaluated in ICU; postop day #3. He was successfully weaned off the mechanical ventilated and was extubated yesterday; currently on oxygen on 4 L per minute nasal cannula. Chest x-ray from today showing a very tiny apical left-sided pneumothorax. There is a left-sided chest tube and a mediastinal chest tube in place. No signs of any significant fluid overload. Please refer to pulmonary's note for amount of drainage through chest and media stinotomy to Acute kidney injury due to hemodynamic instability that occurred postop. His creatinine is up to 4.42 with a BUN of 54. Serum bicarb is a 28 and the sodium level is at 138. Nephrology has been consulted. Cao catheter is in place. No signs of any sepsis. Lactic acid levels have been ordered. Hemoglobin from today is at 7.2. No signs of any acute bleed. Platelet count is 79 and compared to yesterday day #essentially stable. Hemodynamically stable. He is currently off milrinone. He is using incentive spirometer. Neurologically is intact. No focal neurological deficit. Is awake and alert and oriented 3. He has developed some mild transaminitis probably secondary to hypotension and cardiac arrest and shock that occurred postop. 09/24/2020 Patient is seen and evaluated in ICU; postop day #4. He remains on oxygen at 3 L per minute. Patient is awake and alert; denies any specific complaints; patient is passing flatus Chest x-ray showing pulmonary vessel congestion and small effusions. There is left-sided chest tube in place and mediastinal chest tubes. Abdomen is still distended and the patient has an underlying ileus; tolerating clear liquid diet and some chips. Bowel sounds are present and they're hypoactive; no bowel movement. Pain is under adequate control. Patient has developed an ATN in the creatinine is up to 5.05; nonoliguric. Patient received a dose of Lasix 60 mg IV push yesterday. Nephrology has been seeing the patient and the patient is on no nephrotoxic agents at this point in time. Still using incentive spirometer. Sodium level today is at 136 and the white cell count is at 9.7 with hemoglobin of 7.2. Platelet counts are improving and then up to 114. Patient received another dose of Lasix 60 mg IV 1; continue to monitor output from chest tube and mediastinal tube; hemoglobin is borderline; we will continue to monitor closely Patient is started on clear liquid diet; we will continue to monitor Accu-Cheks every before meals and at bedtime; remains on IV insulin infusion Subjective: 09/25/2020 This is a pleasant 50 years old male with severe quadruple vessel coronary artery disease, status post bypass graft with BASHIR to the LAD. Today postop day #5. Recent was sitting in chair in the ICU complaining from pain and surgical site, no dyspnea or coughing. He is eating diet well, he has regular bowel movements. Vital signs stable and he is saturating 95% on 2 L oxygen via nasal cannula. CBC is normal with hemoglobin stable at 7.2 dropped from 9.5-10.2 upon admission, most likely blood loss anemia secondary to surgery. Creatinine is elevated at 4.8 compared to 0.8 prior to surgery, nephrology team on the case, patient had a GI secondary to [place] tension and anemia and he has oliguria but responded to Lasix, he has good urine output like 455 mL and 270 mL since morning. Chest x-ray: Probable basilar atelectasis, cardiomegaly Currently patient is on amiodarone, aspirin, Plavix, metoprolol 09/26/2020 Patient is awake and alert, his chest pain as surgical site is better today. He had hands pain yesterday which is better today as he states. Patient denies any specific symptoms. However patient has been having frequent small urination about 2-3 times this morning of 20-25 mL. Patient states he was on Flomax before. We will check a bladder scan and urine analysis. Hemodynamically stable. Hemoglobin stable at 7.3, from 10.2 on admission. Creatinine stable at 4.2. Liver enzymes are trending down. Bilirubin is normal Patient remains on aspirin and Plavix. He got 1 dose of Lasix yesterday per nephrology team. Continue with insulin and metoprolol Objective - Vital Signs Vital signs: Vital Signs Temp 97.7 F 09/26/20 04:00 Pulse 94 09/26/20 07:00 Resp 14 09/26/20 07:00 BP 133/76 09/26/20 07:00 Pulse Ox 87 L 09/26/20 07:00 Intake & Output 09/25/20 09/26/20 09/26/20 18:59 06:59 18:59 Intake Total 300 Output Total 970 950 275 Balance -670 -950 -275 Weight 111.7 kg Intake: Oral 300 Output: Chest Tube Drainage 20 Left 20 Urine 950 950 275 Other: Voiding Method Urinal Urinal ABP, PAP, CO, CI - Last Documented Arterial Blood Pressure 113/50 Pulmonary Artery Pressure 29/7 Cardiac Output 7.4 Cardiac Index 3.3 - Exam GENERAL: The patient is alert and oriented x3, not in any acute distress. Well developed, well nourished. HEENT: Pupils are round and equally reacting to light. EOMI. No scleral icterus. No conjunctival pallor. Normocephalic, atraumatic. No pharyngeal erythema. No thyromegaly. -CARDIOVASCULAR: S1 and S2 present. No murmurs, rubs, or gallops. Central sternal wound is covered with a dressing and healing PULMONARY: Chest is clear to auscultation, no wheezing or crackles. ABDOMEN: Soft, nontender, nondistended, normoactive bowel sounds. No palpable organomegaly. MUSCULOSKELETAL: No joint swelling or deformity. EXTREMITIES: No cyanosis, clubbing, or pedal edema. NEUROLOGICAL: Gross neurological examination did not reveal any focal deficits. SKIN: No rashes. no petechiae. - Labs CBC & Chem 7: 09/26/20 03:35 09/26/20 03:35 Labs: Abnormal Lab Results - Last 24 Hours (Table) 09/26/20 09/26/20 09/26/20 Range/Units 00: 03:35 03:35 RBC 2.49 L (4.30-5.90) m/uL Hgb 7.3 L (13.0-17.5) gm/dL Hct 22.2 L (39.0-53.0) % RDW 16.0 H (11.5-15.5) % BUN 78 H (9-20) mg/dL Creatinine 4.23 H (0.66-1.25) mg/dL POC Glucose (mg/dL) 103 H (75-99) mg/dL Calcium 7.9 L (8.4-10.2) mg/dL AST 114 H (17-59) U/L ALT 134 H (4-49) U/L Alkaline Phosphatase 265 H (38-126) U/L Total Protein 5.1 L (6.3-8.2) g/dL Albumin 3.0 L (3.5-5.0) g/dL 09/26/20 09/26/20 Range/Units 06:33 07:54 RBC (4.30-5.90) m/uL Hgb (13.0-17.5) gm/dL Hct (39.0-53.0) % RDW (11.5-15.5) % BUN (9-20) mg/dL Creatinine (0.66-1.25) mg/dL POC Glucose (mg/dL) 100 H 139 H (75-99) mg/dL Calcium (8.4-10.2) mg/dL AST (17-59) U/L ALT (4-49) U/L Alkaline Phosphatase (38-126) U/L Total Protein (6.3-8.2) g/dL Albumin (3.5-5.0) g/dL Assessment and Plan Assessment: 1. Severe multivessel CAD; status post CABG 4; POD # 5 2. Acute kidney injury secondary to hypertension 3. Postop mediastinal bleed, likely due to an aortic tear. Acute blood loss anemia secondary to surgery 4. Acute hypoxic respiratory failure 5. Hyperlipidemia, 6. Diabetes mellitus 7. Recent COVID-19 pneumonia 9. Abdominal distention/ileus, improved 10. Hypertension/Hypotension, likely cardiogenic in nature Plan: This is a pleasant 50 years old male status post bypass surgery of the coronaries with complication of a chaotic. 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 Patient to continue with aspirin, Plavix and metoprolol. And iron pills Monitor liver enzymes. Labs and medication were reviewed.. Continue same treatment. Continue with symptomatic treatment. Resume home medication. Monitor lytes and vitals. DVT and GI prophylaxis. Further recommendationsas per clinical course of the patient DVT prophylaxis: Subcutaneous heparin GI Prophylaxis: Ppi PT/OT: Pending Prognosis is guarded
--- NOTE | 2020-09-26 09:31 | P.PN ---
Subjective Progress Note Date: 09/26/20 Principal diagnosis: Coronary artery disease with left main disease. Previous medical history of unstable angina, hypertension, hyperlipidemia, recent Covid infection in July 2020, previous tobacco dependence, rare alcohol usage POD #6 coronary artery bypass grafting 4 vessels, left internal mammary artery to left anterior descending artery, radial artery to the ramus artery, reverse saphenous vein graft to the distal obtuse marginal artery, reverse saphenous vein graft to the posterior lateral branch of the right coronary artery, endoscopic harvesting of the bilateral greater saphenous veins, endoscopic harvesting of the left radial artery, ligation of the left atrial appendage using a 35 mm AtriClip, intraoperative transesophageal echocardiogram and epi- aortic scanning Witnessed cardiac arrest with brief CPR and subsequent ROSC Postoperative acute blood loss anemia with return to the OR for mediastinal exploration with control of postop bleed, unexpected Postoperative hypotension requiring pressor support, expected due to above Acute lactic acidosis, secondary to above Elevated transaminases, likely due to hypoperfusion LEONEL, likely due to hypoperfusion Sitting up in a recliner in the intensive care unit in no acute distress. States pain is controlled on current medication regimen, denies shortness of breath. He did ambulate in the hallway yesterday. Actively using incentive spirometer and achieving 1 L. He has been voiding. His only complaint is some weakness in his left foot, does appear to have some evidence of foot drop. He is able to move his foot and walk on it but is unable to dorsiflex the foot. He has been unable to be weaned off oxygen completely, on room air his oxygen saturations are 87-88%, on 1 L nasal cannula his oxygen saturation is 96-98%. Otherwise no new concerns. He remains in sinus rhythm, hemodynamically stable on no inotropes or pressors. Objective - Vital Signs Vital signs: Vital Signs Temp 97.7 F 09/26/20 04:00 Pulse 94 09/26/20 07:00 Resp 14 09/26/20 07:00 BP 133/76 09/26/20 07:00 Pulse Ox 87 L 09/26/20 07:00 Intake & Output 09/25/20 09/26/20 09/26/20 18:59 06:59 18:59 Intake Total 300 Output Total 970 950 275 Balance -670 -950 -275 Weight 111.7 kg Intake: Oral 300 Output: Chest Tube Drainage 20 Left 20 Urine 950 950 275 Other: Voiding Method Urinal Urinal ABP, PAP, CO, CI - Last Documented Arterial Blood Pressure 113/50 Pulmonary Artery Pressure 29/7 Cardiac Output 7.4 Cardiac Index 3.3 - Exam CONSTITUTIONAL: Appears comfortable, cooperative, no acute distress RESPIRATORY: Lungs sounds diminished bilaterally. Respirations even, nonlabored. Currently on 1 L nasal cannula with oxygen saturation 97%. Able to achieve 1000 mL on incentive spirometry. Strong cough. CARDIOVASCULAR: S1, S2 present. Regular rate and rhythm, sinus rhythm on telemetry. Sternum stable. Palpable peripheral pulses bilaterally. Bilateral lower extremity edema present. No calf pain or tenderness noted. Heart hugger in place with patient demonstrating appropriate use. Antiembolism stockings, SCDs present. GASTROINTESTINAL: Abdomen soft, nontender, distended. Active bowel sounds present 4 quadrants. Tolerating clear liquid diet. Positive bowel movement 09/24/20. GENITOURINARY: Continues to void clear, yellow urine. Output overnight 100-250 mL at a time, 1900 mL in the last 24 hours INTEGUMENTARY: Skin is warm and dry with evidence of good perfusion. Anterior chest incision well approximated and covered with dry intact dressing. EVH site well approximated without redness or drainage. Left radial artery harvest site without redness or drainage. NEUROLOGIC: Cranial nerves II through XII intact MUSKULOSKELETAL: Able to move all extremities, strength equal bilaterally, gait normal, appears to have some degree of foot drop in the left foot as he is unable to dorsiflex PSYCHIATRIC: Alert and oriented to person place and time, appropriate affect, intact judgment and insight INVASIVE LINES AND TUBES: A/V epicardial pacemaker wires present, grounded. - Allied health notes Allied health notes reviewed: nursing - Labs CBC & Chem 7: 09/26/20 03:35 09/26/20 03:35 Labs: Abnormal Lab Results - Last 24 Hours (Table) 09/26/20 09/26/20 09/26/20 Range/Units 00:21 03:35 03:35 RBC 2.49 L (4.30-5.90) m/uL Hgb 7.3 L (13.0-17.5) gm/dL Hct 22.2 L (39.0-53.0) % RDW 16.0 H (11.5-15.5) % BUN 78 H (9-20) mg/dL Creatinine 4.23 H (0.66-1.25) mg/dL POC Glucose (mg/dL) 103 H (75-99) mg/dL Calcium 7.9 L (8.4-10.2) mg/dL AST 114 H (17-59) U/L ALT 134 H (4-49) U/L Alkaline Phosphatase 265 H (38-126) U/L Total Protein 5.1 L (6.3-8.2) g/dL Albumin 3.0 L (3.5-5.0) g/dL 09/26/20 09/26/20 Range/Units 06:33 07:54 RBC (4.30-5.90) m/uL Hgb (13.0-17.5) gm/dL Hct (39.0-53.0) % RDW (11.5-15.5) % BUN (9-20) mg/dL Creatinine (0.66-1.25) mg/dL POC Glucose (mg/dL) 100 H 139 H (75-99) mg/dL Calcium (8.4-10.2) mg/dL AST (17-59) U/L ALT (4-49) U/L Alkaline Phosphatase (38-126) U/L Total Protein (6.3-8.2) g/dL Albumin (3.5-5.0) g/dL - Imaging and Cardiology Chest x-ray: report reviewed, image reviewed Assessment and Plan Assessment: 1. Coronary artery disease with left main disease, status post four-vessel CABG 2. Unstable angina 3. History of hypertension 4. Hyperlipidemia 5. Recent Covid infection in July 2020 6. Previous tobacco dependence 7. Rare alcohol usage 8. Pre-diabetic with preoperative hemoglobin A1c 6.2% 9. Witnessed cardiac arrest with brief CPR and subsequent ROSC 10. Postoperative acute blood loss anemia with return to the OR for mediastinal exploration with control of postop bleed 11. Postoperative hypotension requiring pressor support, currently off pressors 12. Acute lactic acidosis, resolved 13. Elevated transaminases due to hypoperfusion, resolving 14. LEONEL due to hypoperfusion 15. Abdominal distention, secondary to ileus, improving status post 2 bowel movements 09/24/2020 Plan: 1. Continue low-dose aspirin, statin, Plavix, beta cheyenne. Will increase beta cheyenne when able. 2. Wean O2 as tolerated. Encourage incentive spirometry use 10 times every hour while awake. Bronchodilators per pulmonology 3. Will monitor daily labs and x-rays. Electrolyte replacement per protocol. No further transfusions at this time. Lasix dosing per nephrology. Avoid nephrotoxic agents 4. GI/DVT prophylaxis 5. Increase activity as tolerated. PT/OT/cardiac rehab following 6. Will discontinue epicardial pacemaker wires. Patient to remain on bedrest for 1 hour post-wire removal 7. Insulin management per primary care service. Patient is borderline pre- diabetic, preoperative hemoglobin A1c 6.2% 8. Pain control current medication regimen 9. Strict accurate intake and output, daily weights 10. Will advance diet to full liquids 11. Will place transfer orders for 3 S. cardiac stepdown unit. May transfer when bed available 12. Discharge planning and progress. Anticipate discharge to home with home care in 48-72 hours 13. More recommendations to follow Time with Patient: Greater than 30
[2020-09-26] MEDS ORDERED: FUROSEMIDE 10 MG/ML 10 ML VIAL IV STA (10:01)
[2020-09-26] MEDS: TAMSULOSIN 0.4 MG CAP.ER.24H PO SCH (10:18)
--- NOTE | 2020-09-26 11:09 | PN ---
PROGRESS NOTE Patient is seen for followup for acute kidney injury, ATN, currently nonoliguric and improving. Patient's creatinine continues to decrease. However, this morning he had urine retention and he was straight cathed for about 700 mL. The patient denies any other significant complaints. PHYSICAL EXAMINATION: Blood pressure 135/93, heart rate 85 per minute. He is afebrile. Examination of the heart S1, S2. Examination of the lungs, decreased breath sounds at bases. Abdomen is soft, nontender. Examination of lower extremities shows edema 2+ bilaterally upper and lower extremities. GLASS SCULLION exam grossly intact. LAB: Show sodium 137, potassium 3.8, chloride 101, BUN 70, creatinine 4.23, hemoglobin 7.3 g/dL. ASSESSMENT: 1. Acute kidney injury acute tubular necrosis, currently nonoliguric and improving. 2. Urine retention. Add Flomax and continue to straight cath and monitor postvoid residual. 3. Status post coronary artery bypass surgery. 4. Volume overload slowly improving. PLAN: Repeat IV Lasix. Add Flomax. Continue to check postvoid residual. Encourage increased oral intake. MMODL / IJN: [id number] /
--- NOTE | 2020-09-26 11:47 | P.PN ---
Subjective This is a 50 year old male with a past medical history significant for hypertension, hyperlipidemia, coronary artery disease, recent Covid in July 28 and former nicotine dependence. He follows with Dr. David Santamaria. He underwent left heart cath in 2018 which revealed 60% LM disease. In 03/2020, nuclear stress test was negative. 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 The decision was made to consult cardiothoracic surgery. Echocardiogram 07/21/2020- EF 65-70%. We have been asked to see the patient in consultation for post cardiac surgery management. Patient underwent CABG x 4: BASHIR to LAD, radial artery to ramus artery, saphenous vein graft to distal obtuse marginal artery, and saphenous vein graft to posterior lateral branch of right coronary artery. POD #6. Patient had witnessed PEA cardiac arrest with CPR and subsequent ROSC on 09/20/20 09/26/2020: Patient seen and examined, at bedside. Up in bedside chair. No acute distress. His pain is currently controlled. Using incentive spirometery and achieving 1L. He is complaining of left foot weakness, with evidence of foot drop. He is able to lift his left leg, plantar flex left foot, but unable to dorsiflex left foot. Blood pressure 120/81, heart rate 83, afebrile, maintaining oxygen saturation is 96% on room air. Telemetry reviewed, patient in sinus rhythm HR 80s. Labor atory data: WBC 9.7. Hemoglobin 7.3. Platelet count 197. Sodium 137. Potassium 3.8. BUN 78. Creatinine 4.23. AST 134. ALT 265. Currently being maintained on aspirin 81 mg daily, atorvastatin 40 mg daily, Plavix 75 mg daily, metoprolol titrate 25 mg twice a day PHYSICAL EXAM: VITAL SIGNS: Reviewed. GENERAL: Well-developed in no acute distress. HEENT: No JVD or thyromegaly LUNGS: Respirations even and unlabored. Lungs diminished bilaterally. HEART: Regular rate and rhythm. S1 and S2 heard. Chest site- clean dry and intact. Left radial site clean dry intact 2+ pulses ABDOMEN: Soft. Nondistended. Nontender. EXTREMITIES: Normal range of motion. No clubbing or cyanosis. Peripheral pulses intact. No lower extremity edema MUSKULOSKELETAL: Left foot unable to dorsiflex NEUROLOGIC: Alert and oriented x 3. ASSESSMENT: Coronary artery disease with left main disease, status post CABG 4 Acute blood loss anemia, s/p return to OR for control of postoperative bleeding Acute lactic acidosis, resolved Elevated LFTs secondary to hypoperfusion - downtrending Acute Kidney injury due to hypoperfusion, Scr downtrending Hyperlipidemia Hypertension Postoperative hypotension requiring pressor support, currently off pressors Witnessed cardiac arrest with brief CPR and subsequent ROSC History of Covid, 07/2020 Former nicotine dependence PLAN: Continue pulmonary management per Dr. Mueller Continue postoperative management per CTS Continue aspirin, plavix, statin, and beta cheyenne Further recommendations pending patient course Nurse practitioner note has been reviewed by physician. Signing provider agrees with the documented findings, assessment, and plan of care. Objective - Vital Signs Vital signs: Vital Signs Temp 98.1 F 09/26/20 08:00 Pulse 83 09/26/20 10:00 Resp 15 09/26/20 10:00 BP 123/81 09/26/20 10:00 Pulse Ox 96 09/26/20 10:00 Intake & Output 09/25/20 09/26/20 09/26/20 18:59 06:59 18:59 Intake Total 300 60 Output Total 923 403 8393 Balance -366 -606 -5005 Weight 111.7 kg Intake: Oral 300 60 Output: Chest Tube Drainage 20 Left 20 Urine [phone] Straight 700 Other: Voiding Method Urinal Urinal Urinal ABP, PAP, CO, CI - Last Documented Arterial Blood Pressure 113/50 Pulmonary Artery Pressure 29/7 Cardiac Output 7.4 Cardiac Index 3.3 - Labs CBC & Chem 7: 09/26/20 03:35 09/26/20 03:35 Labs: Abnormal Lab Results - Last 24 Hours (Table) 09/26/20 09/26/20 09/26/20 Range/Units 00:21 03:35 03:35 RBC 2.49 L (4.30-5.90) m/uL Hgb 7.3 L (13.0-17.5) gm/dL Hct 22.2 L (39.0-53.0) % RDW 16.0 H (11.5-15.5) % BUN 78 H (9-20) mg/dL Creatinine 4.23 H (0.66-1.25) mg/dL POC Glucose (mg/dL) 103 H (75-99) mg/dL Calcium 7.9 L (8.4-10.2) mg/dL AST 114 H (17-59) U/L ALT 134 H (4-49) U/L Alkaline Phosphatase 265 H (38-126) U/L Total Protein 5.1 L (6.3-8.2) g/dL Albumin 3.0 L (3.5-5.0) g/dL 09/26/20 09/26/20 Range/Units 06:33 07:54 RBC (4.30-5.90) m/uL Hgb (13.0-17.5) gm/dL Hct (39.0-53.0) % RDW (11.5-15.5) % BUN (9-20) mg/dL Creatinine (0.66-1.25) mg/dL POC Glucose (mg/dL) 100 H 139 H (75-99) mg/dL Calcium (8.4-10.2) mg/dL AST (17-59) U/L ALT (4-49) U/L Alkaline Phosphatase (38-126) U/L Total Protein (6.3-8.2) g/dL Albumin (3.5-5.0) g/dL
[2020-09-26 11:53] LABS: Glucose,Whole Blood 96 mg/dL (75-99)
--- NOTE | 2020-09-26 14:05 | P.PN ---
Subjective Progress Note Date: 09/26/20 Principal diagnosis: Status post CABG, postoperative day #6. 50-year-old male patient was postop day #1 following four-vessel bypass surgery. The patient had multivessel CAD, symptomatic and the patient underwent his bypass surgery yesterday and postop the patient was hemodynamically stable and the patient was extubated without any major difficulties. The patient postextubation was doing well and he was hemodynamically stable. Probably within few hours following his extubation, he had massive amount of blood coming out of his recent in few and this was estimated to be around 2 L total. At that point, CT surgery was involved and the patient was seen by Dr. Arteaga in the intensive care unit. As he was being evaluated, the patient underwent further hemodynamic instability and the patient became hypotensive and he went into a PEA rhythm and he had a cardiac arrest. He was resuscitated according to the ACLS protocol and he is down time was estimated to be around 10 minutes. Following that, pulse was recovered and the patient was taken to the operating room where a surgical evaluation was done. The patient underwent a mediastinal exploration and control of bleeding was achieved, source being a questionable slits opening at the aortic wall and according to the surgical opinion, this was possibly related to mechanical injury from a wire suture. In any rate, control of bleeding was achieved and the patient was brought back today intensive care unit at around 3 AM. This morning, the patient is sedated with propofol and the patient is calm and comfortable and performed running at 45 mg/kg/m. He was apparently moving his extremities after he arrived from the operating room. A sedation holiday will be given to him at a later stage today. This morning, he remains on a mechanical ventilator currently is an assist- control mode at the rate of 12 with a tidal volume of 550 FiO2 of 60% with a PEEP of 8. Blood gas showed a pH of 7.37 with a pCO2 of 48 and pO2 of 83. Based on that, increased respiratory rate up to 18. The chest x-ray shows no co mplications. The patient has 2 mediastinal chest tubes and left pleural chest tube. There are some atelectatic changes in lung bases bilaterally. Otherwise ET tube is in a good location and Floweree-Jt catheter is also in good location. Meanwhile, the patient has received a total of 4 units of packed RBC and hemoglobin today is at 10.2. The chest tubes are still draining minimal amount of serosanguineous/bloody drainage is output is minimal at this point and there is no evidence of any air leak. The patient is hemodynamically requiring pressors and the patient is currently on norepinephrine infusion running at 0.1 mg/kg per minute. . He is also on vasopressin as physiologic dose of 0.03 units per hour and the patient is also on milrinone at 0.1 mg/kg per minute. Cardiac index is at 2.3 with an output of 5.0. Pulmonary artery pressures are 32/17 and his CVP is at 10. The patient is producing adequate urine output. Her recent cardiac rhythm is sinus with a rate of 70. He has a VVI backup pacer at 15. He is also on insulin drip at 2 units an hour. The patient is a 50-year-old male patient who is postop from coronary artery bypass surgery and the patient is postop day #2 following four-vessel bypass. He remains intubated on a mechanical ventilator due to the complications that occurred postop. Fortunately, the patient has done extremely well. The patient this morning is on sedation on propofol which is running at 60 mg/kg/m. Hemodynamically the patient is improved and the patient is currently off vasopressin and he is also off levo fed has been off the pressors for the past 5-6 hours. Meanwhile, the patient's blood pressure currently is well maintained and the patient was started on low-dose beta blockers. He was started on metoprolol 12.5 mg by mouth twice a day. Meanwhile, he developed an acute kidney injury. Creatinine is up to 2.96. However, the patient is making adequate urine output in order of 20-30 mL an hour. IV fluids are running in the form of an art at the rate of 50 mL an hour. In terms of neurologic functions, a sedation holiday will be given and we'll assess the patient's underlying mental status. He was moving extremities even while being sedated yesterday. In terms of his respiratory status, he remains on a mechanical venti lator. Assist-control mode at the rate of 18 with a tidal volume of 550 and FiO2 of 50% with a PEEP of 8. His blood gases from today shows a pH of 7.48 with a pCO2 of 41 and pO2 of 84. The chest x-ray from today is showing adequate expansion of both lungs. Mediastinal and left pleural chest tubes are in place. ET tube is in a good location. The patient has his Floweree-Jt catheter and OG tube is also in the stomach. No evidence of any pneumothorax. Output from the chest tubes are minimal and there is no evidence of any air leak. No evidence of any bleed. Hemoglobin stable after being transfused with a total of 4 units of packed RBC. Currently is at 8.6. Platelet count is 74. Unfortunately there is an acute kidney injury that has evolved with a creatinine of 2.95. Nevertheless, the patient is nonoliguric. Hemodynamic parameters indicate a cardiac output of 8.1 with an index of 3.6 and the patient is currently off milrinone. Afebrile. Remains nothing by mouth still. On 09/23/2020 the patient is postop day #3. He was successfully weaned off the mechanical ventilated and was extubated yesterday without any major difficulties and the patient is currently on oxygen on 4 L per minute nasal cannula. Chest x-ray from today showing a very tiny apical left-sided pneumothorax. There is a left-sided chest tube. There is a mediastinal chest tube. No signs of any significant fluid overload. Postsurgical changes are atelectatic changes in lung bases bilaterally. Meanwhile, the patient's pleural chest tube has drained 130 mL over the past 8 hours 8 hours and 330 mL over the past 24 hours as for the mediastinal chest tube, it has drained around 88 mL over the past 8 hours and the on the 30 mL over the past 24 hours. Urine output is no order of 20-30 mL an hour. Noted the patient has developed an acute kidney injury due to hemodynamic instability that occurred postop. His creatinine is up to 4.42 with a BUN of 54. Serum bicarb is a 28 and the sodium level is at 138. Nephrology has been consulted. Cao catheter is in place. We are avoiding any nephroto xic agents at this point is time. Also, this morning, it was noted that his abdomen is quite distended. He has developed some degree of ileus. He has tympanic abdomen. Bowel sounds are extremely hypo-active. He claims that he is passing some flatus. No nausea. No emesis. No abdominal pain. No signs of any sepsis. Lactic acid levels have been ordered. Apply some of the abdomen is also been ordered. Hemoglobin from today is at 7.2. No signs of any acute bleed. Platelet count is 79 and compared to yesterday day #essentially stable. Hemodynamically stable. He is currently off milrinone. Off vasopressin. Off norepinephrine. He is using incentive spirometer. He is pulling approximately 500 mL on his RIS. No other significant events overnight. Neurologically is intact. No focal neurological deficit. Is awake and alert and oriented 3. He has developed some mild transaminitis probably secondary to hypotension and cardiac arrest and shock that occurred postop. 09/24/2020, the patient is postop day #4. He remains extubated. Currently on oxygen at 3 L per minute. Chest x-ray showing pulmonary vessel congestion and small effusions. There is left-sided chest tube in place and output has been in the order of 121 20 mL over the past 8 hours and 250 over the past 24 hours. The mediastinal chest tubes are in order of 25 mL drainage over the past 8 hours and 50 mL over the past 24 hours. He is awake and alert and moving and following commands and answering questions. No respiratory difficulties. Abdomen is still distended and the patient has an underlying ileus. He is passing flatus. He is tolerating clear liquid diet and some chips. Drinking water. No bowel movement activity yet. Bowel sounds are present and they're hypoactive. No nausea. No emesis. No chest pain. Pain is under adequate control. He is on no pressors for now. He is an acute kidney injury. Patient has developed an ATN in the creatinine is up to 5.05. Nevertheless, the patient is nonoliguric. He is producing urine output in the order of 575 570 fasting over the past 8 hours. His net fluid balance is negative over the past 24 hours. Note that he received a dose of Lasix 60 mg IV push yesterday. Nephrology has been seeing the patient and the patient is on no nephrotoxic agents at this point in time. Still using incentive spirometer. Pulling approximately 7 52,000 on his RIS. Liver function tests are also improving. Sodium level today is at 136 and the white cell count is at 9.7 with hemoglobin of 7.2. Platelet counts are improving and then up to 114. He is cardiac rhythm is sinus D5 in the mid 80s. No other significant events overnight. Ambulating yesterday 09/25/2020, the patient is postop day #5. The patient is calm and comfortable sitting up on a chair. Abdomen is still distended. The patient is having bowel movement and lites. The patient is currently on 2 L by nasal cannula with a pulse ox of 95.. Chest x-ray from today: CXR is showing atelectatic changes in lung bases along with some cardiomegaly. Chest tubes have been all removed yesterday. Using incentive spirometer. Hemoglobin today is at 7.2 with a white cell count of 7.8. In terms of her renal failure, the patient's BUN is a 77 with a creatinine of 4.82. No significant electrolyte disturbance. Shock liver is improving. The patient continues to produce adequate amount of urine output. ThePatient received a dose of Lasix yesterday. No fluid balance is -1.3 L over the past 24 hours. Reevaluated today on 09/26/2020, patient is now postoperative day #6. Remains in the ICU I believe it is probably an overflow. He is on oxygen at 2 L/m with O2 saturation of 97%. The patient is status post CABG, he had a four-vessel bypass surgery, BASHIR to LAD, radial artery to the ramus artery saphenous vein to distal obtuse marginal artery saphenous vein to posterior lateral branch of the right coronary artery. Chest x-ray is showing mild interstitial edema and atele ctasis. Patient is in sinus rhythm, hemodynamically stable. He is performing about 1000 mL on his incentive spirometer. Remains slightly edematous. His renal functioning remains poor, however improving compared to the last 3 days, creatinine down is to 4.23 today compared to 4.8 yesterday. Patient has been voiding. His only complaint is weakness in the left foot, possibly a left foot drop. Patient is not requiring any inotropes or pressors WBC count is 9.7 hemoglobin is 7.3 left lites are normal BUN is 78 creatinine 4.23. Liver enzymes were noted to be a bit elevated with AST of 114 ALT 134 alkaline phosphatase 265. Objective - Vital Signs Vital signs: Vital Signs Temp 97.7 F 09/26/20 12:00 Pulse 86 09/26/20 12:00 Resp 22 09/26/20 12:00 BP 135/79 09/26/20 12:00 Pulse Ox 95 09/26/20 12:00 Intake & Output 05/09/26/20 09/26/20 18:59 06:59 18:59 Intake Total 300 60 Output Total 621 526 7408 Balance -427 -837 -2761 Weight 111.7 kg Intake: Oral 300 60 Output: Chest Tube Drainage 20 Left 20 Urine 341 474 8447 Straight 700 Other: Voiding Method Urinal Urinal Urinal # Voids 1 ABP, PAP, CO, CI - Last Documented Arterial Blood Pressure 113/50 Pulmonary Artery Pressure 29/7 Cardiac Output 7.4 Cardiac Index 3.3 - Exam CONSTITUTIONAL: Revealed 50-year-old white male in no distress, resume on 2 L nasal cannula. RESPIRATORY: Symmetrical chest expansion, diminished breath sounds at the bases no crackles or rhonchi or wheezes. CARDIOVASCULAR: Distant S1 and S2, no S3 gallop, no murmur. GASTROINTESTINAL: Obese, soft, nontender, no megaly, no rebound, no guarding. Positive bowel sounds. INTEGUMENTARY: Adequate perfusion noted in lower extremities. Anterior chest incision , seems to be intact NEUROLOGIC: Alert and oriented 3. No gross focal neurologic deficits. MUSKULOSKELETAL: Poor dorsiflexion in left foot, otherwise no deformities and lower limitation in range of motion. PSYCHIATRIC: Her mother mood, affect and normal mental status examination. - Labs CBC & Chem 7: 09/26/20 03:35 09/26/20 03:35 Labs: Abnormal Lab Results - Last 24 Hours (Table) 09/26/20 09/26/20 09/26/20 Range/Units 00:21 03:35 03:35 RBC 2.49 L (4.30-5.90) m/uL Hgb 7.3 L (13.0-17.5) gm/dL Hct 22.2 L (39.0-53.0) % RDW 16.0 H (11.5-15.5) % BUN 78 H (9-20) mg/dL Creatinine 4.23 H (0.66-1.25) mg/dL POC Glucose (mg/dL) 103 H (75-99) mg/dL Calcium 7.9 L (8.4-10.2) mg/dL AST 114 H (17-59) U/L ALT 134 H (4-49) U/L Alkaline Phosphatase 265 H (38-126) U/L Total Protein 5.1 L (6.3-8.2) g/dL Albumin 3.0 L (3.5-5.0) g/dL 09/26/20 09/26/20 Range/Units 06:33 07:54 RBC (4.30-5.90) m/uL Hgb (13.0-17.5) gm/dL Hct (39.0-53.0) % RDW (11.5-15.5) % BUN (9-20) mg/dL Creatinine (0.66-1.25) mg/dL POC Glucose (mg/dL) 100 H 139 H (75-99) mg/dL Calcium (8.4-10.2) mg/dL AST (17-59) U/L ALT (4-49) U/L Alkaline Phosphatase (38-126) U/L Total Protein (6.3-8.2) g/dL Albumin (3.5-5.0) g/dL Assessment and Plan Assessment: Impression: Status post four-vessel CABG, postoperative day #6. Postoperative hypotension and blood loss requiring reexploration and control of postoperative bleeding, unexpected. History of open infection in July 2020. Benign essential hypertension. Dyslipidemia. Postoperative blood loss anemia, expected Acute kidney injury secondary to hypoperfusion, improving not back to normal. Elevated liver enzymes started to hypoperfusion, improving. Postoperative ileus, improving. This is expected. Chronic cervical pain. Type 2 diabetes, on insulin. Remote smoking history, in remission for 25 years. Recommendation: Continue low-dose aspirin statins and Plavix and beta blockers. Continue weaning oxygen and maintaining O2 saturation above 90%. Discontinue unnecessary catheters and wires. Including epicardial pacemaker wires. Continue pain control management. Advanced diet as tolerated. Patient is presently an overflow in the ICU, transferred to a monitor bed on selective sometime today once a bed is available. Continue present supportive care measures. Continue incentive spirometer. Ambulation. Continue to monitor renal profile on a daily basis. Patient is being followed by nephrology. Continue GI and DVT prophylaxis. Continue adequate control of hyperglycemia with insulin. Continue to monitor hemoglobin. And address accordingly especially if hemoglobin below 7. We'll continue to follow Time with Patient: Less than 30
[2020-09-26 16:09] LABS: Glucose,Whole Blood 140 mg/dL (75-99)
[2020-09-26 19:55] LABS: Glucose,Whole Blood 102 mg/dL (75-99)
[2020-09-26] MEDS: ACETAMINOPHEN TAB 500 MG TAB PO PRN (20:00)
[2020-09-26] MEDS: SENNOSIDES-DOCUSATE SODIUM 1 EACH TAB PO SCH (20:06)
[2020-09-26 23:27] LABS: Glucose,Whole Blood 130 mg/dL (75-99)
[2020-09-27 03:58] LABS: Glucose,Whole Blood 99 mg/dL (75-99)
[2020-09-27] MEDS: INSULIN ASPART (NovoLOG) 100 UNIT/ML VIAL SQ SCH ×4 (06:17→20:17)
[2020-09-27] MEDS: PANTOPRAZOLE 40 MG TABLET PO SCH (06:30)
[2020-09-27] MEDS: INSULIN DETEMIR (LEVEMIR) 100 UNIT/ML SYR SQ SCH (06:32)
[2020-09-27 06:39] LABS: Glucose,Whole Blood 106 mg/dL (75-99)
[2020-09-27] MEDS ORDERED: METOCLOPRAMIDE 5 MG/ML 2 ML VIAL IVP STA (07:34)
--- NOTE | 2020-09-27 08:09 | CDI ---
Documentation Clarification Form Date: 09/27/2020 07:50:12 AM From: Briana Morris CCS, CCDS Admit Date: 09/20/2020 05:37:00 AM Patient Name: Harsha Almazan Visit Number: [id number] Discharge Date: ATTENTION: The Clinical Documentation Specialists (CDI) and [facility] Coding Staff appreciate your assistance in clarifying documentation. Please respond to the clarification below the line at the bottom and electronically sign. The CDI & [facility] Coding staff will review the response and follow-up if needed. Please note: Queries are made part of the Legal Health Record. If you have any questions, please contact the author of this message via ITS. Dr. Oliver Ku: Per the 09/21 Office Assistance Progress Note and subsequent Progress Notes: "Postop mediastinal bleed, likely due to an aortic tear." Additional clarification is requested regarding the relationship, if any, that exists between the diagnosis and the procedure. 09/20 OR Report: Patients Admitting Diagnosis: CAD Post-Operative Diagnosis: CAD Procedure performed: CABG x4, Endoscopic harvest of left radial artery. Ligation of left atrial appendage w/Atriclip. 09/21 OR Report: Pre-Op Diagnosis: Mediastinal bleeding After extubation in ICU status post CABG, noted to have increased bloody drainage from his chest tubes, became progressively hypotension, required re- intubation followed by CPR. Post-op Diagnosis: Mediastinal bleeding Procedure performed: mediastinal re-exploration with control of bleeding. EARLINE. History/Risk Factors Per the 09/20 Medical Management Consult: CAD, Hypertension, hHyperlipidemia, Cervical Stenosis C5 - C7, COVID 19 in July 2020, DM II, BMI >30. Former smoker. Clinical Indicators: Presented 09/20 for elective surgery: CABG x4. Treatment: (Per the 09/21 OR Note): The patient is a 50-year-old male who underwent 4 vessel coronary artery bypass earlier in the day. After extubation in the ICU, he was noted to have increased bloody drainage from his chest tubes. He became progressively hypotensive and eventually required intubation followed by brief CPR. Mediastinal re-exploration was recommended. IV NaCl w/Na Bicarb, IV Na Cl w/Vasopressin, IV Milrinone Lactate/Dextrose, INH Duoneb, IV Calcium Gluconate. What relationship, if any, exists between the diagnosis of "likely aortic tear" and mediastinal bleeding and the procedure: [ ] Aortic Tear and Mediastinal Bleeding is a complication of the surgical procedure [ ] Aortic Tear and Mediastinal Bleeding is an expected outcome of the surgical procedure [ ] Aortic Tear and Mediastinal Bleeding is related to the patients co-morbid condition(s), (please specify condition(s)): & are not a complications of the procedure [ ] Aortic Tear has been ruled out [x ] Mediastinal Bleeding is a complication of the surgical procedure [ ] Mediastinal Bleeding is an expected outcome of the surgical procedure [ ] Mediastinal Bleeding is related to the patient's co-morbid condition(s), please specify condition(s): & is not a complication of the procedure [ ] Other please specify: [ ] Unable to determine (Template Last Revised: June 2020) MTDD
--- NOTE | 2020-09-27 08:12 | XR ---
EXAMINATION TYPE: XR chest 2V DATE OF EXAM: 09/27/2020 COMPARISON: 09/26/2020 TECHNIQUE: PA and lateral views submitted. HISTORY: Post cardiac surgery FINDINGS: Heart is enlarged and there is postoperative change with bilateral consolidation. Coarsened interstit ium with biapical pleural thickening. Small left pleural effusion. Heart is enlarged. IMPRESSION: 1. Bilateral infiltrate and small effusion correlate for CHF versus interstitial pneumonitis. Finding s stable.
[2020-09-27] MEDS ORDERED: SODIUM CHLORIDE 0.65% NASAL SPRAY 44 ML BTL NASAL PRN (08:48)
[2020-09-27] MEDS: ASPIRIN 81 MG PO SCH (08:59)
[2020-09-27] MEDS: ATORVASTATIN 40 MG TAB PO SCH (08:59)
[2020-09-27] MEDS: HEPARIN SODIUM,PORCINE/PF 5,000 UNIT/0.5 ML SYRINGE SQ SCH ×3 (08:59→22:41)
[2020-09-27] MEDS: TAMSULOSIN 0.4 MG CAP.ER.24H PO SCH (08:59)
[2020-09-27] MEDS: CLOPIDOGREL 75 MG TAB PO SCH (08:59)
[2020-09-27] MEDS: polyethylene glycoL 3350 17 GM POWD.PACK PO SCH (09:00)
[2020-09-27] MEDS: METOPROLOL TARTRATE 50 MG TAB PO SCH ×2 (09:01→20:10)
[2020-09-27] MEDS: IPRATROPIUM-ALBUTEROL 3 ML NEB INHALATION SCH ×4 (09:26→20:01)
--- NOTE | 2020-09-27 11:51 | P.PN ---
Subjective Progress Note Date: 09/27/20 HISTORY OF PRESENT ILLNESS: This is a 50 year old male with a past medical history significant for hypertension, hyperlipidemia, coronary artery disease, recent Covid in July 2020 and former nicotine dependence. He follows with Dr. David Santamaria. He underwent left heart cath in 2018 which revealed 60% LM disease. In 03/2020, nuclear stress test was negative. 07/21/2020, patient underwent LHC at [facility] which revealed severe obstructive disease of the colon and left circumflex. The decision was made to consult cardiothoracic surgery. Echocardiogram 07/21/2020- EF 65-70%. We have been asked to see the patient in consultation for post cardiac surgery management. Patient underwent CABG x 4: BASHIR to LAD, radial artery to ramus artery, saphenous vein graft to distal obtuse marginal artery, and saphenous vein graft to posterior lateral branch of right coronary artery. POD #6. Patient had witnessed PEA cardiac arrest with CPR and subsequent ROSC on 09/20/20 09/26/2020: Patient seen and examined, at bedside. Up in bedside chair. No acute distress. H is pain is currently controlled. Using incentive spirometery and achieving 1L. He is complaining of left foot weakness, with evidence of foot drop. He is able to lift his left leg, plantar flex left foot, but unable to dorsiflex left foot. Blood pressure 120/81, heart rate 83, afebrile, maintaining oxygen saturation is 96% on room air. Telemetry reviewed, patient in sinus rhythm HR 80s. Laboratory data: WBC 9.7. Hemoglobin 7.3. Platelet count 197. Sodium 137. Potassium 3.8. BUN 78. Creatinine 4.23. AST 134. ALT 265. Currently being maintained on aspirin 81 mg daily, atorvastatin 40 mg daily, Plavix 75 mg daily, metoprolol titrate 25 mg twice a day 09/27/2020 Patient has been transferred out of the ICU to the selective care unit. Patient examined this morning. Patient is sitting up in the bed. He denies chest pain or pressure. Denies shortness of breath. Telemetry reveals sinus tachycardia. Patient complains of frequent urination with small quantities. He continues to have left foot drop. PHYSICAL EXAM: VITAL SIGNS: Reviewed. GENERAL: Well-developed in no acute distress. NECK: Supple. No JVD or thyromegaly LUNGS: Respirations even and unlabored. Lungs diminished bilaterally. HEART: Regular rate and rhythm. S1 and S2 heard. Sternal incision clean and dry. Heart hugger present. EXTREMITIES: Unable to dorsiflex left foot. No clubbing or cyanosis. Peripheral pulses intact. No lower extremity edema ASSESSMENT: Coronary artery disease with left main disease, status post CABG 4 Acute blood loss anemia, s/p return to OR for control of postoperative bleeding Acute lactic acidosis, resolved Elevated LFTs secondary to hypoperfusion - downtrending Acute Kidney injury due to hypoperfusion, Scr downtrending Hyperlipidemia Hypertension Postoperative hypotension requiring pressor support, currently off pressors Witnessed cardiac arrest with brief CPR and subsequent ROSC History of Covid, 07/2020 Former nicotine dependence PLAN: Continue postoperative management per CTS Increase metoprolol to 50 mg twice a day Continue additional cardiac medications Continue telemetry monitoring Continue to increase activity as tolerated Encourage use of incentive spirometer Further recommendations pending patient's course Nurse practitioner note has been reviewed by physician. Signing provider agrees with the documented findings, assessment, and plan of care. Objective - Vital Signs Vital signs: Vital Signs Temp 97.8 F 09/27/20 08:00 Pulse 100 09/27/20 09:36 Resp 16 09/27/20 08:00 BP 139/84 09/27/20 08:00 Pulse Ox 96 09/27/20 08:00 Intake & Output 09/26/20 09/27/20 09/27/20 18:59 06:59 18:59 Intake Total 185 Output Total 1895 350 674 Balance -1710 -350 -674 Weight 107.7 kg Intake: Oral 185 Output: Urine 1895 350 Straight 700 Post Void Residual 674 Other: Voiding Method Urinal Urinal # Voids 1 2 ABP, PAP, CO, CI - Last Documented Arterial Blood Pressure 113/50 Pulmonary Artery Pressure 29/7 Cardiac Output 7.4 Cardiac Index 3.3 - Labs CBC & Chem 7: 09/26/20 03:35 09/26/20 03:35 Labs: Abnormal Lab Results - Last 24 Hours (Table) 09/26/20 09/26/20 09/26/20 Range/Units 16:06 19:52 23:25 POC Glucose (mg/dL) 140 H 102 H 130 H (75-99) mg/dL 09/27/20 Range/Units 06:35 POC Glucose (mg/dL) 106 H (75-99) mg/dL
[2020-09-27 12:05] LABS: Glucose,Whole Blood 122 mg/dL (75-99)
[2020-09-27 12:17] LABS: Albumin 3.2 g/dL (3.5-5.0); Calcium 8.2 mg/dL (8.4-10.2); Potassium 3.8 mmol/L (3.5-5.1); Total Bilirubin 0.7 mg/dL (0.2-1.3); Total Protein 5.4 g/dL (6.3-8.2)
[2020-09-27 12:20] LABS: Anisocytosis Slight; HCT 23.3 % (39.0-53.0); HGB 7.5 gm/dL (13.0-17.5); MCHC 32.2 g/dL (31.0-37.0); MCV 90.1 fL (80.0-100.0); Mean Platelet Volume 7.1; Platelet Count 273 k/uL (150-450); RBC 2.58 m/uL (4.30-5.90); RDW 16.1 % (11.5-15.5); WBC 7.7 k/uL (3.8-10.6)
[2020-09-27] MEDS: ACETAMINOPHEN TAB 500 MG TAB PO PRN ×2 (13:23→20:11)
--- NOTE | 2020-09-27 13:49 | P.PN ---
Subjective Progress Note Date: 09/27/20 Principal diagnosis: Four-vessel coronary artery bypass grafting 50-year-old male patient was postop day #1 following four-vessel bypass surgery. The patient had multivessel CAD, symptomatic and the patient underwent his bypass surgery yesterday and postop the patient was hemodynamically stable and the patient was extubated without any major difficulties. The patient postextu bation was doing well and he was hemodynamically stable. Probably within few hours following his extubation, he had massive amount of blood coming out of his recent in few and this was estimated to be around 2 L total. At that point, CT surgery was involved and the patient was seen by Dr. Arteaga in the intensive care unit. As he was being evaluated, the patient underwent further hemodynamic inst ability and the patient became hypotensive and he went into a PEA rhythm and he had a cardiac arrest. He was resuscitated according to the ACLS protocol and he is down time was estimated to be around 10 minutes. Following that, pulse was recovered and the patient was taken to the operating room where a surgical evaluation was done. The patient underwent a mediastinal exploration and control of bleeding was achieved, source being a questionable slits opening at the aortic wall and according to the surgical opinion, this was possibly related to mechanical injury from a wire suture. In any rate, control of bleeding was achieved and the patient was brought back today intensive care unit at around 3 AM. This morning, the patient is sedated with propofol and the patient is calm and comfortable and performed running at 45 mg/kg/m. He was apparently moving his extremities after he arrived from the operating room. A sedation holiday will be given to him at a later stage today. This morning, he remains on a mechanical ventilator currently is an assist-control mode at the rate of 12 with a tidal volume of 550 FiO2 of 60% with a PEEP of 8. Blood gas showed a pH of 7.37 with a pCO2 of 48 and pO2 of 83. Based on that, increased respiratory rate up to 18. The chest x-ray shows no complications. The patient has 2 mediastinal chest tubes and left pleural chest tube. There are some atelectatic changes in lung bases bilaterally. Otherwise ET tube is in a good location and Winona-Jt catheter is also in good location. Meanwhile, the patient has received a total of 4 units of packed RBC and hemoglobin today is at 10.2. The chest tubes are still draining minimal amount of serosanguineous/bloody drainage is output is minimal at this point and there is no evidence of any air leak. The patient is hemodynamically requiring pressors and the patient is currently on norepinephrine infusion running at 0.1 mg/kg per minute. . He is also on vasopressin as physiologic dose of 0.03 units per hour and the patient is also on milrinone at 0.1 mg/kg per minute. Cardiac index is at 2.3 with an output of 5.0. Pulmonary artery pressures are 32/17 and his CVP is at 10. The patient is producing adequate urine output. Her recent cardiac rhythm is sinus with a rate of 70. He has a VVI backup pacer at 15. He is also on insulin drip at 2 units an hour. The patient is a 50-year-old male patient who is postop from coronary artery bypass surgery and the patient is postop day #2 following four-vessel bypass. He remains intubated on a mechanical ventilator due to the complications that occurred postop. Fortunately, the patient has done extremely well. The patient this morning is on sedation on propofol which is running at 60 mg/kg/m. Hemodynamically the patient is improved and the patient is currently off vasopressin and he is also off levo fed has been off the pressors for the past 5-6 hours. Meanwhile, the patient's blood pressure currently is well maintained and the patient was started on low-dose beta blockers. He was started on metoprolol 12.5 mg by mouth twice a day. Meanwhile, he developed an acute kidney injury. Creatinine is up to 2.96. However, the patient is making adequate urine output in order of 20-30 mL an hour. IV fluids are running in the form of an art at the rate of 50 mL an hour. In terms of neurologic functions, a sedation holiday will be given and we'll assess the patient's underlying mental status. He was moving extremities even while being sedated yesterday. In terms of his respiratory status, he remains on a mechanical ve ntilator. Assist-control mode at the rate of 18 with a tidal volume of 550 and FiO2 of 50% with a PEEP of 8. His blood gases from today shows a pH of 7.48 with a pCO2 of 41 and pO2 of 84. The chest x-ray from today is showing adequate expansion of both lungs. Mediastinal and left pleural chest tubes are in place. ET tube is in a good location. The patient has his Winona-Jt catheter and OG tube is also in the stomach. No evidence of any pneumothorax. Output from the chest tubes are minimal and there is no evidence of any air leak. No evidence of any bleed. Hemoglobin stable after being transfused with a total of 4 units of packed RBC. Currently is at 8.6. Platelet count is 74. Unfortunately there is an acute kidney injury that has evolved with a creatinine of 2.95. Nevertheless, the patient is nonoliguric. Hemodynamic parameters indicate a cardiac output of 8.1 with an index of 3.6 and the patient is currently off milrinone. Afebrile. Remains nothing by mouth still. On 09/23/2020 the patient is postop day #3. He was successfully weaned off the mechanical ventilated and was extubated yesterday without any major difficulties and the patient is currently on oxygen on 4 L per minute nasal cannula. Chest x-ray from today showing a very tiny apical left-sided pneumothorax. There is a left-sided chest tube. There is a mediastinal chest tube. No signs of any sign ificant fluid overload. Postsurgical changes are atelectatic changes in lung bases bilaterally. Meanwhile, the patient's pleural chest tube has drained 130 mL over the past 8 hours 8 hours and 330 mL over the past 24 hours as for the mediastinal chest tube, it has drained around 88 mL over the past 8 hours and the on the 30 mL over the past 24 hours. Urine output is no order of 20-30 mL an hour. Noted the patient has developed an acute kidney injury due to hemodynamic instability that occurred postop. His creatinine is up to 4.42 with a BUN of 54. Serum bicarb is a 28 and the sodium level is at 138. Nephrology has been consulted. Cao catheter is in place. We are avoiding any nephr otoxic agents at this point is time. Also, this morning, it was noted that his abdomen is quite distended. He has developed some degree of ileus. He has tympanic abdomen. Bowel sounds are extremely hypo-active. He claims that he is passing some flatus. No nausea. No emesis. No abdominal pain. No signs of any sepsis. Lactic acid levels have been ordered. Apply some of the abdomen is also been ordered. Hemoglobin from today is at 7.2. No signs of any acute bleed. Platelet count is 79 and compared to yesterday day #essentially stable. Hemodynamically stable. He is currently off milrinone. Off vasopressin. Off norepinephrine. He is using incentive spirometer. He is pulling approximately 500 mL on his RIS. No other significant events overnight. Neurologically is intact. No focal neurological deficit. Is awake and alert and oriented 3. He has developed some mild transaminitis probably secondary to hypotension and cardiac arrest and shock that occurred postop. 09/24/2020, the patient is postop day #4. He remains extubated. Currently on oxygen at 3 L per minute. Chest x-ray showing pulmonary vessel congestion and small effusions. There is left-sided chest tube in place and output has been in the order of 121 20 mL over the past 8 hours and 250 over the past 24 hours. The mediastinal chest tubes are in order of 25 mL drainage over the past 8 hours and 50 mL over the past 24 hours. He is awake and alert and moving and following commands and answering questions. No respiratory difficulties. Abdomen is still distended and the patient has an underlying ileus. He is passing flatus. He is tolerating clear liquid diet and some chips. Drinking water. No bowel movement activity yet. Bowel sounds are present and they're hypoactive. No nausea. No emesis. No chest pain. Pain is under adequate control. He is on no pressors for now. He is an acute kidney injury. Patient has developed an ATN in the creatinine is up to 5.05. Nevertheless, the patient is nonoliguric. He is producing urine output in the order of 575 570 fasting over the past 8 hours. His net fluid balance is negative over the past 24 hours. Note that he received a dose of Lasix 60 mg IV push yesterday. Nephrology has been seeing the patient and the patient is on no nephrotoxic agents at this point in time. Still using incentive spirometer. Pulling approximately 7 52,000 on his RIS. Liver function tests are also improving. Sodium level today is at 136 and the white cell count is at 9.7 with hemoglobin of 7.2. Platelet counts are improving and then up to 114. He is cardiac rhythm is sinus D5 in the mid 80s. No other significant events overnight. Ambulating yesterday 09/25/2020, the patient is postop day #5. The patient is calm and comfortable sitting up on a chair. Abdomen is still distended. The patient is having bowel movement and lites. The patient is currently on 2 L by nasal cannula with a pulse ox of 95.. Chest x-ray from today: CXR is showing atelectatic changes in lung bases along with some cardiomegaly. Chest tubes have been all removed yesterday. Using incentive spirometer. Hemoglobin today is at 7.2 with a white cell count of 7.8. In terms of her renal failure, the patient's BUN is a 77 with a creatinine of 4.82. No significant electrolyte disturbance. Shock liver is improving. The patient continues to produce adequate amount of urine output. ThePatient received a dose of Lasix yesterday. No fluid balance is -1.3 L over the past 24 hours. Reevaluated today on 09/26/2020, patient is now postoperative day #6. Remains in the ICU I believe it is probably an overflow. He is on oxygen at 2 L/m with O2 saturation of 97%. The patient is status post CABG, he had a four-vessel bypass surgery, BASHIR to LAD, radial artery to the ramus artery saphenous vein to distal obtuse marginal artery saphenous vein to posterior lateral branch of the right coronary artery. Chest x-ray is showing mild interstitial edema and at electasis. Patient is in sinus rhythm, hemodynamically stable. He is performing about 1000 mL on his incentive spirometer. Remains slightly edematous. His renal functioning remains poor, however improving compared to the last 3 days, creatinine down is to 4.23 today compared to 4.8 yesterday. P atient has been voiding. His only complaint is weakness in the left foot, possibly a left foot drop. Patient is not requiring any inotropes or pressors WBC count is 9.7 hemoglobin is 7.3 left lites are normal BUN is 78 creatinine 4.23. Liver enzymes were noted to be a bit elevated with AST of 114 ALT 134 alkaline phosphatase 265. On 09/27/2020 patient seen in follow-up. Today's postoperative day #7 status post four-vessel coronary artery bypass grafting. He is awake and alert, in no acute distress, he is on room air, pulse ox is 94-96%. His incentive spirometer effort is about 1000, his chest x-ray today is bilateral infiltrates and small pleural effusion. Patient has been started on Lasix 40 mg IV every 12 hours, nephrology is following. Renal profile is improving, BUN 64, creatinine is 3.41, electrolytes are within normal limits. White count is 7.7, hemoglobin is 7.5. Patient appears to be generally swollen, with edema in his upper and lower extremities, but no worsening dyspnea. His chest tubes are discontinued, his midsternal incision is clean dry and intact, chest tube sites are clean dry and intact. His IV fluids have been hep-locked. He is currently in sinus mechanism Objective - Vital Signs Vital signs: Vital Signs Temp 98.6 F 09/27/20 13:08 Pulse 93 09/27/20 13:08 Resp 18 09/27/20 13:08 BP 117/57 09/27/20 13:08 Pulse Ox 94 L 09/27/20 13:08 Intake & Output 09/26/20 09/27/20 09/27/20 18:59 06:59 18:59 Intake Total 185 Output Total 1895 350 674 Balance -1710 -350 -674 Weight 107.7 kg Intake: Oral 185 Output: Urine 1895 350 Straight 700 Post Void Residual 674 Other: Voiding Method Urinal Urinal # Voids 1 2 ABP, PAP, CO, CI - Last Documented Arterial Blood Pressure 113/50 Pulmonary Artery Pressure 29/7 Cardiac Output 7.4 Cardiac Index 3.3 - Exam GENERAL EXAM: Alert, very pleasant, 50-year-old white male, on room air with pulse ox of 94-96% comfortable in no apparent distress. HEAD: Normocephalic/atraumatic. EYES: Normal reaction of pupils, equal size. Conjunctiva pink, sclera white. NOSE: Clear with pink turbinates. THROAT: No erythema or exudates. NECK: No masses, no JVD, no thyroid enlargement, no adenopathy. CHEST: No chest wall deformity. Symmetrical expansion. Midsternal incision is clean dry and intact, former chest tube sites are clean dry and intact LUNGS: Equal air entry with crackles, diminished breath sounds at the bases CVS: Regular rate and rhythm, normal S1 and S2, no gallops, no murmurs, no rubs ABDOMEN: Soft, nontender. No hepatosplenomegaly, normal bowel sounds, no guarding or rigidity. EXTREMITIES: No clubbing, 1+ edema in upper and lower extremities no cyanosis, 2+ pulses and upper and lower extremities. MUSCULOSKELETAL: Muscle strength and tone normal. SPINE: No scoliosis or deformity SKIN: No rashes CENTRAL NERVOUS SYSTEM: Alert and oriented -3. No focal deficits, tone is normal in all 4 extremities. PSYCHIATRIC: Alert and oriented -3. Appropriate affect. Intact judgment and insight. - Labs CBC & Chem 7: 09/27/20 11:01 09/27/20 11:01 Labs: Abnormal Lab Results - Last 24 Hours (Table) 09/26/20 09/26/20 09/26/20 Range/Units 16:06 19:52 23:25 RBC (4.30-5.90) m/uL Hgb (13.0-17.5) gm/dL Hct (39.0-53.0) % RDW (11.5-15.5) % BUN (9-20) mg/dL Creatinine (0.66-1.25) mg/dL Glucose (74-99) mg/dL POC Glucose (mg/dL) 140 H 102 H 130 H (75-99) mg/dL Calcium (8.4-10.2) mg/dL AST (17-59) U/L ALT (4-49) U/L Alkaline Phosphatase (38-126) U/L Total Protein (6.3-8.2) g/dL Albumin (3.5-5.0) g/dL 09/27/20 09/27/20 09/27/20 Range/Units 06:35 11:01 11:01 RBC 2.58 L (4.30-5.90) m/uL Hgb 7.5 L (13.0-17.5) gm/dL Hct 23.3 L (39.0-53.0) % RDW 16.1 H (11.5-15.5) % BUN 64 H (9-20) mg/dL Creatinine 3.41 H (0.66-1.25) mg/dL Glucose 120 H (74-99) mg/dL POC Glucose (mg/dL) 106 H (75-99) mg/dL Calcium 8.2 L (8.4-10.2) mg/dL AST 102 H (17-59) U/L ALT 114 H (4-49) U/L Alkaline Phosphatase 223 H (38-126) U/L Total Protein 5.4 L (6.3-8.2) g/dL Albumin 3.2 L (3.5-5.0) g/dL 09/27/20 Range/Units 11:56 RBC (4.30-5.90) m/uL Hgb (13.0-17.5) gm/dL Hct (39.0-53.0) % RDW (11.5-15.5) % BUN (9-20) mg/dL Creatinine (0.66-1.25) mg/dL Glucose (74-99) mg/dL POC Glucose (mg/dL) 122 H (75-99) mg/dL Calcium (8.4-10.2) mg/dL AST (17-59) U/L ALT (4-49) U/L Alkaline Phosphatase (38-126) U/L Total Protein (6.3-8.2) g/dL Albumin (3.5-5.0) g/dL Assessment and Plan Plan: Assessment: #1. Symptomatic multivessel coronary artery disease, status post four-vessel coronary artery bypass grafting with BASHIR to the LAD, radial artery graft to the ramus, SVG to OM, and SVG to PLV, with bilateral legs endoscopic vein harvest, exclusion of the left atrial appendage and intraoperative transesophageal echocardiogram, postop day #7 #2. Postoperative hypotension, and blood loss requiring reexploration and c ontrol of postoperative bleeding, on expected #3. Leukocytosis, possibly reactive, improved #4. Postoperative blood loss anemia, expected #5. Elevated liver enzymes related to hypoperfusion, improving #6. Postoperative ileus, improving #7. Acute kidney injury secondary to hypoperfusion, improving #8. Recent history of COVID-19 pneumonia in June 2020 #9. 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 Hypertension #11. Diabetes mellitus #12. Hyperlipidemia #13. Chronic neck pain Plan: Continue current medical treatment Continue diuretics per nephrology recommendations Encourage Incentive spirometer use, Deep breathing and coughing Encourage ambulation Continue following labs including electrolytes and renal profile Continue breathing treatments GI and DVT prophylaxis per CT surgery I performed a history & physical examination of the patient and discussed their management with my nurse practitioner, Kaitlynn Madden. I reviewed the nurse practitioner's note and agree with the documented findings and plan of care. Lung sounds are positive for diminished breath sounds. The findings and the impression was discussed with the patient. I attest to the documentation by the nurse practitioner. Time with Patient: Less than 30
[2020-09-27] MEDS: FUROSEMIDE 10 MG/ML 4 ML VIAL IV SCH ×2 (14:55→20:16)
--- NOTE | 2020-09-27 15:03 | P.PN ---
Progress Note - Text Progress Note Date: 09/27/20 - Chief Complaint Coronary bypass Consultation: This is a 50-year-old patient of Dr. Kimberli au. Chronic stable medical conditions include hypertension, hyperlipidemia, cervical problems C5 through C7, and COVID 19 in July of this year. Patient on earlier today underwent coronary bypass. Was extubated 8 PM this evening. Somewhat lethargic. They would answer some simple questions. Patient has 2 mediastinal and 1 left-sided chest pain or 2. Has a Cao catheter. Does include norepinephrine, insulin, nitroglycerin. Telemetry shows sinus rhythm. Patient is having some bloody drainage through the mediastinal tube. Patient having some pain at the chest tube insertion site. In some shortness of breath. Same night patient continued to have bleeding to the mediastinal chest tubes. Having chest pains. Was taken back to the operating room. Apparently there was a vascular leak that was repaired. Patient receive 2 units of blood before and 2 units after the procedure. Also had acute kidney injury felt to be acute tubular necrosis. Patient moved out of the ICU. Also had acute ischemic hepatitis-improving Today: Patient is having urinary retention. Was started on Flomax. Bladder scan showed 6 50 mL of urine. Patient did walk a lot 50 feet. Eating well. Had a bowel movement. Sitting up in a chair. Review of systems: Was done for constitutional, cardiovascular, GI, pulmonary. relevant finding as above Active Medications Acetaminophen (Acetaminophen Tab 500 Mg Tab) 1,000 mg PO Q6HR PRN PRN Reason: Fever and/ or Pain Last Admin: 09/27/20 13:23 Dose: 1,000 mg Documented by: Albuterol/Ipratropium (Ipratropium-Albuterol 3 Ml Neb) 3 ml INHALATION RT-Q2H PRN PRN Reason: Shortness Of Breath Or Wheezing Albuterol/Ipratropium (Ipratropium-Albuterol 3 Ml Neb) 3 ml INHALATION RT-QID [facility] Last Admin: 09/27/20 12:49 Dose: Not Given Documented by: Artificial Tears (Artificial Tears-Hypromellose Drops 15 Ml Btl) 1 drops BOTH EYES QID PRN PRN Reason: Dry Eye(s) Last Admin: 09/24/20 20:18 Dose: 1 drops Documented by: Aspirin (Aspirin 81 Mg) 81 mg PO DAILY [facility] Last Admin: 09/27/20 08:59 Dose: 81 mg Documented by: Atorvastatin Calcium (Atorvastatin 40 Mg Tab) 40 mg PO DAILY [facility] Last Admin: 09/27/20 08:59 Dose: 40 mg Documented by: Benzocaine/Menthol (Benzocaine/Menthol Lozeng 1 Each Lozenge) 1 each MUCOUS MEM Q2H PRN PRN Reason: Sore Throat Bisacodyl (Bisacodyl 10 Mg Supp) 10 mg RECTAL DAILY PRN PRN Reason: Constipation Last Admin: 09/24/20 07:58 Dose: 10 mg Documented by: Clopidogrel Bisulfate (Clopidogrel 75 Mg Tab) 75 mg PO DAILY [facility] Last Admin: 09/27/20 08:59 Dose: 75 mg Documented by: Furosemide (Furosemide 10 Mg/Ml 4 Ml Vial) 40 mg IV Q12HR [facility] Last Admin: 09/27/20 14:55 Dose: 40 mg Documented by: Heparin Sodium (Porcine) (Heparin Sodium,Porcine/Pf 5,000 Unit/0.5 Ml Syringe) 5,000 unit SQ Q8HR [facility] Last Admin: 09/27/20 08:59 Dose: 5,000 unit Documented by: Amiodarone HCl 150 mg/ (Dextrose/Water) 103 mls @ 618 mls/hr IV .Q10M PRN; Protocol PRN Reason: A.FIB/FLUTTER Amiodarone HCl 360 mg/ (Dextrose/Water) 207.2 mls @ 34.533 mls/hr IV .Q6H PRN; Protocol PRN Reason: A.FIB/FLUTTER Amiodarone HCl 450 mg/ (Dextrose/Water) 250 mls @ 16.667 mls/hr IV .Q15H PRN; Protocol PRN Reason: A.FIB/FLUTTER Insulin Aspart (Insulin Aspart (Novolog) 100 Unit/Ml Vial) 0 unit SQ ACHS [facility]; Protocol Last Admin: 09/27/20 13:06 Dose: Not Given Documented by: Insulin Detemir (Insulin Detemir (Levemir) 100 Unit/Ml Syr) 24 unit SQ DAILY@0700 [facility] Last Admin: 09/27/20 06:32 Dose: 24 unit Documented by: Magnesium Hydroxide (Magnesium Hydroxide 2,400 Mg/10 Ml Cup) 2,400 mg PO BID PRN PRN Reason: Constipation Metoprolol Tartrate (Metoprolol Tartrate 50 Mg Tab) 50 mg PO BID [facility] Last Admin: 09/27/20 09:01 Dose: 50 mg Documented by: Miscellaneous Information (Potassium Replacement Protocol 1 Each Misc) 1 each MISCELLANE DAILY PRN; Protocol PRN Reason: Per Protocol Miscellaneous Information (Magnesium Replacement Protocol 1 Each Misc) 1 each MISCELLANE DAILY PRN; Protocol PRN Reason: Per Protocol Miscellaneous Information (Phosphorus Replacement Protoco 1 Each Misc) 1 each MISCELLANE DAILY PRN; Protocol PRN Reason: Per Protocol Ondansetron HCl (Ondansetron 4 Mg/2 Ml Vial) 4 mg IVP Q6HR PRN PRN Reason: Nausea And Vomiting Last Admin: 09/22/20 12:48 Dose: 4 mg Documented by: Pantoprazole Sodium (Pantoprazole 40 Mg Tablet) 40 [facility] Last Admin: 09/27/20 06:30 Dose: 40 mg Documented by: Polyethylene Glycol (Polyethylene Glycol 3350 17 Gm Powd.Pack) 17 gm PO DAILY [facility] Last Admin: 09/27/20 09:00 Dose: 17 gm Documented by: Senna/Docusate Sodium (Sennosides-Docusate Sodium 1 Each Tab) 2 each PO HS [facility] Last Admin: 09/26/20 20:06 Dose: Not Given Documented by: Sodium Chloride (Sodium Chloride 0.9% Flush 10 Ml Syringe) 10 ml IV BID [facility] Last Admin: 09/27/20 10:48 Dose: Not Given Documented by: Sodium Chloride (Sodium Chloride 0.65% Nasal Interior 44 Ml Btl) 2 spray NASAL QID PRN PRN Reason: Dry Nasal Passages Tamsulosin HCl (Tamsulosin 0.4 Mg Cap.Er.24h) 0.4 mg PO [facility] Last Admin: 09/27/20 08:59 Dose: 0.4 mg Documented by: Past medical history to include: Hypertension, hyperlipidemia, cervical spine problem from C5 through C7, COVID 19 Social history: Denies any smoking. Alcohol rarely. Physical examination: VITAL SIGNS: 98.6, 93, 18, 117/57, 94% room air GENERAL: Sitting up in a recliner, awake EYES: Pupils equal. Conjunctiva normal. HEENT: External appearance of nose and ears normal, oral cavity grossly normal. NECK: JVD unable to assess; masses not palpable. HEART: First and second heart sounds are normal; no edema. LUNGS: Respiratory rate normal; decreased breath sounds. ABDOMEN: Soft, mildly distended nontender, liver spleen not palpable, no masses palpable. PSYCH: AO 3, mood and affect normal INVESTIGATIONS, reviewed in the clinical context: September 27: WBC 7.7 hemoglobin 7.5 platelets 273 creatinine 3.41 AST 102 ALT 114 albumin 3.2 September 22: WBC 8.1 hemoglobin 8.6 platelets 74, pression 3.8 creatinine 2.95 September 21: W obesity 16.6 hemoglobin 10.2 platelets 125 WBC 19.3 hemoglobin 9.4 platelets 206 potassium 4.4 crit 0.82 Preoperative labs from September 14: Hemoglobin 15.9 UA negative EKG tracing personally reviewed by me-on the ekg monitor: Sinus rhythm Chest x-ray film personally reviewed by me-some cardiomegaly Assessment and plan: -Status post coronary bypass. Patient extubated on September 20 and reintubated following being taken back to the OR.. Extubated September 22. -Patient was taken back to the OR - because of leaking vessel. Repaired -Coronary artery disease Aspirin, Lipitor, Lopressor -Essential hypertension Lopressor -Acute postprocedure blood loss anemia, As expected from surgery. received total of 4 units of blood. Follow H&H -Leukocytosis, reactive from surgery. No clinical evidence of infection Follow clinically. -Dilutional thrombocytopenia-corrected Follow H&H -Cardiogenic shock-resolved On epinephrine [,milrinone-discontinued] -Acute kidney injury, likely from acute tubular necrosis-slow to respond Follow with nephrology -Bladder outflow obstruction Started on Flomax. Follow-up post void residual's -Acute ischemic hepatitis, some improvement Follow LFTs Continue current medication treatment plan. Discussed with patient. Follow labs. Thank you Dr. Ku
--- NOTE | 2020-09-27 15:03 | P.PN ---
Subjective Progress Note Date: 09/27/20 Principal diagnosis: Coronary artery disease with left main disease. Previous medical history of unstable angina, hypertension, hyperlipidemia, recent Covid infection in July 2020, previous tobacco dependence, rare alcohol usage POD #7 coronary artery bypass grafting 4 vessels, left internal mammary artery to left anterior descending artery, radial artery to the ramus artery, reverse saphenous vein graft to the distal obtuse marginal artery, reverse saphenous vein graft to the posterior lateral branch of the right coronary artery, endoscopic harvesting of the bilateral greater saphenous veins, endoscopic harvesting of the left radial artery, ligation of the left atrial appendage using a 35 mm AtriClip, intraoperative transesophageal echocardiogram and epi- aortic scanning Witnessed cardiac arrest with brief CPR and subsequent ROSC Postoperative acute blood loss anemia with return to the OR for mediastinal exploration with control of postop bleed, unexpected Postoperative hypotension requiring pressor support, expected due to above Acute lactic acidosis, secondary to above Elevated transaminases, likely due to hypoperfusion LEONEL, likely due to hypoperfusion Acute urinary retention, unexpected The patient is sitting up in a recliner on the cardiac stepdown unit in no acute distress. States pain is controlled on current medication regimen, denies s hortness of breath. He has ambulated in the hallway. Actively using incentive spirometer and achieving 1000 mL. He has been voiding only small amounts and when bladder scanned he has been found to have residual in the 600-700 mL range, has been straight cathed more than once, he had been started on Flomax, Cao catheter replaced. He has been weaned off oxygen, on room air his oxygen saturations are in the mid 90s. Otherwise no new concerns. He remains in sinus rhythm, hemodynamically stable on no inotropes or pressors. All invasive lines and tubes have been discontinued except for Cao catheter. Objective - Vital Signs Vital signs: Vital Signs Temp 98.6 F 09/27/20 13:08 Pulse 93 09/27/20 13:08 Resp 18 09/27/20 13:08 BP 117/57 09/27/20 13:08 Pulse Ox 94 L 09/27/20 13:08 Intake & Output 09/26/20 09/27/20 09/27/20 18:59 06:59 18:59 Intake Total 185 Output Total 1895 279 674 Balance -9935 -350 -292 Weight 107.7 kg Intake: Oral 185 Output: Urine 1895 350 Straight 700 Post Void Residual 674 Other: Voiding Method Urinal Urinal # Voids 1 2 ABP, PAP, CO, CI - Last Documented Arterial Blood Pressure 113/50 Pulmonary Artery Pressure 29/7 Cardiac Output 7.4 Cardiac Index 3.3 - Exam CONSTITUTIONAL: Appears comfortable, cooperative, no acute distress RESPIRATORY: Lungs sounds diminished bilaterally. Respirations even, nonlabored. Currently on room air with oxygen saturation 94%. Able to achieve 1000 mL on incentive spirometry. Strong cough. CARDIOVASCULAR: S1, S2 present. Regular rate and rhythm, sinus rhythm on telemetry. Sternum stable. Palpable peripheral pulses bilaterally. Bilateral lower extremity edema present. No calf pain or tenderness noted. Heart hugger in place with patient demonstrating appropriate use. Antiembolism stockings, SCDs present. GASTROINTESTINAL: Abdomen soft, nontender, distended. Active bowel sounds present 4 quadrants. Tolerating diet. Positive large bowel movement 09/26/20 per patient. GENITOURINARY: Continues to void small amounts clear, yellow urine, straight cath yielded 600-700 mL, Cao reinserted. INTEGUMENTARY: Skin is warm and dry with evidence of good perfusion. Anterior chest incision well approximated and covered with dry intact dressing. EVH site well approximated without redness or drainage. Left radial artery harvest site without redness or drainage. NEUROLOGIC: Cranial nerves II through XII intact MUSKULOSKELETAL: Able to move all extremities, strength equal bilaterally, gait normal, appears to have some degree of foot drop in the left foot as he is unable to dorsiflex PSYCHIATRIC: Alert and oriented to person place and time, appropriate affect, intact judgment and insight - Allied health notes Allied health notes reviewed: nursing - Labs CBC & Chem 7: 09/27/20 11:01 09/27/20 11:01 Labs: Abnormal Lab Results - Last 24 Hours (Table) 09/26/20 09/26/20 09/26/20 Range/Units 16:06 19:52 23:25 RBC (4.30-5.90) m/uL Hgb (13.0-17.5) gm/dL Hct (39.0-53.0) % RDW (11.5-15.5) % BUN (9-20) mg/dL Creatinine (0.66-1.25) mg/dL Glucose (74-99) mg/dL POC Glucose (mg/dL) 140 H 102 H 130 H (75-99) mg/dL Calcium (8.4-10.2) mg/dL AST (17-59) U/L ALT (4-49) U/L Alkaline Phosphatase (38-126) U/L Total Protein (6.3-8.2) g/dL Albumin (3.5-5.0) g/dL 09/27/20 09/27/20 09/27/20 Range/Units 06:35 11:01 11:01 RBC 2.58 L (4.30-5.90) m/uL Hgb 7.5 L (13.0-17.5) gm/dL Hct 23.3 L (39.0-53.0) % RDW 16.1 H (11.5-15.5) % BUN 64 H (9-20) mg/dL Creatinine 3.41 H (0.66-1.25) mg/dL Glucose 120 H (74-99) mg/dL POC Glucose (mg/dL) 106 H (75-99) mg/dL Calcium 8.2 L (8.4-10.2) mg/dL AST 102 H (17-59) U/L ALT 114 H (4-49) U/L Alkaline Phosphatase 223 H (38-126) U/L Total Protein 5.4 L (6.3-8.2) g/dL Albumin 3.2 L (3.5-5.0) g/dL 09/27/20 Range/Units 11:56 RBC (4.30-5.90) m/uL Hgb (13.0-17.5) gm/dL Hct (39.0-53.0) % RDW (11.5-15.5) % BUN (9-20) mg/dL Creatinine (0.66-1.25) mg/dL Glucose (74-99) mg/dL POC Glucose (mg/dL) 122 H (75-99) mg/dL Calcium (8.4-10.2) mg/dL AST (17-59) U/L ALT (4-49) U/L Alkaline Phosphatase (38-126) U/L Total Protein (6.3-8.2) g/dL Albumin (3.5-5.0) g/dL - Imaging and Cardiology Chest x-ray: report reviewed, image reviewed Assessment and Plan Assessment: 1. Coronary artery disease with left main disease, status post four-vessel CABG 2. Unstable angina 3. History of hypertension 4. Hyperlipidemia 5. Recent Covid infection in July 2020 6. Previous tobacco dependence 7. Rare alcohol usage 8. Pre-diabetic with preoperative hemoglobin A1c 6.2% 9. Witnessed cardiac arrest with brief CPR and subsequent ROSC 10. Postoperative acute blood loss anemia with return to the OR for mediastinal exploration with control of postop bleed 11. Postoperative hypotension requiring pressor support, currently off pressors 12. Acute lactic acidosis, resolved 13. Elevated transaminases due to hypoperfusion, resolving 14. LEONEL due to hypoperfusion 15. Abdominal distention, secondary to ileus, improving status post 2 bowel movements 09/24/2020 16. Acute urinary retention with reinitiation of Cao catheter Plan: 1. Continue low-dose aspirin, statin, Plavix, beta cheyenne. Will increase beta cheyenne when able, increased to 50 mg twice daily today. 2. Encourage incentive spirometry use 10 times every hour while awake. Bronchodilators per pulmonology 3. Will monitor daily labs and x-rays. Electrolyte replacement per protocol. No further transfusions at this time. Lasix dosing per nephrology, initiated on 40 mg IV twice daily. Avoid nephrotoxic agents 4. GI/DVT prophylaxis 5. Increase activity as tolerated. PT/OT/cardiac rehab following 6. Continue Flomax. Urology consulted, appreciate recommendations 7. Insulin management per primary care service. Patient is borderline pre- diabetic, preoperative hemoglobin A1c 6.2% 8. Pain control current medication regimen 9. Strict accurate intake and output, daily weights 10. More recommendations to follow Time with Patient: Greater than 30
--- NOTE | 2020-09-27 15:42 | PN ---
PROGRESS NOTE The patient is seen for followup for acute kidney injury. The patient's renal function has been improving. He is volume overloaded and has been receiving daily IV Lasix. He has had urine retention any continues to require straight catheterization. Patient was started on Flomax. He had another 674 mL obtained on bladder scan. No other significant complaints today. PHYSICAL EXAMINATION: Blood pressure is 117/57, heart rate 93 per minute. He is afebrile. Examination of the heart S1, S2. Examination of the lungs, bilateral breath sounds are heard. Abdomen is soft, nontender. Examination of lower extremities shows edema 2+ bilaterally upper and lower extremities. Legs are wrapped. LAB: Show sodium 139, potassium 3.8, chloride 102, BUN 64, serum creatinine 3.4, hemoglobin 7.5 g/dL. ASSESSMENT: 1. Acute kidney injury, ATN, currently with volume overload, nonoliguric and continuing to improve. No nephrotoxic agents on board. Patient does have urine retention for which he is receiving periodic straight catheterization. He is also maintained on Flomax. 2. Urine retention, continue with Flomax. Patient may need reinsertion of Cao catheter. 3. Status post coronary artery bypass surgery. 4. Volume overload. 5. Bleeding postoperatively, taken back to OR for reexploration and control of bleeding. 6. Anemia, multifactorial. PLAN: Maintained on IV Lasix daily and repeat labs in a.m. MMODL / IJN: [id number] /
[2020-09-27 17:14] LABS: Glucose,Whole Blood 110 mg/dL (75-99)
[2020-09-27 20:06] LABS: Glucose,Whole Blood 149 mg/dL (75-99)
[2020-09-27] MEDS: SENNOSIDES-DOCUSATE SODIUM 1 EACH TAB PO SCH (20:10)
[2020-09-28 04:28] VITALS: RESP 18
[2020-09-28 06:33] LABS: Glucose,Whole Blood 107 mg/dL (75-99)
[2020-09-28] MEDS: INSULIN DETEMIR (LEVEMIR) 100 UNIT/ML SYR SQ SCH (06:34)
[2020-09-28] MEDS: PANTOPRAZOLE 40 MG TABLET PO SCH (06:34)
[2020-09-28] MEDS: INSULIN ASPART (NovoLOG) 100 UNIT/ML VIAL SQ SCH ×4 (06:35→20:24)
--- NOTE | 2020-09-28 08:15 | XR ---
EXAMINATION TYPE: XR chest 2V DATE OF EXAM: 09/28/2020 COMPARISON: 09/27/2020 TECHNIQUE: PA and lateral views submitted. HISTORY: Post open heart FINDINGS: The heart is enlarged and there is bilateral consolidation and small left effusion. Diffuse interstit ial pattern and postoperative changes. Biapical pleural thickening. No sizable pneumothorax. IMPRESSION: Postoperative change with bilateral infiltrate and pleural effusion correlate for mild ce ntral venous congestion.
[2020-09-28 08:35] LABS: HCT 22.4 % (39.0-53.0); HGB 7.8 gm/dL (13.0-17.5); MCH 31.1 pg (25.0-35.0); MCHC 34.6 g/dL (31.0-37.0); MCV 89.9 fL (80.0-100.0); Mean Platelet Volume 7.2; Platelet Count 338 k/uL (150-450); RBC 2.49 m/uL (4.30-5.90); RDW 15.6 % (11.5-15.5); WBC 8.3 k/uL (3.8-10.6)
[2020-09-28] MEDS: IPRATROPIUM-ALBUTEROL 3 ML NEB INHALATION SCH ×4 (08:43→20:47)
[2020-09-28 08:58] LABS: Albumin 3.5 g/dL (3.5-5.0); Calcium 8.3 mg/dL (8.4-10.2); Magnesium 2.5 mg/dL (1.6-2.3); Potassium 3.6 mmol/L (3.5-5.1); Total Bilirubin 0.8 mg/dL (0.2-1.3); Total Protein 5.7 g/dL (6.3-8.2)
[2020-09-28] MEDS: TAMSULOSIN 0.4 MG CAP.ER.24H PO SCH (09:21)
[2020-09-28] MEDS: FUROSEMIDE 10 MG/ML 4 ML VIAL IV SCH ×2 (09:21→20:24)
[2020-09-28] MEDS: ASPIRIN 81 MG PO SCH (09:21)
[2020-09-28] MEDS: METOPROLOL TARTRATE 50 MG TAB PO SCH ×2 (09:21→20:24)
[2020-09-28] MEDS: ATORVASTATIN 40 MG TAB PO SCH (09:21)
[2020-09-28] MEDS: CLOPIDOGREL 75 MG TAB PO SCH (09:21)
[2020-09-28] MEDS: polyethylene glycoL 3350 17 GM POWD.PACK PO SCH (09:22)
[2020-09-28] MEDS: HEPARIN SODIUM,PORCINE/PF 5,000 UNIT/0.5 ML SYRINGE SQ SCH ×3 (09:22→23:35)
[2020-09-28] MEDS: ACETAMINOPHEN TAB 500 MG TAB PO PRN ×2 (09:24→18:00)
--- NOTE | 2020-09-28 10:39 | P.PN ---
Subjective Progress Note Date: 09/28/20 HISTORY OF PRESENT ILLNESS: This is a 50 year old male with a past medical history significant for hypertension, hyperlipidemia, coronary artery disease, recent Covid in July 2020 and former nicotine dependence. He follows with Dr. David Santamaria. He underwent left heart cath in 2018 which revealed 60% LM disease. In 03/2020, nuclear stress test was negative. 07/21/2020, patient underwent LHC at [facility] which revealed severe obstructive disease of the colon and left circumflex. The decision was made to consult cardiothoracic surgery. Echocardiogram 07/21/2020- EF 65-70%. We have been asked to see the patient in consultation for post cardiac surgery management. Patient underwent CABG x 4: BASHIR to LAD, radial artery to ramus artery, saphenous vein graft to distal obtuse marginal artery, and saphenous vein graft to posterior lateral branch of right coronary artery. POD #6. Patient had witnessed PEA cardiac arrest with CPR and subsequent ROSC on 09/20/20 09/26/2020: Patient seen and examined, at bedside. Up in bedside chair. No acute distress. H is pain is currently controlled. Using incentive spirometery and achieving 1L. He is complaining of left foot weakness, with evidence of foot drop. He is able to lift his left leg, plantar flex left foot, but unable to dorsiflex left foot. Blood pressure 120/81, heart rate 83, afebrile, maintaining oxygen saturation is 96% on room air. Telemetry reviewed, patient in sinus rhythm HR 80s. Laboratory data: WBC 9.7. Hemoglobin 7.3. Platelet count 197. Sodium 137. Potassium 3.8. BUN 78. Creatinine 4.23. AST 134. ALT 265. Currently being maintained on aspirin 81 mg daily, atorvastatin 40 mg daily, Plavix 75 mg daily, metoprolol titrate 25 mg twice a day 09/27/2020 Patient has been transferred out of the ICU to the selective care unit. Patient examined this morning. Patient is sitting up in the bed. He denies chest pain or pressure. Denies shortness of breath. Telemetry reveals sinus tachycardia. Patient complains of frequent urination with small quantities. He continues to have left foot drop. 09/28/2020 Patient examined this morning on the selective care unit. Patient is in relating in the hallway this morning. Patient denies chest pain or pressure. She denies shortness of breath. He is on room air with oxygen saturations greater than 92%. Patient had urinary retention yesterday and required insertion of indwelling urinary catheter. Patients IV lasix increased to BID yesterday per nephrology. Creatinine 3.32. BUN 54. Hemoglobin 7.8. AST 95. ALT 125. Chest x-ray this morning reveals postoperative changes with bilateral infiltrates and pleural effusion. Correlate for mild central venous congestion. PHYSICAL EXAM: VITAL SIGNS: Reviewed. GENERAL: Well-developed in no acute distress. NECK: Supple. No JVD or thyromegaly LUNGS: Respirations even and unlabored. Lungs diminished bilaterally. HEART: Regular rate and rhythm. S1 and S2 heard. Sternal incision clean and dry. Heart hugger present. EXTREMITIES: Unable to dorsiflex left foot. No clubbing or cyanosis. Peripheral pulses intact. No lower extremity edema ASSESSMENT: Coronary artery disease with left main disease, status post CABG 4 Acute blood loss anemia, s/p return to OR for control of postoperative bleeding Acute lactic acidosis, resolved Elevated LFTs secondary to hypoperfusion - downtrending Acute Kidney injury due to hypoperfusion, Scr downtrending Hyperlipidemia Hypertension Postoperative hypotension requiring pressor support, currently off pressors Witnessed cardiac arrest with brief CPR and subsequent ROSC History of Covid, 07/2020 Former nicotine dependence PLAN: Continue postoperative management per CTS Continue current cardiac medications Continue to monitor kidney function Continue telemetry monitoring Continue to increase activity as tolerated Encourage use of incentive spirometer Further recommendations pending patient's course Nurse practitioner note has been reviewed by physician. Signing provider agrees with the documented findings, assessment, and plan of care. Objective - Vital Signs Vital signs: Vital Signs Temp 98.0 F 09/28/20 04:00 Pulse 103 H 09/28/20 01:07 Resp 18 09/28/20 04:00 BP 136/79 09/28/20 04:00 Pulse Ox 95 09/28/20 04:00 Intake & Output 09/27/20 09/28/20 09/28/20 18:59 06:59 18:59 Intake Total 236 240 Output Total 2550 4900 Balance -2012 240 Weight 104 kg Intake: Oral 236 240 Output: Urine 1575 4900 Straight 700 Uretheral (Cao) 1100 Post Void Residual 674 Other: Voiding Method Indwelling Catheter Indwelling Catheter # Bowel Movements 1 ABP, PAP, CO, CI - Last Documented Arterial Blood Pressure 113/50 Pulmonary Artery Pressure 29/7 Cardiac Output 7.4 Cardiac Index 3.3 - Labs CBC & Chem 7: 09/28/20 08:01 09/28/20 08:01 Labs: Abnormal Lab Results - Last 24 Hours (Table) 09/27/20 09/27/20 09/27/20 Range/Units 11:01 11:01 11:56 RBC 2.58 L (4.30-5.90) m/uL Hgb 7.5 L (13.0-17.5) gm/dL Hct 23.3 L (39.0-53.0) % RDW 16.1 H (11.5-15.5) % Carbon Dioxide (22-30) mmol/L BUN 64 H (9-20) mg/dL Creatinine 3.41 H (0.66-1.25) mg/dL Glucose 120 H (74-99) mg/dL POC Glucose (mg/dL) 122 H (75-99) mg/dL Calcium 8.2 L (8.4-10.2) mg/dL Magnesium (1.6-2.3) mg/dL AST 102 H (17-59) U/L ALT 114 H (4-49) U/L Alkaline Phosphatase 223 H (38-126) U/L Total Protein 5.4 L (6.3-8.2) g/dL Albumin 3.2 L (3.5-5.0) g/dL 09/27/20 09/27/20 09/28/20 Range/Units 17:03 20:01 06:12 RBC (4.30-5.90) m/uL Hgb (13.0-17.5) gm/dL Hct (39.0-53.0) % RDW (11.5-15.5) % Carbon Dioxide (22-30) mmol/L BUN (9-20) mg/dL Creatinine (0.66-1.25) mg/dL Glucose (74-99) mg/dL POC Glucose (mg/dL) 110 H 149 H 107 H (75-99) mg/dL Calcium (8.4-10.2) mg/dL Magnesium (1.6-2.3) mg/dL AST (17-59) U/L ALT (4-49) U/L Alkaline Phosphatase (38-126) U/L Total Protein (6.3-8.2) g/dL Albumin (3.5-5.0) g/dL 09/28/20 09/28/20 Range/Units 08:01 08:01 RBC 2.49 L (4.30-5.90) m/uL Hgb 7.8 L (13.0-17.5) gm/dL Hct 22.4 L (39.0-53.0) % RDW 15.6 H (11.5-15.5) % Carbon Dioxide 33 H (22-30) mmol/L BUN 54 H (9-20) mg/dL Creatinine 3.32 H (0.66-1.25) mg/dL Glucose 133 H (74-99) mg/dL POC Glucose (mg/dL) (75-99) mg/dL Calcium 8.3 L (8.4-10.2) mg/dL Magnesium 2.5 H (1.6-2.3) mg/dL AST 95 H (17-59) U/L ALT 125 H (4-49) U/L Alkaline Phosphatase 203 H (38-126) U/L Total Protein 5.7 L (6.3-8.2) g/dL Albumin (3.5-5.0) g/dL
[2020-09-28] MEDS ORDERED: POTASSIUM CHLORIDE ER 20 MEQ TAB.ER PO SCH (11:00)
[2020-09-28 11:54] LABS: Glucose,Whole Blood 126 mg/dL (75-99)
--- NOTE | 2020-09-28 14:06 | P.PN ---
Subjective Progress Note Date: 09/28/20 Principal diagnosis: Four-vessel coronary artery bypass grafting 50-year-old male patient was postop day #1 following four-vessel bypass surgery. The patient had multivessel CAD, symptomatic and the patient underwent his bypass surgery yesterday and postop the patient was hemodynamically stable and the patient was extubated without any major difficulties. The patient postextu bation was doing well and he was hemodynamically stable. Probably within few hours following his extubation, he had massive amount of blood coming out of his recent in few and this was estimated to be around 2 L total. At that point, CT surgery was involved and the patient was seen by Dr. Arteaga in the intensive care unit. As he was being evaluated, the patient underwent further hemodynamic inst ability and the patient became hypotensive and he went into a PEA rhythm and he had a cardiac arrest. He was resuscitated according to the ACLS protocol and he is down time was estimated to be around 10 minutes. Following that, pulse was recovered and the patient was taken to the operating room where a surgical evaluation was done. The patient underwent a mediastinal exploration and control of bleeding was achieved, source being a questionable slits opening at the aortic wall and according to the surgical opinion, this was possibly related to mechanical injury from a wire suture. In any rate, control of bleeding was achieved and the patient was brought back today intensive care unit at around 3 AM. This morning, the patient is sedated with propofol and the patient is calm and comfortable and performed running at 45 mg/kg/m. He was apparently moving his extremities after he arrived from the operating room. A sedation holiday will be given to him at a later stage today. This morning, he remains on a mechanical ventilator currently is an assist-control mode at the rate of 12 with a tidal volume of 550 FiO2 of 60% with a PEEP of 8. Blood gas showed a pH of 7.37 with a pCO2 of 48 and pO2 of 83. Based on that, increased respiratory rate up to 18. The chest x-ray shows no complications. The patient has 2 mediastinal chest tubes and left pleural chest tube. There are some atelectatic changes in lung bases bilaterally. Otherwise ET tube is in a good location and Southside-Jt catheter is also in good location. Meanwhile, the patient has received a total of 4 units of packed RBC and hemoglobin today is at 10.2. The chest tubes are still draining minimal amount of serosanguineous/bloody drainage is output is minimal at this point and there is no evidence of any air leak. The patient is hemodynamically requiring pressors and the patient is currently on norepinephrine infusion running at 0.1 mg/kg per minute. . He is also on vasopressin as physiologic dose of 0.03 units per hour and the patient is also on milrinone at 0.1 mg/kg per minute. Cardiac index is at 2.3 with an output of 5.0. Pulmonary artery pressures are 32/17 and his CVP is at 10. The patient is producing adequate urine output. Her recent cardiac rhythm is sinus with a rate of 70. He has a VVI backup pacer at 15. He is also on insulin drip at 2 units an hour. The patient is a 50-year-old male patient who is postop from coronary artery bypass surgery and the patient is postop day #2 following four-vessel bypass. He remains intubated on a mechanical ventilator due to the complications that occurred postop. Fortunately, the patient has done extremely well. The patient this morning is on sedation on propofol which is running at 60 mg/kg/m. Hemodynamically the patient is improved and the patient is currently off vasopressin and he is also off levo fed has been off the pressors for the past 5-6 hours. Meanwhile, the patient's blood pressure currently is well maintained and the patient was started on low-dose beta blockers. He was started on metoprolol 12.5 mg by mouth twice a day. Meanwhile, he developed an acute kidney injury. Creatinine is up to 2.96. However, the patient is making adequate urine output in order of 20-30 mL an hour. IV fluids are running in the form of an art at the rate of 50 mL an hour. In terms of neurologic functions, a sedation holiday will be given and we'll assess the patient's underlying mental status. He was moving extremities even while being sedated yesterday. In terms of his respiratory status, he remains on a mechanical ve ntilator. Assist-control mode at the rate of 18 with a tidal volume of 550 and FiO2 of 50% with a PEEP of 8. His blood gases from today shows a pH of 7.48 with a pCO2 of 41 and pO2 of 84. The chest x-ray from today is showing adequate expansion of both lungs. Mediastinal and left pleural chest tubes are in place. ET tube is in a good location. The patient has his Southside-Jt catheter and OG tube is also in the stomach. No evidence of any pneumothorax. Output from the chest tubes are minimal and there is no evidence of any air leak. No evidence of any bleed. Hemoglobin stable after being transfused with a total of 4 units of packed RBC. Currently is at 8.6. Platelet count is 74. Unfortunately there is an acute kidney injury that has evolved with a creatinine of 2.95. Nevertheless, the patient is nonoliguric. Hemodynamic parameters indicate a cardiac output of 8.1 with an index of 3.6 and the patient is currently off milrinone. Afebrile. Remains nothing by mouth still. On 09/23/2020 the patient is postop day #3. He was successfully weaned off the mechanical ventilated and was extubated yesterday without any major difficulties and the patient is currently on oxygen on 4 L per minute nasal cannula. Chest x-ray from today showing a very tiny apical left-sided pneumothorax. There is a left-sided chest tube. There is a mediastinal chest tube. No signs of any sign ificant fluid overload. Postsurgical changes are atelectatic changes in lung bases bilaterally. Meanwhile, the patient's pleural chest tube has drained 130 mL over the past 8 hours 8 hours and 330 mL over the past 24 hours as for the mediastinal chest tube, it has drained around 88 mL over the past 8 hours and the on the 30 mL over the past 24 hours. Urine output is no order of 20-30 mL an hour. Noted the patient has developed an acute kidney injury due to hemodynamic instability that occurred postop. His creatinine is up to 4.42 with a BUN of 54. Serum bicarb is a 28 and the sodium level is at 138. Nephrology has been consulted. Cao catheter is in place. We are avoiding any nephr otoxic agents at this point is time. Also, this morning, it was noted that his abdomen is quite distended. He has developed some degree of ileus. He has tympanic abdomen. Bowel sounds are extremely hypo-active. He claims that he is passing some flatus. No nausea. No emesis. No abdominal pain. No signs of any sepsis. Lactic acid levels have been ordered. Apply some of the abdomen is also been ordered. Hemoglobin from today is at 7.2. No signs of any acute bleed. Platelet count is 79 and compared to yesterday day #essentially stable. Hemodynamically stable. He is currently off milrinone. Off vasopressin. Off norepinephrine. He is using incentive spirometer. He is pulling approximately 500 mL on his RIS. No other significant events overnight. Neurologically is intact. No focal neurological deficit. Is awake and alert and oriented 3. He has developed some mild transaminitis probably secondary to hypotension and cardiac arrest and shock that occurred postop. 09/24/2020, the patient is postop day #4. He remains extubated. Currently on oxygen at 3 L per minute. Chest x-ray showing pulmonary vessel congestion and small effusions. There is left-sided chest tube in place and output has been in the order of 121 20 mL over the past 8 hours and 250 over the past 24 hours. The mediastinal chest tubes are in order of 25 mL drainage over the past 8 hours and 50 mL over the past 24 hours. He is awake and alert and moving and following commands and answering questions. No respiratory difficulties. Abdomen is still distended and the patient has an underlying ileus. He is passing flatus. He is tolerating clear liquid diet and some chips. Drinking water. No bowel movement activity yet. Bowel sounds are present and they're hypoactive. No nausea. No emesis. No chest pain. Pain is under adequate control. He is on no pressors for now. He is an acute kidney injury. Patient has developed an ATN in the creatinine is up to 5.05. Nevertheless, the patient is nonoliguric. He is producing urine output in the order of 575 570 fasting over the past 8 hours. His net fluid balance is negative over the past 24 hours. Note that he received a dose of Lasix 60 mg IV push yesterday. Nephrology has been seeing the patient and the patient is on no nephrotoxic agents at this point in time. Still using incentive spirometer. Pulling approximately 7 52,000 on his RIS. Liver function tests are also improving. Sodium level today is at 136 and the white cell count is at 9.7 with hemoglobin of 7.2. Platelet counts are improving and then up to 114. He is cardiac rhythm is sinus D5 in the mid 80s. No other significant events overnight. Ambulating yesterday 09/25/2020, the patient is postop day #5. The patient is calm and comfortable sitting up on a chair. Abdomen is still distended. The patient is having bowel movement and lites. The patient is currently on 2 L by nasal cannula with a pulse ox of 95.. Chest x-ray from today: CXR is showing atelectatic changes in lung bases along with some cardiomegaly. Chest tubes have been all removed yesterday. Using incentive spirometer. Hemoglobin today is at 7.2 with a white cell count of 7.8. In terms of her renal failure, the patient's BUN is a 77 with a creatinine of 4.82. No significant electrolyte disturbance. Shock liver is improving. The patient continues to produce adequate amount of urine output. ThePatient received a dose of Lasix yesterday. No fluid balance is -1.3 L over the past 24 hours. Reevaluated today on 09/26/2020, patient is now postoperative day #6. Remains in the ICU I believe it is probably an overflow. He is on oxygen at 2 L/m with O2 saturation of 97%. The patient is status post CABG, he had a four-vessel bypass surgery, BASHIR to LAD, radial artery to the ramus artery saphenous vein to distal obtuse marginal artery saphenous vein to posterior lateral branch of the right coronary artery. Chest x-ray is showing mild interstitial edema and at electasis. Patient is in sinus rhythm, hemodynamically stable. He is performing about 1000 mL on his incentive spirometer. Remains slightly edematous. His renal functioning remains poor, however improving compared to the last 3 days, creatinine down is to 4.23 today compared to 4.8 yesterday. P atient has been voiding. His only complaint is weakness in the left foot, possibly a left foot drop. Patient is not requiring any inotropes or pressors WBC count is 9.7 hemoglobin is 7.3 left lites are normal BUN is 78 creatinine 4.23. Liver enzymes were noted to be a bit elevated with AST of 114 ALT 134 alkaline phosphatase 265. On 09/27/2020 patient seen in follow-up. Today's postoperative day #7 status post four-vessel coronary artery bypass grafting. He is awake and alert, in no acute distress, he is on room air, pulse ox is 94-96%. His incentive spirometer effort is about 1000, his chest x-ray today is bilateral infiltrates and small pleural effusion. Patient has been started on Lasix 40 mg IV every 12 hours, nephrology is following. Renal profile is improving, BUN 64, creatinine is 3.41, electrolytes are within normal limits. White count is 7.7, hemoglobin is 7.5. Patient appears to be generally swollen, with edema in his upper and lower extremities, but no worsening dyspnea. His chest tubes are discontinued, his midsternal incision is clean dry and intact, chest tube sites are clean dry and intact. His IV fluids have been hep-locked. He is currently in sinus mechanism On 09/28/2020 patient seen in follow-up. He is calm and comfortable, he sitting up in the chair, he is oriented 3, breathing comfortably, currently on room air, pulse ox is 95%, hemodynamically stable, today's chest x-ray has been reviewed showing postoperative changes with bilateral infiltrates and pleural effusion and mild central venous congestion. Patient still has a generalized ed wilber involving upper and lower extremities, he remains on IV Lasix currently 40 mg every 12 hours. he is in -6.9 L Fluid balance over the last 24 hours. labs have been reviewed, his renal function continues to improve, his BUN is 54, and creatinine is 3.32. His incisions are clean dry and intact, chest tube sites clean dry and intact, chest tubes have been discontinued. He's been tolerating ambulation, he is in sinus mechanism, hemodynamically has been stable. His had no acute events overnight. Objective - Vital Signs Vital signs: Vital Signs Temp 98.0 F 09/28/20 04:00 Pulse 81 09/28/20 12:57 Resp 18 09/28/20 04:00 BP 136/79 09/28/20 04:00 Pulse Ox 95 09/28/20 04:00 Intake & Output 09/27/20 09/28/20 09/28/20 18:59 06:59 18:59 Intake Total 236 240 Output Total 6296 4900 Balance -2012 240 Weight 104 kg Intake: Oral 236 240 Output: Urine 1575 4900 Straight 700 Uretheral (Cao) 1100 Post Void Residual 674 Other: Voiding Method Indwelling Catheter Indwelling Catheter # Bowel Movements 1 ABP, PAP, CO, CI - Last Documented Arterial Blood Pressure 113/50 Pulmonary Artery Pressure 29/7 Cardiac Output 7.4 Cardiac Index 3.3 - Exam GENERAL EXAM: Alert, very pleasant, 50-year-old white male, on room air with pulse ox of 94-96% comfortable in no apparent distress. HEAD: Normocephalic/atraumatic. EYES: Normal reaction of pupils, equal size. Conjunctiva pink, sclera white. NOSE: Clear with pink turbinates. THROAT: No erythema or exudates. NECK: No masses, no JVD, no thyroid enlargement, no adenopathy. CHEST: No chest wall deformity. Symmetrical expansion. Midsternal incision is clean dry and intact, former chest tube sites are clean dry and intact LUNGS: Equal air entry with crackles, diminished breath sounds at the bases CVS: Regular rate and rhythm, normal S1 and S2, no gallops, no murmurs, no rubs ABDOMEN: Soft, nontender. No hepatosplenomegaly, normal bowel sounds, no guarding or rigidity. EXTREMITIES: No clubbing, 1+ edema in upper and lower extremities no cyanosis, 2+ pulses and upper and lower extremities. MUSCULOSKELETAL: Muscle strength and tone normal. SPINE: No scoliosis or deformity SKIN: No rashes CENTRAL NERVOUS SYSTEM: Alert and oriented -3. No focal deficits, tone is normal in all 4 extremities. PSYCHIATRIC: Alert and oriented -3. Appropriate affect. Intact judgment and insight. - Labs CBC & Chem 7: 09/28/20 08:01 09/28/20 08:01 Labs: Abnormal Lab Results - Last 24 Hours (Table) 09/27/20 09/27/20 09/28/20 Range/Units 17:03 20:01 06:12 RBC (4.30-5.90) m/uL Hgb (13.0-17.5) gm/dL Hct (39.0-53.0) % RDW (11.5-15.5) % Carbon Dioxide (22-30) mmol/L BUN (9-20) mg/dL Creatinine (0.66-1.25) mg/dL Glucose (74-99) mg/dL POC Glucose (mg/dL) 110 H 149 H 107 H (75-99) mg/dL Calcium (8.4-10.2) mg/dL Magnesium (1.6-2.3) mg/dL AST (17-59) U/L ALT (4-49) U/L Alkaline Phosphatase (38-126) U/L Total Protein (6.3-8.2) g/dL 09/28/20 09/28/20 09/28/20 Range/Units 08:01 08:01 11:52 RBC 2.49 L (4.30-5.90) m/uL Hgb 7.8 L (13.0-17.5) gm/dL Hct 22.4 L (39.0-53.0) % RDW 15.6 H (11.5-15.5) % Carbon Dioxide 33 H (22-30) mmol/L BUN 54 H (9-20) mg/dL Creatinine 3.32 H (0.66-1.25) mg/dL Glucose 133 H (74-99) mg/dL POC Glucose (mg/dL) 126 H (75-99) mg/dL Calcium 8.3 L (8.4-10.2) mg/dL Magnesium 2.5 H (1.6-2.3) mg/dL AST 95 H (17-59) U/L ALT 125 H (4-49) U/L Alkaline Phosphatase 203 H (38-126) U/L Total Protein 5.7 L (6.3-8.2) g/dL Assessment and Plan Plan: Assessment: #1. Symptomatic multivessel coronary artery disease, status post four-vessel coronary artery bypass grafting with BASHIR to the LAD, radial artery graft to the ramus, SVG to OM, and SVG to PLV, with bilateral legs endoscopic vein harvest, exclusion of the left atrial appendage and intraoperative transesophageal echocardiogram, postop day #8 #2. Postoperative hypotension, and blood loss requiring reexploration and control of postoperative bleeding, on expected #3. Leukocytosis, possibly reactive, improved #4. Postoperative blood loss anemia, expected #5. Elevated liver enzymes related to hypoperfusion, improving #6. Postoperative ileus, improving #7. Acute kidney injury secondary to hypoperfusion, improving #8. Recent history of COVID-19 pneumonia in June 2020 #9. 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 Hypertension #11. Diabetes mellitus #12. Hyperlipidemia #13. Chronic neck pain Plan: Continue diuretics per nephrology recommendations Patient is a negative fluid balance Still has generalized swelling Encourage Incentive spirometer use, Deep breathing and coughing Encourage ambulation Continue following labs including electrolytes and renal profile Continue breathing treatments GI and DVT prophylaxis per CT surgery I performed a history & physical examination of the patient and discussed their management with my nurse practitioner, Kaitlynn Madden. I reviewed the nurse practitioner's note and agree with the documented findings and plan of care. Lung sounds are positive for diminished breath sounds. The findings and the impression was discussed with the patient. I attest to the documentation by the nurse practitioner. Time with Patient: Less than 30
--- NOTE | 2020-09-28 14:36 | PN ---
PROGRESS NOTE Patient is seen for followup for acute kidney injury patient. The patient's renal function has been improving. He remains volume overloaded. He has also had issues with urine retention and a Cao catheter was reinserted. PHYSICAL EXAMINATION: On examination today, blood pressure is 136/79, heart rate of 85 per minute. He is afebrile. Examination of the heart S1, S2. Examination of the lungs, decreased breath sounds at bases. Abdomen is soft, nontender. Examination of lower extremities shows edema 2+ bilaterally upper and lower extremities. 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 LAB: Show sodium 140, potassium 3.6, chloride 101, CO2 33, BUN 54, creatinine 3.32, hemoglobin 7.8 g/dL. ASSESSMENT: 1. Acute kidney injury, acute tubular necrosis currently improved. 2. Volume overload maintained on IV Lasix started recently. Large output noted of 7 L. I am not sure if this is accurate. 3. Urine retention currently maintained on Flomax. Cao catheter has been reinserted. The patient was seen by Urology. Plan is to continue with the Cao catheter for at least another week. 4. Status post coronary artery bypass surgery. 5. Possible left footdrop. Patient is concerned. Will defer to Medicine. PLAN: I will decrease Lasix to daily starting tomorrow. Continue to avoid nephrotoxic agents and avoid hypotension. MMODL / IJN: [id number] /
--- NOTE | 2020-09-28 15:51 | P.PN ---
Progress Note - Text Progress Note Date: 09/28/20 - Chief Complaint Coronary bypass Consultation: This is a 50-year-old patient of Dr. Kimberli au. Chronic stable medical conditions include hypertension, hyperlipidemia, cervical problems C5 through C7, and COVID 19 in July of this year. Patient on earlier today underwent coronary bypass. Was extubated 8 PM this evening. Somewhat lethargic. They would answer some simple questions. Patient has 2 mediastinal and 1 left-sided chest pain or 2. Has a Cao catheter. Does include norepinephrine, insulin, nitroglycerin. Telemetry shows sinus rhythm. Patient is having some bloody drainage through the mediastinal tube. Patient having some pain at the chest tube insertion site. In some shortness of breath. Same night patient continued to have bleeding to the mediastinal chest tubes. Having chest pains. Was taken back to the operating room. Apparently there was a vascular leak that was repaired. Patient receive 2 units of blood before and 2 units after the procedure. Also had acute kidney injury felt to be acute tubular necrosis. Patient moved out of the ICU. Also had acute ischemic hepatitis-improving. having urinary retention. Was started on Flomax. Bladder scan showed 6 50 mL of urine. Cao catheter. Today: Oral intake fair. Breathing stable. Using incentive spirometry. Cao catheter present. Had a BM. Review of systems: Was done for constitutional, cardiovascular, GI, pulmonary. relevant finding as above Active Medications Acetaminophen (Acetaminophen Tab 500 Mg Tab) 1,000 mg PO Q6HR PRN PRN Reason: Fever and/ or Pain Last Admin: 09/28/20 09:24 Dose: 1,000 mg Documented by: Albuterol/Ipratropium (Ipratropium-Albuterol 3 Ml Neb) 3 ml INHALATION RT-Q2H PRN PRN Reason: Shortness Of Breath Or Wheezing Albuterol/Ipratropium (Ipratropium-Albuterol 3 Ml Neb) 3 ml INHALATION RT-QID [facility] Last Admin: 09/28/20 15:12 Dose: Not Given Documented by: Artificial Tears (Artificial Tears-Hypromellose Drops 15 Ml Btl) 1 drops BOTH EYES QID PRN PRN Reason: Dry Eye(s) Last Admin: 09/24/20 20:18 Dose: 1 drops Documented by: Aspirin (Aspirin 81 Mg) 81 mg PO DAILY [facility] Last Admin: 09/28/20 09:21 Dose: 81 mg Documented by: Atorvastatin Calcium (Atorvastatin 40 Mg Tab) 40 mg PO DAILY [facility] Last Admin: 09/28/20 09:21 Dose: 40 mg Documented by: Benzocaine/Menthol (Benzocaine/Menthol Lozeng 1 Each Lozenge) 1 each MUCOUS MEM Q2H PRN PRN Reason: Sore Throat Bisacodyl (Bisacodyl 10 Mg Supp) 10 mg RECTAL DAILY PRN PRN Reason: Constipation Last Admin: 09/24/20 07:58 Dose: 10 mg Documented by: Clopidogrel Bisulfate (Clopidogrel 75 Mg Tab) 75 mg PO DAILY [facility] Last Admin: 09/28/20 09:21 Dose: 75 mg Documented by: Furosemide (Furosemide 10 Mg/Ml 4 Ml Vial) 40 mg IV Q12HR [facility] Last Admin: 09/28/20 09:21 Dose: 40 mg Documented by: Heparin Sodium (Porcine) (Heparin Sodium,Porcine/Pf 5,000 Unit/0.5 Ml Syringe) 5,000 unit SQ Q8HR [facility] Last Admin: 09/28/20 09:22 Dose: 5,000 unit Documented by: Amiodarone HCl 150 mg/ (Dextrose/Water) 103 mls @ 618 mls/hr IV .Q10M PRN; Protocol PRN Reason: A.FIB/FLUTTER Amiodarone HCl 360 mg/ (Dextrose/Water) 207.2 mls @ 34.533 mls/hr IV .Q6H PRN; Protocol PRN Reason: A.FIB/FLUTTER Amiodarone HCl 450 mg/ (Dextrose/Water) 250 mls @ 16.667 mls/hr IV .Q15H PRN; Protocol PRN Reason: A.FIB/FLUTTER Insulin Aspart (Insulin Aspart (Novolog) 100 Unit/Ml Vial) 0 unit SQ ACHS [facility]; Protocol Last Admin: 09/28/20 06:35 Dose: Not Given Documented by: Insulin Detemir (Insulin Detemir (Levemir) 100 Unit/Ml Syr) 24 unit SQ DAILY@0700 [facility] Last Admin: 09/28/20 06:34 Dose: 24 unit Documented by: Magnesium Hydroxide (Magnesium Hydroxide 2,400 Mg/10 Ml Cup) 2,400 mg PO BID PRN PRN Reason: Constipation Metoprolol Tartrate (Metoprolol Tartrate 50 Mg Tab) 50 mg PO BID [facility] Last Admin: 09/28/20 09:21 Dose: 50 mg Documented by: Miscellaneous Information (Potassium Replacement Protocol 1 Each Misc) 1 each MISCELLANE DAILY PRN; Protocol PRN Reason: Per Protocol Miscellaneous Information (Magnesium Replacement Protocol 1 Each Misc) 1 each MISCELLANE DAILY PRN; Protocol PRN Reason: Per Protocol Miscellaneous Information (Phosphorus Replacement Protoco 1 Each Misc) 1 each MISCELLANE DAILY PRN; Protocol PRN Reason: Per Protocol Ondansetron HCl (Ondansetron 4 Mg/2 Ml Vial) 4 mg IVP Q6HR PRN PRN Reason: Nausea And Vomiting Last Admin: 09/22/20 12:48 Dose: 4 mg Documented by: Pantoprazole Sodium (Pantoprazole 40 Mg Tablet) 40 mg PO -BRKFST [facility] Last Admin: 09/28/20 06:34 Dose: 40 mg Documented by: Polyethylene Glycol (Polyethylene Glycol 3350 17 Gm Powd.Pack) 17 gm PO DAILY [facility] Last Admin: 09/28/20 09:22 Dose: 17 gm Documented by: Senna/Docusate Sodium (Sennosides-Docusate Sodium 1 Each Tab) 2 each PO HS [facility] Last Admin: 09/27/20 20:10 Dose: 2 each Documented by: Sodium Chloride (Sodium Chloride 0.9% Flush 10 Ml Syringe) 10 ml IV BID [facility] Last Admin: 09/27/20 22:42 Dose: 10 ml Documented by: Sodium Chloride (Sodium Chloride 0.65% Nasal [place] 44 Ml Btl) 2 spray NASAL QID PRN PRN Reason: Dry Nasal Passages Tamsulosin HCl (Tamsulosin 0.4 Mg Cap.Er.24h) 0.4 mg PO [facility] Last Admin: 09/28/20 09:21 Dose: 0.4 mg Documented by: Past medical history to include: Hypertension, hyperlipidemia, cervical spine problem from C5 through C7, COVID 19 Social history: Denies any smoking. Alcohol rarely. Physical examination: VITAL SIGNS: 98, 81, 18, 136/79, 95% room air GENERAL: Sitting up in a recliner, awake EYES: Pupils equal. Conjunctiva normal. HEENT: External appearance of nose and ears normal, oral cavity grossly normal. NECK: JVD unable to assess; masses not palpable. HEART: First and second heart sounds are normal; no edema. LUNGS: Respiratory rate normal; decreased breath sounds. ABDOMEN: Soft, mildly distended nontender, liver spleen not palpable, no masses palpable. Cao catheter PSYCH: AO 3, mood and affect normal INVESTIGATIONS, reviewed in the clinical context: September 28: WBC 8.3 hemoglobin 7.8 potassium 3.6 creatinine 3.3 to AST 95 ALT 125 September 27: WBC 7.7 hemoglobin 7.5 platelets 273 creatinine 3.41 AST 102 ALT 114 albumin 3.2 September 22: WBC 8.1 hemoglobin 8.6 platelets 74, pression 3.8 creatinine 2.95 September 21: W obesity 16.6 hemoglobin 10.2 platelets 125 WBC 19.3 hemoglobin 9.4 platelets 206 potassium 4.4 crit 0.82 Preoperative labs from September 14: Hemoglobin 15.9 UA negative EKG tracing personally reviewed by me-on the cardiac monitor: Sinus rhythm Chest x-ray film personally reviewed by me-some cardiomegaly Assessment and plan: -Status post coronary bypass. Patient extubated on September 20 and reintubated following being taken back to the OR.. Extubated September 22. -Patient was taken back to the OR - because of leaking vessel. Repaired -Coronary artery disease Aspirin, Lipitor, Lopressor -Essential hypertension Lopressor -Acute postprocedure blood loss anemia, As expected from surgery. received total of 4 units of blood. Follow H&H -Leukocytosis, reactive from surgery. No clinical evidence of infection- improved Follow clinically. -Dilutional thrombocytopenia-corrected Follow H&H -Cardiogenic shock-resolved On epinephrine [,milrinone-discontinued] -Acute kidney injury, likely from acute tubular necrosis-slow to respond Follow with nephrology -Bladder outflow obstruction Started on Flomax. Follow-up post void residual's. Cao catheter had to be reintroduced. -Acute ischemic hepatitis, some improvement Follow LFTs Continue current medication treatment plan. Discussed with the patient and . Follow-up. Thank you Dr. Ku
--- NOTE | 2020-09-28 16:01 | P.PN ---
Subjective Progress Note Date: 09/28/20 Principal diagnosis: Coronary artery disease with left main disease. Previous medical history of unstable angina, hypertension, hyperlipidemia, recent Covid infection in July 2020, previous tobacco dependence, rare alcohol usage POD #8 coronary artery bypass grafting 4 vessels, left internal mammary artery to left anterior descending artery, radial artery to the ramus artery, reverse saphenous vein graft to the distal obtuse marginal artery, reverse saphenous vein graft to the posterior lateral branch of the right coronary artery, endoscopic harvesting of the bilateral greater saphenous veins, endoscopic harvesting of the left radial artery, ligation of the left atrial appendage using a 35 mm AtriClip, intraoperative transesophageal echocardiogram and epi- aortic scanning Witnessed cardiac arrest with brief CPR and subsequent ROSC Postoperative acute blood loss anemia with return to the OR for mediastinal exploration with control of postop bleed, unexpected Postoperative hypotension requiring pressor support, expected due to above Acute lactic acidosis, secondary to above Elevated transaminases, likely due to hypoperfusion LEONEL, likely due to hypoperfusion Acute urinary retention, unexpected The patient is sitting up in a chair on the cardiac stepdown unit in no acute distress. States pain is controlled on current medication regimen, denies shor tness of breath. He has ambulated in the hallway several times without difficulty. Actively using incentive spirometer and achieving 1000 mL. He remains in sinus rhythm, hemodynamically stable. Cao catheter replaced yesterday, to stay in for 1 week and follow-up with urology. No other new con cerns. Objective - Vital Signs Vital signs: Vital Signs Temp 98.0 F 09/28/20 04:00 Pulse 81 09/28/20 12:57 Resp 18 09/28/20 04:00 BP 136/79 09/28/20 04:00 Pulse Ox 95 09/28/20 04:00 Intake & Output 09/27/20 09/28/20 09/28/20 18:59 06:59 18:59 Intake Total 236 240 Output Total 2245 4900 Balance -2012 240 Weight 104 kg Intake: Oral 236 240 Output: Urine 1575 4900 Straight 700 Uretheral (Cao) 1100 Post Void Residual 674 Other: Voiding Method Indwelling Catheter Indwelling Catheter # Bowel Movements 1 ABP, PAP, CO, CI - Last Documented Arterial Blood Pressure 113/50 Pulmonary Artery Pressure 29/7 Cardiac Output 7.4 Cardiac Index 3.3 - Exam CONSTITUTIONAL: Appears comfortable, cooperative, no acute distress RESPIRATORY: Lungs sounds diminished bilaterally. Respirations even, nonlabored. Currently on room air with oxygen saturation 95%. Able to achieve 1000 mL on incentive spirometry. Strong cough. CARDIOVASCULAR: S1, S2 present. Regular rate and rhythm, sinus rhythm on telemetry. Sternum stable. Palpable peripheral pulses bilaterally. Bilateral lower extremity edema present. No calf pain or tenderness noted. Heart hugger in place with patient demonstrating appropriate use. Antiembolism stockings, SCDs present. GASTROINTESTINAL: Abdomen soft, nontender, distended. Active bowel sounds present 4 quadrants. Tolerating diet. Positive large bowel movement 09/27/20 per patient. GENITOURINARY: Cao present draining clear, yellow urine INTEGUMENTARY: Skin is warm and dry with evidence of good perfusion. Anterior chest incision well approximated. EVH site well approximated without redness or drainage. Left radial artery harvest site without redness or drainage. NEUROLOGIC: Cranial nerves II through XII intact MUSKULOSKELETAL: Able to move all extremities, strength equal bilaterally, gait normal, still unable to dorsiflex left foot PSYCHIATRIC: Alert and oriented to person place and time, appropriate affect, intact judgment and insight - Allied health notes Allied health notes reviewed: nursing - Labs CBC & Chem 7: 09/28/20 08:01 09/28/20 08:01 Labs: Abnormal Lab Results - Last 24 Hours (Table) 09/27/20 09/27/20 09/28/20 Range/Units 17:03 20:01 06:12 RBC (4.30-5.90) m/uL Hgb (13.0-17.5) gm/dL Hct (39.0-53.0) % RDW (11.5-15.5) % Carbon Dioxide (22-30) mmol/L BUN (9-20) mg/dL Creatinine (0.66-1.25) mg/dL Glucose (74-99) mg/dL POC Glucose (mg/dL) 110 H 149 H 107 H (75-99) mg/dL Calcium (8.4-10.2) mg/dL Magnesium (1.6-2.3) mg/dL AST (17-59) U/L ALT (4-49) U/L Alkaline Phosphatase (38-126) U/L Total Protein (6.3-8.2) g/dL 09/28/20 09/28/20 09/28/20 Range/Units 08:01 08:01 11:52 RBC 2.49 L (4.30-5.90) m/uL Hgb 7.8 L (13.0-17.5) gm/dL Hct 22.4 L (39.0-53.0) % RDW 15.6 H (11.5-15.5) % Carbon Dioxide 33 H (22-30) mmol/L BUN 54 H (9-20) mg/dL Creatinine 3.32 H (0.66-1.25) mg/dL Glucose 133 H (74-99) mg/dL POC Glucose (mg/dL) 126 H (75-99) mg/dL Calcium 8.3 L (8.4-10.2) mg/dL Magnesium 2.5 H (1.6-2.3) mg/dL AST 95 H (17-59) U/L ALT 125 H (4-49) U/L Alkaline Phosphatase 203 H (38-126) U/L Total Protein 5.7 L (6.3-8.2) g/dL - Imaging and Cardiology Chest x-ray: report reviewed, image reviewed Assessment and Plan Assessment: 1. Coronary artery disease with left main disease, status post four-vessel CABG 2. Unstable angina 3. History of hypertension 4. Hyperlipidemia 5. Recent Covid infection in July 2020 6. Previous tobacco dependence 7. Rare alcohol usage 8. Pre-diabetic with preoperative hemoglobin A1c 6.2% 9. Witnessed cardiac arrest with brief CPR and subsequent ROSC 10. Postoperative acute blood loss anemia with return to the OR for mediastinal exploration with control of postop bleed 11. Postoperative hypotension requiring pressor support, currently off pressors 12. Acute lactic acidosis, resolved 13. Elevated transaminases due to hypoperfusion, resolving 14. LEONEL due to hypoperfusion 15. Abdominal distention, secondary to ileus, improving status post 2 bowel movements 09/24/2020 16. Acute urinary retention with reinitiation of Cao catheter Plan: 1. Continue low-dose aspirin, statin, Plavix, beta cheyenne. Will increase beta cheyenne when able 2. Encourage incentive spirometry use 10 times every hour while awake. Bronchodilators per pulmonology 3. Will monitor daily labs and x-rays. Electrolyte replacement per protocol. No further transfusions at this time. Lasix dosing per nephrology. Avoid nephrotoxic agents 4. GI/DVT prophylaxis 5. Increase activity as tolerated. PT/OT/cardiac rehab following 6. Continue Flomax. Urology consulted, appreciate recommendations leaving Cao for another week, to be managed on an outpatient basis 7. Insulin management per primary care service. Patient is borderline pre- diabetic, preoperative hemoglobin A1c 6.2% 8. Pain control current medication regimen 9. Strict accurate intake and output, daily weights. 10. Discharge planning in progress, anticipate discharge home with home care in the next 24-48 hours 11. More recommendations to follow Time with Patient: Greater than 30
--- NOTE | 2020-09-28 16:38 | P.GSCN ---
History of Present Illness Consult date: 09/28/20 Reason for Consult: Urinary retention History of present illness: This is a 50-year-old male status post CABG on September 20. Urology is consultative for urinary retention, catheter was removed yesterday his PVR was 670 mL's. He denies any previous history of urinary retention, denies any voiding issues at baseline. His only urinary complaints at baseline is his nocturia, but denies any obstructive symptoms. No previous history of kidney stones or gross hematuria. He does have a family history of prostate cancer in his father. Catheter was placed yesterday, with return of clear yellow urine Review of Systems - Constitutional Denies fever, Denies weight loss - Cardiovascular Denies chest pain, Denies shortness of breath - Respiratory Denies cough, Denies 7 - Gastrointestinal Reports as per HPI - Genitourinary Reports urinary retention, Denies dysuria, Denies hematuria - Neurological Denies headaches, Denies syncope Past Medical History Past Medical History: Chest Pain / Angina, Hyperlipidemia, Hypertension, Musculoskeletal Disorder Additional Past Medical History / Comment(s): no current chest pain, cervical problems c-5 thru c-7, had covid beginning of July-resolved History of Any Multi-Drug Resistant Organisms: None Reported Past Surgical History: Heart Catheterization Additional Past Anesthesia/Blood Transfusion Reaction / Comm: no family problems w/anesthesia, pt. has never had anesthesia Smoking Status: Former smoker - Past Family History Father Family Medical History: Cancer Medications and Allergies Home Medications Medication Instructions Recorded Confirmed Type Aspirin 81 mg PO DAILY 09/14/20 09/14/20 History Atorvastatin [Lipitor] 80 mg PO HS 09/14/20 09/14/20 History Isosorbide Mononitrate [Isosorbide 60 mg PO DAILY 09/14/20 09/14/20 History Mononitrate ER] Losartan Potassium [Cozaar] 100 mg PO DAILY 09/14/20 09/14/20 History Metoprolol Tartrate [Lopressor] 25 mg PO BID 09/14/20 09/14/20 History Nitroglycerin Sl Tabs [Nitrostat] 0.4 mg SUBLINGUAL Q5M PRN 09/14/20 09/14/20 History amLODIPine BESYLATE 10 mg PO DAILY 09/14/20 09/14/20 History Allergies Allergy/AdvReac Type Severity Reaction Status Date / Time lisinopril AdvReac Cough Verified 09/20/20 06:08 Surgical - Exam Vital Signs Temp Pulse Resp BP Pulse Ox 97.6 F 67 16 145/84 96 09/20/20 06:10 09/20/20 06:10 09/20/20 06:10 09/20/20 06:10 09/20/20 06:10 - General well developed, well nourished, no distress, no pain - Eyes PERRL, normal ocular movement - ENT normal nares, normal mucosa - Respiratory normal expansion, normal respiratory effort - Abdomen Abdomen: soft, non tender - Genitourinary Cao in place draining clear yellow urine - Psychiatric oriented to time, oriented to person, oriented to place, speech is normal Results - Labs 09/28/20 08:01 09/28/20 08:01 Abnormal Lab Results - Last 24 Hours (Table) 09/27/20 09/27/20 09/28/20 Range/Units 17:03 20:01 06:12 RBC (4.30-5.90) m/uL Hgb (13.0-17.5) gm/dL Hct (39.0-53.0) % RDW (11.5-15.5) % Carbon Dioxide (22-30) mmol/L BUN (9-20) mg/dL Creatinine (0.66-1.25) mg/dL Glucose (74-99) mg/dL POC Glucose (mg/dL) 110 H 149 H 107 H (75-99) mg/dL Calcium (8.4-10.2) mg/dL Magnesium (1.6-2.3) mg/dL AST (17-59) U/L ALT (4-49) U/L Alkaline Phosphatase (38-126) U/L Total Protein (6.3-8.2) g/dL 09/28/20 09/28/20 09/28/20 Range/Units 08:01 08:01 11:52 RBC 2.49 L (4.30-5.90) m/uL Hgb 7.8 L (13.0-17.5) gm/dL Hct 22.4 L (39.0-53.0) % RDW 15.6 H (11.5-15.5) % Carbon Dioxide 33 H (22-30) mmol/L BUN 54 H (9-20) mg/dL Creatinine 3.32 H (0.66-1.25) mg/dL Glucose 133 H (74-99) mg/dL POC Glucose (mg/dL) 126 H (75-99) mg/dL Calcium 8.3 L (8.4-10.2) mg/dL Magnesium 2.5 H (1.6-2.3) mg/dL AST 95 H (17-59) U/L ALT 125 H (4-49) U/L Alkaline Phosphatase 203 H (38-126) U/L Total Protein 5.7 L (6.3-8.2) g/dL Diabetes panel 09/28/20 Range/Units 08:01 Sodium 140 (137-145) mmol/L Potassium 3.6 (3.5-5.1) mmol/L Chloride 101 (98-107) mmol/L Carbon Dioxide 33 H (22-30) mmol/L BUN 54 H (9-20) mg/dL Creatinine 3.32 H (0.66-1.25) mg/dL Glucose 133 H (74-99) mg/dL Calcium 8.3 L (8.4-10.2) mg/dL AST 95 H (17-59) U/L ALT 125 H (4-49) U/L Alkaline Phosphatase 203 H (38-126) U/L Total Protein 5.7 L (6.3-8.2) g/dL Albumin 3.5 (3.5-5.0) g/dL Calcium panel 09/28/20 Range/Units 08:01 Calcium 8.3 L (8.4-10.2) mg/dL Albumin 3.5 (3.5-5.0) g/dL Pituitary panel 09/28/20 Range/Units 08:01 Sodium 140 (137-145) mmol/L Potassium 3.6 (3.5-5.1) mmol/L Chloride 101 (98-107) mmol/L Carbon Dioxide 33 H (22-30) mmol/L BUN 54 H (9-20) mg/dL Creatinine 3.32 H (0.66-1.25) mg/dL Glucose 133 H (74-99) mg/dL Calcium 8.3 L (8.4-10.2) mg/dL Adrenal panel 09/28/20 Range/Units 08:01 Sodium 140 (137-145) mmol/L Potassium 3.6 (3.5-5.1) mmol/L Chloride 101 (98-107) mmol/L Carbon Dioxide 33 H (22-30) mmol/L BUN 54 H (9-20) mg/dL Creatinine 3.32 H (0.66-1.25) mg/dL Glucose 133 H (74-99) mg/dL Calcium 8.3 L (8.4-10.2) mg/dL Total Bilirubin 0.8 (0.2-1.3) mg/dL AST 95 H (17-59) U/L ALT 125 H (4-49) U/L Alkaline Phosphatase 203 H (38-126) U/L Total Protein 5.7 L (6.3-8.2) g/dL Albumin 3.5 (3.5-5.0) g/dL Assessment and Plan Assessment: 50-year-old male S/P CABG on 09/20/20 Urology is consulted for urinary retention of 670 mL. previous history of hypertension, no voiding issues a baseline Plan: -Continue Flomax -Keep Cao in for 1 week, can follow-up as an outpatient in 1 week for trial of void
[2020-09-28 17:13] LABS: Glucose,Whole Blood 140 mg/dL (75-99)
[2020-09-28 20:05] LABS: Glucose,Whole Blood 110 mg/dL (75-99)
[2020-09-28] MEDS: SENNOSIDES-DOCUSATE SODIUM 1 EACH TAB PO SCH (20:23)
[2020-09-29 06:10] LABS: Glucose,Whole Blood 99 mg/dL (75-99)
[2020-09-29] MEDS: INSULIN ASPART (NovoLOG) 100 UNIT/ML VIAL SQ SCH ×2 (06:18→13:26)
[2020-09-29] MEDS: INSULIN DETEMIR (LEVEMIR) 100 UNIT/ML SYR SQ SCH (06:31)
[2020-09-29] MEDS: PANTOPRAZOLE 40 MG TABLET PO SCH (06:31)
[2020-09-29] MEDS: ACETAMINOPHEN TAB 500 MG TAB PO PRN (06:39)
--- NOTE | 2020-09-29 07:38 | XR ---
EXAMINATION TYPE: XR chest 2V DATE OF EXAM: 09/29/2020 COMPARISON: 09/28/2020 HISTORY: Post cardiac surgery TECHNIQUE: Frontal and lateral views of the chest are obtained. FINDINGS: Status post median sternotomy. The heart is enlarged. There are patchy airspace opacities within the left mid and left lower lobe and small left effusion. Milder streaky right basilar airspac e opacity. Diffuse interstitial pattern mild prominence. Biapical pleural thickening. No sizable pneu mothorax. Findings are relatively stable. IMPRESSION: 1. Status post median sternotomy. Cardiomegaly. 2. Patchy left basilar airspace opacity with small left pleural effusion. 3. Pulmonary interstitial prominence suggestive of edema.
[2020-09-29 08:36] LABS: Appearance,Urine Clear (Clear); Bilirubin,Urine Negative (Negative); Blood,Urine Trace (Negative); Color,Urine Light Yellow; Glucose,Urine (UA) Negative (Negative); Ketones,Urine Negative (Negative); Leukocyte Esterase,Urine Moderate (Negative); Nitrite,Urine Negative (Negative); PH, Urine 7.5 (5.0-8.0); Protein,Urine Trace (Negative); RBC,Urine 8 /hpf (0-5); Specific Gravity,Urine 1.012 (1.001-1.035); Urobilinogen,Urine <2.0 mg/dL (<2.0); WBC,Urine 17 /hpf (0-5)
[2020-09-29] MEDS: IPRATROPIUM-ALBUTEROL 3 ML NEB INHALATION SCH ×2 (08:43→11:42)
--- NOTE | 2020-09-29 09:11 | P.PN ---
Subjective Progress Note Date: 09/29/20 Principal diagnosis: Coronary artery disease with left main disease. Previous medical history of unstable angina, hypertension, hyperlipidemia, recent Covid infection in July 2020, previous tobacco dependence, rare alcohol usage POD #9 coronary artery bypass grafting 4 vessels, left internal mammary artery to left anterior descending artery, radial artery to the ramus artery, reverse saphenous vein graft to the distal obtuse marginal artery, reverse saphenous vein graft to the posterior lateral branch of the right coronary artery, endoscopic harvesting of the bilateral greater saphenous veins, endoscopic harvesting of the left radial artery, ligation of the left atrial appendage using a 35 mm AtriClip, intraoperative transesophageal echocardiogram and epi- aortic scanning Witnessed cardiac arrest with brief CPR and subsequent ROSC Postoperative acute blood loss anemia with return to the OR for mediastinal exploration with control of postop bleed, unexpected Postoperative hypotension requiring pressor support, expected due to above Acute lactic acidosis, secondary to above Elevated transaminases, likely due to hypoperfusion LEONEL, likely due to hypoperfusion Acute urinary retention, unexpected The patient is sitting up in a recliner on the cardiac stepdown unit in no acute distress. States pain is controlled on current medication regimen, denies s hortness of breath. He has ambulated in the hallway several times without difficulty. Actively using incentive spirometer and achieving 1000 mL. He remains in sinus rhythm, hemodynamically stable. No other new concerns. Objective - Vital Signs Vital signs: Vital Signs Temp 97.8 F 09/29/20 04:00 Pulse 91 09/29/20 04:00 Resp 18 09/29/20 04:00 BP 123/66 09/29/20 04:00 Pulse Ox 94 L 09/29/20 04:00 Intake & Output 09/28/20 09/29/20 09/29/20 18:59 06:59 18:59 Intake Total 480 Output Total 1750 1750 Balance -1270 -1750 Weight 101.6 kg Intake: Oral 480 Output: Urine 1750 1750 Other: Voiding Method Indwelling Catheter Indwelling Catheter ABP, PAP, CO, CI - Last Documented Arterial Blood Pressure 113/50 Pulmonary Artery Pressure 29/7 Cardiac Output 7.4 Cardiac Index 3.3 - Exam CONSTITUTIONAL: Appears comfortable, cooperative, no acute distress RESPIRATORY: Lungs sounds diminished bilaterally. Respirations even, nonlabored. Currently on room air with oxygen saturation 94%. Able to achieve 1000 mL on incentive spirometry. Strong cough. CARDIOVASCULAR: S1, S2 present. Regular rate and rhythm, sinus rhythm on telemetry. Sternum stable. Palpable peripheral pulses bilaterally. Bilateral lower extremity edema present. No calf pain or tenderness noted. Heart hugger in place with patient demonstrating appropriate use. Antiembolism stockings, SCDs present. GASTROINTESTINAL: Abdomen soft, nontender, distended. Active bowel sounds present 4 quadrants. Tolerating diet. Positive large bowel movement 09/27/20 per patient. GENITOURINARY: Cao present draining clear, yellow urine INTEGUMENTARY: Skin is warm and dry with evidence of good perfusion. Anterior chest incision well approximated. EVH site well approximated without redness or drainage. Left radial artery harvest site without redness or drainage. NEUROLOGIC: Cranial nerves II through XII intact MUSKULOSKELETAL: Able to move all extremities, strength equal bilaterally, gait normal, still unable to dorsiflex left foot PSYCHIATRIC: Alert and oriented to person place and time, appropriate affect, intact judgment and insight - Allied health notes Allied health notes reviewed: nursing - Labs CBC & Chem 7: 09/28/20 08:01 09/28/20 08:01 Labs: Abnormal Lab Results - Last 24 Hours (Table) 09/28/20 09/28/20 09/28/20 Range/Units 08:01 08:01 11:52 RBC 2.49 L (4.30-5.90) m/uL Hgb 7.8 L (13.0-17.5) gm/dL Hct 22.4 L (39.0-53.0) % RDW 15.6 H (11.5-15.5) % Carbon Dioxide 33 H (22-30) mmol/L BUN 54 H (9-20) mg/dL Creatinine 3.32 H (0.66-1.25) mg/dL Glucose 133 H (74-99) mg/dL POC Glucose (mg/dL) 126 H (75-99) mg/dL Calcium 8.3 L (8.4-10.2) mg/dL Magnesium 2.5 H (1.6-2.3) mg/dL AST 95 H (17-59) U/L ALT 125 H (4-49) U/L Alkaline Phosphatase 203 H (38-126) U/L Total Protein 5.7 L (6.3-8.2) g/dL 09/28/20 09/28/20 Range/Units 16:56 20:03 RBC (4.30-5.90) m/uL Hgb (13.0-17.5) gm/dL Hct (39.0-53.0) % RDW (11.5-15.5) % Carbon Dioxide (22-30) mmol/L BUN (9-20) mg/dL Creatinine (0.66-1.25) mg/dL Glucose (74-99) mg/dL POC Glucose (mg/dL) 140 H 110 H (75-99) mg/dL Calcium (8.4-10.2) mg/dL Magnesium (1.6-2.3) mg/dL AST (17-59) U/L ALT (4-49) U/L Alkaline Phosphatase (38-126) U/L Total Protein (6.3-8.2) g/dL - Imaging and Cardiology Chest x-ray: report reviewed, image reviewed Assessment and Plan Assessment: 1. Coronary artery disease with left main disease, status post four-vessel CABG 2. Unstable angina 3. History of hypertension 4. Hyperlipidemia 5. Recent Covid infection in July 2020 6. Previous tobacco dependence 7. Rare alcohol usage 8. Pre-diabetic with preoperative hemoglobin A1c 6.2% 9. Witnessed cardiac arrest with brief CPR and subsequent ROSC 10. Postoperative acute blood loss anemia with return to the OR for mediastinal exploration with control of postop bleed 11. Postoperative hypotension requiring pressor support, currently off pressors 12. Acute lactic acidosis, resolved 13. Elevated transaminases due to hypoperfusion, resolving 14. LEONEL due to hypoperfusion 15. Abdominal distention, secondary to ileus, improving status post 2 bowel movements 09/24/2020 16. Acute urinary retention with reinitiation of Cao catheter Plan: 1. Continue low-dose aspirin, statin, Plavix, beta cheyenne. Will increase beta cheyenne when able 2. Encourage incentive spirometry use 10 times every hour while awake. [facility] hodilators per pulmonology 3. Will monitor daily labs and x-rays. Electrolyte replacement per protocol. No further transfusions at this time. Lasix dosing per nephrology. Avoid nephrotoxic agents 4. GI/DVT prophylaxis 5. Increase activity as tolerated. PT/OT/cardiac rehab following 6. Continue Flomax. Urology consulted, appreciate recommendations leaving Cao for another week, to be managed on an outpatient basis 7. Insulin management per primary care service. Patient is borderline pre- diabetic, preoperative hemoglobin A1c 6.2% 8. Pain control current medication regimen 9. Strict accurate intake and output, daily weights. 10. Discharge planning in progress, anticipate discharge home with home care this afternoon versus tomorrow morning 11. More recommendations to follow Time with Patient: Greater than 30
[2020-09-29] MEDS: ASPIRIN 81 MG PO SCH (09:19)
[2020-09-29] MEDS: FUROSEMIDE 10 MG/ML 4 ML VIAL IV SCH (09:19)
[2020-09-29] MEDS: CLOPIDOGREL 75 MG TAB PO SCH (09:19)
[2020-09-29] MEDS: METOPROLOL TARTRATE 50 MG TAB PO SCH (09:19)
[2020-09-29] MEDS: ATORVASTATIN 40 MG TAB PO SCH (09:19)
[2020-09-29] MEDS: HEPARIN SODIUM,PORCINE/PF 5,000 UNIT/0.5 ML SYRINGE SQ SCH (09:19)
[2020-09-29] MEDS: TAMSULOSIN 0.4 MG CAP.ER.24H PO SCH (09:19)
[2020-09-29] MEDS: polyethylene glycoL 3350 17 GM POWD.PACK PO SCH (09:20)
[2020-09-29 09:23] LABS: HCT 22.8 % (39.0-53.0); HGB 7.8 gm/dL (13.0-17.5); MCH 30.8 pg (25.0-35.0); MCHC 34.2 g/dL (31.0-37.0); Mean Platelet Volume 6.8; Platelet Count 349 k/uL (150-450); RBC 2.53 m/uL (4.30-5.90); RDW 15.3 % (11.5-15.5); WBC 7.2 k/uL (3.8-10.6)
[2020-09-29 09:30] LABS: Albumin 3.3 g/dL (3.5-5.0); Calcium 8.3 mg/dL (8.4-10.2); Total Bilirubin 0.6 mg/dL (0.2-1.3); Total Protein 5.5 g/dL (6.3-8.2)
[2020-09-29 10:25] VITALS: TEMP 98.2
[2020-09-29] MEDS ORDERED: amLODIPine 2.5 MG TAB PO SCH (12:00)
[2020-09-29 12:05] LABS: Glucose,Whole Blood 103 mg/dL (75-99)
--- NOTE | 2020-09-29 12:05 | P.PN ---
Subjective Progress Note Date: 09/29/20 HISTORY OF PRESENT ILLNESS: This is a 50 year old male with a past medical history significant for hypertension, hyperlipidemia, coronary artery disease, recent Covid in July 2020 and former nicotine dependence. He follows with Dr. David Santamaria. He underwent left heart cath in 2018 which revealed 60% LM disease. In 03/2020, nuclear stress test was negative. 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 The decision was made to consult cardiothoracic surgery. Echocardiogram 07/21/2020- EF 65-70%. We have been asked to see the patient in consultation for post cardiac surgery management. Patient underwent CABG x 4: BASHIR to LAD, radial artery to ramus artery, saphenous vein graft to distal obtuse marginal artery, and saphenous vein graft to posterior lateral branch of right coronary artery. POD #6. Patient had witnessed PEA cardiac arrest with CPR and subsequent ROSC on 09/20/20 09/26/2020: Patient seen and examined, at bedside. Up in bedside chair. No acute distress. H is pain is currently controlled. Using incentive spirometery and achieving 1L. He is complaining of left foot weakness, with evidence of foot drop. He is able to lift his left leg, plantar flex left foot, but unable to dorsiflex left foot. Blood pressure 120/81, heart rate 83, afebrile, maintaining oxygen saturation is 96% on room air. Telemetry reviewed, patient in sinus rhythm HR 80s. Laboratory data: WBC 9.7. Hemoglobin 7.3. Platelet count 197. Sodium 137. Potassium 3.8. BUN 78. Creatinine 4.23. AST 134. ALT 265. Currently being maintained on aspirin 81 mg daily, atorvastatin 40 mg daily, Plavix 75 mg daily, metoprolol titrate 25 mg twice a day 09/27/2020 Patient has been transferred out of the ICU to the selective care unit. Patient examined this morning. Patient is sitting up in the bed. He denies chest pain or pressure. Denies shortness of breath. Telemetry reveals sinus tachycardia. Patient complains of frequent urination with small quantities. He continues to have left foot drop. 09/28/2020 Patient examined this morning on the selective care unit. Patient is in relating in the hallway this morning. Patient denies chest pain or pressure. She denies shortness of breath. He is on room air with oxygen saturations greater than 92%. Patient had urinary retention yesterday and required insertion of indwelling urinary catheter. Patients IV lasix increased to BID yesterday per nephrology. Creatinine 3.32. BUN 54. Hemoglobin 7.8. AST 95. ALT 125. Chest x-ray this morning reveals postoperative changes with bilateral infiltrates and pleural effusion. Correlate for mild central venous congestion. 09/29/2020 Patient examined this morning bedside. He denies chest pain or pressure. Denies shortness of breath. Patient states he has been ambulating in the hallway. Patient states his range of motion in his left foot is improving. Vital signs are stable. Patient states he is going home this afternoon. PHYSICAL EXAM: VITAL SIGNS: Reviewed. GENERAL: Well-developed in no acute distress. NECK: Supple. No JVD or thyromegaly LUNGS: Respirations even and unlabored. Lungs diminished bilaterally. HEART: Regular rate and rhythm. S1 and S2 heard. Sternal incision clean and dry. Heart hugger present. EXTREMITIES: No clubbing or cyanosis. Peripheral pulses intact. No lower extremity edema ASSESSMENT: Coronary artery disease with left main disease, status post CABG 4 Acute blood loss anemia, s/p return to OR for control of postoperative bleeding Acute lactic acidosis, resolved Elevated LFTs secondary to hypoperfusion - downtrending Acute Kidney injury due to hypoperfusion, Scr downtrending Hyperlipidemia Hypertension Postoperative hypotension requiring pressor support, currently off pressors Witnessed cardiac arrest with brief CPR and subsequent ROSC History of Covid, 07/2020 Former nicotine dependence Urinary retention PLAN: Continue postoperative management per CTS Continue current cardiac medications Continue to monitor kidney function Continue telemetry monitoring Continue to increase activity as tolerated Encourage use of incentive spirometer Patient is stable for discharge from a cardiac standpoint Patient to follow up outpatient with Dr. Santamaria Nurse practitioner note has been reviewed by physician. Signing provider agrees with the documented findings, assessment, and plan of care. Objective - Vital Signs Vital signs: Vital Signs Temp 98.2 F 09/29/20 08:00 Pulse 72 09/29/20 08:54 Resp 18 09/29/20 08:00 BP 117/89 09/29/20 08:00 Pulse Ox 99 09/29/20 08:00 Intake & Output 09/28/20 09/29/20 09/29/20 18:59 06:59 18:59 Intake Total 480 240 Output Total 1750 1750 Balance -1270 -1750 240 Weight 101.6 kg Intake: Oral 480 240 Output: Urine 1750 1750 Other: Voiding Method Indwelling Catheter Indwelling Catheter Indwelling Catheter ABP, PAP, CO, CI - Last Documented Arterial Blood Pressure 113/50 Pulmonary Artery Pressure 29/7 Cardiac Output 7.4 Cardiac Index 3.3 - Labs CBC & Chem 7: 09/29/20 08:15 09/29/20 08:15 Labs: Abnormal Lab Results - Last 24 Hours (Table) 09/28/20 09/28/20 09/29/20 Range/Units 16:56 20:03 07:50 RBC (4.30-5.90) m/uL Hgb (13.0-17.5) gm/dL Hct (39.0-53.0) % Carbon Dioxide (22-30) mmol/L BUN (9-20) mg/dL Creatinine (0.66-1.25) mg/dL Glucose (74-99) mg/dL POC Glucose (mg/dL) 140 H 110 H (75-99) mg/dL Calcium (8.4-10.2) mg/dL AST (17-59) U/L ALT (4-49) U/L Alkaline Phosphatase (38-126) U/L Total Protein (6.3-8.2) g/dL Albumin (3.5-5.0) g/dL Urine Protein Trace H (Negative) Urine Blood Trace H (Negative) Ur Leukocyte Esterase Moderate H (Negative) Urine RBC 8 H (0-5) /hpf Urine WBC 17 H (0-5) /hpf 09/29/20 09/29/20 Range/Units 08:15 08:15 RBC 2.53 L (4.30-5.90) m/uL Hgb 7.8 L (13.0-17.5) gm/dL Hct 22.8 L (39.0-53.0) % Carbon Dioxide 33 H (22-30) mmol/L BUN 47 H (9-20) mg/dL Creatinine 2.98 H (0.66-1.25) mg/dL Glucose 145 H (74-99) mg/dL POC Glucose (mg/dL) (75-99) mg/dL Calcium 8.3 L (8.4-10.2) mg/dL AST 77 H (17-59) U/L ALT 104 H (4-49) U/L Alkaline Phosphatase 170 H (38-126) U/L Total Protein 5.5 L (6.3-8.2) g/dL Albumin 3.3 L (3.5-5.0) g/dL Urine Protein (Negative) Urine Blood (Negative) Ur Leukocyte Esterase (Negative) Urine RBC (0-5) /hpf Urine WBC (0-5) /hpf
--- NOTE | 2020-09-29 12:49 | P.PN ---
Subjective Progress Note Date: 09/29/20 Principal diagnosis: CAD, status post coronary artery bypass grafting Reevaluated today on 09/26/2020, patient is now postoperative day #6. Remains in the ICU I believe it is probably an overflow. He is on oxygen at 2 L/m with O2 saturation of 97%. The patient is status post CABG, he had a four-vessel bypass surgery, BASHIR to LAD, radial artery to the ramus artery saphenous vein to distal obtuse marginal artery saphenous vein to posterior lateral branch of the right coronary artery. Chest x-ray is showing mild interstitial edema and atelectasis. Patient is in sinus rhythm, hemodynamically stable. He is performing about 1000 mL on his incentive spirometer. Remains slightly edematous. His renal functioning remains poor, however improving compared to the last 3 days, creatinine down is to 4.23 today compared to 4.8 yesterday. Patient has been voiding. His only complaint is weakness in the left foot, possibly a left foot drop. Patient is not requiring any inotropes or pressors WBC count is 9.7 hemoglobin is 7.3 left lites are normal BUN is 78 creatinine 4.23. Liver enzymes were noted to be a bit elevated with AST of 114 ALT 134 alkaline phosphatase 265. On 09/27/2020 patient seen in follow-up. Today's postoperative day #7 status post four-vessel coronary artery bypass grafting. He is awake and alert, in no acute distress, he is on room air, pulse ox is 94-96%. His incentive spirometer effort is about 1000, his chest x-ray today is bilateral infiltrates and small pleural effusion. Patient has been started on Lasix 40 mg IV every 12 hours, nephrology is following. Renal profile is improving, BUN 64, creatinine is 3.41, electrolytes are within normal limits. White count is 7.7, hemoglobin is 7.5. Patient appears to be generally swollen, with edema in his upper and lower extremities, but no worsening dyspnea. His chest tubes are discontinued, his midsternal incision is clean dry and intact, chest tube sites are clean dry and intact. His IV fluids have been hep-locked. He is currently in sinus mechanism On 09/28/2020 patient seen in follow-up. He is calm and comfortable, he sitting up in the chair, he is oriented 3, breathing comfortably, currently on room air, pulse ox is 95%, hemodynamically stable, today's chest x-ray has been reviewed showing postoperative changes with bilateral infiltrates and pleural effusion and mild central venous congestion. Patient still has a generalized edema involving upper and lower extremities, he remains on IV Lasix currently 40 mg every 12 hours. he is in -6.9 L Fluid balance over the last 24 hours. labs have been reviewed, his renal function continues to improve, his BUN is 54, and creatinine is 3.32. His incisions are clean dry and intact, chest tube sites clean dry and intact, chest tubes have been discontinued. He's been tolerating ambulation, he is in sinus mechanism, hemodynamically has been stable. His had no acute events overnight. The patient is seen today 09/29/2020 in follow-up on the selective care unit. Postoperative day #9. He is doing quite well from the pulmonary standpoint. Maintaining good O2 saturations in the upper 90s on room air. He's been a febrile. Hemodynamically stable. Chest x-ray shows cardiomegaly. Patchy left basilar airspace opacity with a left effusion. Pulmonary interstitial prominence. He is status post 4 units of packed red blood cells this admission. White count 7.2. Hemoglobin 7.8. Sodium 139. Potassium 4.0. Creatinine 2.98. BUN 47. Glucose 145. AST 77. ALT 105. He remains on IV diuretics. Heparin for DVT prophylaxis. He's been up ambulating in the hallway without any acute distress. Objective - Vital Signs Vital signs: Vital Signs Temp 98.2 F 09/29/20 08:00 Pulse 72 09/29/20 08:54 Resp 18 09/29/20 08:00 BP 117/89 09/29/20 08:00 Pulse Ox 99 09/29/20 08:00 Intake & Output 09/28/20 09/29/20 09/29/20 18:59 06:59 18:59 Intake Total 480 240 Output Total 1750 1750 Balance -1270 -1750 240 Weight 101.6 kg Intake: Oral 480 240 Output: Urine 1750 1750 Other: Voiding Method Indwelling Catheter Indwelling Catheter Indwelling Catheter ABP, PAP, CO, CI - Last Documented Arterial Blood Pressure 113/50 Pulmonary Artery Pressure 29/7 Cardiac Output 7.4 Cardiac Index 3.3 - Exam GENERAL EXAM: Alert, very pleasant, 50-year-old male patient, on room air with pulse ox of 99% comfortable in no apparent distress. HEAD: Normocephalic/atraumatic. EYES: Normal reaction of pupils, equal size. Conjunctiva pink, sclera white. NOSE: Clear with pink turbinates. THROAT: No erythema or exudates. NECK: No masses, no JVD, no thyroid enlargement, no adenopathy. CHEST: No chest wall deformity. Symmetrical expansion. Midsternal incision is clean dry and intact LUNGS: Equal air entry with crackles in the left base, diminished CVS: Regular rate and rhythm, normal S1 and S2, no gallops, no murmurs, no rubs ABDOMEN: Soft, nontender. No hepatosplenomegaly, normal bowel sounds, no guarding or rigidity. EXTREMITIES: No clubbing, 1+ edema in upper and lower extremities no cyanosis, 2+ pulses and upper and lower extremities. MUSCULOSKELETAL: Muscle strength and tone normal. SPINE: No scoliosis or deformity SKIN: No rashes CENTRAL NERVOUS SYSTEM: Alert and oriented -3. No focal deficits, tone is normal in all 4 extremities. PSYCHIATRIC: Alert and oriented -3. Appropriate affect. Intact judgment and insight. - Labs CBC & Chem 7: 09/29/20 08:15 09/29/20 08:15 Labs: Abnormal Lab Results - Last 24 Hours (Table) 09/28/20 09/28/20 09/29/20 Range/Units 16:56 20:03 07:50 RBC (4.30-5.90) m/uL Hgb (13.0-17.5) gm/dL Hct (39.0-53.0) % Carbon Dioxide (22-30) mmol/L BUN (9-20) mg/dL Creatinine (0.66-1.25) mg/dL Glucose (74-99) mg/dL POC Glucose (mg/dL) 140 H 110 H (75-99) mg/dL Calcium (8.4-10.2) mg/dL AST (17-59) U/L ALT (4-49) U/L Alkaline Phosphatase (38-126) U/L Total Protein (6.3-8.2) g/dL Albumin (3.5-5.0) g/dL Urine Protein Trace H (Negative) Urine Blood Trace H (Negative) Ur Leukocyte Esterase Moderate H (Negative) Urine RBC 8 H (0-5) /hpf Urine WBC 17 H (0-5) /hpf 09/29/20 09/29/20 09/29/20 Range/Units 08:15 08:15 12:00 RBC 2.53 L (4.30-5.90) m/uL Hgb 7.8 L (13.0-17.5) gm/dL Hct 22.8 L (39.0-53.0) % Carbon Dioxide 33 H (22-30) mmol/L BUN 47 H (9-20) mg/dL Creatinine 2.98 H (0.66-1.25) mg/dL Glucose 145 H (74-99) mg/dL POC Glucose (mg/dL) 103 H (75-99) mg/dL Calcium 8.3 L (8.4-10.2) mg/dL AST 77 H (17-59) U/L ALT 104 H (4-49) U/L Alkaline Phosphatase 170 H (38-126) U/L Total Protein 5.5 L (6.3-8.2) g/dL Albumin 3.3 L (3.5-5.0) g/dL Urine Protein (Negative) Urine Blood (Negative) Ur Leukocyte Esterase (Negative) Urine RBC (0-5) /hpf Urine WBC (0-5) /hpf Assessment and Plan Assessment: 1 Symptomatic multivessel coronary artery disease, status post four-vessel coronary artery bypass grafting with BASHIR to the LAD, radial artery graft to the ramus, SVG to OM, and SVG to PLV, with bilateral legs endoscopic vein harvest, exclusion of the left atrial appendage and intraoperative transesophageal echocardiogram, postop day #9 2 Postoperative hypotension, and blood loss requiring reexploration and control of postoperative bleeding, on expected 3 Leukocytosis, possibly reactive, recovered, white count 7.2 4 Postoperative blood loss anemia, expected 5 Elevated liver enzymes related to hypoperfusion, improving 6 Postoperative ileus, improving 7 Acute kidney injury secondary to hypoperfusion, improving, current creatinine 2.90 8 Recent history of COVID-19 pneumonia in June 2020 9 Remote and brief history of smoking, 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 Juve Stable and on room air Chest x-ray and labs reviewed Cleared for discharge from the pulmonary standpoint Continue to use the incentive spirometer Follow-up in our office in 1-2 weeks' time I, the cosigning physician, performed a history & physical examination of the patient. Lungs sounds with crackles in the left base. Maintaining good O2 saturations in the 90s on room air. I discussed the assessment and plan of care with my nurse practitioner, Vani Arenas. I attest to the above note as dictated by her.
[2020-09-29 13:30] VITALS: BP 109/55; PULSE 68
--- NOTE | 2020-09-29 13:45 | PN ---
PROGRESS NOTE Patient is seen for followup for acute kidney injury mostly acute tubular necrosis. His renal function has been improving. Patient is status post coronary artery bypass surgery. His serum creatinine had peaked at 5 mg/dL. It is now down to 2.98. Patient has also had urine retention and currently has an indwelling Cao catheter. He failed voiding trials. PHYSICAL EXAMINATION: On examination today, blood pressure was 117/89, heart rate 96 per minute. He is afebrile. Examination of the heart S1, S2. Examination of the lungs, bilateral breath sounds are heard. Abdomen is soft, nontender. Examination of lower extremities shows edema 2+ bilaterally. 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 LAB: Show sodium 139, potassium 4.0, chloride 101, CO2 is 33, BUN 47, creatinine 2.98, hemoglobin 7.8 g/dL. ASSESSMENT: 1. Acute kidney injury, acute tubular necrosis, nonoliguric currently improving. Mostly ischemic acute tubular necrosis. UA is fairly benign. 2. Urine retention currently with indwelling Cao catheter. 3. Volume overload slowly improving. Currently maintained on 40 mg of Lasix IV q.12 hours .he can be switched to p.o. diuretics on discharge. We can use 40 mg p.o. b.i.d. for 4-5 days followed by 40 mg daily as long as the volume status continues to improve. 4. Anemia multifactorial mostly acute and related to blood loss postoperatively. 5. Postop bleeding. Taken back to OR for exploration and control of bleeding after coronary artery bypass surgery. Hemoglobin stable at about 7.8-7.5 g/dL. PLAN: Continue with IV Lasix until discharge. Follow up with Urology post discharge. Follow up with Nephrology in 1-2 weeks post discharge. Can be discharged on 40 mg p.o. b.i.d. of Lasix followed with adjustment of dose with close monitoring of volume status and renal function. MMODL / IJN: [id number] /
--- NOTE | 2020-09-29 16:42 | P.DS ---
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 Consult: post cardiac surgery Do you want consulting provider notified?: Yes 09/20/20 23:55 Consult to Anesthesia Routine Consulting Provider: Anesthesia,Services Consult Reason/Comments: Cardiac Surgery Pre-Op 09/22/20 14:58 Consult Physician Routine Consulting Provider: Doug Lerma Consult Reason/Comments: Acute kidney injury Do you want consulting provider notified?: Yes 09/27/20 09:33 Consult Physician Routine Consulting Provider: Jerrell Nice Consult Reason/Comments: retention Do you want consulting provider notified?: Yes Primary care physician: Kimberli Mendoza [facility] Course: FINAL DIAGNOSIS: 1. Coronary artery disease with left main disease 2. History of unstable angina 3. Hypertension 4. Hyperlipidemia 5. Recent covered infection in July 2020 6. Previous tobacco dependence 7. Rare alcohol usage 8. Prediabetic with preoperative hemoglobin A1c 6.2% 9. Witnessed cardiac arrest with brief CPR and subsequent ROSC 10. Postoperative acute blood loss anemia 11. Postoperative hypotension 12. Acute lactic acidosis 13. Transaminitis 14. Acute kidney injury 15. Abdominal distention secondary to ileus 16. Acute urinary retention PRINCIPAL PROCEDURE: 1. Coronary artery bypass grafting 4 vessels, left internal mammary artery to the left anterior descending artery, radial artery to the ramus artery, reverse saphenous vein graft to the distal obtuse marginal artery, reverse saphenous vein graft to the posterior lateral branch of the right coronary artery 2. Endoscopic harvesting of bilateral greater saphenous veins 3. Endoscopic harvesting of the left radial artery 4. Ligation of the left atrial appendage using a 35 mm AtriClip 5. Intraoperative transesophageal echocardiogram and epi-aortic scanning 6. Return to the OR for mediastinal exploration with control of postoperative bleed HISTORY OF PRESENT ILLNESS: This is a 50-year-old gentleman who follows on an outpatient basis with Dr. Mendoza for primary care and Dr. Pavon for cardiology. He has a long-standing history of chest pain. He was initially evaluated by cardiology several years ago and it was felt that his coronary arteries were too small for stenting. He continued to have chest pain and repeat cardiac catheterization performed earlier this year demonstrated evidence of multivessel coronary artery disease verified by IVUS. The patient was referred to Dr. Ku from cardiothoracic surgery. He was recommended to undergo coronary artery bypass surgery. The usual perioperative course was discussed in detail with the patient and his family, all risks and benefits were explained, all questions were answered, and consent was obtained to proceed with surgery. Unfortunately the patient did contract COVID-19, and was allowed 6 weeks recovery with resolution of symptoms prior to setting surgical date. HOSPITAL COURSE: The patient was brought to the hospital on 09/21/20, taken to the preoperative area, prepared in the usual fashion, and subsequently taken to the operating room where Dr. Ku performed four-vessel CABG. Upon completion of surgery the patient was transferred to the cardiovascular intensive care unit where he was recovered and monitored hemodynamically. He was extubated the night of surgery, however he developed postoperative bleed and was taken back to surgery for mediastinal exploration with control of bleed. He was again transferred to the intensive care unit for continued recovery. He did have a somewhat gadiel postoperative course but did stabilize. Again, he was extubated, all lines, tubes, and drips were discontinued when appropriate, and he was transferred to 3 S. cardiac stepdown unit for further monitoring and rehabilitation. His oxygen was titrated down, he continued to work with physical and occupational therapy, he was tolerating oral diet, his pain was controlled, and he was ready to be discharged to home with [facility] on postoperative day #9. He received written and verbal instruction regarding his medications, activity restrictions, signs and symptoms requiring physician notification, and follow-up appointments. He did have to be discharged with Cao catheter in place, attached to a leg bag, teaching completed regarding Cao catheter emptying and recording amounts, to follow-up with urology on an outpatient basis. COMPLICATIONS: The patient experienced postoperative complications of cardiac arrest, acute blood loss anemia, hypotension, lactic acidosis, transaminitis, LEONEL, ileus, and acute urinary retention, all treated accordingly Patient Condition at Discharge: Stable Plan - Discharge Summary Discharge Rx Participant: Yes New Discharge Prescriptions: New Tamsulosin [Flomax] 0.4 mg PO PC-BRKFST #30 cap.er.24h Atorvastatin [Lipitor] 40 mg PO DAILY #30 tab Metoprolol Tartrate [Lopressor] 50 mg PO BID #60 tab polyethylene glycoL 3350 [Miralax] 17 gm PO DAILY PRN powd.pack PRN Reason: Constipation Clopidogrel [Plavix] 75 mg PO DAILY #30 tab Pantoprazole [Protonix] 40 mg PO AC-BRKFST #30 tablet. Acetaminophen Tab [Tylenol] 1,000 mg PO Q6HR PRN tab PRN Reason: Fever And/ Or Pain glipiZIDE [Glucotrol] 5 mg PO AC-BID #60 tab amLODIPine [Norvasc] 2.5 mg PO DAILY@1200 #30 tab Sennosides-Docusate Sodium [Senokot-S] 2 each PO HS PRN tab PRN Reason: Constipation Furosemide [Lasix] 40 mg PO BID #30 tablet Continue Aspirin 81 mg PO DAILY Discontinued Nitroglycerin Sl Tabs [Nitrostat] 0.4 mg SUBLINGUAL Q5M PRN PRN Reason: Chest Pain Isosorbide Mononitrate [Isosorbide Mononitrate ER] 60 mg PO DAILY Atorvastatin [Lipitor] 80 mg PO HS amLODIPine BESYLATE 10 mg PO DAILY Metoprolol Tartrate [Lopressor] 25 mg PO BID Losartan Potassium [Cozaar] 100 mg PO DAILY Discharge Medication List Aspirin 81 mg PO DAILY 09/14/20 [History] Acetaminophen Tab [Tylenol] 1,000 mg PO Q6HR PRN tab 09/29/20 [Rx] Atorvastatin [Lipitor] 40 mg PO DAILY #30 tab 09/29/20 [Rx] Clopidogrel [Plavix] 75 mg PO DAILY #30 tab 09/29/20 [Rx] Furosemide [Lasix] 40 mg PO BID #30 tablet 09/29/20 [Rx] Metoprolol Tartrate [Lopressor] 50 mg PO BID #60 tab 09/29/20 [Rx] Pantoprazole [Protonix] 40 mg PO AC-BRKFST #30 tablet. 09/29/20 [Rx] Sennosides-Docusate Sodium [Senokot-S] 2 each PO HS PRN tab 09/29/20 [Rx] Tamsulosin [Flomax] 0.4 mg PO PC-BRKFST #30 cap.er.24h 09/29/20 [Rx] amLODIPine [Norvasc] 2.5 mg PO DAILY@1200 #30 tab 09/29/20 [Rx] glipiZIDE [Glucotrol] 5 mg PO AC-BID #60 tab 09/29/20 [Rx] polyethylene glycoL 3350 [Miralax] 17 gm PO DAILY PRN powd.pack 09/29/20 [Rx] Follow up Appointment(s)/Referral(s): Massiel Mckeon NPC [Nurse Practitioner] - 10/05/20 1:00 pm (will see in surgeon's office behind [facility], [facility], [address], [address]) Marge Horne MD [STAFF PHYSICIAN] - 1 Week [facility] [NON-STAFF] - 4 Weeks (You will be called in 4-6 weeks for evaluation for cardiac rehab ) Jerrell Nice MD [STAFF PHYSICIAN] - 1 Week (office will call Friday10/02/20 to give you an appointment) Vani Arenas NPC [Nurse Practitioner] - 10/12/20 3:15 pm Kimberli Mendoza DO [Primary Care Provider] - 10/05/20 2:15 pm [facility], [NON-STAFF] - Astrid Pavon MD [REFERRING] - 10/19/20 2:30 pm Oliver Ku MD [STAFF PHYSICIAN] - 10/23/20 9:30 am Ambulatory/Diagnostic Orders: Complete Blood Count w/diff [LAB.AMB] Time Frame: 3 Days, Location: None Selected Comprehensive Metabolic Panel [LAB.AMB] Time Frame: 3 Days, Location: None Selected Activity/Diet/Wound Care/Special Instructions: DISCHARGE INSTRUCTIONS: 1. No driving for 4 weeks, or until physician gives their ok. 2. The patient should sleep in their own bed, no medical bed needed. 3. Stairs are not an issue. If the bedroom is upstairs, it is advised that the patient go up at night and down in the morning for the first week. Go slowly, using handrail and take 1 step at a time. 4. NOEL hose are to be worn for 30 days or until physician discontinues. 5. Heart hugger is to be worn 100% of the time until physician discontinues.(except when showering) 6. No lifting, pushing, or pulling more than 10 pounds for 12 weeks. The physician will advise of any restriction changes. 7. The patient is expected to continue the prescribed walking program. 8. Continue pain control per as needed orders. 9. Continue with incentive spirometry and splinting/heart hugger until otherwise directed by the physician. 10. Must shower daily using liquid antibacterial soap and a separate white washcloth for each individual incision. 11. Routine sternal incision care. No powders, lotions, ointments on incisions. No dressings are necessary on incisions unless they are draining. Dermabond tape is to remain on sternal incision until surgeon follow-up. 12. Please call surgeon/COTTON FARMER for temp greater than 101 F or purulent drainage from incisions. 13. All prescriptions given by surgeon for 30 days. Refills need to be filled through sports attorney/primary care physician. 14. A Red armband has been placed on the patient. It should be worn for 30 days post surgery and will be removed by the cardiac surgeons. If an ER visit is necessary, please make sure the number on the Red armband is called. 15. You have been referred to and are expected to begin Cardiac Rehab in approximately 4-6 weeks. HOME HEALTH SERVICES TO PROVIDE: RN SKILLED HOME CARE SERVICES FOR POST-OP SURGICAL PATIENTS WITH THE FOLLOWING: Coronary Artery Bypass Surgery (CABG), Mitral Valve Replacement/Repair ( MVR), Aortic Valve Replacement/Repair (AVR) RN TO CONTINUE EDUCATION FROM ``ROAD TO A HEALTH HEART PATIENT EDUCATION MANUAL (GIVEN TO PATIENT IN THE HOSPITAL) MEDICATION RECONCILIATION WITH EDUCATION NEEDED ON FIRST HOME VISIT EMPHASIZE IMPORTANCE OF WEARING BREAST SUPPORT/HEART HUGGER ENCOURAGE USE OF INCENTIVE SPIROMETER 10 X EVERY HOUR WHILE AWAKE ENCOURAGE UTILIZATION OF LOWER EXTREMITY COMPRESSION STOCKINGS/NOEL HOSE and ELEVATE LEGS ABOVE LEVEL OF HEART WHILE AT REST. ENCOURAGE AMBULATION 3-5x/day INCREASING TOLERATES, WHILE AVOIDING EXTREMES IN TEMPERATURE FREQUENCY: RN TO OPEN THE PATIENT WITHIN 24 HOURS OF DISCHARGE FROM THE HOSPITAL WITH [place] [facility] [place]ISIT 2-3 X A WEEK FOR 4 WEEKS ESTABLISHED BY PATIENT NEEDS. LABORATORY: CBC, CMP TO BE DRAWN ON THE THIRD DAY HOME, (RAN STAT) FAX RESULTS TO [phone]. TELEHEALTH PARAMETERS: WEIGHT: NOTIFY MD OF WEIGHT GAIN OF 2 LBS IN 24 HOURS OR 5 LBS IN ONE WEEK HR: NOTIFY MD OF HR <55 BPM OR HR>100 BPM BP: NOTIFY MD IF BP <90/55 OR BP>140/100 O2 SAT: NOTIFY MD IF PO2<93% ON ROOM AIR SEND TELEHEALTH REPORT TO CARPET JACK AND CARDIOVASCULAR SURGEON THE FIRST WEEK OF CARE AND THEN BI-WEEKLY. PLEASE ADDITIONALLY COMMUNICATE ANY ABNORMALS AND NEW FINDINGS TO THE SURGEONS OFFICE. For any questions or concerns please call white sugar supervisor Massiel @ or Don @ Cao catheter to stay in for 1 week, continue Flomax. Empty Cao catheter daily and keep log Discharge Disposition: HOME WITH HOME HEALTH SERVICES
--- NOTE | 2020-09-29 18:21 | P.PN ---
Progress Note - Text Progress Note Date: 09/29/20 - Chief Complaint Coronary bypass Consultation: This is a 50-year-old patient of Dr. Kimberli au. Chronic stable medical conditions include hypertension, hyperlipidemia, cervical problems C5 through C7, and COVID 19 in July of this year. Patient on earlier today underwent coronary bypass. Was extubated 8 PM this evening. Somewhat lethargic. They would answer some simple questions. Patient has 2 mediastinal and 1 left-sided chest pain or 2. Has a Cao catheter. Does include norepinephrine, insulin, nitroglycerin. Telemetry shows sinus rhythm. Patient is having some bloody drainage through the mediastinal tube. Patient having some pain at the chest tube insertion site. In some shortness of breath. Same night patient continued to have bleeding to the mediastinal chest tubes. Having chest pains. Was taken back to the operating room. Apparently there was a vascular leak that was repaired. Patient receive 2 units of blood before and 2 units after the procedure. Also had acute kidney injury felt to be acute tubular necrosis. Patient moved out of the ICU. Also had acute ischemic hepatitis-improving. having urinary retention. Was started on Flomax. Bladder scan showed 6 50 mL of urine. Cao catheter. Today: Feeling well. at the bedside. Cao catheter in place. Discussed with the patient and . We'll be started on oral hypoglycemic. Daily Accu- Cheks. Review of systems: Was done for constitutional, cardiovascular, GI, pulmonary. relevant finding as above Current medications reviewed in today's electronic records Past medical history to include: Hypertension, hyperlipidemia, cervical spine problem from C5 through C7, COVID 19 Social history: Denies any smoking. Alcohol rarely. Physical examination: VITAL SIGNS: T8, 18, 109/55, 96% room air GENERAL: Sitting up in a recliner, awake EYES: Pupils equal. Conjunctiva normal. HEENT: External appearance of nose and ears normal, oral cavity grossly normal. NECK: JVD unable to assess; masses not palpable. HEART: First and second heart sounds are normal; no edema. LUNGS: Respiratory rate normal; decreased breath sounds. ABDOMEN: Soft, mildly distended nontender, liver spleen not palpable, no masses palpable. Cao catheter PSYCH: AO 3, mood and affect normal INVESTIGATIONS, reviewed in the clinical context: September 29: Hemoglobin 7.8 creatinine 2.98 AST 77 ALT 104 Maria Elena 3: WBC 8.3 hemoglobin 7.8 potassium 3.6 creatinine 3.3 to AST 95 ALT 125 September 27: WBC 7.7 hemoglobin 7.5 platelets 273 creatinine 3.41 AST 102 ALT 114 albumin 3.2 September 22: WBC 8.1 hemoglobin 8.6 platelets 74, pression 3.8 creatinine 2.95 September 21: W obesity 16.6 hemoglobin 10.2 platelets 125 WBC 19.3 hemoglobin 9.4 platelets 206 potassium 4.4 crit 0.82 Preoperative labs from September 14: Hemoglobin 15.9 UA negative EKG tracing personally reviewed by me-on the hall monitor: Sinus rhythm Chest x-ray film personally reviewed by me-some cardiomegaly Assessment and plan: - coronary bypass. Patient extubated on September 20 and reintubated following being taken back to the OR.. Extubated September 22. -Patient was taken back to the OR - because of leaking vessel. Repaired -Coronary artery disease Aspirin, Lipitor, Lopressor -Essential hypertension Lopressor -Acute postprocedure blood loss anemia, As expected from surgery. received total of 4 units of blood. Follow H&H -Leukocytosis, reactive from surgery. No clinical evidence of infection-impro manan Follow clinically. -Dilutional thrombocytopenia-corrected Follow H&H -Cardiogenic shock-resolved On epinephrine [,milrinone-discontinued] -Acute kidney injury, likely from acute tubular necrosis-6 Follow with nephrology -Bladder outflow obstruction Started on Flomax. Follow-up post void residual's. Cao catheter had to be reintroduced. -Acute ischemic hepatitis, some improvement Follow LFTs -Diabetes mellitus type 2 Being started on Glucotrol 5 mg twice a day. Prescription given for Glucotrol. And for glucometer glucose test strips. Discussed with the patient and . Also discussed with Massiel from cardiothoracic team. Patient to keep a log of Accu-Cheks daily. And follow-up with PCP. Total time spent about 40 minutes with over 20 minutes of discussion Thank you Dr. Ku
== END 2020-09-29 15:40 | disposition home health service (06) | DRG 235 ==
LOC: 2ORMAIN 05:37 → 2SICU 15:58 → 3SCARD 09-26 14:00
PROVIDERS: ADMIT Surgery; ATTEND Surgery
PROC: 06BP4ZZ Excision of Right Saphenous Vein, Percutaneous Endoscopic Approach (ICD-10-PCS; 2020-09-20)
PROC: 03BC4ZZ Excision of Left Radial Artery, Percutaneous Endoscopic Approach (ICD-10-PCS; 2020-09-20)
PROC: 02L70CK Occlusion of Left Atrial Appendage with Extraluminal Device, Open Approach (ICD-10-PCS; 2020-09-20)
PROC: 5A1221Z Performance of Cardiac Output, Continuous (ICD-10-PCS; 2020-09-20)
PROC: B24BZZ4 Ultrasonography of Heart with Aorta, Transesophageal (ICD-10-PCS; 2020-09-20)
PROC: 30233N1 Transfusion of Nonautologous Red Blood Cells into Peripheral Vein, Percutaneous Approach (ICD-10-PCS; 2020-09-20)
PROC: 3E043XZ Introduction of Vasopressor into Central Vein, Percutaneous Approach (ICD-10-PCS; 2020-09-20)
PROC: 02100Z9 Bypass Coronary Artery, One Artery from Left Internal Mammary, Open Approach (ICD-10-PCS; principal; 2020-09-20 08:00)
PROC: 021109W Bypass Coronary Artery, Two Arteries from Aorta with Autologous Venous Tissue, Open Approach (ICD-10-PCS; 2020-09-20 08:00)
PROC: 02100A3 Bypass Coronary Artery, One Artery from Coronary Artery with Autologous Arterial Tissue, Open Approach (ICD-10-PCS; 2020-09-20 08:00)
PROC: 06BQ4ZZ Excision of Left Saphenous Vein, Percutaneous Endoscopic Approach (ICD-10-PCS; 2020-09-20 08:00)
PROC: 0W3C0ZZ Control Bleeding in Mediastinum, Open Approach (ICD-10-PCS; 2020-09-21)
PROC: B246ZZ4 Ultrasonography of Right and Left Heart, Transesophageal (ICD-10-PCS; 2020-09-21)
PROC: 0BH17EZ Insertion of Endotracheal Airway into Trachea, Via Natural or Artificial Opening (ICD-10-PCS; 2020-09-21)
DX: I25.110 Atherosclerotic heart disease of native coronary artery with unstable angina pectoris (principal); I46.9 Cardiac arrest, cause unspecified; J96.01 Acute respiratory failure with hypoxia; R57.0 Cardiogenic shock; N17.0 Acute kidney failure with tubular necrosis; K72.00 Acute and subacute hepatic failure without coma; I97.418 Intraoperative hemorrhage and hematoma of a circulatory system organ or structure complicating other circulatory system procedure; D62 Acute posthemorrhagic anemia; E87.2 Acidosis; R04.89 Hemorrhage from other sites in respiratory passages; K56.7 Ileus, unspecified; J98.11 Atelectasis; J90 Pleural effusion, not elsewhere classified; Z86.16 Personal history of COVID-19; E11.22 Type 2 diabetes mellitus with diabetic chronic kidney disease; D72.829 Elevated white blood cell count, unspecified; E87.70 Fluid overload, unspecified; R34 Anuria and oliguria; D69.59 Other secondary thrombocytopenia; R33.9 Retention of urine, unspecified; R00.0 Tachycardia, unspecified; M21.372 Foot drop, left foot; K75.89 Other specified inflammatory liver diseases; N32.0 Bladder-neck obstruction; N18.9 Chronic kidney disease, unspecified; I13.10 Hypertensive heart and chronic kidney disease without heart failure, with stage 1 through stage 4 chronic kidney disease, or unspecified chronic kidney disease; E78.5 Hyperlipidemia, unspecified; R35.1 Nocturia; R74.8 Abnormal levels of other serum enzymes; G89.29 Other chronic pain; M54.2 Cervicalgia; M19.90 Unspecified osteoarthritis, unspecified site; Z88.8 Allergy status to other drugs, medicaments and biological substances; Z79.82 Long term (current) use of aspirin; Z79.899 Other long term (current) drug therapy; Z87.891 Personal history of nicotine dependence; Z87.01 Personal history of pneumonia (recurrent); Z80.9 Family history of malignant neoplasm, unspecified; Z80.42 Family history of malignant neoplasm of prostate; R74.01 Elevation of levels of liver transaminase levels; Z79.02 Long term (current) use of antithrombotics/antiplatelets; Z79.4 Long term (current) use of insulin
CPT/HCPCS: 71045; 71046; 74018; 80048; 80053; 80061; 81001; 82330; 82805; 83605; 83735; 85025; 85027; 85384; 85520; 85610; 85730; 86850; 86891; 86900; 86901; 86920; 87086; 94002; 94003; 94640

== ENCOUNTER 2020-10-24 18:12 | Emergency (ER) | payer OTHER ==
[2020-10-24 18:19] VITALS: BP 132/85; PULSE 83; RESP 18; TEMP 98.2
[2020-10-24] MEDS ORDERED: HYDROcodone/APAP 5-325MG 1 EACH TAB PO STA (19:23)
--- NOTE | 2020-10-24 19:26 | ED ---
Extremity Problem HPI - General Chief complaint: Extremity Problem,Nontraumatic Stated complaint: lt foot problem Time Seen by Provider: 10/24/20 19:08 Source: patient, RN notes reviewed Mode of arrival: ambulatory Limitations: no limitations - Related Data Home Medications Medication Instructions Recorded Confirmed Aspirin 81 mg PO DAILY 09/14/20 09/14/20 Previous Rx's Medication Instructions Recorded Acetaminophen Tab [Tylenol] 1,000 mg PO Q6HR PRN tab 09/29/20 Atorvastatin [Lipitor] 40 mg PO DAILY #30 tab 09/29/20 Clopidogrel [Plavix] 75 mg PO DAILY #30 tab 09/29/20 Furosemide [Lasix] 40 mg PO BID #30 tablet 09/29/20 Metoprolol Tartrate [Lopressor] 50 mg PO BID #60 tab 09/29/20 Pantoprazole [Protonix] 40 mg PO AC-BRKFST #30 tablet.dr 09/29/20 Sennosides-Docusate Sodium 2 each PO HS PRN tab 09/29/20 [Senokot-S] Tamsulosin [Flomax] 0.4 mg PO PC-BRKFST #30 cap.er.24h 09/29/20 amLODIPine [Norvasc] 2.5 mg PO DAILY@1200 #30 tab 09/29/20 glipiZIDE [Glucotrol] 5 mg PO AC-BID #60 tab 09/29/20 polyethylene glycoL 3350 [Miralax] 17 gm PO DAILY PRN powd.pack 09/29/20 HYDROcodone/APAP 5-325MG [[place] 5] 1 each PO Q6HR PRN #12 tab 10/24/20 Allergies Allergy/AdvReac Type Severity Reaction Status Date / Time lisinopril AdvReac Cough Verified 10/24/20 18:19 Review of Systems ROS Statement: Those systems with pertinent positive or pertinent negative responses have been documented in the HPI. ROS Other: All systems not noted in ROS Statement are negative. Past Medical History Past Medical History: Hyperlipidemia, Hypertension Additional Past Medical History / Comment(s): no current chest pain, cervical problems c-5 thru c-7, had covid beginning of July-resolved History of Any Multi-Drug Resistant Organisms: None Reported Past Surgical History: Coronary Bypass/CABG Additional Past Anesthesia/Blood Transfusion Reaction / Comment(s): no family problems w/anesthesia, pt. has never had anesthesia Past Psychological History: No Psychological Hx Reported Smoking Status: Former smoker Past Alcohol Use History: None Reported Past Drug Use History: None Reported - Past Family History Father Family Medical History: Cancer General Exam Limitations: no limitations Course Vital Signs 10/24/20 18:14 Temperature 98.2 F Pulse Rate 83 Respiratory 18 Rate Blood Pressure 132/85 O2 Sat by Pulse 97 Oximetry Disposition Clinical Impression: Neuropathy of left foot Disposition: HOME SELF-CARE Condition: Stable Instructions (If sedation given, give patient instructions): Foot Drop (ED) Additional Instructions: Please return to the Emergency Department if symptoms worsen or any other concerns. Prescriptions: HYDROcodone/APAP 5-325MG [[place] 5] 1 each PO Q6HR PRN #12 tab PRN Reason: Pain Is patient prescribed a controlled substance at d/c from ED?: Yes When asked, does pt state using other controlled substances?: No If prescribed controlled substance>3 days was MAPS reviewed?: Prescribed <3 Days If opioid is for acute pain is fill amount 7 days or less?: Yes If Rx opioid, was Start Talking consent form obtained?: Yes Referrals: Kimberli Mendoza DO [Primary Care Provider] - 1-2 days Time of Disposition: 19:26
--- NOTE | 2020-10-24 19:56 | ED ---
Extremity Problem HPI - General Chief complaint: Extremity Problem,Nontraumatic Stated complaint: lt foot problem Time Seen by Provider: 10/24/20 19:08 Source: patient, RN notes reviewed Mode of arrival: ambulatory Limitations: no limitations - History of Present Illness Initial comments: 50-year-old male presents emergency from chief complaint of foot pain. Patient states that he had open-heart surgery by Dr. Geiger states that he and up with foot drop on the left. Patient states that his strength is coming back but states that his pain from his ankle to his tip of his toes. He states he saw his surgeon 2 days ago in which he told him just continue Tylenol which is not helping. Patient states he cannot tolerate the pain at nighttime. Patient denies any trauma no discoloration. Patient states that he knows with the issue is in states that he has no other complaints. - Related Data Home Medications Medication Instructions Recorded Confirmed Aspirin 81 mg PO DAILY 09/14/20 09/14/20 Previous Rx's Medication Instructions Recorded Acetaminophen Tab [Tylenol] 1,000 mg PO Q6HR PRN tab 09/29/20 Atorvastatin [Lipitor] 40 mg PO DAILY #30 tab 09/29/20 Clopidogrel [Plavix] 75 mg PO DAILY #30 tab 09/29/20 Furosemide [Lasix] 40 mg PO BID #30 tablet 09/29/20 Metoprolol Tartrate [Lopressor] 50 mg PO BID #60 tab 09/29/20 Pantoprazole [Protonix] 40 mg PO AC-BRKFST #30 tablet.dr 09/29/20 Sennosides-Docusate Sodium 2 each PO HS PRN tab 09/29/20 [Senokot-S] Tamsulosin [Flomax] 0.4 mg PO PC-BRKFST #30 cap.er.24h 09/29/20 amLODIPine [Norvasc] 2.5 mg PO DAILY@1200 #30 tab 09/29/20 glipiZIDE [Glucotrol] 5 mg PO AC-BID #60 tab 09/29/20 polyethylene glycoL 3350 [Miralax] 17 gm PO DAILY PRN powd.pack 09/29/20 HYDROcodone/APAP 5-325MG [[place] 5] 1 each PO Q6HR PRN #12 tab 10/24/20 Allergies Allergy/AdvReac Type Severity Reaction Status Date / Time lisinopril AdvReac Cough Verified 10/24/20 18:19 Review of Systems ROS Statement: Those systems with pertinent positive or pertinent negative responses have been documented in the HPI. ROS Other: All systems not noted in ROS Statement are negative. Past Medical History Past Medical History: Hyperlipidemia, Hypertension Additional Past Medical History / Comment(s): no current chest pain, cervical problems c-5 thru c-7, had covid beginning of July-resolved History of Any Multi-Drug Resistant Organisms: None Reported Past Surgical History: Coronary Bypass/CABG Additional Past Anesthesia/Blood Transfusion Reaction / Comment(s): no family problems w/anesthesia, pt. has never had anesthesia Past Psychological History: No Psychological Hx Reported Smoking Status: Former smoker Past Alcohol Use History: None Reported Past Drug Use History: None Reported - Past Family History Father Family Medical History: Cancer General Exam Limitations: no limitations General appearance: alert, in no apparent distress Head exam: Present: atraumatic, normocephalic, normal inspection Respiratory exam: Present: normal lung sounds bilaterally, chest wall tenderness. Absent: respiratory distress, wheezes, rales, rhonchi, stridor Cardiovascular Exam: Present: regular rate, normal rhythm, normal heart sounds. Absent: systolic murmur, diastolic murmur, rubs, gallop, clicks Extremities exam: Present: other (Surgical scars are noted well healed, pulses equal bilaterally of lower extremity, tenderness, or hypersensitivity of the left foot equal color equal warmth) Course Vital Signs 10/24/20 18:14 Temperature 98.2 F Pulse Rate 83 Respiratory 18 Rate Blood Pressure 132/85 O2 Sat by Pulse 97 Oximetry Medical Decision Making - Medical Decision Making Patient has pain after having foot drop, neuropathy type pain in the left foot. Patient advised to follow-up PCP for further medication patient arrives short course pain medication return parameters were discussed. Disposition Clinical Impression: Neuropathy of left foot Disposition: HOME SELF-CARE Condition: Stable Instructions (If sedation given, give patient instructions): Foot Drop (ED) Additional Instructions: Please return to the Emergency Department if symptoms worsen or any other concerns. Prescriptions: HYDROcodone/APAP 5-325MG [[place] 5] 1 each PO Q6HR PRN #12 tab PRN Reason: Pain Is patient prescribed a controlled substance at d/c from ED?: Yes When asked, does pt state using other controlled substances?: No If prescribed controlled substance>3 days was MAPS reviewed?: Prescribed <3 Days If opioid is for acute pain is fill amount 7 days or less?: Yes If Rx opioid, was Start Talking consent form obtained?: Yes Referrals: Kimberli Mendoza, DO [Primary Care Provider] - 1-2 days
== END 2020-10-24 19:33 | disposition home or self-care (01) ==
LOC: EC 18:12
DX: G62.9 Polyneuropathy, unspecified (principal); I10 Essential (primary) hypertension; E78.5 Hyperlipidemia, unspecified; Z79.82 Long term (current) use of aspirin; Z79.899 Other long term (current) drug therapy; Z95.1 Presence of aortocoronary bypass graft; Z87.891 Personal history of nicotine dependence
CPT/HCPCS: 99283

== ENCOUNTER 2022-03-02 10:49 | Emergency (ER) | payer OTHER ==
[2022-03-02] MEDS ORDERED: LIDOCAINE/EPINEPHR/TETRACAINE 5 ML BOTTLE TOPICAL ONE (12:56)
[2022-03-02] MEDS ORDERED: LIDOCAINE 1% INJ 10MG/ML (30 ML VIAL-PF) SQ ONE (12:57)
--- NOTE | 2022-03-02 13:07 | ED ---
Wound/Laceration HPI - General Chief Complaint: Wound/Laceration Stated Complaint: Laceration/[facility] Time Seen by Provider: 03/02/22 12:33 Source: patient Mode of arrival: ambulatory Limitations: no limitations - History of Present Illness Initial Comments: Patient is a 51-year-old male presenting with chief complaint of laceration. Patient is a [employer], today at work he injured his left index finger. Patient is on Plavix after receiving CABG surgery one year ago. His last tetanus shot was less than 5 years ago. No numbness or tingling. Patient has full range of motion of the finger. - Related Data Home Medications Medication Instructions Recorded Confirmed Aspirin 81 mg PO DAILY 09/14/20 09/14/20 Previous Rx's Medication Instructions Recorded Acetaminophen Tab [Tylenol] 1,000 mg PO Q6HR PRN tab 09/29/20 Atorvastatin [Lipitor] 40 mg PO DAILY #30 tab 09/29/20 Clopidogrel [Plavix] 75 mg PO DAILY #30 tab 09/29/20 Furosemide [Lasix] 40 mg PO BID #30 tablet 09/29/20 Metoprolol Tartrate [Lopressor] 50 mg PO BID #60 tab 09/29/20 Pantoprazole [Protonix] 40 mg PO AC-BRKFST #30 tablet.dr 09/29/20 Sennosides-Docusate Sodium 2 each PO HS PRN tab 09/29/20 [Senokot-S] Tamsulosin [Flomax] 0.4 mg PO PC-BRKFST #30 cap.er.24h 09/29/20 amLODIPine [Norvasc] 2.5 mg PO DAILY@1200 #30 tab 09/29/20 glipiZIDE [Glucotrol] 5 mg PO AC-BID #60 tab 09/29/20 polyethylene glycoL 3350 [Miralax] 17 gm PO DAILY PRN powd.pack 09/29/20 HYDROcodone/APAP 5-325MG [[place] 5] 1 each PO Q6HR PRN #12 tab 10/24/20 Allergies Allergy/AdvReac Type Severity Reaction Status Date / Time lisinopril AdvReac Cough Verified 03/02/22 12:32 Review of Systems ROS Statement: Those systems with pertinent positive or pertinent negative responses have been documented in the HPI. ROS Other: All systems not noted in ROS Statement are negative. Past Medical History Past Medical History: Hyperlipidemia, Hypertension Additional Past Medical History / Comment(s): no current chest pain, cervical problems c-5 thru c-7, had covid beginning of July-resolved History of Any Multi-Drug Resistant Organisms: None Reported Past Surgical History: Coronary Bypass/CABG Additional Past Anesthesia/Blood Transfusion Reaction / Comment(s): no family pr oblems w/anesthesia, pt. has never had anesthesia Past Psychological History: No Psychological Hx Reported Smoking Status: Former smoker Past Alcohol Use History: None Reported Past Drug Use History: None Reported - Past Family History Father Family Medical History: Cancer General Exam Limitations: no limitations General appearance: alert, in no apparent distress Head exam: Present: atraumatic, normocephalic, normal inspection Eye exam: Present: normal appearance Neck exam: Present: normal inspection Neurological exam: Present: alert, oriented X3, CN II-XII intact Psychiatric exam: Present: normal affect, normal mood Expanded Type of lesion: Present: laceration (3 cm, left index finger, anterior surface) Course Vital Signs 03/02/22 03/02/22 12:30 14:44 Temperature 98.1 F 97.6 F Pulse Rate 60 64 Respiratory 16 17 Rate Blood Pressure 167/91 160/77 O2 Sat by Pulse 98 98 Oximetry Procedures - Laceration Laceration #1 Consent Obtained: verbal consent Indication: laceration Site: hand (Left index finger) Size (cm): 4 Description: linear Depth: simple, single layer Anesthetic Used: lidocaine 1%, without epi Amount (mls): 5 Pre-repair: wound explored, irrigated extensively, deep structures intact Type of Sutures: nylon Size of Sutures: 4-0 Number of Sutures: 6 Technique: simple, interrupted Patient Tolerated Procedure: well Medical Decision Making - Medical Decision Making Patient is a 51-year-old male presenting with chief laceration. 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 Wound is approximately 4 cm in length. Patient is on Plavix. On physical examination patient is alert range of motion and sensation of the finger. X-rays negative f or any foreign body or fracture. Wound was repaired after thorough irrigation and injection of 1% lidocaine without epi. 6 simple interrupted sutures were applied using 4-0 nylon. Patient is educated on wound care and signs of infection. Follow-up with PCP. Report back to ER with any new or worsening symptoms. Discussed return parameters and answered all questions. Patient conveyed verbal understanding and agreed to the plan. I discussed this case in detail with my attending Dr. Rubio Disposition Clinical Impression: Laceration Disposition: HOME SELF-CARE Condition: Good Instructions (If sedation given, give patient instructions): Care For Your Stitches (ED), Finger Laceration (ED) Additional Instructions: Follow-up with PCP. Report back to ER with any new or worsening symptoms. Take Motrin and Tylenol as needed for pain control. Keep the wound clean, dry, and covered. Wash regularly with soap and water, avoid prolonged submersion such as swimming or baths. Monitor for signs of infection, including redness, swelling, warmth, tenderness, discharge, fever, chills. Sutures may be removed in 10-14 days. Is patient prescribed a controlled substance at d/c from ED?: No Referrals: Kimberli Mendoza DO [Primary Care Provider] - 1-2 days Time of Disposition: 14:22
--- NOTE | 2022-03-02 13:43 | XR ---
EXAMINATION TYPE: XR finger LT DATE OF EXAM: 03/02/2022 1:34 PM INDICATION: Patient age:Male; 51 years old; Reason for study: Laceration, index finger;. COMPARISON: None TECHNIQUE: Frontal, lateral and oblique views of the left finger were obtained. FINDINGS: Normal alignment of the visualized joints. No acute osseous pathology is identified. No e vidence of soft tissue swelling. IMPRESSION: 1. No acute osseous pathology. 2. Left second digit skin defect without radiopaque foreign body.
[2022-03-02 14:46] VITALS: BP 160/77; PULSE 64; RESP 17; TEMP 97.6
== END 2022-03-02 14:45 | disposition home or self-care (01) ==
LOC: EC 10:49
DX: S61.211A Laceration without foreign body of left index finger without damage to nail, initial encounter (principal); E78.5 Hyperlipidemia, unspecified; I10 Essential (primary) hypertension; Z87.891 Personal history of nicotine dependence; Z88.8 Allergy status to other drugs, medicaments and biological substances; Z79.899 Other long term (current) drug therapy
CPT/HCPCS: 73140; 99283; 12002; J2001

== ENCOUNTER → 2023-02-12 | Outpatient (CLI) | payer OTHER ==
--- NOTE | 2023-02-12 14:16 | MR ---
EXAMINATION TYPE: MR Prostate wo/w con DATE OF EXAM: 02/12/2023 7:17 AM COMPARISON: None. CLINICAL INDICATION:Male, 52 years old with history of R97.20 elevated PSA; TECHNIQUE: Multi-planar, multi-sequence imaging of the pelvis is performed prior to and following the uncomplicated administration of bolus intravenous gadolinium. CONTRAST: 9.5 cc Gadobutrol Interpretive Criteria: PI-RADS v2.1 SERUM PSA: 6.79 on 01/15/2023. SURGICAL PATHOLOGY: No data available. FINDINGS: Prostatic dimensions: 4.7 x 5.9 x 3.3 cm. "Bullet" Volume:59.89 (PSA density=0.11 ng/mL/mL) CENTRAL GLAND (Central and Transition Zones/CZ+TZ): Multiple bilateral, heterogenous appearing hypertrophic stromal nodules, without suspicious lesion. ( PI-RADS 2) PERIPHERAL ZONE (PZ): Bilateral linear, indistinct wedgelike areas of low ADC, and low T2 signal, No evidence of masslike a bnormality, or localized perfusional hypervascularity, to further suggest a focus of clinically signi ficant prostate cancer. (PI-RADS 2) SEMINAL VESICLES (SV): Symmetric and unremarkable. PERIPROSTATIC TISSUES: Unremarkable. LYMPH NODES: No enlarged pelvic lymph node. REMAINING PELVIS: Bladder wall is within normal limits given distention. No abnormal free or organized intrapelvic fluid collection. No pathologic bowel dilation or mural thickening. Colonic diverticula are present. Left fat containing inguinal hernia OSSEOUS STRUCTURES: No suspicious osseous abnormality. IMPRESSION: 1. No specific features for high-risk prostate cancer. Maximum PI-RADS score: 2. 2. Moderate BPH, estimated gland volume 59.89 mL.
== END | disposition home or self-care (01) ==
LOC: RADMRIMAIN 06:25
PROVIDERS: ATTEND Urology
DX: N40.0 Benign prostatic hyperplasia without lower urinary tract symptoms (principal); R97.20 Elevated prostate specific antigen [PSA]
CPT/HCPCS: 72197; A9585

== ENCOUNTER 2023-10-08 09:49 | Emergency (ER) | payer MEDICAID, OTHER ==
[2023-10-08 10:06] VITALS: RESP 18; TEMP 98.1
--- NOTE | 2023-10-08 10:24 | ED ---
Extremity Problem HPI - General Chief complaint: Extremity Problem,Nontraumatic Stated complaint: L arm pain Time Seen by Provider: 10/08/23 10:02 Source: patient, RN notes reviewed Mode of arrival: ambulatory Limitations: no limitations - History of Present Illness Initial comments: this is a 53-year-old male presents emergency department chief complaint of left forearm pain, swelling, and bruising. Patient states roughly 2 weeks ago he was working on his pool outside while he strained his arm resulting in bruising and moderate swelling of the left distal forearm. This morning when he went to chart picker his dog she had worsening pain of the left forearm. He is on blood thinners, plavix, the last 5 years due to a quadruple CABG. He denies any paresthesias, decrease in muscle strength, elbow pain, shoulder pain, falls. Patient denies surgery to the left arm. states he has used Tylenol at home with minimal relief. - Related Data Home Medications Medication Instructions Recorded Confirmed Aspirin 81 mg PO DAILY 09/14/20 09/14/20 Previous Rx's Medication Instructions Recorded Acetaminophen Tab [Tylenol] 1,000 mg PO Q6HR PRN tab 09/29/20 Atorvastatin [Lipitor] 40 mg PO DAILY #30 tab 09/29/20 Clopidogrel [Plavix] 75 mg PO DAILY #30 tab 09/29/20 Furosemide [Lasix] 40 mg PO BID #30 tablet 09/29/20 Metoprolol Tartrate [Lopressor] 50 mg PO BID #60 tab 09/29/20 Pantoprazole [Protonix] 40 mg PO AC-BRKFST #30 tablet.dr 09/29/20 Sennosides-Docusate Sodium 2 each PO HS PRN tab 09/29/20 [Senokot-S] Tamsulosin [Flomax] 0.4 mg PO PC-BRKFST #30 cap.er.24h 09/29/20 amLODIPine [Norvasc] 2.5 mg PO DAILY@1200 #30 tab 09/29/20 glipiZIDE [Glucotrol] 5 mg PO AC-BID #60 tab 09/29/20 polyethylene glycoL 3350 [Miralax] 17 gm PO DAILY PRN powd.pack 09/29/20 HYDROcodone/APAP 5-325MG [[place] 5] 1 each PO Q6HR PRN #12 tab 10/24/20 Allergies Allergy/AdvReac Type Severity Reaction Status Date / Time lisinopril AdvReac Cough Verified 10/08/23 10:06 Review of Systems ROS Statement: Those systems with pertinent positive or pertinent negative responses have been documented in the HPI. ROS Other: All systems not noted in ROS Statement are negative. Past Medical History Past Medical History: Hyperlipidemia, Hypertension Additional Past Medical History / Comment(s): no current chest pain, cervical problems c-5 thru c-7, had covid beginning of July-resolved History of Any Multi-Drug Resistant Organisms: None Reported Past Surgical History: Coronary Bypass/CABG Additional Past Anesthesia/Blood Transfusion Reaction / Comment(s): no family problems w/anesthesia, pt. has never had anesthesia Past Psychological History: No Psychological Hx Reported Smoking Status: Former smoker Past Alcohol Use History: None Reported Past Drug Use History: None Reported - Past Family History Father Family Medical History: Cancer General Exam - General Exam Comments Initial Comments: Visual Physical Exam Vital signs reviewed General: Well-appearing, nontoxic, no acute distress. Head: Normocephalic, atraumatic Eyes: PERRLA, EOMI ENT: Airway patent Chest: Nonlabored breathing Skin: No visual rash, normal skin tone Neuro: Alert and oriented 3 Musculoskeletal: No gross abnormalities Limitations: no limitations General appearance: alert, in no apparent distress Head exam: Present: atraumatic, normocephalic, normal inspection Eye exam: Present: normal appearance, PERRL, EOMI. Absent: scleral icterus, conjunctival injection, periorbital swelling ENT exam: Present: normal exam, mucous membranes moist Neck exam: Present: normal inspection. Absent: tenderness, meningismus, lymphadenopathy Respiratory exam: Present: normal lung sounds bilaterally. Absent: respiratory distress, wheezes, rales, rhonchi, stridor Cardiovascular Exam: Present: regular rate, normal rhythm, normal heart sounds. Absent: systolic murmur, diastolic murmur, rubs, gallop, clicks GI/Abdominal exam: Present: soft, normal bowel sounds. Absent: distended, tenderness, guarding, rebound, rigid Left Forearm Wrist exam: Present: full ROM, tenderness, swelling, ecchymosis. Absent: deformity, crepitus, dislocation, erythema, tenderness over anatomical snuff box Hand Wrist exam: Present: tenderness Back exam: Present: normal inspection Neurological exam: Present: alert, oriented X3, CN II-XII intact Psychiatric exam: Present: normal affect, normal mood Skin exam: Present: warm, dry, intact, normal color. Absent: rash Course Vital Signs 10/08/23 10/08/23 10:03 12:16 Temperature 98.1 F 98.1 F Pulse Rate 58 L 62 Respiratory 18 18 Rate Blood Pressure 148/90 146/82 O2 Sat by Pulse 98 99 Oximetry Medical Decision Making - Medical Decision Making I completed the quick note portion of this chart signed Susanna Wyman PA-C Was pt. sent in by a medical professional or institution ([facility], SALES PROJECT MANAGER, urgent care, hospital, or prison...) When possible be specific @ -No Did you speak to anyone other than the patient for history (EMS, parent, family, police, friend...)? What history was obtained from this source @ -No Did you review nursing and triage notes (agree or disagree)? Why? @ -I reviewed and agree with nursing and triage notes Were old charts reviewed (outside hosp., previous admission, EMS record, old EKG, old radiological studies, urgent care reports/EKG's, prison records)? Report findings @ -No old charts were reviewed Differential Diagnosis (chest pain, altered mental status, abdominal pain women, abdominal pain men, vaginal bleeding, weakness, fever, dyspnea, syncope, head ache, dizziness, GI bleed, back pain, seizure, CVA, palpatations, mental health, musculoskeletal)? @ -Differential Musculoskeletal Muscular strain, contusion, ligament sprain, fracture, arthritis, septic arthritis, bursitis, cellulitis, muscle spasm, nerve compression, DVT, arterial occlusion, herpes zoster, electrolyte abnormality, tumor.... This is not meant to be in all inclusive list EKG interpreted by me (3pts min.). @ -None X-rays interpreted by me (1pt min.). @ -X-ray of the left forearm reveals no acute evidence of fracture. CT interpreted by me (1pt min.). @ -None done U/S interpreted by me (1pt. min.). @ -Duplex ultrasound of the left upper extremity no evidence for DVT. What testing was considered but not performed or refused? (CT, X-rays, U/S, labs)? Why? @ -None What meds were considered but not given or refused? Why? @ -None Did you discuss the management of the patient with other professionals (professionals i.e. , PA, SALES PROJECT MANAGER, lab, RT, psych nurse, health and social care teacher, residential plumber, teacher, founder and chief technical officer, caser shoe parts)? Give summary @ -No Was smoking cessation discussed for >3mins.? @ -No Was critical care preformed (if so, how long)? @ -No Were there social determinants of health that impacted care today? How? (Homelessness, low income, unemployed, alcoholism, drug addiction, transportation, low edu. Level, literacy, decrease access to med. care, half-way, rehab)? @ -No Was there de-escalation of care discussed even if they declined (Discuss DNR or withdrawal of care, Hospice)? DNR status @ -No What co-morbidities impacted this encounter? (DM, HTN, Smoking, COPD, CAD, Can cer, CVA, ARF, Chemo, Hep., AIDS, mental health diagnosis, sleep apnea, morbid obesity)? @ -None Was patient admitted / discharged? Hospital course, mention meds given and route, prescriptions, significant lab abnormalities, going to OR and other pertinent info. @ -Discharge. 53-year-old male with left forearm pain, ecchymosis, swelling. On examination patient noted to have ecchymosis, edema, and tenderness. On exam no neurological deficits, muscle strength is intact. At this time patient will be evaluated via radiographs of x-ray and ultrasound to rule out fracture or DVT, patient is in agreement with this. Reevaluation, imaging no evidence of fracture or blood clot. Patient was placed in a splint and instructed to follow-up outpatient with floral department specialist for further evaluation of potential muscle of the forearm. Patient is to keep the area dry, rest and icing over the next few days increasing significant exertion. All questions answered at bedside and strict return parameters discussed with the patient which she verbalized understanding. Provided with outpatient referral to floral department specialist and instructed to continue Tylenol as needed at home. Case discussed with my attending Dr. Walker Undiagnosed new problem with uncertain prognosis? @ -No Drug Therapy requiring intensive monitoring for toxicity (Heparin, Nitro, Insulin, Cardizem)? @ -No Were any procedures done? @ -No Diagnosis/symptom? @ -Strain, possible torn muscle of forearm, edema of left forearm Acute, or Chronic, or Acute on Chronic? @ -acute Uncomplicated (without systemic symptoms) or Complicated (systemic symptoms)? @ -uncomplicated Side effects of treatment? @ -No Exacerbation, Progression, or Severe Exacerbation? @ -No Poses a threat to life or bodily function? How? (Chest pain, [place], [place], pneumonia, PE, COPD, DKA, ARF, appy, cholecystitis, CVA, Diverticulitis, Homicidal, Suicidal, threat to staff... and all critical care pts) @ -No Disposition Clinical Impression: Muscle strain, Torn muscle Disposition: HOME SELF-CARE Condition: Good Instructions (If sedation given, give patient instructions): Muscle Strain (ED) Additional Instructions: Return to the emergency department if your symptoms worsen or improve. Follow- up with orthopedics as provided. Is patient prescribed a controlled substance at d/c from ED?: No Referrals: Kimberli Mendoza DO [Primary Care Provider] - 1-2 days Mikel Ocampo MD [Medical Doctor] - 1-2 days Time of Disposition: 12:07
--- NOTE | 2023-10-08 10:53 | XR ---
EXAMINATION TYPE: XR forearm LT DATE OF EXAM: 10/08/2023 COMPARISON: NONE HISTORY: Bruising Two views of the forearm demonstrate that the osseous structures appear to be intact and the joint sp aces appear to be preserved. There is no acute fracture or dislocation. Surgical clips in the soft tissues over the IMPRESSION: 1. No acute fracture or dislocation
--- NOTE | 2023-10-08 11:31 | US ---
EXAMINATION TYPE: US venous doppler duplex UE LT DATE OF EXAM: 10/08/2023 COMPARISON: NONE CLINICAL INDICATION: Male, 53 years old with history of bruising, swelling, pain; pain in lower left arm x 10ish days after working on his pool. No hx of DVT. On blood thinners SIDE PERFORMED: Left Left Arm: No evidence for DVT IMPRESSION: 1. No diagnostic evidence of DVT.
[2023-10-08 12:17] VITALS: BP 146/82; PULSE 62
== END 2023-10-08 12:16 | disposition home or self-care (01) ==
LOC: EC 09:49
DX: S56.912A Strain of unspecified muscles, fascia and tendons at forearm level, left arm, initial encounter (principal); Z88.8 Allergy status to other drugs, medicaments and biological substances; Z87.891 Personal history of nicotine dependence; X58.XXXA Exposure to other specified factors, initial encounter
CPT/HCPCS: 29125; 96361; 96365; 96366; 96375; 96376; 99284; 99285

== ENCOUNTER 2024-02-20 11:24 | Emergency (ER) | payer MEDICAID ==
--- NOTE | 2024-02-20 11:43 | ED ---
Wound/Laceration HPI - General Chief Complaint: Wound/Laceration Stated Complaint: Left toe injury Time Seen by Provider: 02/20/24 11:43 Source: patient, RN notes reviewed Mode of arrival: ambulatory Limitations: no limitations - History of Present Illness Initial Comments: 53-year-old male presenting to the ER with a chief complaint of a toe injury. P atient states last night while walking to the bathroom in the dark when he accidentally stubbed his left fifth digit on the bed frame. He reports a wound to his left distal toe. He denies any other injuries. Tetanus is up-to-date. No other complaints. - Related Data Home Medications Medication Instructions Recorded Confirmed Aspirin 81 mg PO DAILY 09/14/20 09/14/20 Previous Rx's Medication Instructions Recorded Acetaminophen Tab [Tylenol] 1,000 mg PO Q6HR PRN tab 09/29/20 Atorvastatin [Lipitor] 40 mg PO DAILY #30 tab 09/29/20 Clopidogrel [Plavix] 75 mg PO DAILY #30 tab 09/29/20 Furosemide [Lasix] 40 mg PO BID #30 tablet 09/29/20 Metoprolol Tartrate [Lopressor] 50 mg PO BID #60 tab 09/29/20 Pantoprazole [Protonix] 40 mg PO AC-BRKFST #30 tablet.dr 09/29/20 Sennosides-Docusate Sodium 2 each PO HS PRN tab 09/29/20 [Senokot-S] Tamsulosin [Flomax] 0.4 mg PO PC-BRKFST #30 cap.er.24h 09/29/20 amLODIPine [Norvasc] 2.5 mg PO DAILY@1200 #30 tab 09/29/20 glipiZIDE [Glucotrol] 5 mg PO AC-BID #60 tab 09/29/20 polyethylene glycoL 3350 [Miralax] 17 gm PO DAILY PRN powd.pack 09/29/20 HYDROcodone/APAP 5-325MG [[place] 5] 1 each PO Q6HR PRN #12 tab 10/24/20 Allergies Allergy/AdvReac Type Severity Reaction Status Date / Time lisinopril AdvReac Cough Verified 02/20/24 11:32 Review of Systems ROS Statement: Those systems with pertinent positive or pertinent negative responses have been documented in the HPI. ROS Other: All systems not noted in ROS Statement are negative. Past Medical History Past Medical History: Hyperlipidemia, Hypertension Additional Past Medical History / Comment(s): no current chest pain, cervical problems c-5 thru c-7, had covid beginning of July-resolved History of Any Multi-Drug Resistant Organisms: None Reported Past Surgical History: Coronary Bypass/CABG Additional Past Anesthesia/Blood Transfusion Reaction / Comment(s): no family problems w/anesthesia, pt. has never had anesthesia Past Psychological History: No Psychological Hx Reported Smoking Status: Former smoker Past Alcohol Use History: None Reported Past Drug Use History: None Reported - Past Family History Father Family Medical History: Cancer General Exam Limitations: no limitations General appearance: alert, in no apparent distress Respiratory exam: Present: normal lung sounds bilaterally. Absent: respiratory distress, wheezes, rales, rhonchi, stridor Cardiovascular Exam: Present: regular rate, normal rhythm, normal heart sounds. Absent: systolic murmur, diastolic murmur, rubs, gallop, clicks Extremities exam: Present: normal inspection, full ROM, normal capillary refill, other (flap avulsion to left 5th distal digit. Nail is intact. Full range of motion of digit. 2+ left dorsalis pedis and posterior tibialis pulses. Patient ambulates without difficulty.). Absent: tenderness, pedal edema, joint swelling, calf tenderness Neurological exam: Present: alert, oriented X3, CN II-XII intact Skin exam: Present: warm, dry, intact, normal color. Absent: rash Course Vital Signs 02/20/24 02/20/24 11:31 12:00 Temperature 98.1 F 98.0 F Pulse Rate 63 51 L Respiratory 20 16 Rate Blood Pressure 152/85 159/88 O2 Sat by Pulse 97 97 Oximetry Medical Decision Making - Medical Decision Making Was pt. sent in by a medical professional or institution (, PA, REGISTRY NURSE, urgent care, hospital, or [facility]...) When possible be specific @ -No Did you speak to anyone other than the patient for history (EMS, parent, family, police, friend...)? What history was obtained from this source @ -No Did you review nursing and triage notes (agree or disagree)? Why? @ -I reviewed and agree with nursing and triage notes Were old charts reviewed (outside hosp., previous admission, EMS record, old EKG, old radiological studies, urgent care reports/EKG's, [facility] records)? Report findings @ -No old charts were reviewed Differential Diagnosis (chest pain, altered mental status, abdominal pain women, abdominal pain men, vaginal bleeding, weakness, fever, dyspnea, syncope, headache, dizziness, GI bleed, back pain, seizure, CVA, palpatations, mental health, musculoskeletal)? @ -Laceration, abrasion, contusion, avulsion, foreign body this list is not meant to be all-inclusive EKG interpreted by me (3pts min.). @ -None done X-rays interpreted by me (1pt min.). @ -None done CT interpreted by me (1pt min.). @ -None done U/S interpreted by me (1pt. min.). @ -None done What testing was considered but not performed or refused? (CT, X-rays, U/S, labs)? Why? @ -None What meds were considered but not given or refused? Why? @ -None Did you discuss the management of the patient with other professionals (professionals i.e. , PA, REGISTRY NURSE, lab, RT, psych nurse, social staff worker, registered dietetic technician, teacher, mortgage loan officer originator, caseworker intake)? Give summary @ -No Was smoking cessation discussed for >3mins.? @ -No Was critical care preformed (if so, how long)? @ -No Were there social determinants of health that impacted care today? How? (Homelessness, low income, unemployed, alcoholism, drug addiction, transportation, low edu. Level, literacy, decrease access to med. care, care home, rehab)? @ -No Was there de-escalation of care discussed even if they declined (Discuss DNR or withdrawal of care, Hospice)? DNR status @ -No What co-morbidities impacted this encounter? (DM, HTN, Smoking, COPD, CAD, Cancer, CVA, ARF, Chemo, Hep., AIDS, mental health diagnosis, sleep apnea, morbid obesity)? @ -None Was patient admitted / discharged? Hospital course, mention meds given and route, prescriptions, significant lab abnormalities, going to OR and other pertinent info. @ -Discharge. 53-year-old male presenting to the ER with a chief complaint of left fifth digit injury. History and physical exam completed. Vitals within normal limits. Patient is well-developed in no signs of acute distress. Left lower extremity neurovascular intact. Patient has full range of motion of all digits. There is a flap avulsion to left fifth distal digit. No active bleeding. Flap is intact. Tetanus is up-to-date, per patient. Suture was offered to patient to approximate wound, patient refused. Wound cleaned and wrapped with bacitracin. Wound care discussed. Patient stable for discharge. Strict return parameters discussed. Patient discharged in stable condition with follow-up to PCP. Patient verbally expressed understanding and agreement with care plan. Case discussed with ED attending, Dr. Walker. Undiagnosed new problem with uncertain prognosis? @ -No Drug Therapy requiring intensive monitoring for toxicity (Heparin, Nitro, Insulin, Cardizem)? @ -No Were any procedures done? @ -No Diagnosis/symptom? @ -Avulsion of skin of left fifth toe Acute, or Chronic, or Acute on Chronic? @ -Acute Uncomplicated (without systemic symptoms) or Complicated (systemic symptoms)? @ -Uncomplicated Side effects of treatment? @ -No Exacerbation, Progression, or Severe Exacerbation? @ -No Poses a threat to life or bodily function? How? (Chest pain, [place], [place], pneumonia, PE, COPD, DKA, ARF, appy, cholecystitis, CVA, Diverticulitis, Homicidal, Suicidal, threat to staff... and all critical care pts) @ -No Disposition Clinical Impression: Avulsion of skin of toe Disposition: HOME SELF-CARE Condition: Stable Additional Instructions: Keep area clean and dry. Monitor for signs of infection including surrounding redness, purulent drainage and or increasing pain and swelling. You may take [id number] ibuprofen and Tylenol for pain control. Follow-up with PCP. Return to the ER for any new or worsening concerns. Is patient prescribed a controlled substance at d/c from ED?: No Referrals: Kimberli Mendoza DO [Primary Care Provider] - 1-2 days Time of Disposition: 11:49
[2024-02-20] MEDS: BACITRACIN OINT 1 EACH PACKET TOPICAL ONE (11:54)
[2024-02-20 12:02] VITALS: BP 159/88; PULSE 51; RESP 16; TEMP 98
== END 2024-02-20 12:02 | disposition home or self-care (01) ==
LOC: EC 11:24
CPT/HCPCS: 99282

== ENCOUNTER → 2024-05-07 | Outpatient (CLI) | payer MEDICAID ==
--- NOTE | 2024-05-07 18:18 | CA ---
Transthoracic Echo Report Name: Harsha Almazan Age: 53 Gender: M : 1970 Exam Date: 05/07/2024 10:28 Exam Location: [place] [facility] Ht (in): 70 Wt (lb): 220 Ordering Physician: Marianela Paredes MD ([id number]) Attending/Referring Phys: Ndt Inspector Sandra Banegas RDCS Procedure CPT: Indications: Z95.1 PRESENCE OF AORTOCORONARY BYPASS GRAFT Cardiac Hx: Technical Quality: Fair Contrast 1: Total Dose (mL): Contrast 2: Total Dose (mL): MEASUREMENTS (Male / Female) Normal Values 2D ECHO LV Diastolic Diameter PLAX 5.3 cm 4.2 - 5.9 / 3.9 - 5.3 cm LV Systolic Diameter PLAX 2.8 cm IVS Diastolic Thickness 1.3 cm 0.6 - 1.0 / 0.6 - 0.9 cm LVPW Diastolic Thickness 1.2 cm 0.6 - 1.0 / 0.6 - 0.9 cm LV Relative Wall Thickness 0.5 RV Internal Dim ED PLAX 4.3 cm LV Diastolic Volume MOD BP 97.1 cm??? 67 - 155 / 56 - 104 cm??? LV Systolic Volume MOD BP 34.1 cm??? 22 - 58 / 19 - 49 cm??? LV Ejection Fraction MOD BP 64.9 % >= 55 % LV Cardiac Index MOD BP 1626.5 cm???/min???m??? LV Diastolic Volume MOD 4C 97.9 cm??? LV Systolic Volume MOD 4C 29.2 cm??? LV Ejection Fraction MOD 4C 70.2 % LV Cardiac Index MOD 4C 1773.7 cm???/min???m??? LV Diastolic Length 4C 7.8 cm LV Systolic Length 4C 5.8 cm LV Diastolic Volume MOD 2C 96.2 cm??? LV Systolic Volume MOD 2C 36.9 cm??? LV Ejection Fraction MOD 2C 61.6 % LV Cardiac Index MOD 2C 1527.7 cm???/min???m??? LV Diastolic Length 2C 7.8 cm LV Systolic Length 2C 6.4 cm LA Volume 53.4 cm??? 18 - 58 / 22 - 52 cm??? LA Volume Index 23.8 cm???/m??? 16 - 28 cm???/m??? M-MODE Aortic Root Diameter MM 3.1 cm LA Systolic Diameter MM 4.5 cm LA Ao Ratio MM 1.5 AV Cusp Separation MM 1.8 cm DOPPLER AV Peak Velocity 141.8 cm/s AV Peak Gradient 8.0 mmHg AV Mean Velocity 91.2 cm/s AV Mean Gradient 3.9 mmHg AV Velocity Time Integral 26.7 cm LVOT Peak Velocity 105.9 cm/s LVOT Peak Gradient 4.5 mmHg LVOT Velocity Time Integral 22.0 cm MV Area PHT 2.9 cm??? Mitral E Point Velocity 54.5 cm/s Mitral A Point Velocity 68.1 cm/s Mitral E to A Ratio 0.8 MV Deceleration Time 262.6 ms MV E' Velocity 6.6 cm/s Mitral E to MV E' Ratio 8.3 FINDINGS Left Ventricle Left ventricular cavity size normal. Mildly increased left ventricular wall thickness. Normal left ventricular systolic function with no obvious regional wall motion abnormalities. Left ventricular ejection fraction is estimated at 55-60 %. Grade 1 diastolic dysfunction. Right Ventricle Right ventricular systolic pressure within normal limits.normal right ventricular size and function. Right Atrium Normal right atrial size. Left Atrium Mildly increased left atrial area. Mitral Valve Structurally normal mitral valve. No mitral stenosis, regurgitation or prolapse. Aortic Valve Trileaflet aortic valve. No aortic valve stenosis or regurgitation. Tricuspid Valve Structurally normal tricuspid valve. Trace tricuspid regurgitation. Pulmonic Valve Structurally normal pulmonic valve. Pericardium No pericardial effusion. Aorta Normal size aortic root and proximal ascending aorta. CONCLUSIONS Indication: Congestive heart failure, history of CABG EF 55% Grade 1 diastolic dysfunction No obvious regional wall motion abnormality Mild concentric LVH No significant valvular dysfunction Mild left atrial dilatation Normal RV size and systolic function Previewed by: Dr Troy Hoffman (Electronically Signed) Final Date: 07 May 2024 18:17
== END | disposition home or self-care (01) ==
LOC: RADECHMAIN 10:14
PROVIDERS: ATTEND Internal Medicine Interventional Cardiology
DX: I50.9 Heart failure, unspecified (principal); Z95.1 Presence of aortocoronary bypass graft
CPT/HCPCS: 93306

== ENCOUNTER → 2024-05-07 | Outpatient (CLI) | payer MEDICAID ==
--- NOTE | 2024-05-07 12:24 | NM ---
EXAMINATION TYPE: NM stress lexiscan cardiolite DATE OF EXAM: 05/07/2024 COMPARISON: NONE CLINICAL INDICATION: Male, 53 years old with history of Z95.1 PRESENCE OF AORTOCORONARY BYPASS GRAFT; TECHNIQUE: After the intravenous administration of 9.49 mCi Tc 99m Sestamibi - Cardiolite resting SP ECT images acquired 48 minutes post injection. The patient received 0.4mg Lexiscan, 26.2 mCi Tc 99m Sestamibi - Stress images obtained [address] injection FINDINGS: Review of stress and rest SPECT images demonstrates a [id number] area of reversibility involvi ng the mid to apical lateral wall. Gated analysis suggests some wall dyskinesia here with an estimate d left ventricular ejection fraction of 55 %. TID calculated normal at 0.85 IMPRESSION: Scintigraphic findings of inducible ischemia along the mid to apical lateral wall. [facility], , 05/07/2024 12:22 PM
--- NOTE | 2024-05-07 18:23 | CA ---
Lexiscan Nuclear Stress Test Report Name: Harsha Almazan Exam Date: 05/07/2024 09:46 Exam Location: [place] [facility] Ht (in): 70 Wt (lb): 220 BSA: 2.17 Ordering Phys: Marianela Paredes MD Referring Phys: Marianela Paredes MD Technologist: Manish Borjas Age: 53 Gender: M : 1970 Procedure CPT: Indications: Z95.1 PRESENCE OF AORTOCORONARY BYPASS GRAFT ICD-10 Codes: Angina pectoris Patient History: CHEST PAIN, HTN, CARDIAC CATH, CABG X 4, PRIOR SMOKER Medications: Meds past 24 hrs: Pretest Chest Pain: STRESS TEST Lexiscan Protocol Exercise Duration (min:sec): 01:[address] Depressions (mm): Angina Score: [place] Score: Resting HR (bpm): 69 Peak HR (bpm): 88 Resting BP (mmHg): 157 / 91 Peak BP (mmHg): 165 / 90 MPHR: 166 Target HR: 141 % MPHR: 53 METS: 1.0 Total Dose: Peak Dose: Atropine: Double Product: 30290 BP Response: Stress Termination: INFUSION COMPLETE Stress Symptoms: NO SYMPTOMS Stress Summary: ECG ANALYSIS Resting ECG: Stress ECG: CONCLUSIONS RESTING EKG: Sinus rhythm right bundle branch block, Heart rate 67 BPM Patient recieved IV infusion of Lexiscan 0.4mg and at peak infusion STRESS EKG showed: [No significant ST-T wave changes diagnostic for ischemia by ST segment analysis] ARRYTHMIAS: [No ectopic rhythms or sustained arrythmias] CONCLUSION: 1. Normal hemodynamic and clinical response to Lexiscan infusion. 2. Non-ischemic EKG response to lexiscan infusion Please refer to the nuclear imaging portion of this stress test for complete interpretation of the study. Dr Troy Hoffman (Electronically Signed) Final Date: 07 May 2024 18:22
== END | disposition home or self-care (01) ==
LOC: RADNMMAIN 07:52
PROVIDERS: ATTEND Internal Medicine Interventional Cardiology
DX: R07.9 Chest pain, unspecified (principal); Z95.1 Presence of aortocoronary bypass graft
CPT/HCPCS: 93017; 78452; A9500

== ENCOUNTER → 2024-05-10 | Outpatient (CLI) | payer MEDICAID ==
[2024-05-10 09:25] LABS: Chol/HDL Ratio 3.27 Ratio; LDL Cholesterol,Calculated 45.1 mg/dL (0.0-131.0)
== END | disposition home or self-care (01) ==
LOC: LABPRL 01:00
PROVIDERS: ATTEND Internal Medicine Interventional Cardiology
DX: E78.2 Mixed hyperlipidemia (principal)
CPT/HCPCS: 80061

== ENCOUNTER 2024-07-11 23:09 | Observation (INO) | payer MEDICAID ==
--- NOTE | 2024-07-11 23:34 | ED ---
General Adult HPI - General Chief complaint: Chest Pain Stated complaint: Chest pain Time Seen by Provider: 07/11/24 23:11 Source: patient, RN notes reviewed, old records reviewed Mode of arrival: ambulatory Limitations: no limitations - History of Present Illness Initial comments: 54-year-old male presenting with 1 to 2-day history of chest pain. History of CAD status post CABG. Patient had recent stress test and heart cath approximately 2 months ago he states there was a known blockage which cardiology is monitoring. He states the pain has been relatively constant for the past day and a half. No associated vomiting or diaphoresis. Patient also reports some mid to upper back pain associated with this. - Related Data Home Medications Medication Instructions Recorded Confirmed Aspirin 81 mg PO DAILY 09/14/20 07/12/24 Tamsulosin [Flomax] 0.4 mg PO DAILY 07/12/24 07/12/24 Previous Rx's Medication Instructions Recorded Atorvastatin [Lipitor] 40 mg PO DAILY #30 tab 09/29/20 Metoprolol Tartrate [Lopressor] 50 mg PO BID #60 tab 09/29/20 Allergies Allergy/AdvReac Type Severity Reaction Status Date / Time lisinopril AdvReac Cough Verified 07/12/24 07:30 Review of Systems ROS Statement: Those systems with pertinent positive or pertinent negative responses have been documented in the HPI. ROS Other: All systems not noted in ROS Statement are negative. Past Medical History Past Medical History: Hyperlipidemia, Hypertension Additional Past Medical History / Comment(s): no current chest pain, cervical problems c-5 thru c-7, had covid beginning of July-resolved History of Any Multi-Drug Resistant Organisms: None Reported Past Surgical History: Coronary Bypass/CABG Additional Past Anesthesia/Blood Transfusion Reaction / Comment(s): no family problems w/anesthesia, pt. has never had anesthesia Past Psychological History: No Psychological Hx Reported Smoking Status: Former smoker Past Alcohol Use History: None Reported Past Drug Use History: None Reported - Past Family History Father Family Medical History: Cancer General Exam Limitations: no limitations General appearance: alert, in no apparent distress Head exam: Present: atraumatic, normocephalic Eye exam: Present: normal appearance, PERRL ENT exam: Present: normal exam Neck exam: Present: normal inspection. Absent: tenderness, meningismus Respiratory exam: Present: normal lung sounds bilaterally. Absent: respiratory distress, wheezes Cardiovascular Exam: Present: normal rhythm, bradycardia GI/Abdominal exam: Present: soft. Absent: distended, tenderness, guarding Extremities exam: Present: normal inspection, normal capillary refill. Absent: calf tenderness Neurological exam: Present: alert, oriented X3, CN II-XII intact. Absent: motor sensory deficit Psychiatric exam: Present: normal affect, normal mood Skin exam: Present: warm, dry, intact Course Vital Signs 07/11/24 07/12/24 07/12/24 23:11 00:54 02:17 Temperature 98.4 F Pulse Rate 59 L 54 L 57 L Respiratory 18 18 18 Rate Blood Pressure 158/90 138/92 153/90 O2 Sat by Pulse 97 96 98 Oximetry 07/12/24 07/12/24 07/12/24 04:04 06:50 08:34 Temperature 97.8 F Pulse Rate 54 L 58 L 64 Respiratory 18 16 16 Rate Blood Pressure 142/82 144/82 149/85 O2 Sat by Pulse 96 97 98 Oximetry 07/12/24 07/12/24 07/12/24 10:54 11:43 14:00 Temperature Pulse Rate 46 L 49 L 68 Respiratory 20 20 16 Rate Blood Pressure 128/87 155/90 136/68 O2 Sat by Pulse 98 99 98 Oximetry 07/12/24 07/12/24 15:54 17:39 Temperature Pulse Rate 83 53 L Respiratory 16 20 Rate Blood Pressure 124/80 121/59 O2 Sat by Pulse 98 98 Oximetry Medical Decision Making - Medical Decision Making Was pt. sent in by a medical professional or institution (, PA, CONSUMER ANALYST, urgent care, hospital, or half-way...) When possible be specific @ -No Did you speak to anyone other than the patient for history (EMS, parent, family, police, friend...)? What history was obtained from this source @ -No Did you review nursing and triage notes (agree or disagree)? Why? @ -I reviewed and agree with nursing and triage notes Were old charts reviewed (outside hosp., previous admission, EMS record, old EKG, old radiological studies, urgent care reports/EKG's, half-way records)? Report findings @ -No old charts were reviewed Differential Chest Pain: Stable Angina, Unstable Angina, STEMI, NSTEMI Aortic Dissection, Pneumothorax, Musculoskeletal, Esophageal Spasm GERD, Cholecystitis, Pancreatitis, Zoster, this is not meant to be an all-inclusive list. EKG interpreted by me (3pts min.). @Sinus bradycardia, right bundle branch block, left anterior fascicular block, rate of 55, VT interval 209, QRS duration 180, QTc [address] segment elevation, X-rays interpreted by me (1pt min.). @ -Chest x-ray unremarkable no acute findings CT interpreted by me (1pt min.). @ -None done U/S interpreted by me (1pt. min.). @ -None done What testing was considered but not performed or refused? (CT, X-rays, U/S, labs)? Why? @ -None What meds were considered but not given or refused? Why? @ -None Did you discuss the management of the patient with other professionals (professionals i.e. , PA, CONSUMER ANALYST, lab, RT, psych nurse, adoption social worker, business lawyer, teacher, hospital chief financial officer, trimming caser)? Give summary @Dr. Archuleta Was smoking cessation discussed for >3mins.? @ -No Was critical care preformed (if so, how long)? @ -No Were there social determinants of health that impacted care today? How? (Homelessness, low income, unemployed, alcoholism, drug addiction, transportation, low edu. Level, literacy, decrease access to med. care, nursing home, rehab)? @ -No Was there de-escalation of care discussed even if they declined (Discuss DNR or withdrawal of care, Hospice)? DNR status @ -No What co-morbidities impacted this encounter? (DM, HTN, Smoking, COPD, CAD, Cancer, CVA, ARF, Chemo, Hep., AIDS, mental health diagnosis, sleep apnea, m orbid obesity)? @Hypertension, CAD status post CABG Was patient admitted / discharged? Hospital course, mention meds given and route, prescriptions, significant lab abnormalities, going to OR and other pertinent info. @ -54-year-old male presenting with chest pain for the past 1 to 2 days. History of CAD status post CABG in 2020. Patient denies nausea vomiting or diaphoresis. No dyspnea. EKG sinus with right bundle branch block, no ST segment elevation. Chest x-ray clear. Normal CBC, normal CMP, negative initial troponin. D-dimer is also negative. Patient will be observed for serial c ardiac enzymes, telemetry, cardiology consultation. Undiagnosed new problem with uncertain prognosis? @ -No Drug Therapy requiring intensive monitoring for toxicity (Heparin, Nitro, Insulin, Cardizem)? @ -No Were any procedures done? @ -No Diagnosis/symptom? @ -Chest pain rule out Acute, or Chronic, or Acute on Chronic? @ -Acute Uncomplicated (without systemic symptoms) or Complicated (systemic symptoms)? @ -Default Side effects of treatment? @ -No Exacerbation, Progression, or Severe Exacerbation? @ -No Poses a threat to life or bodily function? How? (Chest pain, [place], [place], pneumonia, PE, COPD, DKA, ARF, appy, cholecystitis, CVA, Diverticulitis, Homicidal, Suicidal, threat to staff... and all critical care pts) @ -Yes, ACS - Lab Data Result diagrams: 07/13/24 04:17 07/11/24 23:25 Lab Results 07/11/24 07/11/24 07/11/24 Range/Units 23:25 23:25 23:25 WBC 8.2 (3.8-10.6) k/uL RBC 6.06 H (4.30-5.90) m/uL Hgb 18.0 H (13.0-17.5) gm/dL Hct 54.4 H (39.0-53.0) % MCV 89.8 (80.0-100.0) fL MCH 29.8 (25.0-35.0) pg MCHC 33.2 (31.0-37.0) g/dL RDW 12.8 (11.5-15.5) % Plt Count 212 (150-450) k/uL MPV 7.4 Neutrophils % 73 % Lymphocytes % 19 % Monocytes % 4 % Eosinophils % 1 % Basophils % 0 % Neutrophils # 6.0 (1.3-7.7) k/uL Lymphocytes # 1.5 (1.0-4.8) k/uL Monocytes # 0.4 (0-1.0) k/uL Eosinophils # 0.1 (0-0.7) k/uL Basophils # 0.0 (0-0.2) k/uL PT 10.7 (10.0-12.5) sec INR 1.0 (<1.2) APTT 23.1 (22.0-30.0) sec D-Dimer 0.26 (<0.60) mg/L FEU Sodium 140 (137-145) mmol/L Potassium 4.7 (3.5-5.1) mmol/L Chloride 106 (98-107) mmol/L Carbon Dioxide 22 (22-30) mmol/L Anion Gap 12 mmol/L BUN 27 H (9-20) mg/dL Creatinine 1.26 H (0.66-1.25) mg/dL Est GFR (CKD-EPI)AfAm 74 (>60 ml/min/1.73 sqM) Est GFR (CKD-EPI)NonAf 64 (>60 ml/min/1.73 sqM) Glucose 117 H (74-99) mg/dL Calcium 9.4 (8.4-10.2) mg/dL Magnesium 1.7 (1.6-2.3) mg/dL Total Bilirubin 0.6 (0.2-1.3) mg/dL AST 29 (17-59) U/L ALT 40 (4-49) U/L Alkaline Phosphatase 119 (38-126) U/L Troponin I (0.000-0.034) ng/mL Total Protein 7.0 (6.3-8.2) g/dL Albumin 4.6 (3.5-5.0) g/dL 07/11/24 Range/Units 23:25 WBC (3.8-10.6) k/uL RBC (4.30-5.90) m/uL Hgb (13.0-17.5) gm/dL Hct (39.0-53.0) % MCV (80.0-100.0) fL MCH (25.0-35.0) pg MCHC (31.0-37.0) g/dL RDW (11.5-15.5) % Plt Count (150-450) k/uL MPV Neutrophils % % Lymphocytes % % Monocytes % % Eosinophils % % Basophils % % Neutrophils # (1.3-7.7) k/uL Lymphocytes # (1.0-4.8) k/uL Monocytes # (0-1.0) k/uL Eosinophils # (0-0.7) k/uL Basophils # (0-0.2) k/uL PT (10.0-12.5) sec INR (<1.2) APTT (22.0-30.0) sec D-Dimer (<0.60) mg/L FEU Sodium (137-145) mmol/L Potassium (3.5-5.1) mmol/L Chloride (98-107) mmol/L Carbon Dioxide (22-30) mmol/L Anion Gap mmol/L BUN (9-20) mg/dL Creatinine (0.66-1.25) mg/dL Est GFR (CKD-EPI)AfAm (>60 ml/min/1.73 sqM) Est GFR (CKD-EPI)NonAf (>60 ml/min/1.73 sqM) Glucose (74-99) mg/dL Calcium (8.4-10.2) mg/dL Magnesium (1.6-2.3) mg/dL Total Bilirubin (0.2-1.3) mg/dL AST (17-59) U/L ALT (4-49) U/L Alkaline Phosphatase (38-126) U/L Troponin I <0.012 (0.000-0.034) ng/mL Total Protein (6.3-8.2) g/dL Albumin (3.5-5.0) g/dL Disposition Clinical Impression: Chest pain, CAD (coronary artery disease) Disposition: ADMITTED IP TO THIS HOSP Condition: Stable Is patient prescribed a controlled substance at d/c from ED?: No Time of Disposition: 00:56
[2024-07-12 00:06] LABS: Basophils % (A) 0 %; Eosinophils # (A) 0.1 k/uL (0-0.7); Eosinophils % (A) 1 %; HCT 54.4 % (39.0-53.0); Lymphocytes # (A) 1.5 k/uL (1.0-4.8); Lymphocytes % (A) 19 %; MCH 29.8 pg (25.0-35.0); MCHC 33.2 g/dL (31.0-37.0); MCV 89.8 fL (80.0-100.0); Mean Platelet Volume 7.4; Monocytes # (A) 0.4 k/uL (0-1.0); Monocytes % (A) 4 %; Neutrophils % (A) 73 %; Platelet Count 212 k/uL (150-450); RBC 6.06 m/uL (4.30-5.90); RDW 12.8 % (11.5-15.5); WBC 8.2 k/uL (3.8-10.6)
--- NOTE | 2024-07-12 00:11 | XR ---
EXAM: XR Chest, 2 Views CLINICAL HISTORY: ITS.REASON XR Reason: Chest Pain TECHNIQUE: Frontal and lateral views of the chest. COMPARISON: 10/12/2020 FINDINGS: Lungs: Unremarkable. No consolidation. No acute pulmonary pathology. Pleural space: Unremarkable. No pneumothorax. Heart: Cardiomegaly. Mediastinum: Unremarkable. Normal mediastinal contour. Bones/joints: Postoperative changes median sternotomy. No acute fracture. IMPRESSION: No acute findings in the chest.
[2024-07-12 00:21] LABS: Partial Thromboplastin Time 23.1 sec (22.0-30.0); Prothrombin Time 10.7 sec (10.0-12.5)
[2024-07-12 00:35] LABS: ALT 40 U/L (4-49); AST 29 U/L (17-59); African American GFR (CKD) 74 (>60 ml/min/1.73 sqM); Albumin 4.6 g/dL (3.5-5.0); Alkaline Phosphatase 119 U/L (38-126); Anion Gap 12 mmol/L; Blood Urea Nitrogen 27 mg/dL (9-20); Calcium 9.4 mg/dL (8.4-10.2); Carbon Dioxide 22 mmol/L (22-30); Chloride 106 mmol/L (98-107); Glucose 117 mg/dL (74-99); Magnesium 1.7 mg/dL (1.6-2.3); Non-African American GFR(CKD) 64 (>60 ml/min/1.73 sqM); Potassium 4.7 mmol/L (3.5-5.1); Sodium 140 mmol/L (137-145); Total Bilirubin 0.6 mg/dL (0.2-1.3)
[2024-07-12] MEDS ORDERED: NALOXONE 0.4 MG/ML 1 ML VIAL IV PRN (00:51)
[2024-07-12] MEDS: ASPIRIN 325 MG TAB PO STA (00:52)
[2024-07-12] MEDS: ATORVASTATIN 40 MG TAB PO SCH (08:32)
[2024-07-12] MEDS: METOPROLOL TARTRATE 50 MG TAB PO SCH (08:32)
[2024-07-12] MEDS ORDERED: ALPRAZolam 0.25 MG TAB PO PRN (11:29)
[2024-07-12] MEDS ORDERED: NITROGLYCERIN SL TABS 0.4 MG TAB SUBLINGUAL PRN (11:29)
[2024-07-12] MEDS ORDERED: ALPRAZolam 0.5 MG TAB PO PRN (11:29)
[2024-07-12] MEDS: SODIUM CHLORIDE 0.9% 1,000 ML in EMPTY BAG 1 BAG IV SCH (11:37)
[2024-07-12] MEDS: amLODIPine 5 MG TAB PO SCH (11:37)
[2024-07-12] MEDS: ASPIRIN 81 MG PO SCH (11:37)
[2024-07-12] MEDS: ENOXAPARIN 100 MG/ML SYRINGE SQ STA (11:38)
[2024-07-12] MEDS ORDERED: amLODIPine 2.5 MG TAB PO SCH (12:00)
--- NOTE | 2024-07-12 12:39 | P.CRDCN ---
History of Present Illness Consult date: 07/12/24 Consult reason: chest pain History of present illness: This is a 54-year-old male patient of Dr. Paredes with past medical history of coronary artery disease status post four-vessel CABG with BASHIR to LAD, venous graft to the OM 3, radial to the RI, VG to PLB in 2020, hypertension, hyperlipidemia. We have been asked to evaluate the patient for chest pain. 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 Patient was last seen in the office on May [address] Paredes and had undergone a abnormal Lexiscan stress test but at the time, patient was not having any symptoms and it was decided to continue medical management. Blood pressure 128/87, heart rate 46, pulse ox 98% on room air. Patient is seen today in the emergency center waiting for a bed on the cardiac stepdown unit. Dr. Rodriguez discussed results of the testing performed at the hospital as well as previous Lexiscan stress test result with recommendations for cardiac catheterization and patient is agreeable to move forward with this. This will be scheduled on Friday. History of coronary artery disease status post -EKG: Sinus rhythm, right bundle branch block -Chest x-ray: No acute findings. -Laboratory studies: WBC 8.2, hemoglobin 18, BUN 27 creatinine 1.26, troponin negative x 3. -Home cardiac medications: Aspirin 81 mg daily, atorvastatin 40 mg daily, metoprolol tartrate 50 mg twice daily. -Lexiscan stress test performed in the office on 05/07/2024 revealed mid to apical lateral wall ischemia, small to moderate. -Echocardiogram performed 05/07/2024 in the office revealed normal EF. Review Of Systems: At the time of my exam: CONSTITUTIONAL: Denies fever or chills. HEENT: Denies blurred vision, vision changes, or eye pain. Denies hemoptysis CARDIOVASCULAR: Denies chest pain. Denies orthopnea. Denies PND. Denies palpitations RESPIRATORY: Denies shortness of breath. GASTROINTESTINAL: Denies abdominal pain. Denies nausea or vomiting. HEMATOLOGIC: Denies bleeding disorders. GENITOURINARY: Denies any blood in urine. SKIN: Denies puritis. Denies rash. Physical examination: Gen: This is a 54-year-old male in no acute distress yeah VS: reviewed HEENT: Head is atraumatic, normocephalic. Pupils equal, round. Sclerae is anicteric. NECK: Supple. No JVD. LUNGS: Clear to auscultation. No wheezes or rhonchi. No intercostal retractions . HEART: Regular rate and rhythm. No murmur. ABDOMEN: Soft No tenderness. EXTREMITIES: No pedal edema. No calf tenderness. NEUROLOGICAL: Patient is awake, alert and oriented x3. Assessment: Atypical chest pain Abnormal Lexiscan stress test with mid to apical lateral wall ischemia, small to moderate Four-vessel CABG in 2020 Hypertension Hyperlipidemia Plan: Resume patient's home cardiac medications Schedule patient for cardiac catheterization tomorrow at noon with Dr. Paredes NMaurisiop.o. after midnight Obtain limited 2-D echocardiogram and Doppler study to assess cardiac structure and function Further recommendations to follow based upon clinical course Thank you kindly for this consultation. Nurse practitioner note has been reviewed, I agree with documented findings and plan of care. Patient was seen and examined. Past Medical History Past Medical History: Hyperlipidemia, Hypertension Additional Past Medical History / Comment(s): no current chest pain, cervical problems c-5 thru c-7, had covid beginning of July-resolved History of Any Multi-Drug Resistant Organisms: None Reported Past Surgical History: Coronary Bypass/CABG Additional Past Anesthesia/Blood Transfusion Reaction / Comment(s): no family problems w/anesthesia, pt. has never had anesthesia Past Psychological History: No Psychological Hx Reported Smoking Status: Former smoker Past Alcohol Use History: None Reported Past Drug Use History: None Reported - Past Family History Father Family Medical History: Cancer Medications and Allergies Home Medications Medication Instructions Recorded Confirmed Type Aspirin 81 mg PO DAILY 09/14/20 07/12/24 History Atorvastatin [Lipitor] 40 mg PO DAILY #30 tab 09/29/20 07/12/24 Rx Metoprolol Tartrate [Lopressor] 50 mg PO BID #60 tab 09/29/20 07/12/24 Rx Tamsulosin [Flomax] 0.4 mg PO DAILY 07/12/24 07/12/24 History Allergies Allergy/AdvReac Type Severity Reaction Status Date / Time lisinopril AdvReac Cough Verified 07/12/24 07:30 Physical Exam Vitals: Vital Signs Temp Pulse Resp BP Pulse Ox 07/12/24 10:54 46 L 20 128/87 98 07/12/24 08:34 64 16 149/85 98 07/12/24 06:50 97.8 F 58 L 16 144/82 97 07/12/24 04:04 54 L 18 142/82 96 07/12/24 02:17 57 L 18 153/90 98 07/12/24 00:54 54 L 18 138/92 96 07/11/24 23:11 98.4 F 59 L 18 158/90 97 Intake and Output 07/11/24 07/12/24 07/12/24 22:59 06:59 14:59 Other: Weight 99.79 kg Results 07/11/24 23:25 07/11/24 23:25 Cardiac Enzymes 07/11/24 07/11/24 07/12/24 Range/Units 23:25 23:25 03:09 AST 29 (17-59) U/L Troponin I <0.012 <0.012 (0.000-0.034) ng/mL 07/12/24 Range/Units 06:33 AST (17-59) U/L Troponin I <0.012 (0.000-0.034) ng/mL Coagulation 07/11/24 Range/Units 23:25 PT 10.7 (10.0-12.5) sec APTT 23.1 (22.0-30.0) sec CBC 07/11/24 Range/Units 23:25 WBC 8.2 (3.8-10.6) k/uL RBC 6.06 H (4.30-5.90) m/uL Hgb 18.0 H (13.0-17.5) gm/dL Hct 54.4 H (39.0-53.0) % Plt Count 212 (150-450) k/uL Comprehensive Metabolic Panel 07/11/24 Range/Units 23:25 Sodium 140 (137-145) mmol/L Potassium 4.7 (3.5-5.1) mmol/L Chloride 106 (98-107) mmol/L Carbon Dioxide 22 (22-30) mmol/L BUN 27 H (9-20) mg/dL Creatinine 1.26 H (0.66-1.25) mg/dL Glucose 117 H (74-99) mg/dL Calcium 9.4 (8.4-10.2) mg/dL AST 29 (17-59) U/L ALT 40 (4-49) U/L Alkaline Phosphatase 119 (38-126) U/L Total Protein 7.0 (6.3-8.2) g/dL Albumin 4.6 (3.5-5.0) g/dL Current Medications Generic Name Dose Route Start Last Admin Trade Name Freq PRN Reason Stop Dose Admin Acetaminophen 650 mg 07/12/24 00:51 Acetaminophen Tab 325 Mg Tab PO Q6HR PRN Mild Pain or Fever > 100.5 Amlodipine Besylate 2.5 mg 07/12/24 12:00 Amlodipine 2.5 Mg Tab PO DAILY@1200 NITZA Atorvastatin Calcium 40 mg 07/12/24 09:00 07/12/24 08:32 Atorvastatin 40 Mg Tab PO 40 mg DAILY NITZA Administration Metoprolol Tartrate 50 mg 07/12/24 09:00 07/12/24 08:32 Metoprolol Tartrate 50 Mg Tab PO 50 mg BID NITZA Administration Naloxone HCl 0.2 mg 07/12/24 00:51 Naloxone 0.4 Mg/Ml 1 Ml Vial IV Q2M PRN Opioid Reversal Intake and Output 07/11/24 07/12/24 07/12/24 22:59 06:59 14:59 Other: Weight 99.79 kg 07/11/24 23:25 07/11/24 23:25
[2024-07-12] MEDS: TAMSULOSIN 0.4 MG CAP.ER.24H PO SCH (12:44)
--- NOTE | 2024-07-12 20:24 | P.HPIM ---
History of Present Illness H&P Date: 07/12/24 Chief Complaint: Chest pain Pleasant 54-year-old patient who follows with Kimberli Reji. Patient was seen by me this afternoon in the ER accompanied by his . [facility] medical conditions include hypertension, hyperlipidemia, BPH, coronary artery disease with Coury bypass 4 years ago. 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 Patient been having chest pain somewhat sharp anterior sometimes of the back off and on for last 3 to 4 days. Pain also present at rest. Variable duration. No radiation. No perspiration. Some shortness of breath. Does feel increasingly tired. May 07, 2024: Patient underwent a nuclear medicine Lexiscan Cardiolite stress test. It showed a small to moderate area of reversibility involving the mid to apical lateral wall. Some wall dyskinesia was reported. EF 55%. Review of systems: GEN.: Tired EYES: None HEENT: None NECK: None RESPIRATORY: As above e CARDIOVASCULAR: [As above GASTROINTESTINAL: None GENITOURINARY: None MUSCULOSKELETAL: None LYMPHATICS: None HEMATOLOGICAL: None PSYCHIATRY: None NEUROLOGICAL: None Social history: No smoking. Alcohol alcohol occasionally. . Employed here at [employer] Physical examination: VITAL SIGNS: 97.8, 58, 16, 1 4582, 97% room air GENERAL: BMI 31.6, reclining bed awake comfortable. EYES: Pupils equal. Conjunctiva leigh l. HEENT: External appearance of nose and ears normal, oral cavity grossly normal. NECK: JVD not raised; masses not palpable. HEART: First and second heart sounds are normal; no edema. LUNGS: Respiratory rate normal; clear to auscultation. ABDOMEN: Soft, nontender, liver spleen not palpable, no masses palpable. PSYCH: Alert and oriented x3; mood and affect leigh l. MUSCULOSKELETAL:No Clubbing/cyanosis;muscles-grossly intact NEUROLOGICAL: Cranial nerves grossly intact; no facial asymmetry, power and sensation grossly intact. LYMPHATICS: No lymph nodes palpable in the axilla and neck INVESTIGATIONS, reviewed in the clinical context: July 11, 2024: White count 8.2 hemoglobin 18 platelets 212 sodium 140 potassium 4.7 BUN 27 creatinine 1.26 Troponin I less than 0.012 x 3 LDL 45.1 triglycerides 271 EKG tracing personally reviewed by me-heart rate 55. Right bundle haydee block pattern. Sinus rhythm. Previous labs: 2D echo May 07, 2024: EF 55 to 60%. Nuclear Cardiolite stress test [May 07, 2024: Small to moderate area of reversibility involving the mid to apical lateral wall. Gated analysis suggest some wall dyskinesia with a EF of 55% Assessment plan: -Unstable angina in a patient with known coronary artery disease. Underwent a nuclear stress test on May 07, 2024 with some reversibility involving the mid to apical lateral wall. Troponins negative. Symptoms present at rest. Will need a cardiac catheterization. Patient does follow with Dr. Paredes/encoding machine operator Cardiology consulted. For cardiac catheterization tomorrow morning Aspirin. Lopressor. IV heparin. -IV heparin monitoring follow PTT protocol -CAD with a prior history of coronary bypass about 4 years ago Aspirin. Lipitor. Amlodipine. Lopressor. -BPH Flomax 0.4 mg a day -Hyperlipidemia Lipitor -Essential hypertension Lopressor. Amlodipine. Care was discussed with patient and . Questions answered. For cardiac catheterization tomorrow. Past Medical History Past Medical History: Hyperlipidemia, Hypertension Additional Past Medical History / Comment(s): no current chest pain, cervical problems c-5 thru c-7, had covid beginning of July-resolved History of Any Multi-Drug Resistant Organisms: None Reported Past Surgical History: Coronary Bypass/CABG Additional Past Anesthesia/Blood Transfusion Reaction / Comment(s): no family problems w/anesthesia, pt. has never had anesthesia Past Psychological History: No Psychological Hx Reported Smoking Status: Former smoker Past Alcohol Use History: None Reported Past Drug Use History: None Reported - Past Family History Father Family Medical History: Cancer Medications and Allergies Home Medications Medication Instructions Recorded Confirmed Type Aspirin 81 mg PO DAILY 09/14/20 07/12/24 History Atorvastatin [Lipitor] 40 mg PO DAILY #30 tab 09/29/20 07/12/24 Rx Metoprolol Tartrate [Lopressor] 50 mg PO BID #60 tab 09/29/20 07/12/24 Rx Tamsulosin [Flomax] 0.4 mg PO DAILY 07/12/24 07/12/24 History Allergies Allergy/AdvReac Type Severity Reaction Status Date / Time lisinopril AdvReac Cough Verified 07/12/24 07:30 Physical Exam Vitals: Vital Signs Temp Pulse Resp BP Pulse Ox 07/12/24 17:39 53 L 20 121/59 98 07/12/24 15:54 83 16 124/80 98 07/12/24 14:00 68 16 136/68 98 07/12/24 11:43 49 L 20 155/90 99 07/12/24 10:54 46 L 20 128/87 98 07/12/24 08:34 64 16 149/85 98 07/12/24 06:50 97.8 F 58 L 16 144/82 97 07/12/24 04:04 54 L 18 142/82 96 07/12/24 02:17 57 L 18 153/90 98 07/12/24 00:54 54 L 18 138/92 96 07/11/24 23:11 98.4 F 59 L 18 158/90 97 Intake and Output 07/12/24 07/12/24 07/12/24 06:59 14:59 22:59 Other: Weight 99.79 kg Results CBC & Chem 7: 07/11/24 23:25 07/11/24 23:25 Labs: Abnormal Lab Results - Last 24 Hours (Table) 07/11/24 07/11/24 Range/Units 23:25 23:25 RBC 6.06 H (4.30-5.90) m/uL Hgb 18.0 H (13.0-17.5) gm/dL Hct 54.4 H (39.0-53.0) % BUN 27 H (9-20) mg/dL Creatinine 1.26 H (0.66-1.25) mg/dL Glucose 117 H (74-99) mg/dL
[2024-07-12] MEDS: ACETAMINOPHEN TAB 325 MG TAB PO PRN (21:44)
[2024-07-13 04:52] LABS: Basophils % (A) 0 %; Eosinophils # (A) 0.2 k/uL (0-0.7); Eosinophils % (A) 2 %; HCT 54.5 % (39.0-53.0); HGB 17.5 gm/dL (13.0-17.5); Lymphocytes # (A) 1.6 k/uL (1.0-4.8); Lymphocytes % (A) 21 %; MCHC 32.1 g/dL (31.0-37.0); MCV 90.4 fL (80.0-100.0); Mean Platelet Volume 7.1; Monocytes # (A) 0.4 k/uL (0-1.0); Monocytes % (A) 5 %; Neutrophils % (A) 68 %; Platelet Count 184 k/uL (150-450); RBC 6.02 m/uL (4.30-5.90); RDW 12.8 % (11.5-15.5); WBC 7.4 k/uL (3.8-10.6)
[2024-07-13] MEDS: ASPIRIN 325 MG TAB PO ONE (06:10)
[2024-07-13] MEDS: ATORVASTATIN 80 MG TAB PO ONE (06:10)
--- NOTE | 2024-07-13 07:34 | CA ---
Transthoracic Echo Report Name: Harsha Almazan Age: 54 Gender: M : 1970 Exam Date: 07/12/2024 14:30 Exam Location: [facility] Ht (in): 70 Wt (lb): 220 Ordering Physician: Yamel Narvaez Attending/Referring Phys: [id number], Solange Tape Recorder Mechanic Miesha Gomez, TIFFANY Procedure CPT: Indications: LVF Cardiac Hx: Limited for LVF, prior echo 05/07/24 Technical Quality: Fair Contrast 1: Total Dose (mL): Contrast 2: Total Dose (mL): MEASUREMENTS (Male / Female) Normal Values 2D ECHO LV Diastolic Diameter PLAX 5.1 cm 4.2 - 5.9 / 3.9 - 5.3 cm LV Systolic Diameter PLAX 3.4 cm IVS Diastolic Thickness 1.2 cm 0.6 - 1.0 / 0.6 - 0.9 cm LVPW Diastolic Thickness 1.6 cm 0.6 - 1.0 / 0.6 - 0.9 cm LV Relative Wall Thickness 0.5 LVOT Diameter 2.1 cm LV Diastolic Volume MOD BP 122.6 cm??? 67 - 155 / 56 - 104 cm??? LV Systolic Volume MOD BP 45.7 cm??? 22 - 58 / 19 - 49 cm??? LV Ejection Fraction MOD BP 62.8 % >= 55 % LV Cardiac Index MOD BP 1745.0 cm???/min???m??? LV Diastolic Volume MOD 4C 135.4 cm??? LV Systolic Volume MOD 4C 47.6 cm??? LV Ejection Fraction MOD 4C 64.8 % LV Cardiac Index MOD 4C 1991.7 cm???/min???m??? LV Diastolic Length 4C 8.0 cm LV Systolic Length 4C 6.7 cm LV Diastolic Volume MOD 2C 110.8 cm??? LV Systolic Volume MOD 2C 46.3 cm??? LV Ejection Fraction MOD 2C 58.2 % LV Cardiac Index MOD 2C 1462.2 cm???/min???m??? LV Diastolic Length 2C 8.1 cm LV Systolic Length 2C 6.8 cm DOPPLER AV Peak Velocity 149.7 cm/s AV Peak Gradient 9.0 mmHg AV Mean Velocity 105.3 cm/s AV Mean Gradient 4.8 mmHg AV Velocity Time Integral 33.1 cm LVOT Peak Velocity 108.5 cm/s LVOT Peak Gradient 4.7 mmHg LVOT Velocity Time Integral 21.7 cm LVOT Stroke Volume 76.9 cm??? LVOT Stroke Volume Index 35.4 ml/m??? LVOT Cardiac Index 1744.8 cm???/min???m??? AV Area Cont Eq vti 2.3 cm??? AV Area Cont Eq pk 2.6 cm??? PV Peak Velocity 131.7 cm/s PV Peak Gradient 6.9 mmHg FINDINGS Left Ventricle Left ventricular ejection fraction is estimated at 55-60 %. Mildly increased septal wall thickness. Left ventricular cavity size normal. No obvious regional wall motion abnormalities. Mild concentric LVH Right Ventricle Mild right ventricular dilatation. Normal right ventricular global systolic function. Unable to estimate the right ventricular systolic pressure. Atypical septal motion secondary to bypass surgery Right Atrium Left Atrium Mitral Valve Structurally normal mitral valve. Trace mitral regurgitation. Aortic Valve Trileaflet aortic valve. No aortic valve stenosis or regurgitation. Tricuspid Valve Structurally normal tricuspid valve. No tricuspid stenosis. Trace tricuspid regurgitation. Pulmonic Valve Structurally normal pulmonic valve. No pulmonic stenosis. Trace to mild pulmonic regurgitation. Pericardium No pericardial effusion. Aorta CONCLUSIONS Normal LV size and systolic function with mild concentric LVH. Mild mitral and tricuspid regurgitation. No pericardial effusion Previewed by: Dr. Mynor Rodriguez MD (Electronically Signed) Final Date: 13 July 2024 07:33
--- NOTE | 2024-07-13 08:16 | P.PN ---
Subjective Progress Note Date: 07/13/24 Consult reason: chest pain History of present illness: This is a 54-year-old male patient of Dr. Paredes with past medical history of coronary artery disease status post four-vessel CABG with BASHIR to LAD, venous graft to the OM 3, radial to the RI, VG to PLB in 2020, hypertension, hyperlipidemia. We have been asked to evaluate the patient for chest pain. 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 Patient was last seen in the office on May [address] Paredes and had undergone a abnormal Lexiscan stress test but at the time, patient was not having any symptoms and it was decided to continue medical management. Blood pressure 128/87, heart rate 46, pulse ox 98% on room air. Patient is seen today in the emergency center waiting for a bed on the cardiac stepdown unit. Dr. Rodriguez discussed results of the testing performed at the hospital as well as previous Lexiscan stress test result with recommendations for cardiac c atheterization and patient is agreeable to move forward with this. This will be scheduled on Friday. History of coronary artery disease status post -EKG: Sinus rhythm, right bundle branch block -Chest x-ray: No acute findings. -Laboratory studies: WBC 8.2, hemoglobin 18, BUN 27 creatinine 1.26, troponin negative x 3. -Home cardiac medications: Aspirin 81 mg daily, atorvastatin 40 mg daily, m etoprolol tartrate 50 mg twice daily. -Lexiscan stress test performed in the office on 05/07/2024 revealed mid to apical lateral wall ischemia, small to moderate. -Echocardiogram performed 05/07/2024 in the office revealed normal EF. 07/13 Patient seen and examined. Patient is scheduled for cardiac catheterization today with Dr. Paredes. Limited echocardiogram reveals normal LV size and systolic function with mild concentric LVH. Mild mitral and tricuspid regurgitation. No pericardial effusion. Blood pressure 126/80, heart rate 51, pulse ox 98% on room air. BMP ordered. Physical examination: Gen: This is a 54-year-old male in no acute distress yeallyssa VS: reviewed HEENT: Head is atraumatic, normocephalic. Pupils equal, round. Sclerae is anicteric. NECK: Supple. No JVD. LUNGS: Clear to auscultation. No wheezes or rhonchi. No intercostal retractions. HEART: Regular rate and rhythm. No murmur. ABDOMEN: Soft No tenderness. EXTREMITIES: No pedal edema. No calf tenderness. NEUROLOGICAL: Patient is awake, alert and oriented x3. Assessment: Atypical chest pain Abnormal Lexiscan stress test with mid to apical lateral wall ischemia, small to moderate Four-vessel CABG in 2020 Hypertension Hyperlipidemia Plan: Continue patient's home cardiac medications Schedule patient for cardiac catheterization at noon with Dr. Paredes N.p.o. Further recommendations to follow based upon clinical course Nurse practitioner note has been reviewed, I agree with documented findings and plan of care. Patient was seen and examined. Objective - Vital Signs Vital signs: Vital Signs Temp 97.7 F 07/13/24 01:17 Pulse 51 L 07/13/24 01:17 Resp 15 07/13/24 01:17 BP 126/80 07/13/24 01:17 Pulse Ox 98 07/13/24 01:17 FiO2 Intake & Output 07/12/24 07/13/24 07/13/24 18:59 06:59 18:59 Weight 99.79 kg Other: Voiding Method Toilet # Voids 2 - Labs CBC & Chem 7: 07/13/24 04:17 07/11/24 23:25 Labs: Abnormal Lab Results - Last 24 Hours (Table) 07/13/24 Range/Units 04:17 RBC 6.02 H (4.30-5.90) m/uL Hct 54.5 H (39.0-53.0) %
[2024-07-13 09:55] LABS: African American GFR (CKD) 82 (>60 ml/min/1.73 sqM); Anion Gap 6 mmol/L; Blood Urea Nitrogen 23 mg/dL (9-20); Calcium 9.1 mg/dL (8.4-10.2); Carbon Dioxide 29 mmol/L (22-30); Chloride 104 mmol/L (98-107); Glucose 85 mg/dL (74-99); Non-African American GFR(CKD) 71 (>60 ml/min/1.73 sqM); Potassium 4.5 mmol/L (3.5-5.1); Sodium 139 mmol/L (137-145)
[2024-07-13] MEDS: IV FLUID CONTINUATION 300 ML IV ONE (10:55)
[2024-07-13] MEDS: HEPARIN SODIUM,PORCINE (1 ML) 2,500 UNIT in SODIUM CHLORIDE 0.9% 250 ML IRRIGATION PRN (11:10)
[2024-07-13] MEDS: HEPARIN SODIUM,PORCINE 10,000 UNIT in SODIUM CHLORIDE 0.9% 1,000 ML IRRIGATION PRN (11:10)
[2024-07-13] MEDS: fentaNYL (PF) 50 MCG/ML 2 ML AMP IVP ONE (11:43)
[2024-07-13] MEDS: LIDOCAINE 1% INJ 10MG/ML (20 ML MDV) SQ ONE (11:45)
[2024-07-13] MEDS: MIDAZOLAM 2 MG/2 ML VIAL IVP ONE (11:45)
[2024-07-13] MEDS: IOPAMIDOL-370 100ML BTL INJ ONE (12:11)
[2024-07-13] MEDS ORDERED: RX INFO: IV CONTRAST WAS GIVEN 1 EACH MISC MISCELLANE PRN (12:21)
--- NOTE | 2024-07-13 12:30 | P.CARDCATH ---
Date of Procedure: 07/13/24 Description of Procedure: Cardiac Catheterization: The patient is a 54-year-old male with a known history of CAD, status post CABG in 2020, history of hypertension and hyperlipidemia presented with symptoms of chest discomfort but no evidence of enzymatic changes. He was evaluated by Dr. Rodriguez. Recommendations were made regarding cardiac catheterization, the risks and the complications were discussed with the patient who is in full understanding and agreement. Procedure Description: Patient was brought to director of laboratory operations in fasting semi-sedated state after receiving Fentanyl and Benadryl achieiving moderate conscious sedated state. Using Xylocaine Anesthesia and modified Seldinger technique, a 6-[place]ay[place] Islander sheath was introduced in the right femoral artery using micropuncture technique. Subsequently, selective coronary angiography was performed using a 6-[place] Islander 4 bend Troy catheter. The right Tryo was used to cannulate the radial bypass to the ramus intermedius, SVG to the RCA and to the OM and BASHIR to the LAD. Multiple views of the coronary artery including hemiaxial views were obtained. The right Troy catheter was used to cross the aortic valve and LVEDP was calculated. Following that, catheter and sheath were removed. Hemostasis was obtained with deployment of an Angio-Seal. There was no immediate complication. Patient was returned to room in stable condition. Findings: Left main: This is a long size vessel, trifurcating into LAD, ramus intermedius and left circumflex. The left main is diffusely disease, angiographically appears to have a 50% diffuse plaque LAD: This vessel is totally occluded proximally with no significant antegrade flow Left circumflex: This is a nondominant vessel, giving rise to 2 obtuse marginal branch, distally prior to the takeoff of the second obtuse marginal branch there is a 70 to 80% stenosis the vessel beyond that is small in caliber. RCA: This is a dominant vessel, bifurcating into PDA and PLV the PDA proximally has 70 to 80% stenosis. Ramus intermedius: This vessel is subtotally occluded with competitive flow from the graft SVG to the PDA: The proximal and distal anastomotic site are patent the flow in the PDA is brisk there is mild disease in the proximal segment of the graft of 20 to 30% Radial bypass to the ramus intermedius the proximal and distal anastomotic site are patent. The flow into the ramus intermedius is brisk SVG to the OM this graft is totally: Occluded proximally with no antegrade flow BASHIR to the LAD: The distal anastomotic site is patent the flow in the LAD is brisk, the LAD caliber is small. Left Ventriculogram: Not performed Hemodynamics: There was no gradient across the aortic valve, LVEDP was 14-18 mmHg Conclusion: 1. Diffuse disease in the left main 2. Chronically occluded proximal LAD 3. Significant disease in the distal left circumflex 4. Significant disease in the ramus intermedius and the PDA 5. Patent BASHIR to the LAD 6. Patent radial artery to the ramus intermedius 7. Patent SVG to the RCA PDA with mild proximal disease in the graft 8. Chronically occluded SVG to the second OM Recommendations: I have recommended to continue medical therapy and optimize his treatment. I feel that attempting to stent the distal circumflex carries a higher risk of restenosis because of the small size of the vessel. If he has recurrent pain then further evaluation will be done. The findings and the recommendations were discussed with the patient and the family and they were in full understanding and agreement. Duration of sedation is 25 minutes.
[2024-07-13 13:10] LABS: African American GFR (CKD) 88 (>60 ml/min/1.73 sqM); Anion Gap 6 mmol/L; Blood Urea Nitrogen 20 mg/dL (9-20); Calcium 8.6 mg/dL (8.4-10.2); Carbon Dioxide 26 mmol/L (22-30); Chloride 105 mmol/L (98-107); Glucose 79 mg/dL (74-99); Non-African American GFR(CKD) 76 (>60 ml/min/1.73 sqM); Potassium 4.1 mmol/L (3.5-5.1); Sodium 137 mmol/L (137-145)
[2024-07-13] MEDS: SODIUM CHLORIDE 0.9% 1,000 ML IV SCH (15:54)
[2024-07-13] MEDS: ISOSORBIDE MONONITRATE ER 30 MG TAB.ER.24H PO SCH (18:02)
--- NOTE | 2024-07-13 22:26 | P.PN ---
Progress Note - Text Progress Note Date: 07/13/24 Chief Complaint: Chest pain Pleasant 54-year-old patient who follows with Kimberli Mendoza. Patient was seen by me this afternoon in the ER accompanied by his . Chronic medical conditions include hypertension, hyperlipidemia, BPH, coronary artery disease with Coury bypass 4 years ago. 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 Paredes. Patient been having chest pain somewhat sharp anterior sometimes of the back off and on for last 3 to 4 days. Pain also present at rest. Variable duration. No radiation. No perspiration. Some shortness of breath. Does feel increasingly tired. May 07, 2024: Patient underwent a nuclear medicine Lexiscan Cardiolite stress test. It showed a small to moderate area of reversibility involving the mid to apical lateral wall. Some wall dyskinesia was reported. EF 55%. July 13: Saw the patient this morning. Was waiting a cardiac catheterization. No further chest pain overnight. This afternoon underwent a cardiac catheterization. Found to have diffuse disease in left main. Chronically occluded proximal LAD. Significant disease in the distal left circumflex and in the ramus intermedius and PDA. Some patent grafts. Plan is for medical management. Active Medications Acetaminophen (Acetaminophen Tab 325 Mg Tab) 650 mg PO Q6HR PRN PRN Reason: Mild Pain or Fever > 100.5 Last Admin: 07/13/24 20:07 Dose: 650 mg Alprazolam (Alprazolam 0.25 Mg Tab) 0.25 mg PO Q6HR PRN PRN Reason: Mild Anxiety Alprazolam (Alprazolam 0.5 Mg Tab) 0.5 mg PO Q6HR PRN PRN Reason: Moderate Anxiety Amlodipine Besylate (Amlodipine 5 Mg Tab) 5 mg PO DAILY@1200 [facility] Last Admin: 07/13/24 14:25 Dose: Not Given Aspirin (Aspirin 81 Mg) 81 mg PO DAILY [facility] Last Admin: 07/13/24 07:54 Dose: Not Given Atorvastatin Calcium (Atorvastatin 40 Mg Tab) 40 mg PO DAILY [facility] Last Admin: 07/13/24 07:54 Dose: Not Given Sodium Chloride 1,000 ml/ IV (Solution) 1,000 mls @ 99.79 mls/hr IV .Q10H2M [facility] Last Admin: 07/13/24 14:25 Dose: Not Given Isosorbide Mononitrate (Isosorbide Mononitrate Er 30 Mg Tab.Er.24h) 30 mg PO DAILY [facility] Last Admin: 07/13/24 18:02 Dose: 30 mg Metoprolol Tartrate (Metoprolol Tartrate 50 Mg Tab) 50 mg PO BID [facility] Last Admin: 07/13/24 20:07 Dose: 50 mg Miscellaneous Information (Rx Info: Iv Contrast Was Given 1 Each Misc) 1 each MISCELLANE DAILY PRN PRN Reason: Per Protocol Stop: 07/15/24 12:21 Naloxone HCl (Naloxone 0.4 Mg/Ml 1 Ml Vial) 0.2 mg IV Q2M PRN PRN Reason: Opioid Reversal Nitroglycerin (Nitroglycerin Sl Tabs 0.4 Mg Tab) 0.4 mg SUBLINGUAL Q5M PRN PRN Reason: Chest Pain Tamsulosin HCl (Tamsulosin 0.4 Mg Cap.Er.24h) 0.4 mg PO DAILY [facility] Last Admin: 07/13/24 10:59 Dose: Not Given Social history: No smoking. Alcohol alcohol occasionally. . Employed here at [employer] Physical examination: VITAL SIGNS: 97.6, 48, 18, 122 x 78, 96% room air GENERAL: BMI 31.6, comfortable. EYES: Pupils equal. Conjunctiva leigh l. HEENT: External appearance of nose and ears normal, oral cavity grossly normal. NECK: JVD not raised; masses not palpable. HEART: First and second heart sounds are normal; no edema. LUNGS: Respiratory rate normal; clear to auscultation. ABDOMEN: Soft, nontender, liver spleen not palpable, no masses palpable. PSYCH: Alert and oriented x3; mood and affect leigh l. MUSCULOSKELETAL:No Clubbing/cyanosis;muscles-grossly intact INVESTIGATIONS, reviewed in the clinical context: July 13: White count 7.6 hemoglobin 7.5 platelets 184 potassium 4.1 creatinine 1.09 July 11, 2024: White count 8.2 hemoglobin 18 platelets 212 sodium 140 potassium 4.7 BUN 27 creatinine 1.26 Troponin I less than 0.012 x 3 LDL 45.1 triglycerides 271 EKG tracing personally reviewed by me-heart rate 55. Right bundle haydee block pattern. Sinus rhythm. Previous labs: 2D echo May 07, 2024: EF 55 to 60%. Nuclear Cardiolite stress test [May 07, 2024: Small to moderate area of reversibility involving the mid to apical lateral wall. Gated analysis suggest some wall dyskinesia with a EF of 55% Assessment plan: -Unstable angina in a patient with known coronary artery disease. Underwent a nuclear stress test on May 07, 2024 with some reversibility involving the mid to apical lateral wall. Cardiac catheterization showing significant disease. More details and cardiology notes Troponins negative. Patient does follow with Dr. Paredes/casting wheel operator Imdur 30 mg daily added Aspirin. Lopressor. -CAD with a prior history of coronary bypass about 4 years ago Aspirin. Lipitor. Amlodipine. Lopressor. -BPH Flomax 0.4 mg a day -Hyperlipidemia Lipitor -Essential hypertension Lopressor. Amlodipine. Increase activity. Imdur added. Past Medical History Past Medical History: Hyperlipidemia, Hypertension Additional Past Medical History / Comment(s): no current chest pain, cervical problems c-5 thru c-7, had covid beginning of July-resolved History of Any Multi-Drug Resistant Organisms: None Reported Past Surgical History: Coronary Bypass/CABG Additional Past Anesthesia/Blood Transfusion Reaction / Comment(s): no family problems w/anesthesia, pt. has never had anesthesia Past Psychological History: No Psychological Hx Reported Smoking Status: Former smoker Past Alcohol Use History: None Reported Past Drug Use History: None Reported
[2024-07-14 07:32] VITALS: BP 114/67; PULSE 51; RESP 16; TEMP 98
[2024-07-14 08:39] LABS: BUN/Creat Ratio 14.15 Ratio (12.00-20.00); Blood Urea Nitrogen 18.4 mg/dL (9.0-27.0); Carbon Dioxide 25.7 mmol/L (21.6-31.8); Chloride 110 mmol/L (96-109); Glucose 108 mg/dL (70-110); Sodium 143 mmol/L (135-145)
[2024-07-14 08:40] LABS: Calcium 8.7 mg/dL (8.7-10.3)
--- NOTE | 2024-07-14 12:22 | P.PN ---
Subjective Progress Note Date: 07/14/24 Consult reason: chest pain History of present illness: This is a 54-year-old male patient of Dr. Paredes with past medical history of coronary artery disease status post four-vessel CABG with BASHIR to LAD, venous graft to the OM 3, radial to the RI, VG to PLB in 2020, hypertension, hyperlipidemia. We have been asked to evaluate the patient for chest pain. 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 Patient was last seen in the office on May [address] Paredes and had undergone a abnormal Lexiscan stress test but at the time, patient was not having any symptoms and it was decided to continue medical management. Blood pressure 128/87, heart rate 46, pulse ox 98% on room air. Patient is seen today in the emergency center waiting for a bed on the cardiac stepdown unit. Dr. Rodriguez discussed results of the testing performed at the hospital as well as previous Lexiscan stress test result with recommendations for cardiac c atheterization and patient is agreeable to move forward with this. This will be scheduled on Friday. History of coronary artery disease status post -EKG: Sinus rhythm, right bundle branch block -Chest x-ray: No acute findings. -Laboratory studies: WBC 8.2, hemoglobin 18, BUN 27 creatinine 1.26, troponin negative x 3. -Home cardiac medications: Aspirin 81 mg daily, atorvastatin 40 mg daily, m etoprolol tartrate 50 mg twice daily. -Lexiscan stress test performed in the office on 05/07/2024 revealed mid to apical lateral wall ischemia, small to moderate. -Echocardiogram performed 05/07/2024 in the office revealed normal EF. 07/13 Patient seen and examined. Patient is scheduled for cardiac catheterization today with Dr. Paredes. Limited echocardiogram reveals normal LV size and systolic function with mild concentric LVH. Mild mitral and tricuspid regurgitation. No pericardial effusion. Blood pressure 126/80, heart rate 51, pulse ox 98% on room air. BMP ordered. 07/14 Yesterday, patient underwent cardiac catheterization with Dr. Paredes which revealed diffuse disease in the left main, chronically occluded proximal LAD, significant disease in the distal left circumflex, significant disease in the ramus intermedius and the PDA. Patient had patent BASHIR to LAD, patent radial artery to the ramus i intermedius, patent SVG to the RCA PDA with mild proximal disease in the graft. Chronically occluded SVG to the second OM. Recommendations for medical management and patient was started on Imdur. Groin site is soft with no bleeding or hematoma. Patient denies chest pain or chest pressure. Blood pressure 114/67, heart rate 51, pulse ox 98% on room air. Repeat blood work reveals BUN 18 creatinine 1.3.. Physical examination: Gen: This is a 54-year-old male in no acute distress yeah VS: reviewed HEENT: Head is atraumatic, normocephalic. Pupils equal, round. Sclerae is anict dora. NECK: Supple. No JVD. LUNGS: Clear to auscultation. No wheezes or rhonchi. No intercostal r etractions. HEART: Regular rate and rhythm. No murmur. ABDOMEN: Soft No tenderness. EXTREMITIES: No pedal edema. No calf tenderness. NEUROLOGICAL: Patient is awake, alert and oriented x3. Assessment: Atypical chest pain Abnormal Lexiscan stress test with mid to apical lateral wall ischemia, small to moderate Four-vessel CABG in 2020 Hypertension Hyperlipidemia Plan: Continue patient's home cardiac medications Continue the addition of Imdur Patient is cleared for discharge and may follow-up with Dr. Paredes in 1 week. Nurse practitioner note has been reviewed, I agree with documented findings and plan of care. Patient was seen and examined. Objective - Vital Signs Vital signs: Vital Signs Temp 98 F 07/14/24 07:31 Pulse 51 L 07/14/24 07:31 Resp 16 07/14/24 07:31 BP 114/67 07/14/24 07:31 Pulse Ox 98 07/14/24 07:31 FiO2 Intake & Output 07/13/24 07/14/24 07/14/24 18:59 06:59 18:59 Intake Total 1040 Balance 1040 Intake: IV 80 Oral 960 Other: Voiding Method Toilet # Voids 1 2 - Labs CBC & Chem 7: 07/13/24 04:17 07/14/24 04:50 Labs: Abnormal Lab Results - Last 24 Hours (Table) 07/13/24 Range/Units 08:23 BUN 23 H (9-20) mg/dL
--- NOTE | 2024-07-14 19:22 | P.DS ---
Providers Date of admission: 07/12/24 00:52 Expected date of discharge: 07/14/24 Attending physician: Eliel Archuleta Consults: 07/12/24 00:51 Consult Physician Routine Consulting Provider: Marianela Paredes Consult Reason/Comments: CP Do you want consulting provider notified?: Yes Primary care physician: Kimberli Mendoza [facility] Hospital Course: Chief Complaint: Chest pain Pleasant 54-year-old patient who follows with Kimberli Mendoza. Patient was seen by me this afternoon in the ER accompanied by his . Chronic medical conditions include hypertension, hyperlipidemia, BPH, coronary artery disease with Coury bypass 4 years ago. 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 Patient been having chest pain somewhat sharp anterior sometimes of the back off and on for last 3 to 4 days. Pain also present at rest. Variable duration. No radiation. No perspiration. Some shortness of breath. Does feel increasingly tired. May 07, 2024: Patient underwent a nuclear medicine Lexiscan Cardiolite stress test. It showed a small to moderate area of reversibility involving the mid to apical lateral wall. Some wall dyskinesia was reported. EF 55%. July 13: Saw the patient this morning. Was waiting a cardiac catheterization. No further chest pain overnight. This afternoon underwent a cardiac catheterization. Found to have diffuse disease in left main. Chronically occluded proximal LAD. Significant disease in the distal left circumflex and in the ramus intermedius and PDA. Some patent grafts. Plan is for medical management. July 14: catheter results were informed with the patient and his . Patient follow-up with Dr. Paredes. Imdur has been added. He has been ambulating. No cardiac symptoms. Discussion and discharge planning more than 35 minutes Daily Social history: No smoking. Alcohol alcohol occasionally. . Employed here at [employer] Physical examination: VITAL SIGNS: 98, 51, 16, 114 x 67, 98% room air GENERAL: BMI 31.6, up in chair, comfortable EYES: Pupils equal. Conjunctiva leigh l. HEENT: External appearance of nose and ears normal, oral cavity grossly normal. NECK: JVD not raised; masses not palpable. HEART: First and second heart sounds are normal; no edema. LUNGS: Respiratory rate normal; clear to auscultation. ABDOMEN: Soft, nontender, liver spleen not palpable, no masses palpable. PSYCH: Alert and oriented x3; mood and affect leigh l. MUSCULOSKELETAL:No Clubbing/cyanosis;muscles-grossly intact INVESTIGATIONS, reviewed in the clinical context: July 14: Potassium 5 creatinine 1.3 2D echo: Limited view: EF 55 to 60%. No wall motion abnormality. July 13: White count 7.6 hemoglobin 7.5 platelets 184 potassium 4.1 creatinine 1.09 July 11, 2024: White count 8.2 hemoglobin 18 platelets 212 sodium 140 potassium 4.7 BUN 27 creatinine 1.26 Troponin I less than 0.012 x 3 LDL 45.1 triglycerides 271 EKG tracing personally reviewed by me-heart rate 55. Right bundle haydee block pattern. Sinus rhythm. Previous labs: 2D echo May 07, 2024: EF 55 to 60%. Nuclear Cardiolite stress test [May 07, 2024: Small to moderate area of reversibility involving the mid to apical lateral wall. Gated analysis suggest some wall dyskinesia with a EF of 55% Assessment plan: -Unstable angina in a patient with known coronary artery disease. Underwent a nuclear stress test on May 07, 2024 with some reversibility involving the mid to apical lateral wall. Cardiac catheterization showing significant disease. More details and cardiology notes Troponins negative. 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 Lopressor. -CAD with a prior history of coronary bypass about 4 years ago Aspirin. Lipitor. Amlodipine. Lopressor. -BPH Flomax 0.4 mg a day -Hyperlipidemia Lipitor -Essential hypertension Lopressor. Amlodipine. Disposition: Home Past Medical History Past Medical History: Hyperlipidemia, Hypertension Additional Past Medical History / Comment(s): no current chest pain, cervical problems c-5 thru c-7, had covid beginning of July-resolved History of Any Multi-Drug Resistant Organisms: None Reported Past Surgical History: Coronary Bypass/CABG Additional Past Anesthesia/Blood Transfusion Reaction / Comment(s): no family problems w/anesthesia, pt. has never had anesthesia Past Psychological History: No Psychological Hx Reported Smoking Status: Former smoker Past Alcohol Use History: None Reported Past Drug Use History: None Reported Plan - Discharge Summary New Discharge Prescriptions: New Isosorbide Mononitrate ER [Imdur] 30 mg PO DAILY #30 tab Nitroglycerin Sl Tabs [Nitrostat] 0.4 mg SUBLINGUAL Q5M PRN #30 tab PRN Reason: Chest Pain amLODIPine [Norvasc] 5 mg PO DAILY@1200 #30 tab Continue Atorvastatin [Lipitor] 40 mg PO DAILY #30 tab Metoprolol Tartrate [Lopressor] 50 mg PO BID #60 tab Tamsulosin [Flomax] 0.4 mg PO DAILY Aspirin 81 mg PO DAILY Discharge Medication List Aspirin 81 mg PO DAILY 09/14/20 [History] Atorvastatin [Lipitor] 40 mg PO DAILY #30 tab 09/29/20 [Rx] Metoprolol Tartrate [Lopressor] 50 mg PO BID #60 tab 09/29/20 [Rx] Tamsulosin [Flomax] 0.4 mg PO DAILY 07/12/24 [History] Isosorbide Mononitrate ER [Imdur] 30 mg PO DAILY #30 tab 07/14/24 [Rx] Nitroglycerin Sl Tabs [Nitrostat] 0.4 mg SUBLINGUAL Q5M PRN #30 tab 07/14/24 [Rx] amLODIPine [Norvasc] 5 mg PO DAILY@1200 #30 tab 07/14/24 [Rx] Follow up Appointment(s)/Referral(s): Mairanela Paredes MD [STAFF PHYSICIAN] - 1 Week (Office will call patient with appointment ) Kimberli Mendoza DO [Primary Care Provider] - 1-2 days Patient Instructions/Handouts: Chest Pain (DC), Heart Catheterization (DC) Discharge/Stand Alone Forms: Work/Release Restrictions Form, Work/School Release / Restrict Discharge Disposition: HOME SELF-CARE
== END 2024-07-14 12:15 | disposition home or self-care (01) ==
LOC: EC 23:09 → 6NMEDSUR 07-12 00:51 → OBSVTOIN 07-12 00:52 → INTOOBSV 07-12 00:52 → 6NMEDSUR 07-12 20:31
PROVIDERS: ADMIT Hospitalist; ATTEND Hospitalist
DX: I25.110 Atherosclerotic heart disease of native coronary artery with unstable angina pectoris (principal); I25.710 Atherosclerosis of autologous vein coronary artery bypass graft(s) with unstable angina pectoris; I25.82 Chronic total occlusion of coronary artery; E78.5 Hyperlipidemia, unspecified; I10 Essential (primary) hypertension; N40.0 Benign prostatic hyperplasia without lower urinary tract symptoms; Z88.8 Allergy status to other drugs, medicaments and biological substances; Z79.82 Long term (current) use of aspirin; Z79.899 Other long term (current) drug therapy; Z87.891 Personal history of nicotine dependence
CPT/HCPCS: 96372; 99285; 36415; 93005; 93308; 93459; 85379; 80053; 80048 ×2; 83735; 84484 ×2; 85025 ×2; 85610; 85730; 71046; G0378 ×3; C1760; C1769 ×2; C1894; J2250; J1644 ×2; J2003; J1650; J3010; Q9967; 96360; 96361

== ENCOUNTER 2024-09-09 05:33 | Day surgery (SDC) | payer MEDICAID ==
[2024-09-09] MEDS ORDERED: ALPRAZolam 0.5 MG TAB PO PRN (06:00)
[2024-09-09] MEDS ORDERED: HEPARIN SODIUM,PORCINE (1 ML) 2,500 UNIT in SODIUM CHLORIDE 0.9% 250 ML IRRIGATION PRN (06:00)
[2024-09-09] MEDS ORDERED: NITROGLYCERIN SL TABS 0.4 MG TAB SUBLINGUAL PRN ×2 (06:00→08:56)
[2024-09-09] MEDS ORDERED: HEPARIN SODIUM,PORCINE 10,000 UNIT in SODIUM CHLORIDE 0.9% 1,000 ML IRRIGATION PRN (06:00)
[2024-09-09] MEDS ORDERED: ALPRAZolam 0.25 MG TAB PO PRN (06:00)
[2024-09-09] MEDS: ASPIRIN 325 MG TAB PO STA (06:29)
[2024-09-09] MEDS: SODIUM CHLORIDE 0.9% 1,000 ML in EMPTY BAG 1 BAG IV SCH (06:29)
[2024-09-09] MEDS: IV FLUID CONTINUATION 1,000 ML IV ONE (06:30)
[2024-09-09 06:33] VITALS: RESP 16
[2024-09-09 06:36] LABS: Basophils # (A) 0.02 10*3/uL (0.00-0.10); Basophils % (A) 0.3 %; Eosinophils # (A) 0.15 10*3/uL (0.04-0.35); HCT 48.9 % (39.6-50.0); HGB 17.3 g/dL (13.0-17.0); Lymphocytes # (A) 1.75 10*3/uL (0.90-5.00); Lymphocytes % (A) 23.2 %; MCHC 35.4 g/dL (32.0-37.0); MCV 84.7 fL (80.0-97.0); Mean Platelet Volume 9.2 fL (9.5-12.2); Monocytes # (A) 0.45 10*3/uL (0.20-1.00); Neutrophils # (A) 5.15 10*3/uL (1.80-7.70); Neutrophils % (A) 68.1 %; Platelet Count 190 10*3/uL (140-440); RBC 5.77 10*6/uL (4.40-5.60); RDW 12.1 % (11.5-14.5); WBC 7.55 10*3/uL (4.50-10.00)
[2024-09-09 06:48] LABS: African American GFR (CKD) 85 (>60 ml/min/1.73 sqM); Anion Gap 7 mmol/L; Blood Urea Nitrogen 19 mg/dL (9-20); Calcium 9.6 mg/dL (8.4-10.2); Carbon Dioxide 23 mmol/L (22-30); Chloride 105 mmol/L (98-107); Glucose 117 mg/dL (74-99); Non-African American GFR(CKD) 73 (>60 ml/min/1.73 sqM); Potassium 4.3 mmol/L (3.5-5.1); Sodium 135 mmol/L (137-145)
[2024-09-09] MEDS: HEPARIN SODIUM,PORCINE (1 ML) 2,500 UNIT in SODIUM CHLORIDE 0.9% 250 ML IRRIGATION ONE (07:20)
[2024-09-09] MEDS: HEPARIN SODIUM,PORCINE 10,000 UNIT in SODIUM CHLORIDE 0.9% 1,000 ML IRRIGATION ONE (07:20)
[2024-09-09] MEDS: fentaNYL (PF) 50 MCG/ML 2 ML AMP IVP ONE (07:35)
[2024-09-09] MEDS: MIDAZOLAM 2 MG/2 ML VIAL IVP ONE (07:37)
[2024-09-09] MEDS: LIDOCAINE 1% INJ 10MG/ML (20 ML MDV) SQ ONE (07:37)
[2024-09-09] MEDS: VERAPAMIL SYRINGE (5 MG/10 ML) IVP ONE (07:39)
[2024-09-09] MEDS: CLOPIDOGREL 75 MG TAB PO ONE (07:46)
[2024-09-09] MEDS: IOPAMIDOL-370 100ML BTL INJ ONE ×2 (08:27→08:35)
[2024-09-09] MEDS ORDERED: RX INFO: IV CONTRAST WAS GIVEN 1 EACH MISC MISCELLANE PRN (08:56)
[2024-09-09] MEDS ORDERED: MAG HYDROX/AL HYDROX/SIMETH 30 ML CUP PO PRN (08:56)
[2024-09-09] MEDS ORDERED: ZOLPIDEM 5 MG TAB PO PRN (08:56)
[2024-09-09] MEDS ORDERED: ATROPINE SULFATE 0.1 MG/ML 10ML SYRINGE IV PRN (08:56)
[2024-09-09] MEDS ORDERED: SODIUM CHLORIDE 0.9% 1,000 ML in EMPTY BAG 1 BAG IV SCH (09:00)
[2024-09-09] MEDS ORDERED: METOPROLOL TARTRATE 25 MG TAB PO SCH ×2 (09:00→21:00)
--- NOTE | 2024-09-09 09:03 | P.CARDCATH ---
Date of Procedure: 09/09/24 Description of Procedure: PERCUTANEOUS TRANSLUMINAL CORONARY ANGIOPLASTY CLINICAL INFORMATION: The patient is a 54-year-old male with a known history of CAD, status post CABG who presented recently with symptoms of chest discomfort and had an abnormal MPI. He underwent cardiac catheterization and was found to have occluded SVG to the OM with significant disease in the mid left circumflex. His medical therapy was optimized but he continues to have exertional chest discomfort. Recommendations were made regarding angioplasty and stenting. The procedure as well as the risks and the complications were discussed with the patient who was in full understanding and agreement. PROCEDURE: A 6 Russian L BU 3.5 guiding catheter was introduced into the system. Multiple other catheters were tried and they were unable to cannulate the left main. After cannulating the left main, a 0.014 BMW J-wire was advanced across the lesion and positioned distally. Following that a 2.25 x 12 mm trek balloon was advanced and inflated at 8 atmosphere. After removing the balloon a Romotive eye IVUS catheter was introduced and revealed a distal vessel lumen of 2.5 mm and proximally 2.8 to 3.0 mm in diameter. Following that a 2.5 x 18 mm Xience Skypoint stent was deployed. It was dilated at 14 isabell. Repeat IVUS imaging was performed and subsequently a 2.75 x 12 mm NC trek balloon was advanced and 1 inflation in the proximal segment was performed at 10 isabell. After the last inflation, after appropriate wait, the balloon and the guidewire were withdrawn back into the guiding catheter. Images were obtained and repeated. Those images reveal stable successful stenting. At that point, the guiding cath eter, the balloon, and guidewire were removed. The sheath was removed. Hemostasis was obtained with deployment of a TR band. There were no immediate complications. The patient was returned to the room in stable condition. Of note, the patient received 7000 units of heparin as well as Plavix. His ACT was followed. There was no immediate complications. He had chest discomfort that improved at the end of the procedure but no EKG changes. RESULTS: Successful stenting of the mid left circumflex with reduction of stenosis from 90% to 0% with MARY CARMEN-3 flow and IVUS imaging. RECOMMENDATIONS: The patient will continue on aspirin and clopidogrel for 6 months without any interruption in addition to aggressive coronary risks modification, attempting to maintain LDL below 70 mg/dL. The findings and recommendations were discussed with the patient and the family, they are in full understanding and agreement. Duration of sedation: 60 minutes
[2024-09-09] MEDS ORDERED: amLODIPine 5 MG TAB PO SCH (12:00)
[2024-09-09 15:49] VITALS: BP 132/64; PULSE 52
[2024-09-09] MEDS ORDERED: RANOLAZINE 500 MG TAB.ER.12H PO SCH (21:00)
[2024-09-10] MEDS ORDERED: ASPIRIN 81 MG PO SCH (09:00)
[2024-09-10] MEDS ORDERED: CLOPIDOGREL 75 MG TAB PO SCH (09:00)
[2024-09-10] MEDS ORDERED: ATORVASTATIN 40 MG TAB PO SCH (09:00)
[2024-09-10] MEDS ORDERED: TAMSULOSIN 0.4 MG CAP.ER.24H PO SCH (09:00)
[2024-09-10] MEDS ORDERED: ISOSORBIDE MONONITRATE ER 30 MG TAB.ER.24H PO SCH (09:00)
== END 2024-09-09 13:04 | disposition home or self-care (01) ==
LOC: CATHCVL 05:33
PROVIDERS: ATTEND Internal Medicine Interventional Cardiology
DX: I25.10 Atherosclerotic heart disease of native coronary artery without angina pectoris (principal); I10 Essential (primary) hypertension; E78.2 Mixed hyperlipidemia; Z95.1 Presence of aortocoronary bypass graft; Z79.02 Long term (current) use of antithrombotics/antiplatelets; Z79.899 Other long term (current) drug therapy
CPT/HCPCS: 92978; 80048; 85025; 99152; 99153; C9600; C1769 ×2; C1887 ×5; C1894; C1725 ×2; C1753; C1874; J2250; J1644 ×3; J2003; J3010; Q9967

== ENCOUNTER 2024-09-13 07:44 | Observation (INO) | payer MEDICAID ==
--- NOTE | 2024-09-13 07:47 | ED ---
General Adult HPI - General Stated complaint: chest pain Time Seen by Provider: 09/13/24 07:45 Source: patient, RN notes reviewed Mode of arrival: ambulatory Limitations: no limitations - History of Present Illness Initial comments: 54-year-old male presents emergency department chief complaint of chest pain. Patient states that started last night is worsening states the pain is not alleviating. Patient states from his chest into his back he stated he had a recent pain like this and had a stent placed 4 days ago. Patient states there is minimal shortness of breath no fevers or chills denies any leg pain or leg swelling. Patient is concerned as this is very similar pain that has been dealing with prior to his stent. Patient denies fevers or chills no headache or dizziness. Patient does have a significant history of CABG, stent placement, hypertension hyperlipidemia - Related Data Home Medications Medication Instructions Recorded Confirmed Aspirin 81 mg PO DAILY 09/14/20 09/13/24 Tamsulosin [Flomax] 0.4 mg PO DAILY 07/12/24 09/13/24 Metoprolol Tartrate [Lopressor] 25 mg PO BID 09/09/24 09/13/24 Ranolazine [Ranexa] 500 mg PO BID 09/09/24 09/13/24 Isosorbide Mononitrate ER [Imdur] 30 mg PO HS 09/13/24 09/13/24 Nitroglycerin Sl Tabs [Nitrostat] 0.4 mg SL Q5M PRN 09/13/24 09/13/24 amLODIPine [Norvasc] 5 mg PO DAILY 09/13/24 09/13/24 Previous Rx's Medication Instructions Recorded Atorvastatin [Lipitor] 40 mg PO DAILY #30 tab 09/29/20 Clopidogrel [Plavix] 75 mg PO DAILY #90 tablet 09/09/24 Allergies Allergy/AdvReac Type Severity Reaction Status Date / Time lisinopril AdvReac Cough Verified 09/13/24 09:39 Review of Systems ROS Statement: Those systems with pertinent positive or pertinent negative responses have been documented in the HPI. ROS Other: All systems not noted in ROS Statement are negative. Past Medical History Past Medical History: Coronary Artery Disease (CAD), Hyperlipidemia, Hypertension, Prostate Disorder Additional Past Medical History / Comment(s): chest pain intermittently since June 2024, cervical problems C-5 thru C-7, BPH History of Any Multi-Drug Resistant Organisms: None Reported Past Surgical History: Coronary Bypass/CABG, Heart Catheterization Additional Past Surgical History / Comment(s): 4 vessel CABG, "nicked aorta" and needed rescusitation Past Anesthesia/Blood Transfusion Reactions: No Reported Reaction Additional Past Anesthesia/Blood Transfusion Reaction / Comment(s): no family problems w/anesthesia, pt. has never had anesthesia Smoking Status: Former smoker - Past Family History Father Family Medical History: Cancer General Exam Limitations: no limitations General appearance: alert, in no apparent distress Head exam: Present: atraumatic, normocephalic, normal inspection Eye exam: Present: normal appearance, PERRL, EOMI. Absent: scleral icterus, conjunctival injection, periorbital swelling ENT exam: Present: normal exam, normal oropharynx, mucous membranes moist Neck exam: Present: normal inspection, full ROM. Absent: tenderness, meningismus, lymphadenopathy Respiratory exam: Present: normal lung sounds bilaterally. Absent: respiratory distress, wheezes, rales, rhonchi, stridor Cardiovascular Exam: Present: regular rate, normal rhythm, normal heart sounds. Absent: systolic murmur, diastolic murmur, rubs, gallop, clicks GI/Abdominal exam: Present: soft, normal bowel sounds. Absent: distended, tenderness, guarding, rebound, rigid Course Vital Signs 09/13/24 09/13/24 09/13/24 07:47 07:49 08:49 Temperature 98 F Pulse Rate 64 55 L 82 Respiratory 18 20 16 Rate Blood Pressure 135/83 131/80 130/82 O2 Sat by Pulse 98 98 98 Oximetry 09/13/24 09/13/24 09/13/24 09:00 09:51 11:00 Temperature Pulse Rate 79 52 L 55 L Respiratory 16 20 16 Rate Blood Pressure 130/80 132/80 140/68 O2 Sat by Pulse 98 98 98 Oximetry EKG Findings - EKG Comments: EKG Findings:: EKG performed at 7: 155 sinus bradycardia with first-degree block with a right bundle rate of 59 [place] 231 QRS 1 84T/QTc 446/444 - EKG Results: EKG: interpreted by NINO Medical Decision Making - Medical Decision Making Was pt. sent in by a medical professional or institution (, PA, TERRA [employer]TER, urgent care, hospital, or prison...) When possible be specific @ -No Did you speak to anyone other than the patient for history (EMS, parent, family, police, friend...)? What history was obtained from this source @ -No Did you review nursing and triage notes (agree or disagree)? Why? @ -I reviewed and agree with nursing and triage notes Were old charts reviewed (outside hosp., previous admission, EMS record, old EKG, old radiological studies, urgent care reports/EKG's, prison records)? Report findings @ -No old charts were reviewed Differential Diagnosis (chest pain, altered mental status, abdominal pain women, abdominal pain men, vaginal bleeding, weakness, fever, dyspnea, syncope, headache, dizziness, GI bleed, back pain, seizure, CVA, palpatations, mental h ealth, musculoskeletal)? @ -Differential Chest Pain: Stable Angina, Unstable Angina, STEMI, NSTEMI Aortic Dissection, Pneumothorax, Musculoskeletal, Esophageal Spasm GERD, Cholecystitis, Pancreatitis, Zoster, this is not meant to be an all-inclusive list. EKG interpreted by me (3pts min.). @ -As above X-rays interpreted by me (1pt min.). @ -Chest x-ray shows pulmonary edema CT interpreted by me (1pt min.). @ -None done U/S interpreted by me (1pt. min.). @ -None done What testing was considered but not performed or refused? (CT, X-rays, U/S, labs)? Why? @ -None What meds were considered but not given or refused? Why? @ -None Did you discuss the management of the patient with other professionals (professionals i.e. , PA, [employer]TER, lab, RT, psych nurse, forensic social worker, slagger, teacher, transit authority police officer, disease case manager)? Give summary @ -EM for admission covering for Dr. Archuleta Was smoking cessation discussed for >3mins.? @ -No Was critical care preformed (if so, how long)? @ -No Were there social determinants of health that impacted care today? How? (Homelessness, low income, unemployed, alcoholism, drug addiction, transportation, low edu. Level, literacy, decrease access to med. care, shelter, rehab)? @ -No Was there de-escalation of care discussed even if they declined (Discuss DNR or withdrawal of care, Hospice)? DNR status @ -No What co-morbidities impacted this encounter? (DM, HTN, Smoking, COPD, CAD, Cancer, CVA, ARF, Chemo, Hep., AIDS, mental health diagnosis, sleep apnea, morbi d obesity)? @ -CAD, CABG hypertension hyperlipidemia Was patient admitted / discharged? Hospital course, mention meds given and route, prescriptions, significant lab abnormalities, going to OR and other pertinent info. @ -Admitted patient's initial troponin is negative patient has concerning ACS symptoms and given recent stent placement will be admitted. Undiagnosed new problem with uncertain prognosis? @ -No Drug Therapy requiring intensive monitoring for toxicity (Heparin, Nitro, Insulin, Cardizem)? @ -No Were any procedures done? @ -No Diagnosis/symptom? @ -Chest pain Acute, or Chronic, or Acute on Chronic? @ -Acute Uncomplicated (without systemic symptoms) or Complicated (systemic symptoms)? @ -Complicated Side effects of treatment? @ -No Exacerbation, Progression, or Severe Exacerbation? @ -No Poses a threat to life or bodily function? How? (Chest pain, [place], [place], pneumonia, PE, COPD, DKA, ARF, appy, cholecystitis, CVA, Diverticulitis, Homicidal, Suicidal, threat to staff... and all critical care pts) @ -Yes possible ACS risk of cardiac function - Lab Data Result diagrams: 09/13/24 07:45 09/13/24 07:45 Lab Results 09/13/24 09/13/24 09/13/24 Range/Units 07:45 07:45 07:45 WBC 13.48 H (4.50-10.00) 10*3/uL RBC 5.97 H (4.40-5.60) 10*6/uL Hgb 18.0 H (13.0-17.0) g/dL Hct 49.9 (39.6-50.0) % MCV 83.6 (80.0-97.0) fL MCH 30.2 (27.0-32.0) pg MCHC 36.1 (32.0-37.0) g/dL Plt Count 189 (140-440) 10*3/uL MPV 8.9 L (9.5-12.2) fL Immature Gran % (Auto) 0.3 % Neutrophils % 82.7 % Lymphocytes % 11.1 % Monocytes % 4.7 % Eosinophils % 1.0 % Basophils % 0.2 % Immature Gran # 0.04 (0.00-0.04) 10*3/uL Neutrophils # 11.15 H (1.80-7.70) 10*3/uL Lymphocytes # 1.49 (0.90-5.00) 10*3/uL Monocytes # 0.64 (0.20-1.00) 10*3/uL Eosinophils # 0.13 (0.04-0.35) 10*3/uL Basophils # 0.03 (0.00-0.10) 10*3/uL PT 10.9 (10.0-12.5) sec INR 1.0 (<1.2) APTT 23.0 (22.0-30.0) sec Sodium 137 (137-145) mmol/L Potassium 4.7 (3.5-5.1) mmol/L Chloride 104 (98-107) mmol/L Carbon Dioxide 23 (22-30) mmol/L Anion Gap 10 mmol/L BUN 18 (9-20) mg/dL Creatinine 1.11 (0.66-1.25) mg/dL Est GFR (CKD-EPI)AfAm 86 (>60 ml/min/1.73 sqM) Est GFR (CKD-EPI)NonAf 75 (>60 ml/min/1.73 sqM) Glucose 168 H (74-99) mg/dL Calcium 9.7 (8.4-10.2) mg/dL Magnesium 1.6 (1.6-2.3) mg/dL Total Bilirubin 1.4 H (0.2-1.3) mg/dL AST 44 (17-59) U/L ALT 48 (4-49) U/L Alkaline Phosphatase 103 (38-126) U/L Troponin I (0.000-0.034) ng/mL NT-Pro-B Natriuret Pep 78 pg/mL Total Protein 7.4 (6.3-8.2) g/dL Albumin 4.6 (3.5-5.0) g/dL 09/13/24 Range/Units 07:45 WBC (4.50-10.00) 10*3/uL RBC (4.40-5.60) 10*6/uL Hgb (13.0-17.0) g/dL Hct (39.6-50.0) % MCV (80.0-97.0) fL MCH (27.0-32.0) pg MCHC (32.0-37.0) g/dL Plt Count (140-440) 10*3/uL MPV (9.5-12.2) fL Immature Gran % (Auto) % Neutrophils % % Lymphocytes % % Monocytes % % Eosinophils % % Basophils % % Immature Gran # (0.00-0.04) 10*3/uL Neutrophils # (1.80-7.70) 10*3/uL Lymphocytes # (0.90-5.00) 10*3/uL Monocytes # (0.20-1.00) 10*3/uL Eosinophils # (0.04-0.35) 10*3/uL Basophils # (0.00-0.10) 10*3/uL PT (10.0-12.5) sec INR (<1.2) APTT (22.0-30.0) sec Sodium (137-145) mmol/L Potassium (3.5-5.1) mmol/L Chloride (98-107) mmol/L Carbon Dioxide (22-30) mmol/L Anion Gap mmol/L BUN (9-20) mg/dL Creatinine (0.66-1.25) mg/dL Est GFR (CKD-EPI)AfAm (>60 ml/min/1.73 sqM) Est GFR (CKD-EPI)NonAf (>60 ml/min/1.73 sqM) Glucose (74-99) mg/dL Calcium (8.4-10.2) mg/dL Magnesium (1.6-2.3) mg/dL Total Bilirubin (0.2-1.3) mg/dL AST (17-59) U/L ALT (4-49) U/L Alkaline Phosphatase (38-126) U/L Troponin I <0.012 (0.000-0.034) ng/mL NT-Pro-B Natriuret Pep pg/mL Total Protein (6.3-8.2) g/dL Albumin (3.5-5.0) g/dL Disposition Clinical Impression: Chest pain Disposition: ADMITTED IP TO THIS HOSP Condition: Fair Time of Disposition: 09:09
[2024-09-13 08:32] LABS: ALT 48 U/L (4-49); African American GFR (CKD) 86 (>60 ml/min/1.73 sqM); Anion Gap 10 mmol/L; Blood Urea Nitrogen 18 mg/dL (9-20); Calcium 9.7 mg/dL (8.4-10.2); Carbon Dioxide 23 mmol/L (22-30); Chloride 104 mmol/L (98-107); Glucose 168 mg/dL (74-99); Non-African American GFR(CKD) 75 (>60 ml/min/1.73 sqM); Sodium 137 mmol/L (137-145)
--- NOTE | 2024-09-13 08:32 | XR ---
EXAMINATION TYPE: XR chest 2V DATE OF EXAM: 09/13/2024 8:25 AM COMPARISON: 07/11/2024 CLINICAL INDICATION: Male, 54 years old with history of Chest Pain, , TECHNIQUE: PA and lateral views FINDINGS: Median sternotomy wires and post-CABG clips. Heart mildly enlarged. Mild interstitial prominence with out consolidation or pleural effusion. IMPRESSION: Possible mild pulmonary vascular congestion. Otherwise, no acute process seen. [facility], Workstation: [id number], 09/13/2024 8:30 AM
[2024-09-13 08:41] LABS: NT-Pro-B-Type Natriuretic Pept 78 pg/mL
[2024-09-13 08:43] LABS: Basophils # (A) 0.03 10*3/uL (0.00-0.10); Basophils % (A) 0.2 %; Eosinophils # (A) 0.13 10*3/uL (0.04-0.35); HCT 49.9 % (39.6-50.0); Lymphocytes # (A) 1.49 10*3/uL (0.90-5.00); Lymphocytes % (A) 11.1 %; MCH 30.2 pg (27.0-32.0); MCHC 36.1 g/dL (32.0-37.0); MCV 83.6 fL (80.0-97.0); Mean Platelet Volume 8.9 fL (9.5-12.2); Monocytes # (A) 0.64 10*3/uL (0.20-1.00); Monocytes % (A) 4.7 %; Neutrophils # (A) 11.15 10*3/uL (1.80-7.70); Neutrophils % (A) 82.7 %; Platelet Count 189 10*3/uL (140-440); RBC 5.97 10*6/uL (4.40-5.60); RDW 12.1 % (11.5-14.5); WBC 13.48 10*3/uL (4.50-10.00)
[2024-09-13 08:57] LABS: AST 44 U/L (17-59); Albumin 4.6 g/dL (3.5-5.0); Magnesium 1.6 mg/dL (1.6-2.3); Potassium 4.7 mmol/L (3.5-5.1); Total Bilirubin 1.4 mg/dL (0.2-1.3); Total Protein 7.4 g/dL (6.3-8.2)
[2024-09-13 08:58] LABS: Alkaline Phosphatase 103 U/L (38-126)
[2024-09-13 09:04] LABS: Prothrombin Time 10.9 sec (10.0-12.5)
[2024-09-13] MEDS ORDERED: NITROGLYCERIN SL TABS 0.4 MG TAB SUBLINGUAL PRN (09:09)
[2024-09-13] MEDS: ASPIRIN 81 MG PO STA (09:50)
[2024-09-13] MEDS: CLOPIDOGREL 75 MG TAB PO SCH (14:47)
[2024-09-13] MEDS: TAMSULOSIN 0.4 MG CAP.ER.24H PO SCH (14:47)
[2024-09-13] MEDS: HYDROcodone/APAP 5-325MG 1 EACH TAB PO STA (14:47)
[2024-09-13] MEDS: ATORVASTATIN 40 MG TAB PO SCH (14:47)
[2024-09-13] MEDS: METOPROLOL TARTRATE 25 MG TAB PO SCH (22:03)
[2024-09-13] MEDS: ISOSORBIDE MONONITRATE ER 30 MG TAB.ER.24H PO SCH (22:04)
[2024-09-13] MEDS: ACETAMINOPHEN TAB 325 MG TAB PO PRN (22:44)
[2024-09-13] MEDS: RANOLAZINE 500 MG TAB.ER.12H PO SCH (22:54)
--- NOTE | 2024-09-14 00:52 | HP ---
HISTORY AND PHYSICAL CHIEF COMPLAINT: Chest and back pain. HISTORY OF PRESENT ILLNESS: This is a 54-year-old gentleman with a past medical history of multiple medical problems including CAD, CABG, had a stent placement recently. The patient is complaining of pain between the shoulders last night, which was worsening in the evening and the patient came to [facility] and is being admitted for further evaluation and treatment. There is no history of any fever, rigors, or chills. The initial troponins, the sets were negative. The EKG did not show anything acute. The rhythm strip is not available and did not show any acute abnormality. The patient has a right bundle-branch block in EKG. There is no history of any fever, rigors, or chills at this time. PAST MEDICAL HISTORY: History of CAD, CABG, history of stent. Rest of the history and rest of the chart also reviewed. Hypertension, hyperlipidemia. HOME MEDICATIONS: Reviewed, include Norvasc. Doses and rest of medications reviewed. ALLERGIES: Lisinopril. FAMILY HISTORY: History of cancer in the family. SOCIAL HISTORY: Previous smoker. REVIEW OF SYSTEMS: A 14-point review of systems is negative except as mentioned in history of present illness. PHYSICAL EXAMINATION: VITAL SIGNS: Pulse is 60, blood pressure 130/60, and respirations 16. CHEST: Clear to auscultation. CARDIOVASCULAR: S1, S2. ABDOMEN: Soft. Nontender. NEUROLOGIC: No focal deficits. LABORATORY DATA: WBC 13.4. Rest of the labs are noted. ASSESSMENT: 1. Chest and back pain, interscapular pain, possible unstable angina. 2. History of recent CAD stent. 3. Elevated WBC. 4. Hypertension. 5. Hyperlipidemia. 6. History of CAD, CABG. RECOMMENDATIONS AND DISCUSSION: This 54-year-old gentleman presented with multiple complex medical issues. We will monitor the patient closely and resume protocol, Cardiology consultation, resume the home medications, antiplatelet agents. Prognosis guarded because of multiple complex medical conditions. See orders for details. MMODL / IJN: [id number] /
[2024-09-14 07:18] LABS: Basophils # (A) 0.02 10*3/uL (0.00-0.10); Basophils % (A) 0.2 %; Eosinophils # (A) 0.11 10*3/uL (0.04-0.35); Eosinophils % (A) 1.2 %; HCT 47.7 % (39.6-50.0); HGB 16.8 g/dL (13.0-17.0); Lymphocytes # (A) 1.59 10*3/uL (0.90-5.00); Lymphocytes % (A) 17.7 %; MCHC 35.2 g/dL (32.0-37.0); MCV 85.2 fL (80.0-97.0); Mean Platelet Volume 9.1 fL (9.5-12.2); Monocytes # (A) 0.61 10*3/uL (0.20-1.00); Monocytes % (A) 6.8 %; Neutrophils # (A) 6.61 10*3/uL (1.80-7.70); Neutrophils % (A) 73.8 %; Platelet Count 171 10*3/uL (140-440); WBC 8.97 10*3/uL (4.50-10.00)
[2024-09-14 07:33] LABS: African American GFR (CKD) 75 (>60 ml/min/1.73 sqM); Anion Gap 6 mmol/L; Blood Urea Nitrogen 18 mg/dL (9-20); Calcium 9.2 mg/dL (8.4-10.2); Carbon Dioxide 28 mmol/L (22-30); Chloride 103 mmol/L (98-107); Glucose 123 mg/dL (74-99); Non-African American GFR(CKD) 65 (>60 ml/min/1.73 sqM); Sodium 137 mmol/L (137-145)
[2024-09-14] MEDS ORDERED: ASPIRIN 325 MG TAB PO SCH (09:00)
[2024-09-14 09:36] VITALS: BP 121/74; PULSE 54; RESP 17; TEMP 98
[2024-09-14] MEDS: EZETIMIBE 10 MG TAB PO SCH (09:54)
[2024-09-14] MEDS: amLODIPine 5 MG TAB PO SCH (09:55)
[2024-09-14] MEDS: ASPIRIN 81 MG PO SCH (09:55)
[2024-09-14 10:36] LABS: Chol/HDL Ratio 2.85 Ratio; LDL Cholesterol,Calculated 58.7 mg/dL (0.0-131.0)
--- NOTE | 2024-09-14 10:44 | P.CRDCN ---
History of Present Illness History of present illness: HISTORY OF PRESENT ILLNESS: This is a 54-year-old male with a past medical history significant for coronary artery disease with previous stenting and CABG, hypertension, hyperlipidemia, a nd obesity. Patient follows in the office with Dr. Paredes. We have been asked to see the patient in consultation for chest pain. Patient examined at the bedside. Patient underwent cardiac catheterization with Dr. Paredes on 09/09/2024 with stenting of the mid left circumflex. Patient states yesterday when he woke up he had pain in between his shoulder blades. He denied having any chest pain. He states the pain lasted all day until he got to the hospital. He states he has not had any further episodes of pain in between his shoulder blades overnight or this morning. Vital signs are stable. DIAGNOSTICS: - EKG reveals sinus bradycardia with right bundle branch block. - Chest xray possible mild pulmonary vascular congestion. Otherwise no acute process seen.. - Laboratory data: WBC 8.97. Hemoglobin 16.8. Platelet count 171. Sodium 137. Potassium 4.0. BUN 18. Creatinine 1.25. Magnesium 1.6. Troponin negative x 3. - Current home cardiac medications include aspirin 81 mg daily, Lipitor 40 mg daily, Plavix 75 mg daily, Imdur 30 mg at night, metoprolol tartrate 25 mg twice a day, Ranexa 500 mg twice a day, amlodipine 5 mg daily. - Most recent echocardiogram obtained in June 2024 revealed ejection fraction 55 to 60%, mild concentric LVH, mild mitral and tricuspid regurgitation REVIEW OF SYSTEMS: At the time of my exam: CONSTITUTIONAL: Denies fever or chills. HEENT: Denies blurred vision, vision changes, or eye pain. Denies hemoptysis CARDIOVASCULAR: Denies chest pain. Denies orthopnea. Denies PND. Denies palpitations RESPIRATORY: Denies shortness of breath. GASTROINTESTINAL: Denies abdominal pain. Denies nausea or vomiting. HEMATOLOGIC: Denies bleeding disorders. GENITOURINARY: Denies any blood in urine. SKIN: Denies pruitis. Denies rash. PHYSICAL EXAM: VITAL SIGNS: Reviewed. GENERAL: Well-developed in no acute distress. HEENT: Head is normocephalic. Pupils are equal, round. Sclerae anicteric. Mucous membranes of the mouth are moist. Neck supple. No JVD or thyromegaly LUNGS: Respirations even and unlabored. Lungs essentially clear to auscultation bilaterally. HEART: Regular rate and rhythm. S1 and S2 heard. ABDOMEN: Soft. Nondistended. Nontender. EXTREMITIES: Normal range of motion. No clubbing or cyanosis. Peripheral pulses intact. No lower extremity edema NEUROLOGIC: Awake and alert. Oriented x 3. ASSESSMENT: Pain in between shoulder blades without chest pain or pressure, troponin negative x 3, ACS ruled out Coronary artery disease with previous four-vessel CABG in 2020 and subsequent stenting, most recent to circumflex on 09/09/2024 Hypertension Hyperlipidemia Obesity: BMI 31.4 PLAN: An acute coronary event has been ruled out Resume home cardiac medications No need to repeat echocardiogram Add Zetia 10 mg daily Patient may be discharged home today from a cardiac standpoint follow-up in the office with Dr. Paredes We will sign off. Please reconsult if needed. Nurse practitioner note has been reviewed by physician. Signing provider agrees with the documented findings, assessment, and plan of care documented by SOFTWARE QUALITY SPECIALIST as a scribe. Past Medical History Past Medical History: Coronary Artery Disease (CAD), Hyperlipidemia, Hypertension, Prostate Disorder Additional Past Medical History / Comment(s): chest pain intermittently since June 2024, cervical problems C-5 thru C-7, BPH History of Any Multi-Drug Resistant Organisms: None Reported Past Surgical History: Coronary Bypass/CABG, Heart Catheterization Additional Past Surgical History / Comment(s): 4 vessel CABG, "nicked aorta" and needed rescusitation Past Anesthesia/Blood Transfusion Reactions: No Reported Reaction Additional Past Anesthesia/Blood Transfusion Reaction / Comment(s): no family problems w/anesthesia, pt. has never had anesthesia Past Psychological History: No Psychological Hx Reported Smoking Status: Former smoker Past Alcohol Use History: Rare Additional Past Alcohol Use History / Comment(s): quit smoking 1994, only smoked for a year or 2. 1 drink/ 1-2 weeks Past Drug Use History: None Reported - Past Family History Father Family Medical History: Cancer Medications and Allergies Home Medications Medication Instructions Recorded Confirmed Type Aspirin 81 mg PO DAILY 09/14/20 09/13/24 History Atorvastatin [Lipitor] 40 mg PO DAILY #30 tab 09/29/20 09/13/24 Rx Tamsulosin [Flomax] 0.4 mg PO DAILY 07/12/24 09/13/24 History Clopidogrel [Plavix] 75 mg PO DAILY #90 tablet 09/09/24 09/13/24 Rx Metoprolol Tartrate [Lopressor] 25 mg PO BID 09/09/24 09/13/24 History Ranolazine [Ranexa] 500 mg PO BID 09/09/24 09/13/24 History Isosorbide Mononitrate ER [Imdur] 30 mg PO HS 09/13/24 09/13/24 History Nitroglycerin Sl Tabs [Nitrostat] 0.4 mg SL Q5M PRN 09/13/24 09/13/24 History amLODIPine [Norvasc] 5 mg PO DAILY 09/13/24 09/13/24 History Allergies Allergy/AdvReac Type Severity Reaction Status Date / Time lisinopril AdvReac Cough Verified 09/13/24 09:39 Physical Exam Vitals: Vital Signs Temp Pulse Pulse Resp BP BP Pulse Ox 09/14/24 07:00 98.0 F 54 L 17 121/74 97 09/14/24 01:12 98.3 F 62 16 109/66 97 09/13/24 19:21 97.7 F 59 L 18 134/79 98 09/13/24 16:35 98.0 F 57 L 17 151/83 97 09/13/24 16:21 60 16 136/92 98 09/13/24 14:00 62 16 139/92 96 09/13/24 13:00 60 16 106/64 98 09/13/24 12:00 60 16 130/60 98 09/13/24 11:00 55 L 16 140/68 98 Intake and Output 09/13/24 09/14/24 09/14/24 22:59 06:59 14:59 Intake Total 0 Balance 0 Intake: Oral 0 Other: Voiding Method Toilet # Voids 1 2 Weight 99.337 kg Results 09/14/24 06:51 09/14/24 06:51 Cardiac Enzymes 09/13/24 Range/Units 12:27 Troponin I <0.012 (0.000-0.034) ng/mL Lipids 09/14/24 Range/Units 06:51 Triglycerides 122.00 (0.00-149.00) mg/dL Cholesterol 128.00 (0.00-200.00) mg/dL HDL Cholesterol 44.90 (40.00-60.00) mg/dL Cholesterol/HDL Ratio 2.85 Ratio CBC 09/14/24 Range/Units 06:51 WBC 8.97 (4.50-10.00) 10*3/uL RBC 5.60 (4.40-5.60) 10*6/uL Hgb 16.8 (13.0-17.0) g/dL Hct 47.7 (39.6-50.0) % Plt Count 171 (140-440) 10*3/uL Comprehensive Metabolic Panel 09/14/24 Range/Units 06:51 Sodium 137 (137-145) mmol/L Potassium 4.0 (3.5-5.1) mmol/L Chloride 103 (98-107) mmol/L Carbon Dioxide 28 (22-30) mmol/L BUN 18 (9-20) mg/dL Creatinine 1.25 (0.66-1.25) mg/dL Glucose 123 H (74-99) mg/dL Calcium 9.2 (8.4-10.2) mg/dL Current Medications Generic Name Dose Route Start Last Admin Trade Name Freq PRN Reason Stop Dose Admin Acetaminophen 650 mg 09/13/24 22:31 09/13/24 22:44 Acetaminophen Tab 325 Mg Tab PO 650 mg Q6HR PRN Administration Fever and/ or Pain Amlodipine Besylate 5 mg 09/14/24 09:00 09/14/24 09:55 Amlodipine 5 Mg Tab PO 5 mg DAILY NITZA Administration Aspirin 81 mg 09/14/24 09:00 09/14/24 09:55 Aspirin 81 Mg PO 81 mg DAILY NITZA Administration Atorvastatin Calcium 40 mg 09/13/24 14:15 09/14/24 09:55 Atorvastatin 40 Mg Tab PO 40 mg DAILY NITZA Administration Clopidogrel Bisulfate 75 mg 09/13/24 14:15 09/14/24 09:55 Clopidogrel 75 Mg Tab PO 75 mg DAILY NITZA Administration Ezetimibe 10 mg 09/14/24 09:00 09/14/24 09:54 Ezetimibe 10 Mg Tab PO 10 mg DAILY NITZA Administration Isosorbide Mononitrate 30 mg 09/13/24 21:00 09/13/24 22:04 Isosorbide Mononitrate Er 30 Mg Tab.Er.24h PO 30 mg HS NITZA Administration Metoprolol Tartrate 25 mg 09/13/24 21:00 09/14/24 09:55 Metoprolol Tartrate 25 Mg Tab PO 25 mg BID NITZA Administration Nitroglycerin 0.4 mg 09/13/24 09:09 Nitroglycerin Sl Tabs 0.4 Mg Tab SUBLINGUAL Q5M PRN Chest Pain Ranolazine 500 mg 09/13/24 21:00 09/14/24 09:54 Ranolazine 500 Mg Tab.Er.12h PO 500 mg BID NITZA Administration Tamsulosin HCl 0.4 mg 09/13/24 14:15 09/14/24 09:54 Tamsulosin 0.4 Mg Cap.Er.24h PO 0.4 mg DAILY NITZA Administration Intake and Output 09/13/24 09/14/24 09/14/24 22:59 06:59 14:59 Intake Total 0 Balance 0 Intake: Oral 0 Other: Voiding Method Toilet # Voids 1 2 Weight 99.337 kg 09/14/24 06:51 09/14/24 06:51
--- NOTE | 2024-09-18 12:30 | P.DS ---
Providers Date of admission: 09/13/24 08:06 Expected date of discharge: 09/14/24 Attending physician: Mikala Hancock Primary care physician: Kimberli Mendoza Hospital Course: Final diagnosis Chest pain and back pain, intrascapular pain, possible unstable angina, ACS ruled out Recent coronary artery disease with stenting, has follow-up appointment with Dr. Paredes in the clinic and instructed to keep Elevated white blood count, likely reactive Hypertension Hyperlipidemia History of previous CABG Obesity with a BMI of 31.4 GI prophylaxis DVT prophylaxis Full code Discharge disposition Patient is being discharged in a stable condition with guarded prognosis to home. Patient will follow-up with Dr. Mendoza in the outpatient setting upon discharge. Patient is to continue with current medications and close outpatient follow-up with cardiology as scheduled. Total time taken is greater than 35 minutes. Hospital course This is a 54-year-old male who was recently admitted with chest pain noted to have subscapular chest pain that had been radiating and becoming worse by family for further evaluation. Patient recently underwent with cardiology for history of coronary artery disease with CABG. Patient was evaluated by cardiology m berta adjustments to medications recommending outpatient follow-up that is scheduled and clearing the patient for discharge. Patient with no current pain noted would like to go home today. Please refer to cardiology consultation notes for further HPI. Currently no reports of chest pain, shortness of breath, or palpitations. Patient is afebrile. No reports of nausea or vomiting and patient is tolerating diet. Patient will be discharged home. Guarded prognosis. Physical exam: Gen: This is a 54-year-old male who is awake, alert and oriented x 3, well- developed, obese HEENT: Head is atraumatic, normocephalic. Pupils equal, round. Sclerae is anicteric. NECK: Supple. No JVD. No lymphadenopathy. No thyromegaly. LUNGS: Diminished breath sounds bilaterally otherwise clear to auscultation. No wheezes or rhonchi. No intercostal retractions. HEART: S1, S2 are muffled ABDOMEN: Soft. Bowel sounds are present. No masses. No tenderness. EXTREMITIES: No pedal edema. No calf tenderness. NEUROLOGICAL: Patient is awake, alert and oriented x3. Cranial nerves 2 through 12 are grossly intact. Please refer to medication reconciliation sheet for a list of medications. The impression and plan of care has been dictated by Eloise Au, Nurse Practitioner as directed. Dr. Santi MD I have performed a history and examination and MDM of this patient, discussed the same with the dictator, and agree with the dictator's assessment and plan as written ,documented as a scribe. Based on total visit time, I have performed more than 50% of the visit. Patient Condition at Discharge: Fair Plan - Discharge Summary New Discharge Prescriptions: New Acetaminophen Tab [Tylenol] 650 mg PO Q6HR PRN tab PRN Reason: Fever And/ Or Pain Ezetimibe [Zetia] 10 mg PO DAILY #30 tab Continue Atorvastatin [Lipitor] 40 mg PO DAILY #30 tab Tamsulosin [Flomax] 0.4 mg PO DAILY Metoprolol Tartrate [Lopressor] 25 mg PO BID Clopidogrel [Plavix] 75 mg PO DAILY #90 tablet Nitroglycerin Sl Tabs [Nitrostat] 0.4 mg SL Q5M PRN PRN Reason: Chest Pain Aspirin 81 mg PO DAILY Ranolazine [Ranexa] 500 mg PO BID amLODIPine [Norvasc] 5 mg PO DAILY Isosorbide Mononitrate ER [Imdur] 30 mg PO HS Discharge Medication List Aspirin 81 mg PO DAILY 09/14/20 [History] Atorvastatin [Lipitor] 40 mg PO DAILY #30 tab 09/29/20 [Rx] Tamsulosin [Flomax] 0.4 mg PO DAILY 07/12/24 [History] Clopidogrel [Plavix] 75 mg PO DAILY #90 tablet 09/09/24 [Rx] Metoprolol Tartrate [Lopressor] 25 mg PO BID 09/09/24 [History] Ranolazine [Ranexa] 500 mg PO BID 09/09/24 [History] Isosorbide Mononitrate ER [Imdur] 30 mg PO HS 09/13/24 [History] Nitroglycerin Sl Tabs [Nitrostat] 0.4 mg SL Q5M PRN 09/13/24 [History] amLODIPine [Norvasc] 5 mg PO DAILY 09/13/24 [History] Acetaminophen Tab [Tylenol] 650 mg PO Q6HR PRN tab 09/14/24 [Rx] Ezetimibe [Zetia] 10 mg PO DAILY #30 tab 09/14/24 [Rx] Follow up Appointment(s)/Referral(s): Kimberli Mendoza DO [Primary Care Provider] - 1-2 days Marianela Paredes MD [STAFF PHYSICIAN] - 1-2 Days (Keep your scheduled appointment with Dr. Paredes on ) Patient Instructions/Handouts: Chest Pain (DC) Activity/Diet/Wound Care/Special Instructions: Activity limited until follow-up Follow-up with primary care provider on discharge Follow-up with community recreation programmer at your scheduled appointment on Continue taking medications as prescribed Discharge Disposition: HOME SELF-CARE
== END 2024-09-14 14:40 | disposition home or self-care (01) ==
LOC: EC 07:44 → 6NMEDSUR 08:06 → 1SOBS 14:57
PROVIDERS: ADMIT Hospitalist; ATTEND Hospitalist
DX: R07.9 Chest pain, unspecified (principal); M54.9 Dorsalgia, unspecified; D72.829 Elevated white blood cell count, unspecified; I10 Essential (primary) hypertension; E78.5 Hyperlipidemia, unspecified; I25.10 Atherosclerotic heart disease of native coronary artery without angina pectoris; N40.0 Benign prostatic hyperplasia without lower urinary tract symptoms; E66.9 Obesity, unspecified; Z68.31 Body mass index [BMI] 31.0-31.9, adult; Z87.891 Personal history of nicotine dependence; Z95.5 Presence of coronary angioplasty implant and graft; Z79.02 Long term (current) use of antithrombotics/antiplatelets; Z79.82 Long term (current) use of aspirin; Z79.899 Other long term (current) drug therapy
CPT/HCPCS: 99285; 36415; 93005; 83880; 80061; 80053; 80048; 83735; 84484; 85025 ×2; 85610; 85730; 71046; G0378 ×2